=== PATIENT | female | born 1960 | race Caucasian/White ===

== ENCOUNTER → 2023-04-13 12:32 | Outpatient (BNVA) | payer OTHER, SELFPAY | PROVIDERS: PCP Family Medicine; Visit Provider Nurse Practitioner Family | DX: G62.9 Polyneuropathy, unspecified (principal); R09.89 Other specified symptoms and signs involving the circulatory and respiratory systems; R73.9 Hyperglycemia, unspecified; E03.9 Hypothyroidism, unspecified; M06.9 Rheumatoid arthritis, unspecified | CPT/HCPCS: 80053; 80061; 82306; 82607; 83036; 83735; 84439; 84443; 85025 ==

== ENCOUNTER 2023-04-28 12:36 | Outpatient (CLI) | payer OTHER, SELFPAY ==
--- NOTE | 2023-04-28 13:00 | US_ITS ---
WS: [id number] ULTRASOUND SOFT TISSUES inferior RIGHT neck. HISTORY: R22.1 - Localized swelling, mass and lump, neck COMPARISON: None available. TECHNIQUE: 2-D and color Doppler imaging is submitted. Patient directed ultrasound to the area of concern along the RIGHT supraclavicular region. There is n o underlying mass identified. No change in the echogenicity. IMPRESSION: Negative ultrasound RIGHT supraclavicular region.
--- NOTE | 2023-04-28 13:30 | USCV_ITS ---
Suzanne Ureña Age: 63 Gender: F : 1960 Exam Date: 04/28/2023 12:58 Ordering Phys: Rupa Norwood LAND RECLAMATION SPECIALIST LAND RECLAMATION SPECIALIST Technologist: KRISTIN Exam Location: [facility] – [place] Indication: Lt Bruit Risk Factors: Previous Vascular Surgery: Right Brachial BP: / Left Brachial BP: / Right Left Velocity (cm/s) Spectral Plaque Velocity (cm/s) Spectral Plaque Syst/Diast Broadening Syst/Diast Broadening 84.30/ 15.60 Prox CCA 74.30 / 20.50 87.10/ 18.70 Mid CCA 85.50 / 25.10 70.10/ 19.70 Distal CCA 80.00 / 26.70 54.10/ 17.30 Prox ICA 119.60/ 31.60 85.40/ 34.20 Mid ICA 123.60/ 44.70 81.00/ 27.00 Distal ICA 85.40 / 18.40 97.40 ECA 90.75 0.98 ICA/CCA 1.45 Antegrade Vertebral Antegrade 55.90/ 17.10 cm/s 55.50/ 17.10 cm/s Tri Subclavian Tri 191.1 156.3 0 0 FINDINGS Comparison: none available. No significant elevation of systolic or diastolic velocities. Waveforms are normal. No significant amount of calcified plaque or intimal thickening identified. CONCLUSIONS Normal carotid doppler ultrasound. Dr. Sunni Marks DO (Electronically Signed) Final Date: 28 April 2023 14:03 S
== END 2023-04-28 12:37 | disposition home or self-care (01) ==
LOC: RAD 12:36
PROVIDERS: PCP Family Medicine; Visit Provider Nurse Practitioner Family
DX: R22.1 Localized swelling, mass and lump, neck (principal); R09.89 Other specified symptoms and signs involving the circulatory and respiratory systems
CPT/HCPCS: 76536; 93880

== ENCOUNTER → 2023-09-06 11:56 | Outpatient (BNVA) | payer OTHER, SELFPAY | PROVIDERS: PCP Family Medicine; Visit Provider Internal Medicine Rheumatology | DX: Z79.899 Other long term (current) drug therapy (principal); M19.90 Unspecified osteoarthritis, unspecified site; Z11.59 Encounter for screening for other viral diseases; M45.6 Ankylosing spondylitis lumbar region; Z11.1 Encounter for screening for respiratory tuberculosis | CPT/HCPCS: 36415; 73130; 73630; 80076; 82306; 82565; 85025; 85651; 86140; 86200; 86431; 86480; 86704; 86803; 86812; 87340 ==

== ENCOUNTER 2023-10-06 16:23 | Inpatient (IN) | payer OTHER, SELFPAY ==
[2023-10-06] VITALS (9 sets, daily range): BP systolic 140–180; BP diastolic 93–127; PULSE 82–107; RESP 17–21; TEMP 36.7; O2SAT 96–98
--- NOTE | 2023-10-06 16:30 | XRR_ITS ---
PROCEDURE INFORMATION: Exam: XR Chest Exam date and time: 10/06/2023 4:42 PM Age: 63 years old Clinical indication: Pain; Angina pectoris; Additional info: Chest pain TECHNIQUE: Imaging protocol: Radiologic exam of the chest. Views: 1 view. COMPARISON: No relevant prior studies available. FINDINGS: Lungs: No focal consolidation. Pleural spaces: No evidence of pneumothorax. No evidence of pleural effusion. Heart/Mediastinum: Cardiomediastinal silhouette is within normal limits. Bones/joints: No evidence of acute osseous abnormality. XR/XR chest 1V portable [id number] IMPRESSION: 1. No acute cardiopulmonary abnormality.
--- NOTE | 2023-10-06 16:38 | ECG_ITS ---
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 Measurements Intervals [place] Rate: 85 P: 264 MO: 99 QRS: 36 QRSD: 82 T: 39 QT: 398 QTc: 475 Interpretive Statements ECTOPIC ATRIAL RHYTHM No previous ECG available for comparison Electronically Signed On 10-06-2023 22:48:25 CDT by Derik Meraz M.D. [id number]
--- NOTE | 2023-10-06 16:54 | ED_ITS ---
Documented by User: Al Price DO 10/07/23 07:46 HPI - Chest Pain 2 General: Chief Complaint: Chest Pain Stated Complaint: Chest pain, Dizziness Time Seen by Provider: 10/06/23 16:30 Source: patient Mode of arrival: ambulatory History of Present Illness: 63-year-old female presents emergency ro om with complaint of chest pain. She has a history of coronary disease she was out 2 weeks of yard work began to have chest discomfort radiated to her neck and into her back she says it similar to what she had before she did take aspirin and 2 sublingual nitro with no relief of her symptoms. Patient reports she had an IA 1 year ago with a stent placement. She states this feels similar to what she has had before. She is from [place] she has not established with a physician here. MD complaint: chest pain Pertinent past history: coronary artery disease Onset (ago): minute(s) Timing of current episode: episodic Onset: during exertion Pain location: left chest Pain radiation: back and neck Severity: moderate Quality: tightness Relieving factors: nothing Exacerbating factors: nothing Associated symptoms: Deny abdominal pain, diaphoresis, dyspnea, fever(s), leg edema, nausea, palpitations, sense of impending doom, syncope or vomiting Treatment prior to arrival: aspirin and nitroglycerin Risk Factors: Coronary artery disease risk factors: smoking history Review of Systems 2 Const: Denies: fever(s) or diaphoresis Card: Reports: chest pain; Denies: palpitations, edema, swelling of feet/ankles or syncope Resp: Denies: dyspnea GI: Denies: abdominal pain, nausea or vomiting : Denies: dysuria, urinary frequency or urinary urgency Musc: Denies: neck pain or back pain Skin/Breast: Denies: rash PFSH ED 2 PFSH: Medical History Immunization counseling High risk medication use Seronegative rheumatoid arthritis of both hands Hyperlipidemia Alcohol abuse Depression Neuropathy Facet arthritis of lumbar region Hypothyroid Rheumatoid arthritis Surgical History History of cholecystectomy H/O Spinal surgery S/P tonsillectomy H/O bladder repair surgery Family History Mother Rheumatoid arthritis Hypertension Social History Smoking and tobacco/nicotine status: current every day tobacco/nicotine user cigarettes Second hand smoke exposure: No Alcohol intake: current Alcohol intake frequency: 3 or more drinks per day Alcohol type: hard liquor Substance/Drug Use: current Substance/Drug use frequency: daily Physical Exam 2 Const: COMMON NORMALS: no acute distress GENERAL APPEARANCE: cooperative and comfortable ORIENTATION/CONSCIOUSNESS: Yes awake, Yes oriented to person, Yes oriented to place and Yes oriented to time HENMT: COMMON NORMALS: normocephalic, atraumatic and hearing grossly normal bilaterally HEAD & SCALP: normocephalic and atraumatic Resp: COMMON NORMALS: normal respiratory effort, No retractions, No use of accessory muscles and clear to auscultation bilaterally AUSCULTATION: clear to auscultation bilaterally Cardio: COMMON NORMALS: regular rate, regular rhythm and No murmurs present (Cardio) RATE: regular rate RHYTHM: regular rhythm GI: COMMON NORMALS: Soft to palpation and No hepatosplenomegaly present A USCULTATION: Yes normoactive bowel sounds PALPATION: Yes Soft to palpation, No Tenderness to palpation present (GI), No Guarding due to palpation present (GI) and Yes No hepatosplenomegaly present Extremity: COMMON NORMALS: normal to inspection, capillary refill normal, no clubbing, cyanosis or edema, no calf tenderness and no pedal edema Neuro: SENSORIUM/ORIENTATION: Yes oriented to person, Yes oriented to place and Yes oriented to time Skin: COMMON NORMALS: no rashes or lesions noted GENERAL SKIN EXAM: no rashes or lesions noted Course 2 Vital Signs: Vital signs: Vital Signs Temperature 98.1 F 10/07/23 07:28 Pulse Rate 74 10/07/23 07:28 Respiratory Rate 16 10/07/23 07:28 Blood Pressure 149/86 10/07/23 07:28 Pulse Oximetry 95 10/07/23 07:28 Oxygen Delivery Me thod Room Air 10/07/23 07:28 MDM - Chest Pain Medical Decision Making Patient with known cardiac history and history of stenting presents with complaints of onset of chest pain with exertion is completely resolved by the time she arrives here EKG did not show acute ST elevation. Initial troponin of 45. We do not have any past medical history on the patient she has an old EKG that she hand carries with her that shows Q waves anteriorly from her previous IA. Second troponin is pending care signed out to Dr. Garcia at change of shift. See final notes for diagnosis and disposition. Patient presents with chest pain has since resolved having exertional chest pain today 2-hour Trope was elevated consistent with NSTEMI EKG shows no acute changes will give her Lovenox spoke to hospitalist and administrative services assistant and will admit Lab Data 10/07/23 05:43 10/07/23 05:43 Radiology Impressions Chest X-Ray 10/06/23 16:30 IMPRESSION: 1. No acute cardiopulmonary abnormality. Laboratory Results WBC 8.99 10^3/uL (3.29-11.43) 10/06/23 17:18 RBC 4.15 10^6/uL (3.85-5.65) 10/06/23 17:18 Hgb 13.20 g/dL (11.27-16.99) 10/06/23 17:18 Hct 39.2 % (36-47) 10/06/23 17:18 MCV 94.5 fl (85-98) 10/06/23 17:18 MCH 31.8 pg (27-33) 10/06/23 17:18 MCHC 33.7 g/dL (30-55) 10/06/23 17:18 RDW 12.4 % (12.1-15.1) 10/06/23 17:18 Plt Count 231 10^3/cmm (157-399) 10/06/23 17:18 MPV 11.1 fL (7.4-10.4) H 10/06/23 17:18 Neut % (Auto) 80.8 % 10/06/23 17:18 Lymph % (Auto) 13.0 % 10/06/23 17:18 Lewis % (Auto) 5.1 % 10/06/23 17:18 Eos % (Auto) 0.1 % 10/06/23 17:18 Baso % (Auto) 0.6 % 10/06/23 17:18 Neut # (Auto) 7.26 10^3/uL (1.8-7.7) 10/06/23 17:18 Lymph # (Auto) 1.2 10^3/uL (0.8-4.8) 10/06/23 17:18 Lewis # (Auto) 0.5 10^3/uL (0.2-0.9) 10/06/23 17:18 Eos # (Auto) 0.0 10^3/uL (0.0-0.8) 10/06/23 17:18 Baso # (Auto) 0.1 10^3/uL (0.0-0.1) 10/06/23 17:18 Nucleated RBC % (auto) 0 % 10/06/23 17:18 Nucleated RBCs # 0.0 /100WBC 10/06/23 17:18 Sodium 133 mmol/L (136-145) L 10/06/23 17:18 Potassium 3.4 mmol/L (3.5-5.1) L 10/06/23 17:18 Chloride 99 mmol/L (98-107) 10/06/23 17:18 Carbon Dioxide 21 mmol/L (22-29) L 10/06/23 17:18 Anion Gap 16.4 (5-19) 10/06/23 17:18 BUN 8 mg/dL (8-23) 10/06/23 17:18 Creatinine 1.0 mg/dL (0.5-0.9) H 10/06/23 17:18 GFR Calculation 56.0 mL/min (90-130) L 10/06/23 17:18 Glucose 110 mg/dL (65-115) 10/06/23 17:18 Estimat Average Glucose 94 10/06/23 17:18 Hemoglobin A1c 4.9 % (4.0-6.0) 10/06/23 17:18 Calculated Osmolality 275 mOsm/kg (285-295) L 10/06/23 17:18 Calcium 8.6 mg/dL (8.5-10.5) 10/06/23 17:18 Total Bilirubin 0.5 mg/dL (0.15-1.2) 10/06/23 17:18 AST 15 U/L (0-32) 10/06/23 17:18 ALT 7 U/L (0-33) 10/06/23 17:18 Alkaline Phosphatase 82 U/L (35-105) 10/06/23 17:18 Troponin T Baseline 45 ng/L (0-10) H 10/06/23 17:18 Troponin T 120 Minute 106.1 ng/L (0-10) H 10/06/23 19:18 Delta Troponin T 61.1 ABS# (0-10) H* 10/06/23 19:18 NT-Pro-B Natriuret Pep 413 pg/mL (0-125) H 10/06/23 17:18 Total Protein 7.0 g/dL (6.6-8.7) 10/06/23 17:18 Albumin 3.9 g/dL (3.5-5.2) 10/06/23 17:18 Globulin 3.1 g/dL (1.3-4.6) 10/06/23 17:18 Triglycerides 226 mg/dL (0-150) H 10/06/23 17:18 Cholesterol 262 mg/dL (0-200) H 10/06/23 17:18 LDL Cholesterol, Calc 165 mg/dL (50-129) H 10/06/23 17:18 HDL Cholesterol 52 mg/dL (60-100) L 10/06/23 17:18 LDL/HDL Ratio 3.17 RATIO (0.00-3.22) 10/06/23 17:18 Cholesterol/HDL Ratio 5.04 mg/dL (0.0-4.40) H 10/06/23 17:18 TSH 1.07 uIU/mL (0.27-4.20) 10/06/23 17:18 Free T4 1.62 ng/dL (0.82-1.77) 10/06/23 17:18 Free T3 2.2 PG/ML (2.0-4.4) 10/06/23 17:18 Discharge Plan Discharge Patient Disposition: Admitted As Inpatient Admit Provider: Jef Vasques Clinical Impression: Non-ST elevation IA (NSTEMI) Condition: Stable Coding Level of Care Code ED Glue Mounter Operator for Chg Fwd Documented by User: Brandon Garcia MD 05/15/24 20:43 HPI - Chest Pain 2 General: Chief Complaint: Chest Pain Stated Complaint: Chest pain, Dizziness Time Seen by Provider: 10/06/23 16:30 PFSH ED 2 PFSH: Medical History Immunization counseling High risk medication use Seronegative rheumatoid arthritis of both hands Hyperlipidemia Alcohol abuse Depression Neuropathy Facet arthritis of lumbar region Hypothyroid Rheumatoid arthritis Surgical History History of cholecystectomy H/O Spinal surgery S/P tonsillectomy H/O bladder repair surgery Family History Mother Rheumatoid arthritis Hypertension Social History Smoking and tobacco/nicotine status: current every day tobacco/nicotine user cigarettes Second hand smoke exposure: No Alcohol intake: current Alcohol intake frequency: 3 or more drinks per day Alcohol type: hard liquor Substance/Drug Use: current Substance/Drug use frequency: daily Course 2 Vital Signs: Vital signs: Vital Signs Temperature 98.1 F 10/07/23 07:28 Pulse Rate 74 10/07/23 07:28 Respiratory Rate 16 10/07/23 07:28 Blood Pressure 149/86 10/07/23 07:28 Pulse Oximetry 95 10/07/23 07:28 Oxygen Delivery Me thod Room Air 10/07/23 07:28 MDM - Chest Pain Medical Decision Making Patient presents with chest pain has since resolved having exertional chest pain today 2-hour Trope was elevated consistent with NSTEMI EKG shows no acute changes will give her Lovenox spoke to hospitalist and administrative services assistant and will admit Medical Records I reviewed the patient's medical records. Lab Data I reviewed the patient's lab results. 10/07/23 05:43 10/07/23 05:43 Radiology Impressions Chest X-Ray 10/06/23 16:30 IMPRESSION: 1. No acute cardiopulmonary abnormality. Laboratory Results WBC 8.99 10^3/uL (3.29-11.43) 10/06/23 17:18 RBC 4.15 10^6/uL (3.85-5.65) 10/06/23 17:18 Hgb 13.20 g/dL (11.27-16.99) 10/06/23 17:18 Hct 39.2 % (36-47) 10/06/23 17:18 MCV 94.5 fl (85-98) 10/06/23 17:18 MCH 31.8 pg (27-33) 10/06/23 17:18 MCHC 33.7 g/dL (30-55) 10/06/23 17:18 RDW 12.4 % (12.1-15.1) 10/06/23 17:18 Plt Count 231 10^3/cmm (157-399) 10/06/23 17:18 MPV 11.1 fL (7.4-10.4) H 10/06/23 17:18 Neut % (Auto) 80.8 % 10/06/23 17:18 Lymph % (Auto) 13.0 % 10/06/23 17:18 Lewis % (Auto) 5.1 % 10/06/23 17:18 Eos % (Auto) 0.1 % 10/06/23 17:18 Baso % (Auto) 0.6 % 10/06/23 17:18 Neut # (Auto) 7.26 10^3/uL (1.8-7.7) 10/06/23 17:18 Lymph # (Auto) 1.2 10^3/uL (0.8-4.8) 10/06/23 17:18 Lewis # (Auto) 0.5 10^3/uL (0.2-0.9) 10/06/23 17:18 Eos # (Auto) 0.0 10^3/uL (0.0-0.8) 10/06/23 17:18 Baso # (Auto) 0.1 10^3/uL (0.0-0.1) 10/06/23 17:18 Nucleated RBC % (auto) 0 % 10/06/23 17:18 Nucleated RBCs # 0.0 /100WBC 10/06/23 17:18 Sodium 133 mmol/L (136-145) L 10/06/23 17:18 Potassium 3.4 mmol/L (3.5-5.1) L 10/06/23 17:18 Chloride 99 mmol/L (98-107) 10/06/23 17:18 Carbon Dioxide 21 mmol/L (22-29) L 10/06/23 17:18 Anion Gap 16.4 (5-19) 10/06/23 17:18 BUN 8 mg/dL (8-23) 10/06/23 17:18 Creatinine 1.0 mg/dL (0.5-0.9) H 10/06/23 17:18 GFR Calculation 56.0 mL/min (90-130) L 10/06/23 17:18 Glucose 110 mg/dL (65-115) 10/06/23 17:18 Estimat Average Glucose 94 10/06/23 17:18 Hemoglobin A1c 4.9 % (4.0-6.0) 10/06/23 17:18 Calculated Osmolality 275 mOsm/kg (285-295) L 10/06/23 17:18 Calcium 8.6 mg/dL (8.5-10.5) 10/06/23 17:18 Total Bilirubin 0.5 mg/dL (0.15-1.2) 10/06/23 17:18 AST 15 U/L (0-32) 10/06/23 17:18 ALT 7 U/L (0-33) 10/06/23 17:18 Alkaline Phosphatase 82 U/L (35-105) 10/06/23 17:18 Troponin T Baseline 45 ng/L (0-10) H 10/06/23 17:18 Troponin T 120 Minute 106.1 ng/L (0-10) H 10/06/23 19:18 Delta Troponin T 61.1 ABS# (0-10) H* 10/06/23 19:18 NT-Pro-B Natriuret Pep 413 pg/mL (0-125) H 10/06/23 17:18 Total Protein 7.0 g/dL (6.6-8.7) 10/06/23 17:18 Albumin 3.9 g/dL (3.5-5.2) 10/06/23 17:18 Globulin 3.1 g/dL (1.3-4.6) 10/06/23 17:18 Triglycerides 226 mg/dL (0-150) H 10/06/23 17:18 Cholesterol 262 mg/dL (0-200) H 10/06/23 17:18 LDL Cholesterol, Calc 165 mg/dL (50-129) H 10/06/23 17:18 HDL Cholesterol 52 mg/dL (60-100) L 10/06/23 17:18 LDL/HDL Ratio 3.17 RATIO (0.00-3.22) 10/06/23 17:18 Cholesterol/HDL Ratio 5.04 mg/dL (0.0-4.40) H 10/06/23 17:18 TSH 1.07 uIU/mL (0.27-4.20) 10/06/23 17:18 Free T4 1.62 ng/dL (0.82-1.77) 10/06/23 17:18 Free T3 2.2 PG/ML (2.0-4.4) 10/06/23 17:18 All radiology interpretation(s) finalized by discharge Discharge Plan Discharge Patient Disposition: Admitted As Inpatient Admit Provider: Jef Vasques Clinical Impression: Non-ST elevation IA (NSTEMI) Condition: Stable Coding Level of Care Code ED Glue Mounter Operator for Meera Virk
[2023-10-06 17:59] LABS: Basophils # 0.1 10^3/uL (0.0-0.1); Basophils % 0.6 %; Eosinophils % 0.1 %; Hematocrit 39.2 % (36-47); Lymphocytes # 1.2 10^3/uL (0.8-4.8); Mean Corpuscular HGB Conc 33.7 g/dL (30-55); Mean Corpuscular Hemoglobin 31.8 pg (27-33); Mean Corpuscular Volume 94.5 fl (85-98); Mean Platelet Volume 11.1 fL (7.4-10.4); Monocytes # 0.5 10^3/uL (0.2-0.9); Monocytes % 5.1 %; Neutrophils # 7.26 10^3/uL (1.8-7.7); Neutrophils % 80.8 %; Nucleated Red Blood Cells % 0 %; Platelet Count 231 10^3/cmm (157-399); Red Blood Count 4.15 10^6/uL (3.85-5.65); Red Cell Distribution Width 12.4 % (12.1-15.1); White Blood Count 8.99 10^3/uL (3.29-11.43)
[2023-10-06 18:07] LABS: Troponin(5th) Baseline 45 ng/L (0-10)
[2023-10-06 18:08] LABS: Alanine Aminotransferase 7 U/L (0-33); Albumin Level 3.9 g/dL (3.5-5.2); Alkaline Phosphatase 82 U/L (35-105); Anion Gap 16.4 (5-19); Aspartate Amino Transferase 15 U/L (0-32); Blood Urea Nitrogen 8 mg/dL (8-23); Calcium 8.6 mg/dL (8.5-10.5); Carbon Dioxide 21 mmol/L (22-29); Chloride 99 mmol/L (98-107); Creatinine Clr Calc Pharmacy 57.0829; Globulin 3.1 g/dL (1.3-4.6); Glucose 110 mg/dL (65-115); Osmolality Calculated 275 mOsm/kg (285-295); Potassium 3.4 mmol/L (3.5-5.1); Sodium 133 mmol/L (136-145); Total Bilirubin 0.5 mg/dL (0.15-1.2)
--- NOTE | 2023-10-06 19:01 | ECG_ITS ---
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 Measurements Intervals [place] Rate: 77 P: 0 MA: 0 QRS: 36 QRSD: 87 T: 31 QT: 402 QTc: 455 Interpretive Statements ATRIAL FIBRILLATION Compared to ECG 10/06/2023 16:38:11 Junctional rhythm no longer present Electronically Signed On 10-06-2023 22:49:28 CDT by Derik Meraz M.D. [id number]
[2023-10-06 19:55] LABS: Troponin 5 2HR 106.1 ng/L (0-10); Troponin 5 2HR Delta 61.1 ABS# (0-10)
[2023-10-06] MEDS: hyDRALAzine 20 mg/mL INJ 1 mL 10 MG IVP (20:00)
[2023-10-06] MEDS: enoxaparin 80 mg/0.8 mL Syringe 70 MG SUBCUT (20:18)
--- NOTE | 2023-10-06 21:13 | P.CONIM_ITS ---
Providers/Reason For Consult 2 Consulting Physician/Specialty*: NAKIA Calderon MD/cardiology Reason for Consult*: Patient is a chest pain and elevated troponin T Requesting Physician: Dr. Vasques Attending Physician: Jef Vasques MD Primary Care Provider: Naomi Strickland MD History of Present Illness History of Present Illness Suzanne Ureña is a 63 year old female with a history of hypertension, hypothyroidism, rheumatoid arthritis, and a questionable history of myocardial infarction, is present with complaints of generalized weakness and chest pain for 2 days. She was found to have an elevated troponin T with a Significant delta at 2 hours. Cardiology consult is requested for further cardiac evaluation recommendations. This patient is a very poor historian. She has a questionable history of myocardial infarction a year ago while she was still in [place]. She did not go to the doctor right away at that time. After 4 days or so, she was seen by the primary care provider. She had some blood test and EKGs. She was subsequently seen by a laboratory analyst. She was advised for a stress test/cardiac catheterization. But because of some insurance issues, she never had these tests done. Around this time, she also was making her move to [place]. So she decided not to pursue this. She has been in this area for the last more than a year. According the patient, she has been in the process of getting her medical records from [place] and to see a laboratory analyst in this area. She has been having episodes of chest pain for the last 1 year. Her pain has been exertional most of the times. It is in the lower substernal area, occasionally radiate to the left shoulder. Usually these pains last for 5 to 10 minutes and then gradually subsides. This morning she had a pain lasting for 45 minutes or so. Intensity of the pain was moderate to severe. Pain was rating to the left shoulder and also to the left side of the neck associated with shortness of breath and sweating. She had some radiation to the left arm as well. Because of the prolonged episode of pain, EMS was contacted and she was brought to the hospital emergency room. At the time of my examination, patient is mostly pain-free. She has a history of hypertension for the last many years. Cholesterol status is not known. No history for diabetes. She smokes a pack a day for 40 years or so. Also used to drink heavily up until few years ago. Since she started taking methotrexate for the rheumatoid arthritis, she almost quit drinking. Review of Systems 2 Narrative: CONSTITUTIONAL: No fever or chills. Feeling of fatigue/tiredness for the last couple of days EYES: No blurring of vision or other visual disturbances lately. ENT: No hoarseness of voice, auditory disturbances or sore throat. CARDIOVASCULAR: As mentioned above. RESPIRATORY: No significant cough. GASTROINTESTINAL: No hematemesis or melena. GENITOURINARY: No dysuria or hematuria. INTEGUMENTARY: No skin rashes or history of skin cancer. NEURO: No transient ischemic attacks or amaurosis. PSYCHIATRIC: No history of psychosis or major depression. HEMATOLOGIC: Easy bruising because the steroids ENDOCRINE: History of hypothyroidism MUSCULOSKELETAL: History of rheumatoid arthritis ALLERGY/IMMUNOLOGY: As mentioned above. Medications/Allergies Home Medications Medication Instructions Recorded Confirmed Last Taken Type aspirin 81 mg tablet,delayed 81 mg PO DAILY 04/13/23 10/06/23 10/06/23 07:00 History release duloxetine 60 mg capsule,delayed 60 mg PO DAILY 04/13/23 10/06/23 10/06/23 History release levothyroxine 112 mcg tablet 112 mcg PO DAILY 04/13/23 10/06/23 10/06/23 History liothyronine 5 mcg tablet 5 mcg PO DAILY 04/13/23 10/06/23 10/06/23 History cholecalciferol (vitamin D3) 50 50 mcg PO DAILY 09/13/23 10/06/23 10/06/23 History mcg (2,000 unit) capsule folic acid 1 mg tablet 1 mg PO DAILY #30 tabs 09/13/23 10/06/23 10/06/23 Rx methotrexate sodium 2.5 mg tablet See Rx Instructions PO .Q7days #30 09/13/23 10/06/23 10/06/23 Rx tabs prednisone 10 mg tablet 10 mg PO DAILY inflammatory 09/15/23 10/06/23 10/06/23 Rx arthritis 30 days #30 tabs buspirone 5 mg tablet 2.5 mg PO BID 10/06/23 10/06/23 10/06/23 History Allergies Allergy/AdvReac Type Severity Reaction Status Date / Time tetracycline Allergy Severe ALGY-Anaphy Verified 09/06/23 10:55 laxis PFSH Acute 2 PFSH: Medical History Immunization counseling High risk medication use Seronegative rheumatoid arthritis of both hands Hyperlipidemia Alcohol abuse Depression Neuropathy Facet arthritis of lumbar region Hypothyroid Rheumatoid arthritis Surgical History History of cholecystectomy H/O Spinal surgery S/P tonsillectomy H/O bladder repair surgery Family History Mother Rheumatoid arthritis Hypertension Social History Smoking and tobacco/nicotine status: current every day tobacco/nicotine user cigarettes Second hand smoke exposure: No Alcohol intake: current Alcohol intake frequency: 3 or more drinks per day Alcohol type: hard liquor Substance/Drug Use: current Substance/Drug use frequency: daily Vitals/I&O/Wt Last Vital Signs Pulse 84 10/06/23 21:00 Resp 18 10/06/23 21:00 BP 159/94 10/06/23 21:00 Pulse Ox 98 10/06/23 21:00 O2 Del Method Room Air 10/06/23 20:30 Weight last 48 hrs Weight 150 lb Physical Exam 2 Narrative: GENERAL: The patient is alert and oriented times three. Not in any acute distress. HEENT: No significant pallor, icterus or lymphadenopathy.Oral cavity: There are no mucous membrane lesions. NECK: Trachea appears to be central. No masses noted. No JVD or thyromegaly appreciated. RESPIRATORY: Chest is symmetrical. No intercostals muscle retraction or any accessory muscle activation. There is no chest wall tenderness. Breath sounds are heard bilaterally. No rales or rhonchi heard. No evidence of any consolidation. BREASTS: Deferred. HEART: The heart sounds are normal. No S3 or S4. No significant murmurs. No pericardial rub ABDOMEN: No vessel pulsations or distention. No tenderness. No organomegaly appreciated. Bowel sounds are normally heard. : Deferred. RECTAL: Deferred. LYMPHATIC: No lymphadenopathy noted in the neck. EXTREMITIES: No edema or cyanosis. No clubbing. MUSCULOSKELETAL: No acute joint deformities or swelling SKIN: There are no significant rashes or ecchymosis NEUROPSYCHIATRIC: The patient is alert and oriented x3. Appears to be in a good mood. No tremors or rigidity noted. Data 10/06/23 17:18 10/06/23 17:18 Other Labs: Laboratory Last Values WBC 8.99 10^3/uL (3.29-11.43) 10/06/23 17:18 RBC 4.15 10^6/uL (3.85-5.65) 10/06/23 17:18 Hgb 13.20 g/dL (11.27-16.99) 10/06/23 17:18 Hct 39.2 % (36-47) 10/06/23 17:18 MCV 94.5 fl (85-98) 10/06/23 17:18 MCH 31.8 pg (27-33) 10/06/23 17:18 MCHC 33.7 g/dL (30-55) 10/06/23 17:18 RDW 12.4 % (12.1-15.1) 10/06/23 17:18 Plt Count 231 10^3/cmm (157-399) 10/06/23 17:18 MPV 11.1 fL (7.4-10.4) H 10/06/23 17:18 Neut % (Auto) 80.8 % 10/06/23 17:18 Lymph % (Auto) 13.0 % 10/06/23 17:18 Cottle % (Auto) 5.1 % 10/06/23 17:18 Eos % (Auto) 0.1 % 10/06/23 17:18 Baso % (Auto) 0.6 % 10/06/23 17:18 Neut # (Auto) 7.26 10^3/uL (1.8-7.7) 10/06/23 17:18 Lymph # (Auto) 1.2 10^3/uL (0.8-4.8) 10/06/23 17:18 Cottle # (Auto) 0.5 10^3/uL (0.2-0.9) 10/06/23 17:18 Eos # (Auto) 0.0 10^3/uL (0.0-0.8) 10/06/23 17:18 Baso # (Auto) 0.1 10^3/uL (0.0-0.1) 10/06/23 17:18 Nucleated RBC % (auto) 0 % 10/06/23 17:18 Nucleated RBCs # 0.0 /100WBC 10/06/23 17:18 Sodium 133 mmol/L (136-145) L 10/06/23 17:18 Potassium 3.4 mmol/L (3.5-5.1) L 10/06/23 17:18 Chloride 99 mmol/L (98-107) 10/06/23 17:18 Carbon Dioxide 21 mmol/L (22-29) L 10/06/23 17:18 Anion Gap 16.4 (5-19) 10/06/23 17:18 BUN 8 mg/dL (8-23) 10/06/23 17:18 Creatinine 1.0 mg/dL (0.5-0.9) H 10/06/23 17:18 GFR Calculation 56.0 mL/min (90-130) L 10/06/23 17:18 Glucose 110 mg/dL (65-115) 10/06/23 17:18 Calculated Osmolality 275 mOsm/kg (285-295) L 10/06/23 17:18 Calcium 8.6 mg/dL (8.5-10.5) 10/06/23 17:18 Total Bilirubin 0.5 mg/dL (0.15-1.2) 10/06/23 17:18 AST 15 U/L (0-32) 10/06/23 17:18 ALT 7 U/L (0-33) 10/06/23 17:18 Alkaline Phosphatase 82 U/L (35-105) 10/06/23 17:18 Troponin T Baseline 45 ng/L (0-10) H 10/06/23 17:18 Troponin T 120 Minute 106.1 ng/L (0-10) H 10/06/23 19:18 Delta Troponin T 61.1 ABS# (0-10) H* 10/06/23 19:18 Total Protein 7.0 g/dL (6.6-8.7) 10/06/23 17:18 Albumin 3.9 g/dL (3.5-5.2) 10/06/23 17:18 Globulin 3.1 g/dL (1.3-4.6) 10/06/23 17:18 EKG 1: My Interpretation: Ectopic atrial rhythm. Normal ST Ts. EKG 2: My Interpretation: Atrial fibrillation with a controlled ventricular response rate. A&P Assessment and plan (1) Non-ST elevation AK (NSTEMI): The patient may be treated with a subcu Lovenox. Also may be started on Plavix 300 mg p.o. now and daily, Nitropaste 1 inch every 6 hours 20 chest wall and metoprolol 25 mg p.o. twice daily. May be kept on the other medications as it is. (2) Atrial fibrillation by electrocardiogram: This seems to be new onset of atrial fibrillation. Will check her thyroid profile. Continue the anticoagulation. Echocardiogram as mentioned above. The patient is stable hemodynamically. (3) Hyperlipidemia: May go out and do a lipid profile on the blood in the lab. Patient may be started on Lipitor 40 mg p.o. now and daily. Qualifiers: Hyperlipidemia type: unspecified Qualified Code(s): E78.5 - Hyperlipidemia, unspecified (4) Hypokalemia: Hypokalemia may be corrected. (5) Hypothyroidism (acquired): Clinically euthyroid. May continue on the current medication. (6) Elevated blood pressure reading: I may start the patient on metoprolol 25 mg p.o. twice daily. Her blood pressure needs to be closely monitored. (7) History of myocardial infarction: An echocardiogram would be helpful to evaluate LV function and rule out any other pathology. Plan After reviewing the above and also based on the patient's clinical progress, further recommendations will be made. Thank you for the opportunity to evaluate this patient and make these recommendations Consult Attestations 2 Medical Necessity Statement: Patient requires continued hospital stay for close monitoring and further management Coding Level of Care Code 15702 Diagnoses Non-ST elevation AK (NSTEMI) I21.4 Atrial fibrillation by electrocardiogram I48.91 Hyperlipidemia, unspecified hyperlipidemia type E78.5 Hyperlipidemia type: unspecified Hypokalemia E87.6 Hypothyroidism (acquired) E03.9 Elevated blood pressure reading R03.0 History of myocardial infarction I25.2
--- NOTE | 2023-10-06 21:45 | USCV_ITS ---
Suzanne Ureña Age: 63 Gender: F : 1960 Exam Date: 10/06/2023 23:13 Ordering Phys: Jef Vasques MD Technologist: CATHRYN [place] [facility] [place]: NSTEMI. History of OH per patient 2022, but she denies any stenting or other intervention. BP: 150 / 93 HR: 81 Rhythm: Sinus Technical Quality: Good MEASUREMENTS (Male / Female) Normal Values 2D ECHO LV Diastolic Diameter PLAX 4.7 cm 4.2 - 5.9 / 3.9 - 5.3 cm IVS Diastolic Thickness 1.0 cm 0.6 - 1.0 / 0.6 - 0.9 cm IVS Systolic Thickness 1.8 cm LVPW Diastolic Thickness 1.4 cm 0.6 - 1.0 / 0.6 - 0.9 cm LVPW Systolic Thickness 1.4 cm LVOT Diameter 1.8 cm LV Ejection Fraction 2D Teich 64.5 % LV Ejection Fraction MOD 2C 68.2 % LV Ejection Fraction 2C AL 70.7 % LA Diameter 3.3 cm Aorta at Sinotubular Diameter 3.2 cm IVC Diameter 1.7 cm M-MODE LA Ao Ratio MM 1.2 AV Cusp Separation MM 1.5 cm DOPPLER AV Peak Velocity 133.0 cm/s LVOT Peak Velocity 93.0 cm/s AV Area Cont Eq vti 2.0 cm squared AV Area Cont Eq pk 1.8 cm squared MV Peak Velocity 120.0 cm/s MV Area PHT 4.4 cm squared Mitral E to A Ratio 0.9 TV Peak Velocity 237.5 cm/s TR Peak Velocity 252.0 cm/s TR Peak Gradient 25.4 mmHg TV Peak E Velocity 39.0 cm/s Right Atrial Pressure 3.0 mmHg Pulmonary Artery Systolic Pressu 28.4 mmHg PV Peak Velocity 101.0 cm/s FINDINGS Left Ventricle Normal left ventricular size and systolic function, EF 64%.hypokinetic basal inferior wall segment normal left ventricular wall thickness. Grade I/IV diastolic dysfunction (abnormal relaxation filling pattern), normal to mildly elevated filling pressures. Right Ventricle The right ventricle is normal in size and function. Right Atrium The right atrium is normal in size. Left Atrium Mildly increased left atrial size. Mitral Valve Mildly thickened mitral valve. Mild mitral annular calcification. Mild-moderate mitral valve regurgitation. Aortic Valve Thickened aortic valve. Tricuspid Valve Mild tricuspid valve regurgitation. Estimated pulmonary artery peak systolic pressure 28 mmHg Pulmonic Valve No gross abnormalities noted Pericardium Normal pericardium without effusion. Aorta Normal ascending aorta dimension. IVC Normal inferior vena cava. CONCLUSIONS Normal left ventricular size and systolic function, EF 64%.hypokinetic basal inferior wall segment normal left ventricular wall thickness. Grade I/IV diastolic dysfunction (abnormal relaxation filling pattern), normal to mildly elevated filling pressures. Mildly increased left atrial size. Mildly thickened mitral valve. Mild mitral annular calcification. Mild-moderate mitral valve regurgitation. Thickened aortic valve. Mild tricuspid valve regurgitation. Estimated pulmonary artery peak systolic pressure 28 mmHg. There is no pericardial effusion. There are no intracardiac masses. No similar previous studies are available for comparison Dr Landen Calderon MD FAC (Electronically Signed) Final Date: 07 Oct 2023 16:30 S
[2023-10-06] MEDS: carvedilol 3.125 mg Tablet PO (21:59)
[2023-10-06] MEDS: atorvastatin 40 mg Tablet PO (21:59)
[2023-10-06] MEDS: pantoprazole 40 mg SDV IVP (22:00)
[2023-10-06] MEDS: ondansetron 2 mg/ML SDV 2 mL 4 MG IVP (22:01)
--- NOTE | 2023-10-06 22:09 | PM.HP ---
Providers/Chief Complaint Admitting Physician: Jef Vasques MD Primary Care Provider: Naomi Strickland MD Chief Complaint: Chest pain, Dizziness History of Present Illness Suzanne Ureña is a 63 year old female with a past medical history of hypothyroidism, hypertension, hyperlipidemia, current smoker, history of inflammatory arthritis, history of CAD history of heart attack. Who presents [facility] for chest pain. Currently patient tells me that her chest pain is 3 out of 10 she is resting more comfortably, alert oriented x 3, following all commands, on room air, heart rates in the 80s, blood pressure 159/94. Patient tells me that a years ago she had episodes of chest pain, did not go to the emergency room, she finally went to her primary care provider who did some blood work and EKGs and told her that she had a heart attack but she was out of the window for any type of treatment. She was supposed to follow-up with a medical grade shoemaker but she never did. 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 She does report smoking cigarettes, does report marijuana use. She tells me that she is moved to [place] to be closer to her granddaughter. She tells me that today she was working on the garden, and when she exerted herself she developed severe substernal chest pain, radiated to the neck, to the back,, associate with diaphoresis, shortness of breath, no lightheadedness, no dizziness, chest pain did not improve with rest, so she called EMS, she was given nitroglycerin which improved her chest pain, initial EKG no acute ST-T wave changes, troponin 120, delta 61, hospitalist team was called for admission Review of Systems Card: Reports: chest pain Resp: Reports: dyspnea GI: Denies: abdominal pain Medications/Allergies Home Medications Medication Instructions Recorded Confirmed Last Taken Type aspirin 81 mg tablet,delayed 81 mg PO DAILY 04/13/23 10/06/23 10/06/23 07:00 History release duloxetine 60 mg capsule,delayed 60 mg PO DAILY 04/13/23 10/06/23 10/06/23 History release levothyroxine 112 mcg tablet 112 mcg PO DAILY 04/13/23 10/06/23 10/06/23 History liothyronine 5 mcg tablet 5 mcg PO DAILY 11/10/06/23 10/06/23 History cholecalciferol (vitamin D3) 50 50 mcg PO DAILY 09/13/23 10/06/23 10/06/23 History mcg (2,000 unit) capsule folic acid 1 mg tablet 1 mg PO DAILY #30 tabs 09/13/23 10/06/23 10/06/23 Rx methotrexate sodium 2.5 mg tablet See Rx Instructions PO .Q7days #30 09/13/23 10/06/23 10/06/23 Rx tabs prednisone 10 mg tablet 10 mg PO DAILY inflammatory 09/15/23 10/06/23 10/06/23 Rx arthritis 30 days #30 tabs buspirone 5 mg tablet 2.5 mg PO BID 10/06/23 10/06/23 10/06/23 History Allergies Allergy/AdvReac Type Severity Reaction Status Date / Time tetracycline Allergy Severe ALGY-Anaphy Verified 09/06/23 10:55 laxis PFSH Acute PFSH: Medical History Immunization counseling High risk medication use Seronegative rheumatoid arthritis of both hands Hyperlipidemia Alcohol abuse Depression Neuropathy Facet arthritis of lumbar region Hypothyroid Rheumatoid arthritis Surgical History History of cholecystectomy H/O Spinal surgery S/P tonsillectomy H/O bladder repair surgery Family History Mother Rheumatoid arthritis Hypertension Social History Smoking and tobacco/nicotine status: current every day tobacco/nicotine user cigarettes Second hand smoke exposure: No Alcohol intake: current Alcohol intake frequency: 3 or more drinks per day Alcohol type: hard liquor Substance/Drug Use: current Substance/Drug use frequency: daily Vitals/I&O/Wt Last Vital Signs Pulse 84 10/06/23 21:00 Resp 18 10/06/23 21:00 BP 159/94 10/06/23 21:00 Pulse Ox 98 10/06/23 21:00 O2 Del Method Room Air 10/06/23 21:19 Weight last 48 hrs Weight 71.327 kg Weight 68.039 kg Physical Exam Const: COMMON NORMALS: no acute distress and patient oriented x3 HENMT: COMMON NORMALS: normocephalic HEAD & SCALP: normocephalic Eye: COMMON NORMALS: Equal, round and reactive pupils present Neck/C-Spine: COMMON NORMALS: no JVD Lymph: LYMPHATIC: no lymphadenopathy noted Resp: COMMON NORMALS: normal respiratory effort, No retractions, No use of accessory muscles and clear to auscultation bilaterally AUSCULTATION: clear to auscultation bilaterally Cardio: COMMON NORMALS: no JVD, regular rate, regular rhythm, S1 normal heart sound present and S2 normal heart sound present RATE: regular rate RHYTHM: regular rhythm HEART SOUNDS: S1 normal heart sound present and S2 normal heart sound present GI: COMMON NORMALS: Normal to inspection, nondistended, normoactive bowel sounds present, Soft to palpation and non-tender Extremity: COMMON NORMALS: no calf tenderness and no pedal edema Neuro: COMMON NORMALS: patient oriented x3, CN's II-XII intact bilaterally and moves all extremities Psych: COMMON NORMALS: mental status grossly normal Data 10/06/23 17:18 10/06/23 17:18 A&P Assessment and plan (1) Non-ST elevation AR (NSTEMI): (2) Chest pain: (3) Hypothyroid: (4) Encounter for smoking cessation counseling: Plan Chest pain, NSTEMI ? Plan ? Cardiology has been consulted, Dr. Calderon consulted ? N.p.o. over midnight, ? Therapeutic Lovenox ? Aspirin, statin, Coreg ? Serial EKGs consult once, telemetry monitoring ? Cardiac echo ? Will consider nitroglycerin drip based on clinical progress if chest pain persist or worsens ? Full code ? Therapeutic Lovenox for DVT prophylaxis ? Smoking cessation counseling ? Lipid panel, A1c, check TSH, drug screen Attestations Medical Necessity Statement*: Patient requires hospitalization, inpatient, greater than 2 midnights, for chest pain, NSTEMI Diagnoses Non-ST elevation AR (NSTEMI) I21.4 Chest pain R07.9 Hypothyroid E03.9 Encounter for smoking cessation counseling Z71.6
[2023-10-06 22:15] LABS: Estmated Average Glucose 94; Hemoglobin A1C 4.9 % (4.0-6.0)
[2023-10-06 22:25] LABS: Chol HDL Ratio 5.04 mg/dL (0.0-4.40); Cholesterol 262 mg/dL (0-200); Free T4 Free Thyroxine 1.62 ng/dL (0.82-1.77); HDL Cholesterol 52 mg/dL (60-100); LDL Cholesterol Calculated 165 mg/dL (50-129); LDL HDL Ratio 3.17 RATIO (0.00-3.22); NT Pro B Type Natriuretic Pept 413 pg/mL (0-125); T3 Free 2.2 PG/ML (2.0-4.4); Triglycerides 226 mg/dL (0-150)
[2023-10-06] MEDS: temazepam 15 mg Capsule PO (22:25)
--- NOTE | 2023-10-06 22:31 | ECG_ITS ---
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 Measurements Intervals Trosper Rate: 77 P: 58 RI: 121 QRS: 32 QRSD: 77 T: 7 QT: 407 QTc: 461 Interpretive Statements SINUS RHYTHM SEPTAL MYOCARDIAL INFARCTION , PROBABLY OLD [40+ ms Q WAVE IN V1/V2] Compared to ECG 10/06/2023 19:01:04 Myocardial infarct finding now present Atrial fibrillation no longer present Electronically Signed On 10-08-2023 0:16:30 CDT by Landen Calderon M.D. [email or web address]
[2023-10-06] MEDS: nitroglycerin 1 gm/inch oint Pkt 1 INCH TOPICAL (23:12)
[2023-10-06] MEDS: clopidogrel 300 mg Tablet PO (23:12)
[2023-10-06 23:47] LABS: Thyroid Stimulating Hormone 1.07 uIU/mL (0.27-4.20)
[2023-10-07] VITALS (63 sets, daily range): BP systolic 91–149; BP diastolic 49–97; PULSE 67–93; RESP 16–22; TEMP 36.6–37.2; O2SAT 93–99
[2023-10-07 00:55] LABS: Troponin 5 6HR 248.4 ng/L (0-10); Troponin 5 6HR Delta 203.4 ng/L (0-12)
[2023-10-07] MEDS: nitroglycerin 1 gm/inch oint Pkt 1 INCH TOPICAL ×3 (04:09→23:30)
[2023-10-07 04:51] LABS: Amphetamines Screen Urine Negative (Negative); Barbiturates Screen Urine Negative (Negative); Benzodiazepines Screen Urine Positive (Negative); Cocaine Screen Urine Negative (Negative); Opiate Screen Urine Negative (Negative); PCP Screen Urine Negative (Negative); THC Screen Urine Positive (Negative)
[2023-10-07 05:06] LABS: Add Urine Culture? Yes; Add Urine Microscopic? YES; Bacteria Urine 4+ /hpf; Bilirubin Urine Neg (Negative); Blood Urine Neg (Negative); Glucose Urine UA Norm (Normal); Ketones Urine Negative (Negative); Leukocyte Esterase Urine Trace (Negative); Nitrate Urine Positive (Negative); Protein Urine Neg (Negative); RBC Urine 0-4 /hpf (0-2); Urine Appearance Hazy (CLEAR); Urine Color Light yellow (Yellow); Urobilinogen Urine Neg (Negative); pH Urine 5 (5-7)
[2023-10-07 05:57] LABS: Basophils # 0.1 10^3/uL (0.0-0.1); Eosinophils # 0.2 10^3/uL (0.0-0.8); Eosinophils % 2.2 %; Hematocrit 38.4 % (36-47); Lymphocytes # 2.4 10^3/uL (0.8-4.8); Mean Corpuscular HGB Conc 33.9 g/dL (30-55); Mean Corpuscular Hemoglobin 32.7 pg (27-33); Mean Corpuscular Volume 96.7 fl (85-98); Mean Platelet Volume 10.3 fL (7.4-10.4); Monocytes # 0.7 10^3/uL (0.2-0.9); Monocytes % 8.8 %; Neutrophils # 4.74 10^3/uL (1.8-7.7); Neutrophils % 58.6 %; Nucleated Red Blood Cells % 0 %; Platelet Count 224 10^3/cmm (157-399); Red Blood Count 3.97 10^6/uL (3.85-5.65); Red Cell Distribution Width 12.5 % (12.1-15.1); White Blood Count 8.09 10^3/uL (3.29-11.43)
[2023-10-07 06:24] LABS: Alanine Aminotransferase 9 U/L (0-33); Albumin Level 3.6 g/dL (3.5-5.2); Alkaline Phosphatase 73 U/L (35-105); Anion Gap 12.6 (5-19); Aspartate Amino Transferase 28 U/L (0-32); Blood Urea Nitrogen 9 mg/dL (8-23); Calcium 8.5 mg/dL (8.5-10.5); Carbon Dioxide 24 mmol/L (22-29); Chloride 107 mmol/L (98-107); Creatinine Clr Calc Pharmacy 64.7082; Globulin 2.8 g/dL (1.3-4.6); Glomerular Filtration Rate 63.2 mL/min (90-130); Glucose 89 mg/dL (65-115); Magnesium 2.2 mg/dL (1.7-2.3); Osmolality Calculated 288 mOsm/kg (285-295); Phosphorus 3.5 mg/dL (2.5-4.5); Potassium 3.6 mmol/L (3.5-5.1); Sodium 140 mmol/L (136-145); Total Bilirubin 0.7 mg/dL (0.15-1.2); Total Protein 6.4 g/dL (6.6-8.7)
--- NOTE | 2023-10-07 08:04 | P.PN_ITS ---
Subjective 2 Subjective: Currently has no chest pain. Vital signs remained stable. Echocardiac revealed hypokinetic basal inferior wall segment. Overall LV ejection fraction was within normal limits. Medications: Medication Review Details: Current Medications Acetaminophen (Acetaminophen 325 Mg Tablet) 650 mg PO Q6H PRN PRN Reason: Mild/Mod Pain Or Temp >/= 101 Aspirin (Aspirin 81 Mg Ec Tablet) 81 mg PO DAILY [facility] Atorvastatin Calcium (Atorvastatin 40 Mg Tablet) 40 mg PO BEDTIME [facility] Last Admin: 10/06/23 21:59 Dose: 40 mg Buspirone HCl (Buspirone 10 Mg Tablet) 2.5 mg PO BID [facility] Carvedilol (Carvedilol 3.125 Mg Tablet) 3.125 mg PO Q12H [facility] Last Admin: 10/06/23 21:59 Dose: 3.125 mg Duloxetine HCl (Duloxetine 60 Mg Capsule) 60 mg PO DAILY [facility] Enoxaparin Sodium (Enoxaparin 80 Mg/0.8 Ml Syringe) 70 mg SUBCUT Q12H [facility] Folic Acid (Folic Acid 1 Mg Tablet) 1 mg PO DAILY [facility] Levothyroxine Sodium (Levothyroxine 112 Mcg Tablet) 112 mcg PO DAILY [facility] Morphine Sulfate (Morphine 4 Mg/Ml Sdv 1 Ml) 2 mg IVP Q4H PRN PRN Reason: SEVERE PAIN Naloxone HCl (Naloxone 0.4 Mg/Ml Sdv) 0.1 mg IVP Q2M PRN PRN Reason: OPIATERV Nitroglycerin (Nitroglycerin 1 Gm/Inch Oint Pkt) 1 inch TOPICAL Q6H [facility] Last Admin: 10/07/23 04:09 Dose: 1 inch Ondansetron HCl (Ondansetron 2 Mg/Ml Sdv 2 Ml) 4 mg IVP Q6H PRN PRN Reason: NAUSEA AND VOMITING Last Admin: 10/06/23 22:01 Dose: 4 mg Pantoprazole Sodium (Pantoprazole 40 Mg Sdv) 40 mg IVP Q24H [facility] Last Admin: 10/06/23 22:00 Dose: 40 mg Temazepam (Temazepam 15 Mg Capsule) 15 mg PO BEDTIME PRN PRN Reason: INSOMNIA Last Admin: 10/06/23 22:25 Dose: 15 mg Vitals/I&O/Wt Last Vital Signs Temp 98.1 F 10/07/23 07:28 Pulse 74 05/16/24 07:28 Resp 16 10/07/23 07:28 BP 149/86 10/07/23 07:28 Pulse Ox 95 10/07/23 07:28 O2 Del Method Room Air 10/07/23 07:28 10/06/23 10/07/23 10/07/23 22:59 06:59 14:59 Intake Total 480 / 480 Balance 480 / 480 Weight last 48 hrs Weight 157 lb Weight 157 lb 4 oz Weight 150 lb Physical Exam 2 Narrative: GENERAL: The patient is alert and oriented times three. Not in any acute distress. HEENT: No significant pallor, icterus or lymphadenopathy.Oral cavity: There are no mucous membrane lesions. NECK: Trachea appears to be central. No masses noted. No JVD or thyromegaly appreciated. RESPIRATORY: Chest is symmetrical. No intercostals muscle retraction or any accessory muscle activation. There is no chest wall tenderness. Breath sounds are heard bilaterally. No rales or rhonchi heard. No evidence of any consolidation. BREASTS: Deferred. HEART: The heart sounds are normal. No S3 or S4. No significant murmurs. No pericardial rub ABDOMEN: No vessel pulsations or distention. No tenderness. No organomegaly appreciated. Bowel sounds are normally heard. : Deferred. RECTAL: Deferred. LYMPHATIC: No lymphadenopathy noted in the neck. EXTREMITIES: No edema or cyanosis. No clubbing. MUSCULOSKELETAL: No acute joint deformities or swelling SKIN: There are no significant rashes or ecchymosis NEUROPSYCHIATRIC: The patient is alert and oriented x3. Appears to be in a good mood. No tremors or rigidity noted. Data 10/07/23 05:43 10/07/23 05:43 Other Labs: Laboratory Last Values WBC 8.09 10^3/uL (3.29-11.43) 10/07/23 05:43 RBC 3.97 10^6/uL (3.85-5.65) 10/07/23 05:43 Hgb 13.00 g/dL (11.27-16.99) 10/07/23 05:43 Hct 38.4 % (36-47) 10/07/23 05:43 MCV 96.7 fl (85-98) 10/07/23 05:43 MCH 32.7 pg (27-33) 10/07/23 05:43 MCHC 33.9 g/dL (30-55) 10/07/23 05:43 RDW 12.5 % (12.1-15.1) 10/07/23 05:43 Plt Count 224 10^3/cmm (157-399) 10/07/23 05:43 MPV 10.3 fL (7.4-10.4) 10/07/23 05:43 Neut % (Auto) 58.6 % 10/07/23 05:43 Lymph % (Auto) 29.0 % 10/07/23 05:43 Curry % (Auto) 8.8 % 10/07/23 05:43 Eos % (Auto) 2.2 % 10/07/23 05:43 Baso % (Auto) 1.0 % 10/07/23 05:43 Neut # (Auto) 4.74 10^3/uL (1.8-7.7) 10/07/23 05:43 Lymph # (Auto) 2.4 10^3/uL (0.8-4.8) 10/07/23 05:43 Curry # (Auto) 0.7 10^3/uL (0.2-0.9) 10/07/23 05:43 Eos # (Auto) 0.2 10^3/uL (0.0-0.8) 10/07/23 05:43 Baso # (Auto) 0.1 10^3/uL (0.0-0.1) 10/07/23 05:43 Nucleated RBC % (auto) 0 % 10/07/23 05:43 Nucleated RBCs # 0.0 /100WBC 10/07/23 05:43 Sodium 140 mmol/L (136-145) 10/07/23 05:43 Potassium 3.6 mmol/L (3.5-5.1) 10/07/23 05:43 Chloride 107 mmol/L (98-107) 10/07/23 05:43 Carbon Dioxide 24 mmol/L (22-29) 10/07/23 05:43 Anion Gap 12.6 (5-19) 10/07/23 05:43 BUN 9 mg/dL (8-23) 10/07/23 05:43 Creatinine 0.9 mg/dL (0.5-0.9) 10/07/23 05:43 GFR Calculation 63.2 mL/min (90-130) L 10/07/23 05:43 Glucose 89 mg/dL (65-115) 10/07/23 05:43 Estimat Average Glucose 94 10/06/23 17:18 Hemoglobin A1c 4.9 % (4.0-6.0) 10/06/23 17:18 Calculated Osmolality 288 mOsm/kg (285-295) 10/07/23 05:43 Calcium 8.5 mg/dL (8.5-10.5) 10/07/23 05:43 Phosphorus 3.5 mg/dL (2.5-4.5) 10/07/23 05:43 Magnesium 2.2 mg/dL (1.7-2.3) 10/07/23 05:43 Total Bilirubin 0.7 mg/dL (0.15-1.2) 10/07/23 05:43 AST 28 U/L (0-32) 10/07/23 05:43 ALT 9 U/L (0-33) 10/07/23 05:43 Alkaline Phosphatase 73 U/L (35-105) 10/07/23 05:43 Troponin T Baseline 45 ng/L (0-10) H 10/06/23 17:18 Troponin T 120 Minute 106.1 ng/L (0-10) H 10/06/23 19:18 Delta Troponin T 61.1 ABS# (0-10) H* 10/06/23 19:18 Troponin T Hi Sens 6Hr 248.4 ng/L (0-10) H 10/07/23 00:07 Troponin T Hi Sens 6Hr Delta 203.4 ng/L (0-12) H* 10/07/23 00:07 NT-Pro-B Natriuret Pep 413 pg/mL (0-125) H 10/06/23 17:18 Total Protein 6.4 g/dL (6.6-8.7) L 10/07/23 05:43 Albumin 3.6 g/dL (3.5-5.2) 10/07/23 05:43 Globulin 2.8 g/dL (1.3-4.6) 10/07/23 05:43 Triglycerides 226 mg/dL (0-150) H 10/06/23 17:18 Cholesterol 262 mg/dL (0-200) H 10/06/23 17:18 LDL Cholesterol, Calc 165 mg/dL (50-129) H 10/06/23 17:18 HDL Cholesterol 52 mg/dL (60-100) L 10/06/23 17:18 LDL/HDL Ratio 3.17 RATIO (0.00-3.22) 10/06/23 17:18 Cholesterol/HDL Ratio 5.04 mg/dL (0.0-4.40) H 10/06/23 17:18 TSH 1.07 uIU/mL (0.27-4.20) 10/06/23 17:18 Free T4 1.62 ng/dL (0.82-1.77) 10/06/23 17:18 Free T3 2.2 PG/ML (2.0-4.4) 10/06/23 17:18 Urine Color Light yellow (Yellow) 10/07/23 04:20 Urine Appearance Hazy (CLEAR) A 10/07/23 04:20 Urine pH 5 (5-7) 10/07/23 04:20 Ur Specific [place] 1.010 (1.005-1.030) 10/07/23 04:20 Urine Protein Neg (Negative) 10/07/23 04:20 Urine Glucose (UA) Norm (Normal) 10/07/23 04:20 Urine Ketones Negative (Negative) 10/07/23 04:20 Urine Blood Neg (Negative) 10/07/23 04:20 Urine Nitrate Positive (Negative) H 10/07/23 04:20 Urine Bilirubin Neg (Negative) 10/07/23 04:20 Urine Urobilinogen Neg mg/dL (Negative) 10/07/23 04:20 Ur Leukocyte Esterase Trace (Negative) H 10/07/23 04:20 Urine RBC 0-4 /hpf (0-2) H 10/07/23 04:20 Urine WBC 5-10 /hpf (0-5) H 10/07/23 04:20 Ur Squamous Epith Cells 5-10 /hpf (0-5) H 10/07/23 04:20 Amorphous Sediment Not Reportable 10/07/23 04:20 Urine Bacteria 4+ /hpf (NONE) H 10/07/23 04:20 Urine Opiates Screen Negative ng/mL (Negative) 10/07/23 04:20 Ur Barbiturates Screen Negative ng/mL (Negative) 10/07/23 04:20 Ur Phencyclidine Scrn Negative ng/mL (Negative) 10/07/23 04:20 Ur Amphetamines Screen Negative ng/mL (Negative) 10/07/23 04:20 U Benzodiazepines Scrn Positive ng/mL (Negative) H 10/07/23 04:20 Urine Cocaine Screen Negative ng/mL (Negative) 10/07/23 04:20 U Marijuana (THC) Screen Positive ng/mL (Negative) H 10/07/23 04:20 A&P Assessment and plan (1) Non-ST elevation AL (NSTEMI): Continue on the current medication. In view of the patient's clinical presentation and the echocardiogram findings, in order to further evaluate the coronary status, a cardiac catheterization would be appropriate. The risk and benefits were discussed. The risk of bleeding, hematoma, vascular injury, myocardial infarction, myocardial perforation, malignant cardiac arrhythmias ,CVA, renal failure and other concomitant complications were explained in detail. Patient understood this well and consented to proceed. Will go ahead and schedule the angiogram today. (2) Atrial fibrillation by electrocardiogram: This seems to be new onset of atrial fibrillation. Will check her thyroid profile. Continue the anticoagulation. Echocardiogram as mentioned above. The patient is stable hemodynamically. (3) Hyperlipidemia: May go out and do a lipid profile on the blood in the lab. Patient may be started on Lipitor 40 mg p.o. now and daily. Qualifiers: Hyperlipidemia type: unspecified Qualified Code(s): E78.5 - Hyperlipidemia, unspecified (4) Hypokalemia: The hypokalemia is currently corrected. (5) Hypothyroidism (acquired): Clinically euthyroid. May continue on the current medication. (6) Elevated blood pressure reading: Currently normotensive. May continue on the current medications. Plan Based on the angiogram findings, further recommendations will be made. May consider oral anticoagulation after the cardiac catheterization. Based on the clinical progress, further recommendations will be made Attestations 2 Medical Necessity Statement*: Patient requires continued hospital stay for close monitoring and further management Coding Level of Care Code 52266 Diagnoses Non-ST elevation AL (NSTEMI) I21.4 Atrial fibrillation by electrocardiogram I48.91 Hyperlipidemia, unspecified hyperlipidemia type E78.5 Hyperlipidemia type: unspecified Hypokalemia E87.6 Hypothyroidism (acquired) E03.9 Elevated blood pressure reading R03.0
[2023-10-07] MEDS: levothyroxine 112 mcg Tablet PO (08:44)
[2023-10-07] MEDS: aspirin 81 mg EC Tablet PO (08:44)
[2023-10-07] MEDS: BuSPIRONE 10 mg Tablet 2.5 MG PO ×2 (08:44→18:54)
[2023-10-07] MEDS: enoxaparin 80 mg/0.8 mL Syringe 70 MG SUBCUT ×2 (08:45→21:16)
[2023-10-07] MEDS: duloxetine 60 mg Capsule PO (08:45)
[2023-10-07] MEDS: carvedilol 3.125 mg Tablet PO ×2 (08:45→21:17)
[2023-10-07] MEDS: folic acid 1 mg Tablet PO (08:45)
[2023-10-07] MEDS: acetaminophen 325 mg Tablet 650 MG PO (09:04)
--- NOTE | 2023-10-07 10:44 | P.PN_ITS ---
Subjective 2 Subjective: Patient is not complaining active chest pain She did not answer my question when asked about smoking Plan for angiogram later in the afternoon Vitals/I&O/Wt Last Vital Signs Temp 98.1 F 10/07/23 08:00 Pulse 74 10/07/23 08:00 Resp 16 10/07/23 08:00 BP 149/86 10/07/23 08:00 Pulse Ox 95 10/07/23 07:28 O2 Del Method Room Air 10/07/23 07:28 10/06/23 10/07/23 10/07/23 22:59 06:59 14:59 Intake Total 480 / 480 Balance 480 / 480 Weight last 48 hrs Weight 71.214 kg Weight 71.327 kg Weight 68.039 kg Physical Exam 2 Narrative: Awake alert Euvolemic GCS 15 Nonfocal neuroexam S1, S2 Currently on room air Pleasant and cooperative No active chest pain Data 10/07/23 05:43 10/07/23 05:43 A&P Assessment and plan (1) High risk medication use: (2) Alcohol abuse: (3) Depression: (4) Non-ST elevation [place] (NSTEMI): (5) Atrial fibrillation by electrocardiogram: (6) Hypothyroid: (7) Seronegative rheumatoid arthritis of both hands: (8) Rheumatoid arthritis: Plan Non-STEMI No active chest pain Plan for angiogram today Pleasant cough Active smoker Continue ACS protocol She had a light breakfast in the morning Currently on room air Hemodynamic stable Plan for discharge likely tomorrow Full code A-fib without RVR Potassium replenished Attestations 2 Medical Necessity Statement*: Discharge likely tomorrow after angiogram Diagnoses High risk medication use Z79.899 Alcohol abuse F10.10 Depression F32.A Non-ST elevation UT (NSTEMI) I21.4 Atrial fibrillation by electrocardiogram I48.91 Hypothyroid E03.9 Seronegative rheumatoid arthritis of both hands M06.041; M06.042 Rheumatoid arthritis M06.9
--- NOTE | 2023-10-07 16:00 | XACV_ITS ---
Exam Room: [facility] Ht: 168 cm Wt: 71 kg BSA: 1.83 m2 Gender: Female : 1960 Any Known Allergies: Other Exam Priority: Routine Procedure(s): Procedure Description: Diagnostic procedure Procedure Description: Left ventriculography Procedure Description: Coronary Angiography Kvng CRUZ; Diagnostic Cath Status: Urgent Diagnostic Findings * The left main is a medium caliber vessel with minimal coronary calcification. * The left anterior descending artery is a medium caliber vessel which was found to have mild to moderate diffuse calcification in the proximal to mid segment of the artery. The proximal segment has a 40% tapering narrowing traversed the first septal exhibition specialist. The first septal exhibition specialist was found to have around 50% ostial narrowing. Right after the first septal exhibition specialist, the LAD proper was found to have 20% diffuse irregular narrowing. The first diagonal branch appears to have equal caliber as the LAD was found to have around 50 to 60% tubular narrowing proximally. The distal left anterior descending artery was found to be wrapping around the LV apex minimally. No significant stenotic lesions were noted in the distal segment of the artery.. * The left circumflex artery is a medium to large caliber dominant vessel which was found to have around 20% eccentric tubular narrowing proximally with a calcification. The first obtuse marginal branch was found an ostial around 40% narrowing. The mid circumflex artery was found to have another 20% eccentric tubular lesion. The distal artery before its trifurcation was found to have around 40% segmental narrowing. One of the trifurcation branches was found to have around 50% tubular narrowing near to the ostium. No other significant stenotic lesions were noted. The distal right coronary artery was found to have grade 2-3 [id number] collaterals from the LAD and from the circumflex artery. * The right coronary artery appears to be totally occluded proximally right after the sinus chaim branch. The sinus chaim branch also was found to have a high-grade ostial stenosis. PCI Status: Urgent Conclusions 1. This is a 63-year-old white female with history of hypertension, dyslipidemia, heavy smoking abuse, rheumatoid arthritis and a previous history of myocardial infarction?, Presents with complaints of a prolonged episode of chest pain and features suggesting a non-ST elevation myocardial infarction. Her echocardiogram revealed normal LV ejection fraction with hypokinetic basal inferior wall segment. For further evaluation of her coronary status, a cardiac catheterization was recommended. Patient underwent left heart catheterization with a left and right coronary angiogram today. The findings are as follows. 2. Mild to moderate calcification in the proximal segments of all the 3 coronary arteries. Left main with mild disease. Left anterior descending artery was found to have mild diffuse disease in the proximal and the mid segment. First diagonal branch has a 50 to 60% proximal tubular narrowing. Mild diffuse disease in the circumflex artery. Total occlusion of the right coronary artery proximally. Grade 2 [id number] collaterals filling up the PDA and the PLV branches of the right coronary artery through collaterals from the LAD and circumflex. LVEDP of 16 mmHg. 3. I reviewed and discussed the cardiac catheterization data with the Dr. Meraz. It was thought to be appropriate to consider IFR of the first diagonal lesion. Dr. Meraz did another injection into the left system with the guide catheter. The diagonal lesion was found to be around 50% or so. It was decided not to do any further evaluation at this point especially since the patient is remaining chest pain-free. We may consider doing a Myocardial perfusion imaging at a later time to see any evidence of ischemia. Diagnostic RX Recommendation: medical therapy and/or counseling LV EDP: 16 mmHg Left Ventriculography Findings: * The LV gram was not performed because of the concern of for dye overload. The LV ejection fraction was within normal limits by echocardiogram. The LVEDP was found to be 16 mmHg. Pressures Phase:Rest AO : 93 / 75 ( 84 ) @ 5:45:00 PM 125 / 65 ( 92 ) @ 5:57:00 PM 126 / 66 ( 92 ) @ 5:58:00 PM 121 / 66 ( 85 ) @ 6:08:00 PM LV : 131 / -1 / 16 @ 5:57:00 PM 130 / -2 / 16 @ 5:57:00 PM Valves Phase:DefaultPhase AV : 7.0 @ 5:20:49 PM AV Mean Gradient: 13.0 @ 5:20:49 PM Clinical Evaluation EBL: 5mL-10mL Procedural Details Procedure Consent Obtained. Pre-Procedure Time Out. Identified patient by full name and date of as verbalized by the patient/guarantor. Does the consent match the physician's order: Yes. Accurate & Complete Informed Consent: Yes. Inpatient/Outpatient History & Physical on Chart: Yes. If H&P is completed, is and addenduem needed: N/A. Visualize and Verify Site with Patient/Guarantor: N/A. Relevant Radiology Images available: Yes. The risks, benefits, and alternatives of sedation and/or procedure were discussed by physician. The patient agrees to continue. Procedure started. [facility] Clinical Fraility Score: 3: Managing Well. Churn Operator Margarine Indications: New Onset Angina. Chest Pain Symptom Assessment: Typical Angina Symptoms. Cardiovascular Instability: No. Correct patient, site and procedure confirmed by cath team. PERRLA. 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 Lungs clear x 5 lobes. IV Site on Arrival: 20 gauge in the left anticubital. IV Fluids: 0.9% NaCl at KVO. 0 mL infused prior to lab support technician. Pre Procedural Pulses: bilateral dorsalis pedis was 3+. Pre Procedural Pulses: bilateral posterior tibial was 3+. Pre Procedural Pulses: bilateral radial was 3+. Oxygen started at 2liters/min via nasal canula. right groin was prepped with chloroprep then draped in the usual sterile fashion. right radial was prepped with chloroprep then draped in the usual sterile fashion. Physician notified. Baseline sample Acquired. HR: 65 BPM. Patient's family unavailable. Equipment: 6F - Radial. Cardiac Cath Pack. ACIST Manifold Kit Model BT 2000. Heparinized Saline (2 units/mL), 1000 mL bag. Physician arrived. Physician scrubbed in. Immediate Pre-Procedure Time Out. Correct Patient: Yes; Correct Procedure: Yes; Correct Site: Yes; Correct Patient Position: Yes; Correct Supplies: Yes; Dried Flammable Prep: Yes; Blood Products Available: N/A;. Lidocaine 1% infiltrated to the right radial. Arterial access obtained. A 5 maldivian catheter in over the exchange J wire. Multiple views taken of left coronary artery. Catheter redirected to the RCA. Dr. Meraz called to view cineography. Catheter removed over the exchange J wire. A 5 maldivian JR4 catheter in over the exchange J wire. Cineography of the RCA performed. EDP Sample taken: LV 131/-2,16; HR: 76 BPM; SpO2: 96%. Catheter redirected to the LV. Pullback taken: LV 130/-3,16; AO 125/65(92); Mean: 13mmHg, Peak to Peak: 7mmHg, SEP: 9sec/min; HR: 75 BPM; SpO2: 96%. Catheter removed over the exchange J wire. Dr. Calderon scrubbed out. Dr Calderon and Dr. Meraz called to update the spouse, Gray. Dr. Meraz scrubbed in. 6 maldivian XB 3 guide catheter was inserted over the exchange J wire. Guide catheter out. Physician scrubbed out. A TR Band was successful obtaining hemostatsis at the Right Radial artery insertion site. Post Procedure: Pulses reassessed and unchanged. PERRLA. 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 No VTE prophylaxis required. Medication's Wasted: Lidocaine 1% = 17 mL. Medication's Wasted: Nitro = 49.6 mg. Medication's Wasted: Heparin = 1000 Units. Total IV fluids: 52 mL. Medication's Wasted: Other = Fentanyl 50 mcg. Post-op diagnosis: Non obstructive CAD/DESK [place]IE[place] of the RCA. Complications: none. Estimated blood loss: 5mL-10mL. Responsiveness - Normal response to verbal stimuli; alert and oriented, PERRLA. Airway - Unaffected, no intervention required; spontaneous ventilation. Circulation: W/N/L, pulses unchanged. Nausea/Vomiting: No. Vital chart was stopped. Procedure completed. Patient transferred by bed to 1st floor. Access Site Site: Right Radial artery Sheath Size: 6 Fr Hemostasis Method: TR Band Hemostasis Success: Successful Procedure Medications Start: 4:35 PM Stop: 4:35 PM Medication: Versed Amount: 1 mg Route: I.V. Start: 4:35 PM Stop: 4:35 PM Medication: Fentanyl Amount: 25 mcg Route: I.V. Start: 4:42 PM Stop: 4:42 PM Medication: Verapamil Amount: 5 mg Route: I.V. Start: 4:43 PM Stop: 4:43 PM Medication: Nitrogylcerin Amount: 200 mcg Route: I.A. Start: 4:43 PM Stop: 4:43 PM Medication: Fentanyl Amount: 25 mcg Route: I.V. Start: 4:51 PM Stop: 4:51 PM Medication: Versed Amount: 1 mg Route: I.V. Start: 5:07 PM Stop: 5:07 PM Medication: Nitrogylcerin Amount: 200 mcg Route: I.A. I, the attending physician, have reviewed and verified all procedure medications. Yes, all medications given per verbal order History/Risk Factors Hypertension: No Dyslipidemia: Yes Peripheral Arterial Disease (PAD): No Myocardial Infarction (IN): Yes Obesity: No Renal Disease: No Tobacco Use: Current/Recent(w/in 1 year) Prior Interventions PCI: Yes CABG: No Valve Surgery: No Report Signatures Finalized by Dr Landen Calderon MD [facility] on 10/09/2023 10:46 AM
[2023-10-07] MEDS: diphenhydrAMINE 50 mg Capsule PO (16:04)
--- NOTE | 2023-10-07 16:23 | W.PM.OPSUD ---
Surgery/Procedure H&P Update DATE OF PROCEDURE: October 07, 2023 DATE H&P PERFORMED: 10/06/23 H&P UPDATE INFORMATION: I have reviewed H&P completed within last 30 days, I have examined patient prior to procedure and No changes to prior documentation PREOP DIAGNOSIS: ASHD PRIMARY INDICATION FOR PROCEDURE: NSTEMI/ASHD PLANNED PROCEDURE: [facility] with coronary angiogram and possible PCI PATIENT REASSESSED PRIOR TO SEDATION, WITH NO CHANGE NOTED: Yes PHYSICAL EXAM: alert, oriented x 3, clear to auscultation bilaterally and regular rate & rhythm AIRWAY EVAL/ANESTHESIA PLAN: normal airway, see other exam findings, ASA III, Monitored Anesthesia, Local Anesthesia, Risks, benefits & alternatives of sedation and/or procedure discussed and Patient agrees to continue as planned
[2023-10-07] MEDS: pantoprazole 40 mg SDV IVP (21:16)
[2023-10-07] MEDS: atorvastatin 40 mg Tablet PO (21:17)
[2023-10-08] VITALS (7 sets, daily range): BP systolic 103–134; BP diastolic 62–80; PULSE 68–82; RESP 16–24; TEMP 36.7–37.2; O2SAT 93–97
[2023-10-08] MEDS: ondansetron 2 mg/ML SDV 2 mL 4 MG IVP (02:38)
[2023-10-08 05:17] LABS: Basophils # 0.1 10^3/uL (0.0-0.1); Basophils % 0.9 %; Eosinophils # 0.2 10^3/uL (0.0-0.8); Eosinophils % 2.4 %; Hematocrit 35.2 % (36-47); Lymphocytes # 1.9 10^3/uL (0.8-4.8); Lymphocytes % 27.5 %; Mean Platelet Volume 10.2 fL (7.4-10.4); Monocytes # 0.4 10^3/uL (0.2-0.9); Monocytes % 6.1 %; Neutrophils # 4.22 10^3/uL (1.8-7.7); Neutrophils % 62.8 %; Nucleated Red Blood Cells % 0 %; Platelet Count 205 10^3/cmm (157-399); Red Blood Count 3.63 10^6/uL (3.85-5.65); Red Cell Distribution Width 12.5 % (12.1-15.1); White Blood Count 6.72 10^3/uL (3.29-11.43)
[2023-10-08 05:37] LABS: Anion Gap 13.7 (5-19); Blood Urea Nitrogen 11 mg/dL (8-23); Calcium 8.5 mg/dL (8.5-10.5); Carbon Dioxide 22 mmol/L (22-29); Chloride 107 mmol/L (98-107); Creatinine Clr Calc Pharmacy 65.7276; Glomerular Filtration Rate 63.2 mL/min (90-130); Glucose 88 mg/dL (65-115); Osmolality Calculated 287 mOsm/kg (285-295); Potassium 3.7 mmol/L (3.5-5.1); Sodium 139 mmol/L (136-145)
[2023-10-08] MEDS: folic acid 1 mg Tablet PO (08:39)
[2023-10-08] MEDS: enoxaparin 80 mg/0.8 mL Syringe 70 MG SUBCUT (08:39)
[2023-10-08] MEDS: carvedilol 3.125 mg Tablet PO (08:39)
[2023-10-08] MEDS: BuSPIRONE 10 mg Tablet 2.5 MG PO (08:39)
[2023-10-08] MEDS: duloxetine 60 mg Capsule PO (08:40)
[2023-10-08] MEDS: aspirin 81 mg EC Tablet PO (08:40)
[2023-10-08] MEDS: levothyroxine 112 mcg Tablet PO (08:40)
--- NOTE | 2023-10-08 09:45 | PM.DCS ---
Discharge Providers Date of Admission: 10/06/23 20:33 Date of Discharge: October 08, 2023 Attending Provider at Admission: Jef Vasques MD Attending Provider at Discharge: Isaias Muñoz MD Primary Care Provider: Naomi Strickland MD Diagnoses at Discharge Discharge Diagnosis (1) Non-ST elevation [place] (NSTEMI): Status: Acute (2) Atrial fibrillation by electrocardiogram: Status: Acute (3) Hyperlipidemia: Status: Acute Qualifiers: Hyperlipidemia type: unspecified Qualified Code(s): E78.5 - Hyperlipidemia, unspecified (4) Hypokalemia: Status: Acute (5) Hypothyroidism (acquired): Status: Acute (6) Elevated blood pressure reading: Status: Acute Reason for Visit Reason for Visit: Chest pain, Dizziness Hospital Course Hospital Course 63-year-old female who was admitted for management evaluation of chest pain, she was diagnosed with non-STEMI, cardiology was consulted, patient went for coronary angiogram via right radial access showed chronic occluded right coronary vessel, moderate vessel disease left main and circumflex, Dr. Calderon decided to manage medically, no PCI was done, patient will resume her rheumatoid arthritis medications along steroids, she was diagnosed with A-fib without RVR, echo showed preserved ejection fraction. Patient is an active smoker. Willing to quit smoking. At the time of discharge patient will require Eliquis and Plavix along Coreg. Physical Exam Narrative: Pleasant cooperative Nonfocal GCS 15 Awake and alert A-fib without RVR Discharge Data Studies Completed and Pending Completed Studies During Hospitalization Category Date Time Status XR chest 1V portable [id number] Stat Exams 10/06/23 16:30 Completed CV. 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 No acute cardiopulmonary abnormality. Laboratory Results WBC 6.72 10^3/uL (3.29-11.43) 10/08/23 05:07 RBC 3.63 10^6/uL (3.85-5.65) L 10/08/23 05:07 Hgb 11.60 g/dL (11.27-16.99) 10/08/23 05:07 Hct 35.2 % (36-47) L 10/08/23 05:07 MCV 97.0 fl (85-98) 10/08/23 05:07 MCH 32.0 pg (27-33) 10/08/23 05:07 MCHC 33.0 g/dL (30-55) 10/08/23 05:07 RDW 12.5 % (12.1-15.1) 10/08/23 05:07 Plt Count 205 10^3/cmm (157-399) 10/08/23 05:07 MPV 10.2 fL (7.4-10.4) 10/08/23 05:07 Neut % (Auto) 62.8 % 10/08/23 05:07 Lymph % (Auto) 27.5 % 10/08/23 05:07 [place] % (Auto) 6.1 % 10/08/23 05:07 Eos % (Auto) 2.4 % 10/08/23 05:07 Baso % (Auto) 0.9 % 10/08/23 05:07 Neut # (Auto) 4.22 10^3/uL (1.8-7.7) 10/08/23 05:07 Lymph # (Auto) 1.9 10^3/uL (0.8-4.8) 10/08/23 05:07 [place] # (Auto) 0.4 10^3/uL (0.2-0.9) 10/08/23 05:07 Eos # (Auto) 0.2 10^3/uL (0.0-0.8) 10/08/23 05:07 Baso # (Auto) 0.1 10^3/uL (0.0-0.1) 10/08/23 05:07 Nucleated RBC % (auto) 0 % 10/08/23 05:07 Nucleated RBCs # 0.0 /100WBC 10/08/23 05:07 Sodium 139 mmol/L (136-145) 10/08/23 05:07 Potassium 3.7 mmol/L (3.5-5.1) 10/08/23 05:07 Chloride 107 mmol/L (98-107) 10/08/23 05:07 Carbon Dioxide 22 mmol/L (22-29) 10/08/23 05:07 Anion Gap 13.7 (5-19) 10/08/23 05:07 BUN 11 mg/dL (8-23) 10/08/23 05:07 Creatinine 0.9 mg/dL (0.5-0.9) 10/08/23 05:07 GFR Calculation 63.2 mL/min (90-130) L 10/08/23 05:07 Glucose 88 mg/dL (65-115) 10/08/23 05:07 Estimat Average Glucose 94 10/06/23 17:18 Hemoglobin A1c 4.9 % (4.0-6.0) 10/06/23 17:18 Calculated Osmolality 287 mOsm/kg (285-295) 10/08/23 05:07 Calcium 8.5 mg/dL (8.5-10.5) 10/08/23 05:07 Phosphorus 3.5 mg/dL (2.5-4.5) 10/07/23 05:43 Magnesium 2.2 mg/dL (1.7-2.3) 10/07/23 05:43 Total Bilirubin 0.7 mg/dL (0.15-1.2) 10/07/23 05:43 AST 28 U/L (0-32) 10/07/23 05:43 ALT 9 U/L (0-33) 10/07/23 05:43 Alkaline Phosphatase 73 U/L (35-105) 10/07/23 05:43 Troponin T Baseline 45 ng/L (0-10) H 10/06/23 17:18 Troponin T 120 Minute 106.1 ng/L (0-10) H 10/06/23 19:18 Delta Troponin T 61.1 ABS# (0-10) H* 10/06/23 19:18 Troponin T Hi Sens 6Hr 248.4 ng/L (0-10) H 10/07/23 00:07 Troponin T Hi Sens 6Hr Delta 203.4 ng/L (0-12) H* 10/07/23 00:07 NT-Pro-B Natriuret Pep 413 pg/mL (0-125) H 10/06/23 17:18 Total Protein 6.4 g/dL (6.6-8.7) L 10/07/23 05:43 Albumin 3.6 g/dL (3.5-5.2) 10/07/23 05:43 Globulin 2.8 g/dL (1.3-4.6) 10/07/23 05:43 Triglycerides 226 mg/dL (0-150) H 10/06/23 17:18 Cholesterol 262 mg/dL (0-200) H 10/06/23 17:18 LDL Cholesterol, Calc 165 mg/dL (50-129) H 10/06/23 17:18 HDL Cholesterol 52 mg/dL (60-100) L 10/06/23 17:18 LDL/HDL Ratio 3.17 RATIO (0.00-3.22) 10/06/23 17:18 Cholesterol/HDL Ratio 5.04 mg/dL (0.0-4.40) H 10/06/23 17:18 TSH 1.07 uIU/mL (0.27-4.20) 10/06/23 17:18 Free T4 1.62 ng/dL (0.82-1.77) 10/06/23 17:18 Free T3 2.2 PG/ML (2.0-4.4) 10/06/23 17:18 Urine Color Light yellow (Yellow) 10/07/23 04:20 Urine Appearance Hazy (CLEAR) A 10/07/23 04:20 Urine pH 5 (5-7) 10/07/23 04:20 Ur Specific [place] 1.010 (1.005-1.030) 10/07/23 04:20 Urine Protein Neg (Negative) 10/07/23 04:20 Urine Glucose (UA) Norm (Normal) 10/07/23 04:20 Urine Ketones Negative (Negative) 10/07/23 04:20 Urine Blood Neg (Negative) 10/07/23 04:20 Urine Nitrate Positive (Negative) H 10/07/23 04:20 Urine Bilirubin Neg (Negative) 10/07/23 04:20 Urine Urobilinogen Neg mg/dL (Negative) 10/07/23 04:20 Ur Leukocyte Esterase Trace (Negative) H 10/07/23 04:20 Urine RBC 0-4 /hpf (0-2) H 10/07/23 04:20 Urine WBC 5-10 /hpf (0-5) H 10/07/23 04:20 Ur Squamous Epith Cells 5-10 /hpf (0-5) H 10/07/23 04:20 Amorphous Sediment Not Reportable 10/07/23 04:20 Urine Bacteria 4+ /hpf (NONE) H 10/07/23 04:20 Urine Opiates Screen Negative ng/mL (Negative) 10/07/23 04:20 Ur Barbiturates Screen Negative ng/mL (Negative) 10/07/23 04:20 Ur Phencyclidine Scrn Negative ng/mL (Negative) 10/07/23 04:20 Ur Amphetamines Screen Negative ng/mL (Negative) 10/07/23 04:20 U Benzodiazepines Scrn Positive ng/mL (Negative) H 10/07/23 04:20 Urine Cocaine Screen Negative ng/mL (Negative) 10/07/23 04:20 U Marijuana (THC) Screen Positive ng/mL (Negative) H 10/07/23 04:20 Vitals Last Vital Signs Temp 98.0 F 10/08/23 07:42 Pulse 69 10/08/23 07:42 Resp 16 10/08/23 07:42 BP 134/70 10/08/23 07:42 Pulse Ox 93 10/08/23 07:42 O2 Del Method Room Air 10/08/23 07:42 Discharge Plan Discharge Patient Disposition: Home Condition: Stable Prescriptions: New atorvastatin 40 mg Tablet 40 mg PO BEDTIME Qty: 60 0RF clopidogrel [Plavix] 75 mg tablet 75 mg PO DAILY Qty: 90 4RF carvedilol 3.125 mg Tablet 3.125 mg PO Q12H Qty: 60 3RF Eliquis 5 mg tablet 5 mg PO BID Qty: 60 6RF pantoprazole [Protonix] [address] for susp in packet 40 mg PO DAILY Qty: 30 6RF Continued liothyronine 5 mcg tablet 5 mcg PO DAILY levothyroxine 112 mcg tablet 112 mcg PO DAILY duloxetine 60 mg capsule,delayed release(DR/EC) 60 mg PO DAILY methotrexate sodium 2.5 mg tablet See Rx Instructions PO .Q7days Qty: 30 5RF Rx Instructions: take 6 tabs on same day once a week PO .Q7days; folic acid 1 mg tablet 1 mg PO DAILY Qty: 30 5RF cholecalciferol (vitamin D3) 50 mcg (2,000 unit) capsule 50 mcg PO DAILY prednisone 10 mg tablet 10 mg PO DAILY 30 Days Qty: 30 3RF BuSpar 5 mg Tablet 2.5 mg PO BID Discontinued aspirin 81 mg tablet,delayed release (DR/EC) 81 mg PO DAILY Discharge Orders: Discharge Order (Routine); Ordered 10/08/23 Ordered By: Isaias Muñoz Referrals: Jesika Mcbride FNP [Nurse Practitioner] - 10/26/23 1:30 pm Naomi Strickland MD [Primary Care Provider] - 10/14/23 10:00 am Discharge Diet: Cardiac Patient Instructions: Coronary Angioplasty (DC), Opioid Safety, Post Angiogram Home Care Instructions, Post Heart Attack Stoplight Activity Restrictions/Additional Instructions: Please do not take aspirin I have changed her medication to Eliquis which is a blood thinner along Plavix which is antiplatelet You will be considered high risk for gastric ulcers I have added Protonix as well which you can take twice a day or once daily is okay as well Discharge Attestations Time Spent in Discharge Care*: greater than 30 min Quality Metrics Clinical Quality Measures [ No reported AMI, CVA or VTE this stay] Coding Level of Care Code Acute Code for [facility] Fwd Diagnoses Non-ST elevation [place] (NSTEMI) I21.4 Atrial fibrillation by electrocardiogram I48.91 Hyperlipidemia, unspecified hyperlipidemia type E78.5 Hyperlipidemia type: unspecified Hypokalemia E87.6 Hypothyroidism (acquired) E03.9 Elevated blood pressure reading R03.0
--- NOTE | 2023-10-08 10:49 | P.PN_ITS ---
Subjective 2 Subjective: Patient had a cardiac catheterization yesterday. She was found to have total occlusion of the right coronary artery with a fairly good tdem-uh-aelcy collaterals. She had a mild to moderate disease in the left anterior descending artery/diagonal. Based on the angiographic findings, it was opted to treat her medically. Patient is remaining pain-free. No new symptoms. Medications: Medication Review Details: Current Medications Acetaminophen (Acetaminophen 325 Mg Tablet) 650 mg PO Q6H PRN PRN Reason: Mild/Mod Pain Or Temp >/= 101 Last Admin: 10/07/23 09:04 Dose: 650 mg Al Hydrox/Mg Hydrox/Simethicone (Ukjn-Kez-Qcoeyvflx-Bonnie 30 Ml Udc) 30 ml PO Q15M PRN PRN Reason: INDIGESTION Aspirin (Aspirin 81 Mg Ec Tablet) 81 mg PO DAILY [facility] Last Admin: 10/08/23 08:40 Dose: 81 mg Atorvastatin Calcium (Atorvastatin 40 Mg Tablet) 40 mg PO BEDTIME [facility] Last Admin: 10/07/23 21:17 Dose: 40 mg Atropine Sulfate (Atropine 1 Mg/Ml Sdv 1 Ml) 0.5 mg IVP PRN PRN PRN Reason: Symptomatic bradycardia Buspirone HCl (Buspirone 10 Mg Tablet) 2.5 mg PO BID [facility] Last Admin: 10/08/23 08:39 Dose: 2.5 mg Carvedilol (Carvedilol 3.125 Mg Tablet) 3.125 mg PO Q12H [facility] Last Admin: 10/08/23 08:39 Dose: 3.125 mg Duloxetine HCl (Duloxetine 60 Mg Capsule) 60 mg PO DAILY [facility] Last Admin: 10/08/23 08:40 Dose: 60 mg Enoxaparin Sodium (Enoxaparin 80 Mg/0.8 Ml Syringe) 70 mg SUBCUT Q12H [facility] Last Admin: 10/08/23 08:39 Dose: 70 mg Folic Acid (Folic Acid 1 Mg Tablet) 1 mg PO DAILY [facility] Last Admin: 10/08/23 08:39 Dose: 1 mg Levothyroxine Sodium (Levothyroxine 112 Mcg Tablet) 112 mcg PO DAILY [facility] Last Admin: 10/08/23 08:40 Dose: 112 mcg Magnesium Hydroxide (Magnesium Hydroxide 30 Ml Udc) 30 ml PO DAILY PRN PRN Reason: CONSTIPATION Morphine Sulfate (Morphine 4 Mg/Ml Sdv 1 Ml) 2 mg IVP Q4H PRN PRN Reason: SEVERE PAIN Naloxone HCl (Naloxone 0.4 Mg/Ml Sdv) 0.1 mg IVP Q2M PRN PRN Reason: OPIATERV Nitroglycerin (Nitroglycerin 1 Gm/Inch Oint Pkt) 1 inch TOPICAL Q6H [facility] Last Admin: 10/08/23 05:11 Dose: Not Given Nitroglycerin (Nitroglycerin 0.4 Mg Sublingual Tablet) 0.4 mg SUBLINGUAL Q5M PRN PRN Reason: CHEST PAIN Ondansetron HCl (Ondansetron 2 Mg/Ml Sdv 2 Ml) 4 mg IVP Q6H PRN PRN Reason: NAUSEA AND VOMITING Last Admin: 10/08/23 02:38 Dose: 4 mg Pantoprazole Sodium (Pantoprazole 40 Mg Sdv) 40 mg IVP Q24H [facility] Last Admin: 10/07/23 21:16 Dose: 40 mg Temazepam (Temazepam 15 Mg Capsule) 15 mg PO BEDTIME PRN PRN Reason: INSOMNIA Last Admin: 10/06/23 22:25 Dose: 15 mg Vitals/I&O/Wt Last Vital Signs Temp 98.0 F 10/08/23 08:00 Pulse 69 10/08/23 08:00 Resp 16 10/08/23 08:00 BP 134/70 10/08/23 08:00 Pulse Ox 93 10/08/23 07:42 O2 Del Method Room Air 10/08/23 07:42 10/07/23 10/08/23 10/08/23 22:59 06:59 14:59 Intake Total 560 / 560 Balance 560 / 560 Weight last 48 hrs Weight 162 lb 9 oz Weight 157 lb Weight 157 lb 4 oz Weight 150 lb Physical Exam 2 Narrative: GENERAL: The patient is alert and oriented times three. Not in any acute distress. HEENT: No significant pallor, icterus or lymphadenopathy.Oral cavity: There are no mucous membrane lesions. NECK: Trachea appears to be central. No masses noted. No JVD or thyromegaly appreciated. RESPIRATORY: Chest is symmetrical. No intercostals muscle retraction or any accessory muscle activation. There is no chest wall tenderness. Breath sounds are heard bilaterally. No rales or rhonchi heard. No evidence of any consolidation. BREASTS: Deferred. HEART: The heart sounds are normal. No S3 or S4. No significant murmurs. No pericardial rub ABDOMEN: No vessel pulsations or distention. No tenderness. No organomegaly appreciated. Bowel sounds are normally heard. : Deferred. RECTAL: Deferred. LYMPHATIC: No lymphadenopathy noted in the neck. EXTREMITIES: No hematoma bleeding at the radial arterial puncture site MUSCULOSKELETAL: No acute joint deformities or swelling SKIN: There are no significant rashes or ecchymosis NEUROPSYCHIATRIC: The patient is alert and oriented x3. Appears to be in a good mood. No tremors or rigidity noted. Data 10/08/23 05:07 10/08/23 05:07 Other Labs: Laboratory Last Values WBC 6.72 10^3/uL (3.29-11.43) 10/08/23 05:07 RBC 3.63 10^6/uL (3.85-5.65) L 10/08/23 05:07 Hgb 11.60 g/dL (11.27-16.99) 10/08/23 05:07 Hct 35.2 % (36-47) L 10/08/23 05:07 MCV 97.0 fl (85-98) 10/08/23 05:07 MCH 32.0 pg (27-33) 10/08/23 05:07 MCHC 33.0 g/dL (30-55) 10/08/23 05:07 RDW 12.5 % (12.1-15.1) 10/08/23 05:07 Plt Count 205 10^3/cmm (157-399) 10/08/23 05:07 MPV 10.2 fL (7.4-10.4) 10/08/23 05:07 Neut % (Auto) 62.8 % 10/08/23 05:07 Lymph % (Auto) 27.5 % 10/08/23 05:07 [place] % (Auto) 6.1 % 10/08/23 05:07 Eos % (Auto) 2.4 % 10/08/23 05:07 Baso % (Auto) 0.9 % 10/08/23 05:07 Neut # (Auto) 4.22 10^3/uL (1.8-7.7) 10/08/23 05:07 Lymph # (Auto) 1.9 10^3/uL (0.8-4.8) 10/08/23 05:07 [place] # (Auto) 0.4 10^3/uL (0.2-0.9) 10/08/23 05:07 Eos # (Auto) 0.2 10^3/uL (0.0-0.8) 10/08/23 05:07 Baso # (Auto) 0.1 10^3/uL (0.0-0.1) 10/08/23 05:07 Nucleated RBC % (auto) 0 % 10/08/23 05:07 Nucleated RBCs # 0.0 /100WBC 10/08/23 05:07 Sodium 139 mmol/L (136-145) 10/08/23 05:07 Potassium 3.7 mmol/L (3.5-5.1) 10/08/23 05:07 Chloride 107 mmol/L (98-107) 10/08/23 05:07 Carbon Dioxide 22 mmol/L (22-29) 10/08/23 05:07 Anion Gap 13.7 (5-19) 10/08/23 05:07 BUN 11 mg/dL (8-23) 10/08/23 05:07 Creatinine 0.9 mg/dL (0.5-0.9) 10/08/23 05:07 GFR Calculation 63.2 mL/min (90-130) L 10/08/23 05:07 Glucose 88 mg/dL (65-115) 10/08/23 05:07 Estimat Average Glucose 94 10/06/23 17:18 Hemoglobin A1c 4.9 % (4.0-6.0) 10/06/23 17:18 Calculated Osmolality 287 mOsm/kg (285-295) 10/08/23 05:07 Calcium 8.5 mg/dL (8.5-10.5) 10/08/23 05:07 Phosphorus 3.5 mg/dL (2.5-4.5) 10/07/23 05:43 Magnesium 2.2 mg/dL (1.7-2.3) 10/07/23 05:43 Total Bilirubin 0.7 mg/dL (0.15-1.2) 10/07/23 05:43 AST 28 U/L (0-32) 10/07/23 05:43 ALT 9 U/L (0-33) 10/07/23 05:43 Alkaline Phosphatase 73 U/L (35-105) 10/07/23 05:43 Troponin T Baseline 45 ng/L (0-10) H 10/06/23 17:18 Troponin T 120 Minute 106.1 ng/L (0-10) H 10/06/23 19:18 Delta Troponin T 61.1 ABS# (0-10) H* 10/06/23 19:18 Troponin T Hi Sens 6Hr 248.4 ng/L (0-10) H 10/07/23 00:07 Troponin T Hi Sens 6Hr Delta 203.4 ng/L (0-12) H* 10/07/23 00:07 NT-Pro-B Natriuret Pep 413 pg/mL (0-125) H 10/06/23 17:18 Total Protein 6.4 g/dL (6.6-8.7) L 10/07/23 05:43 Albumin 3.6 g/dL (3.5-5.2) 10/07/23 05:43 Globulin 2.8 g/dL (1.3-4.6) 10/07/23 05:43 Triglycerides 226 mg/dL (0-150) H 10/06/23 17:18 Cholesterol 262 mg/dL (0-200) H 10/06/23 17:18 LDL Cholesterol, Calc 165 mg/dL (50-129) H 10/06/23 17:18 HDL Cholesterol 52 mg/dL (60-100) L 10/06/23 17:18 LDL/HDL Ratio 3.17 RATIO (0.00-3.22) 10/06/23 17:18 Cholesterol/HDL Ratio 5.04 mg/dL (0.0-4.40) H 10/06/23 17:18 TSH 1.07 uIU/mL (0.27-4.20) 10/06/23 17:18 Free T4 1.62 ng/dL (0.82-1.77) 10/06/23 17:18 Free T3 2.2 PG/ML (2.0-4.4) 10/06/23 17:18 Urine Color Light yellow (Yellow) 10/07/23 04:20 Urine Appearance Hazy (CLEAR) A 10/07/23 04:20 Urine pH 5 (5-7) 10/07/23 04:20 Ur Specific [place] 1.010 (1.005-1.030) 10/07/23 04:20 Urine Protein Neg (Negative) 10/07/23 04:20 Urine Glucose (UA) Norm (Normal) 10/07/23 04:20 Urine Ketones Negative (Negative) 10/07/23 04:20 Urine Blood Neg (Negative) 10/07/23 04:20 Urine Nitrate Positive (Negative) H 10/07/23 04:20 Urine Bilirubin Neg (Negative) 10/07/23 04:20 Urine Urobilinogen Neg mg/dL (Negative) 10/07/23 04:20 Ur Leukocyte Esterase Trace (Negative) H 10/07/23 04:20 Urine RBC 0-4 /hpf (0-2) H 10/07/23 04:20 Urine WBC 5-10 /hpf (0-5) H 10/07/23 04:20 Ur Squamous Epith Cells 5-10 /hpf (0-5) H 10/07/23 04:20 Amorphous Sediment Not Reportable 10/07/23 04:20 Urine Bacteria 4+ /hpf (NONE) H 10/07/23 04:20 Urine Opiates Screen Negative ng/mL (Negative) 10/07/23 04:20 Ur Barbiturates Screen Negative ng/mL (Negative) 10/07/23 04:20 Ur Phencyclidine Scrn Negative ng/mL (Negative) 10/07/23 04:20 Ur Amphetamines Screen Negative ng/mL (Negative) 10/07/23 04:20 U Benzodiazepines Scrn Positive ng/mL (Negative) H 10/07/23 04:20 Urine Cocaine Screen Negative ng/mL (Negative) 10/07/23 04:20 U Marijuana (THC) Screen Positive ng/mL (Negative) H 10/07/23 04:20 A&P Assessment and plan (1) Non-ST elevation [place] (NSTEMI): Patient underwent the cardiac catheterization yesterday. Findings are as mentioned above. Based on the angiogram findings, it was opted to treat him medically. Currently she is remaining pain-free. (2) Atrial fibrillation by electrocardiogram: Patient had only a brief episode of atrial fibrillation. She was staying in the sinus rhythm most of the times in the hospital. If she has no recurrence of atrial fibrillation, we may not have to keep her on long-term oral anticoagulation. We may do an outpatient event monitor to evaluate for any recurrence of atrial fibrillation. Based on the findings, further recommendations will be made. In the meanwhile, she may continue on the Plavix and aspirin (3) Hyperlipidemia: Continue on the Lipitor Qualifiers: Hyperlipidemia type: unspecified Qualified Code(s): E78.5 - Hyperlipidemia, unspecified (4) Hypokalemia: The hypokalemia is currently corrected. (5) Hypothyroidism (acquired): Clinically euthyroid. May continue on the current medication. (6) Elevated blood pressure reading: Currently normotensive. May continue on the current medications. Plan The patient may be discharged home on Plavix, aspirin, Lipitor and all current medications. She may stop the Plavix after 3 months. Outpatient event monitor for 30 days Appointment the [facility]. In 1 to 2 weeks Appointment with me in 1 month Based on the clinical progress, further recommendations will be made Discussed with the Dr. Toni Baltazarations 2 Medical Necessity Statement*: Possible discharge home today Coding Level of Care Code 97123 Diagnoses Non-ST elevation [place] (NSTEMI) I21.4 Atrial fibrillation by electrocardiogram I48.91 Hyperlipidemia, unspecified hyperlipidemia type E78.5 Hyperlipidemia type: unspecified Hypokalemia E87.6 Hypothyroidism (acquired) E03.9 Elevated blood pressure reading R03.0
--- NOTE | 2023-10-08 13:24 | PC.NURSE ---
Discharge Note Patient discharged to [home] via [w/c to POV] accompanied by [her ]. Discharge instructions reviewed with patient and/or graphic art sales representative. Mobile pharmacy medications and/or prescriptions provided. Belongings/home medications returned.
== END 2023-10-08 13:25 | disposition home or self-care (01) | DRG 282 ==
LOC: ER 18:06 → CSU 20:33
PROVIDERS: Family Medicine; Internal Medicine; Internal Medicine Cardiovascular Disease; Admitting Provider Family Medicine; Emergency Provider Emergency Medicine; PCP Family Medicine; Visit Provider Internal Medicine
PROC: B2111ZZ Fluoroscopy of Multiple Coronary Arteries using Low Osmolar Contrast (ICD-10-PCS; principal; 2023-10-07 16:30)
DX: I21.4 Non-ST elevation (NSTEMI) myocardial infarction (principal); I48.91 Unspecified atrial fibrillation; I10 Essential (primary) hypertension; E03.9 Hypothyroidism, unspecified; M06.042 Rheumatoid arthritis without rheumatoid factor, left hand; M06.041 Rheumatoid arthritis without rheumatoid factor, right hand; F17.210 Nicotine dependence, cigarettes, uncomplicated; E78.5 Hyperlipidemia, unspecified; F10.10 Alcohol abuse, uncomplicated; F32.A Depression, unspecified; G62.9 Polyneuropathy, unspecified; E87.6 Hypokalemia; I25.10 Atherosclerotic heart disease of native coronary artery without angina pectoris; I25.2 Old myocardial infarction; Z79.631 Long term (current) use of antimetabolite agent; Z79.82 Long term (current) use of aspirin; Z79.52 Long term (current) use of systemic steroids
CPT/HCPCS: 36415; 71045; 80048; 80053; 80061; 80306; 81001; 81015; 83036; 83735; 83880; 84100; 84439; 84443; 84481; 84484; 85025; 87077; 87086; 87186; 93005; 93306; 93458; 96372; 96374; 96375; 96376; 99152; 99153; 99285; C1769; C1887; C1894; C9113; J0360; J1644; J1650; J2250; J2405; J3010; J3490; Q0163; Q9967

== ENCOUNTER → 2023-11-08 09:55 | Outpatient (BNVA) | payer OTHER, SELFPAY | PROVIDERS: PCP Family Medicine; Visit Provider Internal Medicine Rheumatology | DX: M06.041 Rheumatoid arthritis without rheumatoid factor, right hand (principal); M06.042 Rheumatoid arthritis without rheumatoid factor, left hand; Z79.899 Other long term (current) drug therapy | CPT/HCPCS: 80076; 82565; 85025; 86140 ==

== ENCOUNTER → 2024-02-10 14:32 | Outpatient (BNVA) | payer OTHER, SELFPAY | PROVIDERS: PCP Family Medicine; Visit Provider Orthopaedic Surgery | DX: M47.816 Spondylosis without myelopathy or radiculopathy, lumbar region (principal) | CPT/HCPCS: 72110 ==

== ENCOUNTER → 2024-02-23 10:45 | Outpatient (BNVA) | payer OTHER, SELFPAY | PROVIDERS: PCP Hospitalist; Visit Provider Internal Medicine Cardiovascular Disease | DX: R07.9 Chest pain, unspecified (principal) | CPT/HCPCS: 93005 ==

== ENCOUNTER 2024-03-04 18:48 | Emergency (ER) | payer OTHER, SELFPAY ==
[2024-03-04 18:52] VITALS: BP 128/78; PULSE 89; RESP 16; TEMP 36.7; O2SAT 97; BMI 26.6
--- NOTE | 2024-03-04 18:56 | ECG_ITS ---
[facility] [employer] Test Date: 2024-03-04 Pat Name: Suzanne Ureña Department: Room: Gender: Female [employer]: : 1960 Requested By: Ford Pierce Order Number: [id number] Wing MD: Derik Meraz M.D. Measurements Intervals [place] Rate: 88 P: 0 MS: 0 QRS: 65 QRSD: 79 T: 32 QT: 338 QTc: 411 Interpretive Statements ATRIAL FIBRILLATION NONSPECIFIC ST & T-WAVE ABNORMALITY Compared to ECG 02/23/2024 10:49:44 Sinus rhythm no longer present Short MS interval no longer present Possible ischemia no longer present T-wave abnormality still present Electronically Signed On 03-06-2024 14:12:01 CDT by Derik Meraz M.D. [email or web address]
--- NOTE | 2024-03-04 18:56 | XRR_ITS ---
PROCEDURE INFORMATION: Exam: XR Chest Exam date and time: 03/04/2024 7:19 PM Age: 63 years old Clinical indication: Pain; Chest pressure; Additional info: Cp TECHNIQUE: Imaging protocol: Radiologic exam of the chest. Views: 1 view. COMPARISON: CR XR chest 1V portable [id number] 10/06/2023 4:42 PM FINDINGS: Lungs: Visualized portions of the lungs are clear. Pleural spaces: Unremarkable. No pleural effusion. No pneumothorax. Heart/Mediastinum: Heart is within normal limits of size Bones/joints: There are degenerative changes in thoracic spine XR/XR chest 1V portable [id number] IMPRESSION: No acute infiltrate.
[2024-03-04 19:03] LABS: Basophils # 0.1 10^3/uL (0.0-0.1); Basophils % 0.6 %; Eosinophils # 0.3 10^3/uL (0.0-0.8); Eosinophils % 3.5 %; Hematocrit 35.3 % (36-47); Lymphocytes # 2.4 10^3/uL (0.8-4.8); Mean Corpuscular HGB Conc 33.1 g/dL (30-55); Mean Corpuscular Hemoglobin 33.5 pg (27-33); Mean Corpuscular Volume 101.1 fl (85-98); Mean Platelet Volume 10.8 fL (7.4-10.4); Monocytes # 0.9 10^3/uL (0.2-0.9); Monocytes % 9.2 %; Neutrophils # 6.08 10^3/uL (1.8-7.7); Neutrophils % 62.2 %; Nucleated Red Blood Cells % 0 %; Platelet Count 236 10^3/cmm (157-399); Red Blood Count 3.49 10^6/uL (3.85-5.65); Red Cell Distribution Width 13.9 % (12.1-15.1); White Blood Count 9.78 10^3/uL (3.29-11.43)
--- NOTE | 2024-03-04 19:04 | W.ED.CHESTPA ---
HPI - Chest Pain General: Chief Complaint: Chest Pain Stated Complaint: chest pain Time Seen by Provider: 03/04/24 18:54 History of Present Illness: 63-year-old female with a history of coronary disease. She presents with left-sided somewhat pleuritic chest pain, somewhat worse with breathing. She says she has some pain last night, but has worsened across the day today and become more frequent. It comes in waves. She has been somewhat short of breath. She did get diaphoretic. No nausea or vomiting. No fever. She denies cough or sputum production. Nitroglycerin and aspirin in the ambulance did not help. Related Data Home Medications Medication Instructions Recorded Confirmed aspirin 81 mg tablet,delayed 81 mg PO DAILY 04/13/23 02/23/24 release duloxetine 60 mg capsule,delayed 60 mg PO DAILY 04/13/23 02/23/24 release levothyroxine 112 mcg tablet 112 mcg PO DAILY 04/13/23 02/23/24 liothyronine 5 mcg tablet 5 mcg PO DAILY 04/13/23 02/23/24 cholecalciferol (vitamin D3) 50 50 mcg PO DAILY 09/13/23 02/23/24 mcg (2,000 unit) capsule buspirone 5 mg tablet 7.5 mg PO BID 10/20/23 02/23/24 prednisone 10 mg tablet 5 mg PO DAILY inflammatory 02/23/24 02/23/24 arthritis Previous Rx's Medication Instructions Recorded clopidogrel 75 mg tablet (Plavix) 75 mg PO DAILY #90 tabs 12/10/23 folic acid 1 mg tablet 1 mg PO DAILY #90 tabs 01/18/24 methotrexate sodium 2.5 mg tablet See Rx Instructions PO .Q7days #30 01/18/24 tabs pantoprazole 40 mg granules 40 mg PO DAILY #90 ea 01/18/24 delayed-release for susp in packet (Protonix) atorvastatin 40 mg tablet 40 mg PO BEDTIME #90 tabs 02/07/24 carvedilol 3.125 mg tablet 3.125 mg PO Q12H #60 tabs 02/18/24 Allergies Allergy/AdvReac Type Severity Reaction Status Date / Time tetracycline Allergy Severe ALGY-Anaphy Verified 02/23/24 10:08 laxis [facility] ED PFSH: Medical History Degenerative joint disease (DJD) of lumbar spine Anxiety about health Atherosclerosis of [place] coronary artery without angina pectoris Vitamin D deficiency Former smoker, stopped smoking in distant past 1ppd for > 35 years, still occ and cannabis Personal history of primary hypertension Onset before 2008, lisinopril 20 in 2010 High risk medication use Depression Onset before 2008 Atrial fibrillation by electrocardiogram Hypothyroidism (acquired) no thyroid bx or history of radiation to head/neck Seronegative rheumatoid arthritis of both hands Hyperlipidemia DX in 2010 Elevated blood pressure reading Encounter for smoking cessation counseling Immunization counseling Alcohol abuse Episodic Neuropathy Facet arthritis of lumbar region Surgical History History of cholecystectomy H/O Spinal surgery S/P tonsillectomy at age 6 H/O bladder repair surgery Family History Mother Rheumatoid arthritis Hypertension Social History Smoking and tobacco/nicotine status: current every day tobacco/nicotine user (0.5 ppd) cigarettes Packs smoked per day: 1.5 Years cigarettes smoked: 42 [ Other cigarette details: Started at age 13] Second hand smoke exposure: No Alcohol intake: current Alcohol intake frequency: 0-2 Drinks per Day Alcohol type: beer and wine Substance/Drug Use: current Substance/Drug use frequency: daily Physical Exam Const: COMMON NORMALS: no acute distress GENERAL APPEARANCE: cooperative; not ill appearing and not frail appearing HENMT: COMMON NORMALS: normocephalic, atraumatic and Normal external nose present HEAD & SCALP: normocephalic and atraumatic FACE & SINUS: normal facial exam and face symmetric NOSE: Normal external nose present Eye: COMMON NORMALS: Equal, round and reactive pupils present and EOMs intact bilaterally PUPIL: Yes Equal, round and reactive pupils present Neck/C-Spine: GENERAL: Yes trachea midline Chest: CHEST: Yes Symmetrical chest wall rise Resp: COMMON NORMALS: normal respiratory effort, No retractions, No use of accessory muscles and clear to auscultation bilaterally AUSCULTATION: clear to auscultation bilaterally Cardio: COMMON NORMALS: regular rate and regular rhythm RATE: regular rate RHYTHM: regular rhythm GI: COMMON NORMALS: Normal to inspection, nondistended, normoactive bowel sounds present Extremity: COMMON NORMALS: no pedal edema Neuro: TOBIAS COMA SCALE: document GCS findings Tobias coma scale eye opening: Spontaneous [place] coma scale verbal response: Orientated Tobias coma scale motor response: Obey commands [place] coma scale total score: 15 SENSORY EXAM: Yes extremities (intact) Psych: COMMON NORMALS: speech normal SPEECH: Yes normal speech Skin: COMMON NORMALS: no rashes or lesions noted GENERAL SKIN EXAM: no rashes or lesions noted Course Vital Signs: Vital signs: Vital Signs Temperature 98.1 F 03/04/24 18:52 Pulse Rate 79 03/04/24 20:11 Respiratory Rate 17 03/04/24 20:11 Blood Pressure 102/74 03/04/24 20:11 Pulse Oximetry 98 03/04/24 20:11 Oxygen Delivery Me thod Room Air 03/04/24 20:11 MDM - Chest Pain Medical Decision Making Pleuritic type pain to the left chest. Not really reproducible. In a history of a patient with coronary disease. She denies a history of atrial fibrillation, but does have that documentation in the chart. She is in sinus with frequent PVCs on EKG this evening no acute ST wave changes. [place] appears normal. Rate is 90. Morphine is relieved her pain. CBC is normal. BMP is normal. Troponin did not change at 2 hours. Her delta troponin is -0.26. Chest x-ray is negative. Her D-dimer however is slightly elevated. Because of this CTA was ordered. It shows no acute process. With improvement in her pain, she wants to go home. Because of her history, she was offered observation, but wishes to go home. She will be allowed home Lab Data 03/04/24 18:57 03/04/24 18:57 Radiology Impressions Chest X-Ray 03/04/24 18:56 IMPRESSION: No acute infiltrate. Chest CTA 03/04/24 20:24 IMPRESSION: No evidence of pulmonary embolism. Laboratory Results WBC 9.78 10^3/uL (3.29-11.43) 03/04/24 18:57 RBC 3.49 10^6/uL (3.85-5.65) L 03/04/24 18:57 Hgb 11.70 g/dL (11.27-16.99) 03/04/24 18:57 Hct 35.3 % (36-47) L 03/04/24 18:57 MCV 101.1 fl (85-98) H 03/04/24 18:57 MCH 33.5 pg (27-33) H 03/04/24 18:57 MCHC 33.1 g/dL (30-55) 03/04/24 18:57 RDW 13.9 % (12.1-15.1) 03/04/24 18:57 Plt Count 236 10^3/cmm (157-399) 03/04/24 18:57 MPV 10.8 fL (7.4-10.4) H 03/04/24 18:57 Neut % (Auto) 62.2 % 03/04/24 18:57 Lymph % (Auto) 24.0 % 03/04/24 18:57 Gila % (Auto) 9.2 % 03/04/24 18:57 Eos % (Auto) 3.5 % 03/04/24 18:57 Baso % (Auto) 0.6 % 03/04/24 18:57 Neut # (Auto) 6.08 10^3/uL (1.8-7.7) 03/04/24 18:57 Lymph # (Auto) 2.4 10^3/uL (0.8-4.8) 03/04/24 18:57 [place]ila # (Auto) 0.9 10^3/uL (0.2-0.9) 03/04/24 18:57 Eos # (Auto) 0.3 10^3/uL (0.0-0.8) 03/04/24 18:57 Baso # (Auto) 0.1 10^3/uL (0.0-0.1) 03/04/24 18:57 Nucleated RBC % (auto) 0 % 03/04/24 18:57 Nucleated RBCs # 0.0 /100WBC 03/04/24 18:57 PT 13.20 SECONDS (12.1-14.9) 03/04/24 18:57 INR 0.97 (0.8-1.2) 03/04/24 18:57 APTT 28.0 SECONDS (23.9-36.7) 03/04/24 18:57 D-Dimer 0.79 ug/mLFEU (0-0.59) H 03/04/24 18:57 Sodium 134 mmol/L (136-145) L 03/04/24 18:57 Potassium 3.5 mmol/L (3.5-5.1) 03/04/24 18:57 Chloride 99 mmol/L (98-107) 03/04/24 18:57 Carbon Dioxide 22 mmol/L (22-29) 03/04/24 18:57 Anion Gap 16.5 (5-19) 03/04/24 18:57 BUN 6 mg/dL (8-23) L 03/04/24 18:57 Creatinine 0.7 mg/dL (0.5-0.9) 03/04/24 18:57 GFR Calculation 84.5 mL/min (90-130) L 03/04/24 18:57 Glucose 94 mg/dL (65-115) 03/04/24 18:57 Calculated Osmolality 275 mOsm/kg (285-295) L 03/04/24 18:57 Calcium 8.8 mg/dL (8.5-10.5) 03/04/24 18:57 Total Bilirubin 0.6 mg/dL (0.15-1.2) 03/04/24 18:57 AST 26 U/L (0-32) 03/04/24 18:57 ALT 26 U/L (0-33) 03/04/24 18:57 Alkaline Phosphatase 117 U/L (35-105) H 03/04/24 18:57 Troponin T Baseline 10 ng/L (0-10) 03/04/24 18:57 Troponin T 120 Minute 9.74 ng/L (0-10) 03/04/24 20:56 Delta Troponin T -0.26 ABS# (0-10) L 03/04/24 20:56 NT-Pro-B Natriuret Pep 177 pg/mL (0-125) H 03/04/24 18:57 Total Protein 5.9 g/dL (6.6-8.7) L 03/04/24 18:57 Albumin 3.8 g/dL (3.5-5.2) 03/04/24 18:57 Globulin 2.1 g/dL (1.3-4.6) 03/04/24 18:57 All radiology interpretation(s) finalized by discharge Clincial Decision Support The following clinical decision support tools were used to aid in care of the patient HEART Score -> History: Slightly Suspicous, EKG: Normal, Age: 45-64 yrs, Risk Factors: >/=3 Risk Factors, Troponin: Baseline Trop <16 ng/L. Resulting HEART Score: 3. Discharge Plan Discharge Patient Disposition: Home Clinical Impression: Chest pain Condition: Stable Prescriptions: No Action liothyronine 5 mcg tablet 5 mcg PO DAILY levothyroxine 112 mcg tablet 112 mcg PO DAILY aspirin 81 mg tablet,delayed release (DR/EC) 81 mg PO DAILY duloxetine 60 mg capsule,delayed release(DR/EC) 60 mg PO DAILY folic acid 1 mg tablet 1 mg PO DAILY Qty: 90 3RF methotrexate sodium 2.5 mg tablet See Rx Instructions PO .Q7days Qty: 30 5RF Rx Instructions: take 6 tabs on same day once a week PO .Q7days; Protonix [address] for susp in packet 40 mg PO DAILY Qty: 90 1RF prednisone 10 mg tablet 5 mg PO DAILY cholecalciferol (vitamin D3) 50 mcg (2,000 unit) capsule 50 mcg PO DAILY buspirone 5 mg tablet 7.5 mg PO BID Plavix 75 mg tablet 75 mg PO DAILY Qty: 90 0RF atorvastatin 40 mg tablet 40 mg PO BEDTIME Qty: 90 3RF carvedilol 3.125 mg tablet 3.125 mg PO Q12H Qty: 60 3RF Discharge Orders: Discharge ED (Routine); Ordered 03/04/24 Ordered By: Ford Friend Referrals: King Serrano MD [Primary Care Provider] - Patient Instructions: Chest Pain (ED), Opioid Safety, Pain Management Activity Restrictions/Additional Instructions: Return for worsening chest pain, shortness of breath, fever, cough, other concerning symptoms. See your doctor next week. Coding Level of Care Code ED Helmet Binder for Meera Virk
[2024-03-04 19:18] LABS: INR 0.97 (0.8-1.2)
[2024-03-04 19:24] LABS: Troponin(5th) Baseline 10 ng/L (0-10)
[2024-03-04 19:29] LABS: D Dimer 0.79 ug/mLFEU (0-0.59)
[2024-03-04] MEDS: ondansetron 2 mg/ML SDV 2 mL 4 MG IVP (19:32)
[2024-03-04] MEDS: morphine 4 mg/mL SDV 1 mL IVP ×2 (19:32→20:40)
[2024-03-04 19:33] LABS: Alanine Aminotransferase 26 U/L (0-33); Albumin Level 3.8 g/dL (3.5-5.2); Alkaline Phosphatase 117 U/L (35-105); Anion Gap 16.5 (5-19); Aspartate Amino Transferase 26 U/L (0-32); Blood Urea Nitrogen 6 mg/dL (8-23); Calcium 8.8 mg/dL (8.5-10.5); Carbon Dioxide 22 mmol/L (22-29); Chloride 99 mmol/L (98-107); Creatinine Clr Calc Pharmacy 82.1112; Globulin 2.1 g/dL (1.3-4.6); Glomerular Filtration Rate 84.5 mL/min (90-130); Glucose 94 mg/dL (65-115); NT Pro B Type Natriuretic Pept 177 pg/mL (0-125); Osmolality Calculated 275 mOsm/kg (285-295); Potassium 3.5 mmol/L (3.5-5.1); Sodium 134 mmol/L (136-145); Total Bilirubin 0.6 mg/dL (0.15-1.2); Total Protein 5.9 g/dL (6.6-8.7)
[2024-03-04 20:11] VITALS: BP 102/74; PULSE 79; RESP 17; O2SAT 98
--- NOTE | 2024-03-04 20:24 | CTR_ITS ---
PROCEDURE INFORMATION: Exam: CTA Chest With Contrast Exam date and time: 03/04/2024 9:27 PM Age: 63 years old Clinical indication: Pain and abnormal findings; Abnormal diagnostic tests; Elevated d-dimer; Chest pressure; Patient HX: C/O chest pain with dimer 0.79; Additional info: Chest pain elevated d dimer TECHNIQUE: Imaging protocol: Computed tomographic angiography of the chest with contrast. Exam focused on the arteries. 3D rendering (Not supervised by radiologist): MIP and/or 3D reconstructed images were created by the technologist. Radiation optimization: All CT scans at this facility use at least one of these dose optimization techniques: automated exposure control; mA and/or kV adjustment per patient size (includes targeted exams where dose is matched to clinical indication); or iterative reconstruction. Contrast material: OMNI 350; Contrast volume: 58 ml; Contrast route: INTRAVENOUS (IV); COMPARISON: CR (CHEST, ) 03/04/2024 7:19 PM RADIATION DOSE METRICS: Total DLP (mGy-cm): 300.54 FINDINGS: Pulmonary arteries: There is no evidence of filling defects within the pulmonary arterial circulation to suggest pulmonary embolism. Aorta: There is no thoracic aortic aneurysm or dissection. Lungs: Dependent density at the lung bases most likely represent some hypoventilation or atelectasis. Pleural spaces: Unremarkable. No pneumothorax. No pleural effusion. Heart: Unremarkable. No cardiomegaly. No pericardial effusion. Coronary arteries: There is severe atherosclerotic calcification of the coronary arteries. Lymph nodes: There is no evidence of lymphadenopathy. Bones/joints: The thoracic spine demonstrates moderate degenerative changes at multiple levels. There is no evidence of acute fracture. Soft tissues: Unremarkable. CT/CT angio chest PE protcl [id number] IMPRESSION: No evidence of pulmonary embolism.
--- NOTE | 2024-03-04 20:56 | ECG_ITS ---
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 Measurements Intervals [place] Rate: 84 P: 65 MI: 119 QRS: 30 QRSD: 88 T: 64 QT: 380 QTc: 451 Interpretive Statements SINUS RHYTHM WITH SHORT MI INTERVAL SEPTAL MYOCARDIAL INFARCTION , PROBABLY OLD [40+ ms Q WAVE IN V1/V2] Compared to ECG 03/04/2024 18:53:05 Short MI interval now present Myocardial infarct finding now present Atrial fibrillation no longer present T-wave abnormality no longer present Electronically Signed On 03-06-2024 14:16:40 CDT by Derik Meraz M.D. [email or web address]
[2024-03-04 21:25] LABS: Troponin 5 2HR 9.74 ng/L (0-10)
[2024-03-04 21:26] LABS: Troponin 5 2HR Delta -0.26 ABS# (0-10)
[2024-03-04] MEDS: iohexol 350 mg/mL 500 mL Btl (per mL) IV (21:36)
[2024-03-04] MEDS: ketorolac 30 mg/mL INJ 15 MG IVP (23:30)
[2024-03-04 23:35] VITALS: BP 136/79; PULSE 87; O2SAT 99
== END 2024-03-04 23:36 | disposition home or self-care (01) ==
PROVIDERS: Emergency Provider Emergency Medicine; PCP Hospitalist
DX: R07.9 Chest pain, unspecified (principal); Z79.82 Long term (current) use of aspirin; Z79.02 Long term (current) use of antithrombotics/antiplatelets; F17.210 Nicotine dependence, cigarettes, uncomplicated; I25.10 Atherosclerotic heart disease of native coronary artery without angina pectoris; E78.5 Hyperlipidemia, unspecified
CPT/HCPCS: 36415; 71045; 71275; 80053; 83880; 84484; 85025; 85378; 85610; 85730; 93005; 96374; 96375; 96376; 99285; J1885; J2270; J2405

== ENCOUNTER 2024-03-20 09:42 | Outpatient (CLI) | payer OTHER, SELFPAY ==
[2024-03-20 09:59] VITALS: BMI 24.2
--- NOTE | 2024-03-20 09:59 | ECG_ITS ---
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 Interpretive Statements PROCEDURE: At the baseline, the EKG revealed normal sinus rhythm with a poor R wave progression. Diffuse nonspecific ST-T changes. Features of possible old septal MD. The baseline heart was 68 bpm with a blood pressue of 141/79 mm of Hg Lexiscan was infused over a period of 20 seconds. A total of 0.4 milligrams of Lexiscan was infused. The stress phase was continued for a total of 5 minutes. Heart rate at the end of the stress phase was 93 bpm with a blood pressure 119/77 mm of Hg. The EKG at the peak infusion revealed more prominent ST-T changes. Sestamibi was injected 20 seconds after the Lexiscan infusion. Heart rate at the end of the recovery phase was 78 bpm with a blood pressure of 139/81 mm of Hg. CONCLUSION: 1. Nonspecific EKG changes with the LexiScan infusion 2. No LexiScan induced chest pain or cardiac arrhythmia 3. Normal blood pressure and heart rate response 4. Sestamibi/sestamibi perfusion scan pending; see separate report. Lung unchanged pre/post procedure; Intraprocedure shortess of breath; Symptoms resoled by discharge Electronically Signed On 03-23-2024 18:44:01 CDT by Landen Calderon M.D. [id number]
--- NOTE | 2024-03-20 10:00 | NMCV_ITS ---
NM shaquille perf SPECT r/s* [id number] Suzanne Ureña Age: 64 Gender: F : 1960 Exam Date: 03/20/2024 10:00 Ordering Phys: Landen Calderon MD ([email or web address]) Technologist: TORI Storm Exam Location: [facility] Indications: cp STRESS TEST Please see separate stress test report in [facility] for full findings IMAGE PROTOCOL Rest/Stress 1 Lexiscan Day Radiopharmaceutical Dose (mCi) Administration Site Administered by Rest: Tc-99m 8.9 IV TORI Michaels Sestamibi Stress:Tc-99m 27.8 IV TORI Michaels Sestamibi Rest: 20-Mar-2024 60 Discovery 630 Stress: 20-Mar-2024 30 Discovery 630 0.4mg Lexiscan. Supine position only as patient was unable to lay prone. SPECT RESULTS Technical Quality: Good Raw Data Analysis: Normal Image Corrections: No attenuation or motion correction applied Summed Stress Score: 0 Summed Rest Score: 4 Summed Difference Score: 0 PERFUSION FINDINGS Fairly uniform myocardial tracer uptake with no significant perfusion abnormalities FUNCTIONAL RESULTS (calculated via Gated SPECT) Stress Image LV EF (%): 68 Stress EDV (mL):73 TID: 1.27 Stress ESV (mL):23 FUNCTIONAL FINDINGS: Segmental wall motion analysis revealing no gross wall motion abnormalities IMPRESSIONS 1. Myocardial perfusion imaging revealing no significant Perfusion abnormalities 2. Normal LV ejection fraction of 68%. 3. LV wall motion analysis revealing no gross wall motion abnormalities. 4. Normal LV volume Low probability for coronary ischemia, based on the above findings Dr Landen Calderon MD FACC (Electronically Signed) Final Date: 23 March 2024 00:28 S
[2024-03-20] MEDS: ondansetron 2 mg/ML SDV 2 mL 4 MG IVP (11:23)
[2024-03-20] MEDS: regadenoson 0.4 Mg/5 ml Syringe IVP (11:26)
[2024-03-20] MEDS: aminophylline 25 mg/mL SDV 20 mL IVP (11:38)
[2024-03-20 11:41] VITALS: BP 139/81; PULSE 78
== END 2024-03-20 09:43 | disposition home or self-care (01) ==
PROVIDERS: Visit Provider Internal Medicine Cardiovascular Disease
DX: I25.10 Atherosclerotic heart disease of native coronary artery without angina pectoris (principal); R06.02 Shortness of breath
CPT/HCPCS: 36415; 78452; 93017; 96374; A9500; J0280; J2405; J2785

== ENCOUNTER 2024-04-23 06:30 | Outpatient (RCR) | payer OTHER, SELFPAY | END 2024-05-23 23:59 | disposition home or self-care (01) | LOC: TPT 06:30 | PROVIDERS: Visit Provider Orthopaedic Surgery | DX: M54.9 Dorsalgia, unspecified (principal); G89.29 Other chronic pain | CPT/HCPCS: 97110; 97162 ==

== ENCOUNTER 2024-05-25 14:08 | Outpatient (CLI) | payer OTHER, SELFPAY ==
[2024-05-25 14:45] LABS: Basophils # 0.1 10^3/uL (0.0-0.1); Basophils % 0.5 %; Eosinophils # 0.3 10^3/uL (0.0-0.8); Eosinophils % 2.6 %; Hematocrit 32.7 % (36-47); Lymphocytes # 1.8 10^3/uL (0.8-4.8); Lymphocytes % 15.6 %; Mean Corpuscular HGB Conc 34.3 g/dL (30-55); Mean Corpuscular Hemoglobin 32.3 pg (27-33); Mean Corpuscular Volume 94.2 fl (85-98); Mean Platelet Volume 12.5 fL (7.4-10.4); Monocytes # 1.2 10^3/uL (0.2-0.9); Monocytes % 10.9 %; Neutrophils # 7.92 10^3/uL (1.8-7.7); Nucleated Red Blood Cells % 0 %; Platelet Count 226 10^3/cmm (157-399); Red Blood Count 3.47 10^6/uL (3.85-5.65); Red Cell Distribution Width 13.2 % (12.1-15.1); White Blood Count 11.32 10^3/uL (3.29-11.43)
[2024-05-25 15:01] LABS: Alanine Aminotransferase 7 U/L (0-33); Albumin Level 3.5 g/dL (3.5-5.2); Alkaline Phosphatase 135 U/L (35-105); Aspartate Amino Transferase 14 U/L (0-32); C Reactive Protein 62.2 mg/L (0.0-4.9); Globulin 3.2 g/dL (1.3-4.6); Glomerular Filtration Rate 84.2 mL/min (90-130); Total Bilirubin 0.6 mg/dL (0.15-1.2); Total Protein 6.7 g/dL (6.6-8.7)
[2024-05-25 15:07] LABS: Erythrocyte Sedimentation Rate 25 mm/hr (0-15)
== END 2024-05-25 14:09 | disposition home or self-care (01) ==
LOC: LAB 14:14
PROVIDERS: Visit Provider Internal Medicine Rheumatology
DX: Z79.899 Other long term (current) drug therapy (principal); M06.041 Rheumatoid arthritis without rheumatoid factor, right hand; M06.042 Rheumatoid arthritis without rheumatoid factor, left hand
CPT/HCPCS: 36415; 80076; 82565; 85025; 85651; 86140

== ENCOUNTER 2024-07-07 10:41 | Outpatient (CLI) | payer OTHER, SELFPAY ==
--- NOTE | 2024-07-07 11:00 | MR_ITS ---
WS: [id number] MRI LUMBAR SPINE NONCONTRAST HISTORY: Back Pain COMPARISON: None available. TECHNIQUE: Sagittal and axial multisequence imaging is submitted. Mild straightening of the normal lumbar lordosis. Mild S-shaped scoliosis. Disc spaces and vertebral body heights are well-preserved. Conus terminates normally at L1-2 disc level. L1-L2: Moderate RIGHT paracentral disc protrusion mildly deforming the RIGHT lateral thecal sac. Disc protrusion extends slightly cephalad from the disc level. No nerve root contact. L2-L3: Diffuse annular disc bulging with a central disc protrusion. Mild ligamentum flavum and facet arthritis. Mild foraminal narrowing. L3-L4: Mild annular disc bulging asymmetric to the LEFT with a LEFT foraminal broad-based disc protrusion. Effacement of ventral CSF and contact on the traversing L4 nerve roots, LEFT greater than RIGHT. Marked ligamentum flavum hypertrophy. Mild central and bilateral subarticular recess and foraminal stenosis. L4-L5: Diffuse annular disc bulging with a RIGHT foraminal disc protrusion contacting the RIGHT lateral thecal sac and the traversing RIGHT L5 nerve root. Moderate central, bilateral subarticular recess and RIGHT foraminal stenosis. Mild LEFT foraminal stenosis. L5-S1: Mild annular disc bulge with a central disc protrusion contacting the S1 nerve roots, LEFT greater than RIGHT. Marked ligamentum flavum and facet arthritis. Disc osteophyte complexes extend into the foramina causing moderate stenosis. Mild ectasia abdominal aorta. MR/MR lumbar spine wo con* [id number] IMPRESSION: 1. Mild degenerative curvature lumbar spine. 2. Multilevel central, subarticular recess and foraminal stenosis due to combi nation of disc disease, osteophytes and facet arthritis. 3. L4-5: Moderate central, bilateral subarticular recess and RIGHT foraminal s tenosis. Mild LEFT foraminal stenosis. RIGHT foraminal disc protrusion contacts the RIGHT lateral thecal sac and traversing RIGHT L5 nerve root. 4. L5-S1: Central disc protrusion contacts the S1 nerve roots, LEFT greater th an RIGHT. Moderate foraminal stenosis. Mild central stenosis. 5. L3-4: LEFT foraminal broad-based disc protrusion. Mild contact on the trave rsing L4 nerve roots, LEFT greater than RIGHT. Mild central, bilateral subartic ular recess and foraminal stenosis. 6. L1-2: Moderate RIGHT paracentral disc protrusion extends cephalad from the disc level. No nerve root contact. 7. L2-3: Small central disc protrusion with minimal foraminal narrowing.
== END 2024-07-07 10:42 | disposition home or self-care (01) ==
LOC: RAD 10:43
PROVIDERS: PCP Family Medicine; Visit Provider Orthopaedic Surgery
DX: M48.061 Spinal stenosis, lumbar region without neurogenic claudication (principal); M47.896 Other spondylosis, lumbar region; M51.26 Other intervertebral disc displacement, lumbar region; M25.78 Osteophyte, vertebrae; R93.7 Abnormal findings on diagnostic imaging of other parts of musculoskeletal system; M51.27 Other intervertebral disc displacement, lumbosacral region; M48.07 Spinal stenosis, lumbosacral region; M41.86 Other forms of scoliosis, lumbar region; M51.369 Other intervertebral disc degeneration, lumbar region without mention of lumbar back pain or lower extremity pain; M51.379 Other intervertebral disc degeneration, lumbosacral region without mention of lumbar back pain or lower extremity pain; M47.897 Other spondylosis, lumbosacral region; I77.811 Abdominal aortic ectasia
CPT/HCPCS: 72148

== ENCOUNTER → 2024-09-11 08:50 | Outpatient (BNVA) | payer OTHER, SELFPAY | PROVIDERS: PCP Family Medicine; Visit Provider Family Medicine | DX: Z00.00 Encounter for general adult medical examination without abnormal findings (principal); D64.9 Anemia, unspecified; E03.9 Hypothyroidism, unspecified | CPT/HCPCS: 80053; 80061; 82306; 82607; 83540; 84439; 84443; 84481; 85025 ==

== ENCOUNTER 2024-10-03 12:21 | Outpatient (CLI) | payer OTHER, SELFPAY ==
--- NOTE | 2024-10-03 12:30 | CT_ITS ---
WS: [id number] CT ABDOMEN AND PELVIS WITH CONTRAST HISTORY: LLQ abd pain TECHNIQUE: Imaging performed of the abdomen and pelvis with IV contrast. Single phase imaging of the abdomen. Coronal and sagittal reformats are submitted. All CT scans at [facility] use at least one of these dose optimization techniques: automated exposure control; mA and/or kV adjustment per patient size (includes targeted exams where dose is matched to clinical indication); or iterative reconstruction. IV CONTRAST: Omnipaque 350; 100 mL IV. Oral contrast: No DLP: 262.91 mGy.cm COMPARISON: None available. Lower thorax: Lung bases are clear. Heart is normal size. No hiatal hernia. Liver/biliary system: Normal size with no intrahepatic dilatation. Gallbladder: Status post cholecystectomy. Pancreas: Normal size pancreas and pancreatic duct. No adjacent inflammation. Spleen: Normal size spleen. No mass or infarct. Adrenal glands: Normal. Right kidney: Normal. Left kidney: No obstruction. Exophytic cyst lower pole 1.2 cm. Aorta: Moderate atherosclerosis with no aneurysm. Heavy calcification with areas of noncalcified plaque. Mild stenosis origin of the SMA. Lymphadenopathy: None. Free fluid: None. GI tract: Well distended stomach with fluid. No small bowel obstruction. Mildly dilated appendix stent 8 mm. No adjacent inflammation. There is still some air within the appendix. Descending colon diverticulosis. No evidence for acute diverticulitis or obstruction. Abdominal wall: Unremarkable abdominal wall. No hernia. Pelvis: Negative urinary bladder. Bones: Bilateral SI joint arthritis. No destructive bone lesions. CT/CT abdomen pelvis w con* [id number] IMPRESSION: 1. The appendix is measuring just greater than normal but there is no inflamma tion. There is still a small amount of air within the appendix. This may be a n ormal size diameter for the appendix. Also note that the patient's pain is in t he LEFT lower quadrant. If patient presents with an elevated white count and RI GHT abdominal pain consider reevaluation by CT. 2. Descending colon and sigmoid diverticulosis. Narrowing of the lumen but no acute diverticulitis. No abscess. 3. Prior cholecystectomy. 4. Moderate atherosclerosis aorta.
[2024-10-03] MEDS: iohexol 350 mg/mL 500 mL Btl (per mL) IV (12:54)
== END 2024-10-03 12:22 | disposition home or self-care (01) ==
PROVIDERS: PCP Family Medicine; Visit Provider Family Medicine
DX: R10.32 Left lower quadrant pain (principal); R93.5 Abnormal findings on diagnostic imaging of other abdominal regions, including retroperitoneum; K57.30 Diverticulosis of large intestine without perforation or abscess without bleeding; Z90.49 Acquired absence of other specified parts of digestive tract; I70.0 Atherosclerosis of aorta; N28.1 Cyst of kidney, acquired; K55.1 Chronic vascular disorders of intestine; Z96.89 Presence of other specified functional implants; M46.1 Sacroiliitis, not elsewhere classified
CPT/HCPCS: 74177

== ENCOUNTER 2024-10-11 11:38 | Outpatient (CLI) | payer OTHER, SELFPAY ==
--- NOTE | 2024-10-11 11:40 | MM_ITS ---
WS: [id number] BILATERAL SCREENING DIGITAL TOMOSYNTHESIS MAMMOGRAM WITH CAD HISTORY: screening COMPARISON: None available. Bilateral CC and MLO views with tomosynthesis and synthetic mammography submitted. Computer aided detection analyzed. Breast composition: The breasts are extremely dense, which lowers the sensitivity of mammography. No suspicious masses, microcalcifications or architectural distortion. Very dense fibroglandular breast tissue anteriorly within each breast. Benign coarse calcifications in the RIGHT breast. No suspicious grouping of calcifications. MM/MM scr tomosynthesis [id number] IMPRESSION: BI-RADS: 2 - Benign FOLLOW UP: 1 Year Follow-up
== END 2024-10-11 11:39 | disposition home or self-care (01) ==
LOC: MOBLMAM 11:40
PROVIDERS: PCP Family Medicine; Visit Provider Family Medicine
DX: Z12.31 Encounter for screening mammogram for malignant neoplasm of breast (principal); R92.343 Mammographic extreme density, bilateral breasts; R92.323 Mammographic fibroglandular density, bilateral breasts; R92.1 Mammographic calcification found on diagnostic imaging of breast
CPT/HCPCS: 77063; 77067

== ENCOUNTER 2024-11-01 13:53 | Outpatient (CLI) | payer OTHER, SELFPAY ==
--- NOTE | 2024-11-01 14:00 | USCV_ITS ---
Suzanne Ureña Age: 64 Gender: F : 1960 Exam Date: 11/01/2024 14:04 Ordering Phys: Laurita Mary MD Technologist: KRISTIN Exam Location: [facility] – [place] Indication: bRUIT Risk Factors: Previous Vascular Surgery: Right Brachial BP: / Left Brachial BP: / Right Left Velocity (cm/s) Spectral Plaque Velocity (cm/s) Spectral Plaque Syst/Diast Broadening Syst/Diast Broadening 100.90/21.90 Prox CCA 66.50 / 21.70 80.20/ 24.50 Mid CCA 67.20 / 24.90 72.40/ 27.10 Distal CCA 74.60 / 25.90 76.20/ 29.60 Prox ICA 91.70 / 32.90 92.60/ 37.50 Mid ICA 108.00/ 33.60 75.70/ 26.60 Distal ICA 94.30 / 33.60 82.80 ECA 94.80 1.10 ICA/CCA 1.20 Antegrade Vertebral Antegrade 63.60/ 17.10 cm/s 29.40/ 8.60 cm/s Tri Subclavian Tri 154.4 90.70 0 FINDINGS Comparison:. 04/28/23 No significant elevation of systolic or diastolic velocities. Waveforms are normal. Mild plaque in the bifurcations. Antegrade vertebral arteries. CONCLUSIONS Bilateral ICA stenosis less than 50%. Dr. Sunni Marks DO (Electronically Signed) Final Date: 01 November 2024 14:49 S
== END 2024-11-01 13:54 | disposition home or self-care (01) ==
LOC: RAD 13:54
PROVIDERS: PCP Family Medicine; Visit Provider Family Medicine
DX: I65.23 Occlusion and stenosis of bilateral carotid arteries (principal)
CPT/HCPCS: 93880

== ENCOUNTER 2024-12-21 08:33 | Day surgery (SDC) | payer OTHER, SELFPAY ==
--- NOTE | 2024-12-21 08:59 | ANES.PREANE2 ---
Pre-Anesthetic Assessment Height/Weight: Height 5 ft 6 in Preop Diagnosis: Screening colonoscopy needed Operation Date: 12/21/24 09:55 Proposed Procedures p Colonoscopy 12308 G0121, Z12.11(Not Applicable) - Gray Tucker MD Was Beta Marsha taken within 24 hours: N/A Was Clonidine taken within 24 hours: N/A Social Tobacco and No alcohol Exam alert, oriented x 3, clear to auscultation bilaterally and regular rate & rhythm Airway Submandibular: within normal limits Cervical ROM: within normal limits Mallampati: Class III Comments: Comments: Edentulous, base implants in place Anesthetic Plan ASA status: 3 Anesthesia: MAC Other: No prior issues with anesthesia Completed bowel prep Patient takes midodrine Hypothyroidism on Synthroid Rheumatoid arthritis Patient recently saw cardiology yesterday for a follow-up for angina. Patient states that this is controlled well with medications. echo 2023 showing EF of 64% with no RWMA Prior A-fib, recent EKG showing sinus rhythm Current smoker Prior alcoholic, states that she only drinks very occasionally no Plan for MAC anesthesia Medications/Allergies Home Medications ?Medication ?Instructions ?Recorded ?Confirmed ?Last Taken ?Type aspirin 81 mg tablet,delayed 81 mg PO DAILY 04/13/23 12/20/24 12/17/24 07:30 History release cholecalciferol (vitamin D3) 50 50 mcg PO DAILY 09/13/23 12/20/24 12/17/24 07:30 History mcg (2,000 unit) capsule methotrexate sodium 2.5 mg tablet See Rx Instructions PO .Q7days #30 01/18/24 12/20/24 12/14/24 20:00 Rx Held on 05/30/24. tabs Instructions: Doctor's Order nitroglycerin 0.4 mg sublingual 0.4 mg sublingual Q5M PRN chest 03/30/24 12/20/24 Unknown Rx tablet pain #20 tabs clopidogrel 75 mg tablet See Rx Instructions .Route 04/10/24 12/20/24 12/15/24 07:30 Rx .COMPLEX #90 tabs tramadol 50 mg tablet 50 mg PO Q6H PRN pain 7 days #28 05/03/24 12/20/24 Unknown Rx tabs promethazine 25 mg tablet 25 mg PO Q4H PRN nausea and 06/01/24 12/20/24 Unknown Rx vomiting #20 tabs folic acid 1 mg tablet 1 mg PO DAILY #90 tabs 09/26/24 12/20/24 12/17/24 07:30 Rx pregabalin 75 mg capsule (Lyrica) 75 mg PO BID #60 caps 09/26/24 12/20/24 12/17/24 20:00 Rx alprazolam 0.25 mg tablet 0.25 mg PO TID PRN anxiety #90 tabs 10/02/24 12/20/24 12/17/24 Rx liothyronine 5 mcg tablet 5 mcg PO DAILY #90 tabs 10/02/24 12/20/24 12/17/24 07:30 Rx sertraline 25 mg tablet 25 mg PO DAILY #90 tabs 10/02/24 12/20/24 12/17/24 20:00 Rx midodrine 10 mg tablet 10 mg PO TID #270 tabs 11/23/24 12/20/24 12/17/24 20:00 Rx levothyroxine 100 mcg tablet 100 mcg PO DAILY #90 tabs 12/07/24 12/20/24 12/17/24 07:30 Rx (Synthroid) potassium chloride 20 mEq 20 meq PO DAILY #90 tabs 12/12/24 12/20/24 12/17/24 07:30 Rx tablet,extended release(part/cryst) (Klor-Con M) pantoprazole 40 mg tablet,delayed See Rx Instructions PO DAILY 12/18/24 12/20/24 12/17/24 07:00 History release (Protonix) atorvastatin 80 mg tablet (Lipitor) 80 mg PO DAILY #90 tabs 12/20/24 12/20/24 Unknown Rx Allergies Allergy/AdvReac Type Severity Reaction Status Date / Time tetracycline Allergy Severe ALGY-Anaphy Verified 12/20/24 09:48 laxis [facility] Anesthesia Medical History Hx of adenomatous colonic polyps Hypokalemia due to excessive gastrointestinal loss of potassium Anemia of unknown etiology may be from soft mechanical diet due to getting dentures Carotid bruit Right; [place] 2022 of carotids normal Anxiety History of myocardial infarction Benign essential HTN Nicotine dependence, cigarettes, with other nicotine-induced disorders had chest CTA 03.04.24 Degenerative joint disease (DJD) of lumbar spine Atherosclerosis of [place] coronary artery without angina pectoris Vitamin D deficiency Former smoker, stopped smoking in distant past 1ppd for > 35 years, still occ and cannabis High risk medication use Depression Onset before 2008 Atrial fibrillation by electrocardiogram Hypothyroidism (acquired) no thyroid bx or history of radiation to head/neck Seronegative rheumatoid arthritis of both hands Hyperlipidemia DX in 2009 Alcohol abuse Episodic Neuropathy Facet arthritis of lumbar region Surgical History Hx of cardiac cath 5..24 no intervention but has CAD and collaterals; had [place] Hx of colonoscopy with polypectomy 02.18.17 Imogene endoscopy in [place]: 3 tubular adenomas--recommended repeat 3 yrs Hx of section X 2 History of cholecystectomy H/O Spinal surgery L2,3 and L3,4 spacers S/P tonsillectomy at age 6 H/O bladder repair surgery Family History Mother Rheumatoid arthritis Hypertension Grandmother Cancer parathyroid cancer Hypertension Social History Smoking and tobacco/nicotine status: current every day tobacco/nicotine user cigarettes Packs smoked per day: 1.5 Years cigarettes smoked: 42 [ Other cigarette details: Started at age 13; as of 2.25 cut down to 3cig per day] Second hand smoke exposure: No Alcohol intake: current Alcohol intake frequency: holidays/special occasions only Substance/Drug Use: current Substance/Drug use frequency: daily Household members: spouse Marital status: Number of children: 2 Highest education level completed: Bachelor's Degree 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
--- NOTE | 2024-12-21 09:00 | P.HPUD_ITS ---
Surgery/Procedure H&P Update DATE OF PROCEDURE: December 21, 2024 DATE H&P PERFORMED: 12/05/24 H&P UPDATE INFORMATION: I have reviewed H&P completed within last 30 days, I have examined patient prior to procedure, No changes to prior documentation, H&P is in [facility] EMR on date indicated and Risks and benefits of the procedure reviewed PLANNED PROCEDURE: Operation Date: 12/21/24 09:55 Proposed Procedures p Colonoscopy 28309 G0121, Z12.11(Not Applicable) - Gray Tucker MD
[2024-12-21 09:08] VITALS: BP 139/89; PULSE 94; RESP 20; TEMP 36.4; O2SAT 99; BMI 20.9
[2024-12-21 10:41] VITALS: BP 121/86; PULSE 79; RESP 10; TEMP 36.2; O2SAT 94
[2024-12-21 11:09] VITALS: BP 102/87; PULSE 77; RESP 16; O2SAT 99
== END 2024-12-21 11:13 | disposition home or self-care (01) ==
PROVIDERS: PCP Family Medicine; Visit Provider Surgery
PROC: 0DJD8ZZ Inspection of Lower Intestinal Tract, Via Natural or Artificial Opening Endoscopic (ICD-10-PCS; CPT 45378; principal; 2024-12-21 09:55)
DX: Z12.11 Encounter for screening for malignant neoplasm of colon (principal); D12.0 Benign neoplasm of cecum; D12.2 Benign neoplasm of ascending colon; D12.4 Benign neoplasm of descending colon; K62.1 Rectal polyp; Z86.0100 Personal history of colon polyps, unspecified; E03.9 Hypothyroidism, unspecified; M06.9 Rheumatoid arthritis, unspecified; Z79.82 Long term (current) use of aspirin; K21.9 Gastro-esophageal reflux disease without esophagitis; F17.210 Nicotine dependence, cigarettes, uncomplicated; F41.8 Other specified anxiety disorders; I25.2 Old myocardial infarction; I25.10 Atherosclerotic heart disease of native coronary artery without angina pectoris; I48.91 Unspecified atrial fibrillation; I10 Essential (primary) hypertension; G62.9 Polyneuropathy, unspecified
CPT/HCPCS: 45380; 45381; 45385; 88305; J2250; J2704; J7030

== ENCOUNTER 2025-01-16 11:21 | Outpatient (CLI) | payer OTHER, SELFPAY ==
[2025-01-16 11:49] LABS: Hematocrit 29.4 % (36-47); Hemoglobin 9.70 g/dL (11.27-16.99); Mean Corpuscular HGB Conc 33.0 g/dL (30-55); Mean Corpuscular Hemoglobin 31.4 pg (27-33); Mean Corpuscular Volume 95.1 fl (85-98); Nucleated Red Blood Cells % 0 %; Platelet Count 166 10^3/cmm (157-399); Red Blood Count 3.09 10^6/uL (3.85-5.65); White Blood Count 8.99 10^3/uL (3.29-11.43)
[2025-01-16 12:14] LABS: Alanine Aminotransferase 12 U/L (0-33); Albumin Level 4.1 g/dL (3.5-5.2); Alkaline Phosphatase 129 U/L (35-105); Aspartate Amino Transferase 20 U/L (0-32); Globulin 2.8 g/dL (1.3-4.6); Total Protein 6.9 g/dL (6.6-8.7)
== END 2025-01-16 11:22 | disposition home or self-care (01) ==
PROVIDERS: PCP Family Medicine; Visit Provider Internal Medicine Rheumatology
DX: Z79.899 Other long term (current) drug therapy (principal)
CPT/HCPCS: 36415; 80076; 82306; 82565; 85025; 85651; 86140; 86480

== ENCOUNTER → 2025-03-02 13:34 | Outpatient (BNVA) | payer OTHER, MEDICARE, SELFPAY | PROVIDERS: PCP Family Medicine; Visit Provider Family Medicine | DX: I10 Essential (primary) hypertension (principal); E03.9 Hypothyroidism, unspecified; D64.9 Anemia, unspecified; M06.041 Rheumatoid arthritis without rheumatoid factor, right hand; M06.042 Rheumatoid arthritis without rheumatoid factor, left hand | CPT/HCPCS: 80053; 82607; 83540; 84439; 84443; 84481; 85025 ==

== ENCOUNTER 2025-03-19 17:58 | Inpatient (IN) | payer OTHER, MEDICARE, SELFPAY ==
[2025-03-19] VITALS (15 sets, daily range): BP systolic 77–173; BP diastolic 46–115; PULSE 66–124; RESP 16–18; TEMP 35.3–36.8; O2SAT 84–100; BMI 20.5
--- NOTE | 2025-03-19 18:01 | XRR_ITS ---
PROCEDURE INFORMATION: Exam: XR Chest Exam date and time: 03/19/2025 6:19 PM Age: 65 years old Clinical indication: Device placement; Other: Post resuscitation, et tube and og tube placements; Prior surgery; Surgery date: 6+ months; Surgery type: Cardiac cath, gallbladder; Additional info: Chest pain TECHNIQUE: Imaging protocol: Radiologic exam of the chest. Views: 1 view. COMPARISON: CT angio chest PE protcl [id number] 03/04/2024 9:27 PM FINDINGS: Tubes, catheters and devices: NG tube side-hole in the expected region of the gastric body. ETT approximately 5 cm above [place]. Lungs: Diffuse infiltrate in the bilateral mid to upper lungs, nonspecific although concerning for infection or edema with other etiologies not excluded. Pleural spaces: Unremarkable. No pleural effusion. No pneumothorax. Heart/Mediastinum: Unremarkable. No cardiomegaly. Bones/joints: Unremarkable. XR/XR chest 1V portable [id number] IMPRESSION: 1. Diffuse infiltrate in the bilateral mid to upper lungs, nonspecific although concerning for infection or edema with other etiologies not excluded. 2. NG tube side-hole in the expected region of the gastric body. 3. ETT approximately 5 cm above [place].
--- NOTE | 2025-03-19 18:02 | ECG_ITS ---
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[id number] Requested By: Linda Sheridan Order Number: [id number] Reading MD: BLAKE HARPER Measurements Intervals [place]son Rate: 123 P: 62 AL: 131 QRS: 228 QRSD: 116 T: 0 QT: 346 QTc: 497 Interpretive Statements SINUS TACHYCARDIA WITH OCCASIONAL ECTOPIC PREMATURE COMPLEXES INDETERMINATE AXIS LOW QRS VOLTAGE IN PRECORDIAL LEADS [QRS DEFLECTION < 1.0 mV IN CHEST LEADS] PATTERN CONSISTENT WITH PULMONARY DISEASE RIGHT BUNDLE BRANCH BLOCK [120+ ms QRS DURATION, UPRIGHT V1, 40+ ms S IN I/aVL/V4/V5/V6] Compared to ECG 03/04/2024 20:56:37 Indeterminate axis now present Low QRS voltage now present Right bundle-branch block now present Electronically Signed On 03-24-2025 21:12:40 CDT by BLAKE HARPER [email or web address]
[2025-03-19] MEDS: amiodarone 150 MG/100 ML PREMIX 400 MG IV (18:08)
[2025-03-19] MEDS: etomidate 2 mg/mL INJ SDV 10 mL 20 MG IVP (18:10)
[2025-03-19] MEDS: succinylcholine 20 mg/mL SDV 10mL 100 MG IVP (18:10)
--- NOTE | 2025-03-19 18:10 | PC.NURSE ---
PATIENT GIVEN SUCC AND ETOMIDATE AT 1810 TO SEDATE FOR PROPER INTUBATION.
--- NOTE | 2025-03-19 18:11 | PC.NURSE ---
PATIENT GIVEN 4.4 KETAMINE, 2.2 MAGALIE, 2 EPI IN ROUTE FOR CPR AND INTUBATION. PATIENT GIVEN 2 SHOCKS AT 200 JOULES PRIOR TO GETTING ROSC.
--- OUTSIDE RECORDS SUMMARY | 2025-03-19 18:12 | XMS_ITS | Patient Health Record ---
Author Organization [facility] [place] Address [address] [place] [address] Care Team Providers Care Account Support Specialist Name Role Phone MAHESH MULLINS Primary Care Provider [phone] ALLERGIES Allergen (clinical drug ingredient) Drug/Non Drug Allergy documented on EMR Reaction Allergy Type Onset Date Status tetracycline Tetracycline HCl Unknown Drug Allergy Active REASON FOR REFERRAL No Information MEDICATIONS Medication SIG (Take, Route, Frequency, Duration) Notes Start Date End Date Status Cytomel 5 MCG 1 tablet on an empty stomach Orally Once a day for 90 days 06/02/2019 Active Xanax 0.25 MG 1 tablet as needed Orally once a day for 30 days 07/27/2018 Active Acyclovir 5 % 1 application every 3 hours Externally Five times a day for 7 days 11/23/2019 Active Levothyroxine Sodium 112 MCG 1 tablet in the morning on an empty stomach Orally Once a day for 90 days Active Celecoxib 200 MG 1 capsule as needed with food Orally Twice a day for 30 days Active predniSONE 10 MG 4 for 3 days , 3 for 3, 2 for 3, 1 for 3 Orally Once a day for 30 day(s) 11/22/2020 Active Baclofen 10 MG 1 tablet as needed Orally Twice a day for 30 days 11/22/2020 Active DULoxetine HCl 60 MG 1 capsule Orally On ce a day for 90 days 05/25/2019 Active Dicyclomine HCl 20 MG 1 tablet Orally Th ree times a day for 30 day(s) 09/30/2020 Active Cyclobenzaprine HCl 10 MG 1/2 to 1 table t at bedtime as needed Orally Once a day for 30 day(s) 07/16/2020 Active IMMUNIZATIONS Vaccine Route Administration Date Status Comme nts Tdap (office supply) IM Intramuscular 11/05/2016 Administe red Pneumococcal polysaccharide PPV23 IM Intramuscular 03/20/2017 Administered Influenza (split), 3 yrs and above IM Intramuscular 03/23/2017 Administered SOCIAL HISTORY Tobacco Use: Social History Observation Description Date Details (start date - stop date) Current Smoker NA - NA Sex Assigned At : Social History Observation Description Sex Assigned At Unknown Smoking/Tobacco Questionairre Question Answer Notes Are you a current smoker How often do you smoke cigarettes? every day How many cigarettes a day do you smoke? 5 or les s PROBLEMS Problem Type ICD Code Onset Dates Problem Status W/U Status Risk SNOMED Code Notes Problem Zoster without complications (B02.9) Active confirmed Herpes zoster without complication (751644326) Problem Nicotine dependence unspecified, with withdrawal (F17.203) Active confirmed Problem Adjustment disorder with depressed mood (F43.21) Active confirmed Adjustment disorder with depressed mood (24122384) Problem Chronic tension-type headache, not intractable (G44.229) Active confirmed 953764511 Problem Other chronic pain (G89.29) Active confirmed 19187645 Problem Chronic frontal sinusitis (J32.1) Active confirmed 25901661 Problem Lumbago with sciatica, left side (M54.42) Active confirmed 760205841 Problem Pain in thoracic spine (M54.6) Active confirmed 679753398176127 Problem Aphasia (R47.01) Active confirmed 46833 003 Problem Essential hypertension (I10) Active confirmed 81817451 Problem Anxiety (F41.9) Active confirmed 677107 02 Problem Acquired hypothyroidism (E03.9) Active confirmed 656044348 Problem Hypothyroidism, unspecified type (E03.9) Active confirmed 80114794 Problem Neuropathy (G62.9) Active confirmed 530216628 Problem Environmental allergies (Z91.09) Active confirmed 007390606 Problem Seasonal allergic rhinitis due to pollen (J30.1) Active confirmed 79409618 Problem Chronic obstructive pulmonary disease with acute exacerbation (J44.1) Active confirmed 517465350 Problem Cigarette nicotine dependence without complication (F17.210) Active confirmed 44713792 Problem Tension-type headache, not intractable, unspecified chronicity pattern (G44.209) Active confirmed 988385283 Problem New daily persistent headache (G44.52) Active confirmed 144596034494708 Problem Paresthesia of left arm (R20.2) Active confirmed 02698645 Problem Bulging lumbar disc (M51.26) Active confirmed 144429347 Problem Acute right-sided low back pain with left-sided sciatica (M54.42) Active confirmed 972971763 Problem Constipation by delayed colonic transit (K59.01) Active confirmed 17519060 Problem Diverticulitis (K57.92) Active confirmed 215369986 Problem Chronic congestion of paranasal sinus (J32.9) Active confirmed Chronic sinusit is (40375827) Problem Basal cell carcinoma (BCC) of skin of other part of torso (C44.519) Active confirmed PLAN OF TREATMENT Pending Test Test Name Order Date CT Sinuses 01/26/2017 Xray Hip, left 11/04/2016 Xray Elbow, left 11/04/2016 Urine Culture, Routine 03/29/2018 Rheumatoid Arthritis Factor 11/20/2019 C-Reactive Protein, Quant 11/20/2019 JOHANA Comprehensive Panel 11/20/2019 Biopsy & Pathology Report 03/18/2020 Biopsy & Pathology Report 04/08/2020 COVID Antigen 06/26/2020 Insurance Providers Payer Name Payer Address Payer Phone Subscriber Number Group Number Insured Name Patient Relationship to Insured Coverage Start Date Coverage End Date [facility] [address] [address] [place] [address] [id number] Suzanne Ureña Self - patient is the insured 7 MEDICATIONS ADMINISTERED Medication Instructions Date of Administration Dosage Notes KENALOG 09/27/2018 1 mL Promethazine 03/31/2018 25 mg Promethazine 11/21/2018 25 mg Rocephin 1 gm 11/15/2018 1 g Rocephin 1 gm 12/12/2018 1 g Toradol 11/15/2018 60 mg Ceftriaxone 1 gram 03/29/2018 1 g Ceftriaxone 1 gram 03/31/2018 1 g Ceftriaxone 1 gram 04/01/2018 1 g Kenalog 40mg/ml 1.5 ml given via joint injection w/ 3 cc Bupivacaine 12/28/2016 40 mg MEDICAL (GENERAL) HISTORY Medical History History ICD Code hyperthyroidism hypertension Surgical History Surgery Date(Month/Year) Tonsillectomy 6 y/o Right Breast Lumpectomy [facility] 0 08/21/2015 Hospitalization History Reason Date(Month/Year)
--- NOTE | 2025-03-19 18:14 | ED_ITS ---
HPI - CPR 2 General: Chief Complaint: Cardiac Arrest/CPR Stated Complaint: post code Time Seen by Provider: 03/19/25 18:00 History of Present Illness: 65-year-old female with a history of cor onary artery disease, myocardial infarction, hypertension, tobacco dependence, depression, atrial fibrillation, chronic anticoagulation on Plavix, hypothyroidism and hyperlipidemia who presents to the emergency room after calling EMS for chest pain, having ventricular tachycardia and being intubated. She received ketamine. On presentation she is unresponsive and has an LMA. EMS reports she was complaining of severe chest pain and when they got her to the truck she suddenly went unresponsive. She was in V. tach. She received 2 rounds of epinephrine and was electrocardioverted. She is hypertensive on presentation. Pupils are equal but unresponsive. She has no spontaneous breathing. Related Data Home Medications ?Medication ?Instructions ?Recorded ?Confirmed aspirin 81 mg tablet,delayed 81 mg PO DAILY 04/13/23 1 release cholecalciferol (vitamin D3) 50 50 mcg PO DAILY 03/12/25 mcg (2,000 unit) capsule Previous Rx's ?Medication ?Instructions ?Recorded nitroglycerin 0.4 mg sublingual 0.4 mg sublingual Q5M PRN chest 03/30/24 tablet pain #20 tabs clopidogrel 75 mg tablet See Rx Instructions .Route 1 06/10/23 Held on 12/21/24. .COMPLEX #90 tabs Instructions: Resume on 12/24/24. tramadol 50 mg tablet 50 mg PO Q6H PRN pain 7 days #28 05/03/24 tabs promethazine 25 mg tablet 25 mg PO Q4H PRN nausea and 06/01/24 vomiting #20 tabs folic acid 1 mg tablet 1 mg PO DAILY #90 tabs 09/26 midodrine 10 mg tablet 10 mg PO TID #270 tabs 11/23 potassium chloride 20 mEq 20 meq PO DAILY #90 tabs tablet,extended release(part/cryst) (Klor-Con M) sertraline 25 mg tablet 25 mg PO DAILY #90 tabs 12/22 06/17 atorvastatin 80 mg tablet (Lipitor) 80 mg PO DAILY #90 tabs 01/03/25 leflunomide 20 mg tablet 20 mg PO DAILY #30 tabs 01/22 02/15 prednisone 20 mg tablet See Rx Instructions PO .COMP [place] 02/09/25 PRN joint pain flare #30 tabs prednisone 10 mg tablet See Rx Instructions .Route 1 .COMPLEX joint pain #60 tabs pregabalin 75 mg capsule (Lyrica) 75 mg PO BID #60 cap s 02/21/25 liothyronine 5 mcg tablet 10 mcg (2 x 5 mcg) PO DAILY #180 03/04/25 tabs alprazolam 0.25 mg tablet 0.25 mg PO TID PRN anxiety # 90 tabs 03/08/25 pantoprazole 40 mg tablet,delayed See Rx Instructions .Route 03/08/25 release .COMPLEX #30 tabs levothyroxine 100 mcg tablet 100 mcg PO DAILY #90 tabs 03/12/25 (Synthroid) valacyclovir 1 gram tablet 1,000 mg PO TID #21 tabs Allergies Allergy/AdvReac Type Severity Reaction Status Date / Time tetracycline Allergy Severe ALGY-Anaphy Verified 03/12/25 15:45 laxis Review of Systems 2 General: Reports: ROS unobtainable due to endotracheal tube PFSH ED 2 PFSH: Medical History (Updated 03/19/25 @ 19:59 by Fouzia Pearce MD) 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 Degenerative joint disease (DJD) of lumbar spine Atherosclerosis of [place]ot coronary artery without angina pectoris Vitamin D deficiency Former smoker, stopped smoking in distant past 1ppd for > 35 years, still occ and cannabis High risk medication use Depression Onset before 2008 Atrial fibrillation by electrocardiogram Hypothyroidism (acquired) no thyroid bx or history of radiation to head/neck Seronegative rheumatoid arthritis of both hands Hyperlipidemia DX in 2009 Alcohol abuse Episodic Neuropathy Facet arthritis of lumbar region Surgical History Hx of cardiac cath 10.07.23 no intervention but has CAD and collaterals; had [place] Hx of colonoscopy with polypectomy 02.18.17 [facility] in [place]: 3 tubular adenomas--7.31.25 at [facility]--adenomas, repeat in 5yrs Hx of section X 2 History of cholecystectomy H/O Spinal surgery L2,3 and L3,4 spacers S/P tonsillectomy at age 6 H/O bladder repair surgery Family History Mother Rheumatoid arthritis Hypertension Grandmother Cancer parathyroid cancer Hypertension Social History Smoking and tobacco/nicotine status: former use of tobacco/nicotine Quit status (tobacco/nicotine): quit date established Planned quit date: 03/05/25 Second hand smoke exposure: No Alcohol intake: current Alcohol intake frequency: holidays/special occasions only Substance/Drug Use: current Substance/Drug use frequency: daily Household members: spouse Marital status: Number of children: 2 Highest education level completed: Bachelor's Degree 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 Skin: Warm, dry Head: Normocephalic, atraumatic. Neck: Supple, trachea midline. Eye: pupils pinpoint, sluggish, equal Ears, nose, mouth and throat: ETT in place. Cardiovascular: Regular rate and rhythm, Normal peripheral perfusion. Respiratory: coarse, mechanically ventilated, breath sounds are equal, Symmetrical chest wall expansion. Gastrointestinal: Soft, Non distended Musculoskeletal: no deformity. Neurological: unable to assess. Psychiatric: unable to assess Course 2 Vital Signs: Vital signs: Vital Signs Temperature 98.3 F 03/19/25 17:58 Pulse Rate 98 03/19/25 18:53 Respiratory Rate 16 03/19/25 18:16 Blood Pressure 134/97 03/19/25 18:53 Pulse Oximetry 100 03/19/25 18:53 Oxygen Delivery Me thod Room Air 03/19/25 17:58 Fraction of Inspir ed Oxygen 100 03/19/25 18:16 MDM - Cardiac Arrest/CPR Medical Decision Making Medical decision making: Patient's reason for coming to the emergency room: Chest pain, cardiac arrest, ventricular tachycardia, respiratory failure Social determinants: Patient's is here. I reviewed the patient's medical record. 65-year-old female with a history of coronary artery disease, myocardial infarction, hypertension, tobacco dependence, depression, atrial fibrillation, chronic anticoagulation on Plavix, hypothyroidism and hyperlipidemia I reviewed the patient's current home meds: Patient has Plavix listed. No Eliquis or Xarelto. Alternate historians: Patient is intubated. History from EMS and from her . Differential diagnosis for patient with chest pain and cardiovascular arrest includes but is not limited to and based on the above HPI, review of systems and physical exam: Pneumonia. unstable angina. angina. Acute coronary syndrome / [place]. Pulmonary embolism. Costochondritis / musculoskeletal. Pleurisy. Pericarditis. Esophageal spasm. Pancreatis. Cholecystitis. Orders placed to evaluate differential diagnosis based on the above differential, HPI and physical exam Interpreted rhythm strip from the field. She did appear to have some ventricular tachycardia. When she was converted it was just a single lead but did appear to have ST elevation at that time. These were reviewed and interpreted by myself the emergency room physician. Consultation: I spoke with Dr. Diaz and given the patient having chest pain, ventricular tachycardia he is taking her straight to the [facility]. I am going to have her go to CT scan prior to the [facility] to make sure she has not had an intracranial hemorrhage. He request admission to the hospitalist service after [facility]. EKG: Time 1802. Rate 123. Sinus tachycardia, nonspecific ST changes, no ectopy, right bundle branch block , This was reviewed and interpreted by myself the ER physician at 1806 Endotracheal intubation Time: At 1820 Confirmed: Patient, procedure, and site correct. Consent: , Emergent. Indication: Respiratory failure. Procedural sedation: Succinylcholine and etomidate . Monitoring: Cardiac, blood pressure, continuous pulse oximetry. Preparation: Pre oxygenated, Inline stabilization of cervical spine maintained, Ensured proper cuff inflation. Technique: Oral intubation: A 8 ET tube was inserted, glydescope, visualized cords and ett passing through cords. . Confirmation of tube placement: Bilateral chest rise, Positive color change indicated on end title CO2. Post procedure exam: Equal breath sounds. Complications: None. Performed by: Self. Total time: 10 minutes. Chest x-ray: Pulmonary edema. NG tube in place. ET tube about 5 cm above [place]. This can be advanced. This was reviewed and interpreted by myself the emergency room physician. I also reviewed the radiology report. CT head: Given patient's neurologic response which may be secondary to ketamine a CT of the head was done prior to receiving any more anticoagulation to make sure she did not have any kind of intracranial hemorrhage. No acute intracranial process. No intracranial hemorrhage, no evidence of infarct. No evidence of acute fracture. This was reviewed and interpreted by myself the emergency room physician. I also reviewed the radiology report. Lab Review: Laboratory results were reviewed and interpreted by myself the emergency room physician. No leukocytosis. Stable anemia with a hemoglobin of 9.7. This is at the bottom of her baseline BUN and creatinine are 14 and 1.4. Some acute on chronic renal insufficiency. Initial troponin is not reported at this time Assessment of risk: - Level of risk extremely high. - Was hospitalization considered? Patient is being admitted to the ICU to the hospitalist after going to the [facility]. Reexamination: Patient is maintaining on the vent. Lung beauchamp are clear at this point. She is oxygenating well. She has had no neurologic response. She did receive medications. Consultation: I spoke with Dr. Pearce who is on-call for the hospitalist service who agrees to admission. Assessment and plan: Chest pain Coronary artery disease Cardiovascular arrest Ventricular tachycardia Treating empirically for sepsis Respiratory failure ?STEMI protocol was followed. Patient received Plavix and heparin drip. We had ordered a nitro drip initially but she became hypotensive so that has been held. ?Patient intubated. She had an LMA in on arrival. ?Patient was initially hypertensive but after intubation became hypotensive. Hospitalist requested and agreed to give some limited fluids although she does appear to be a little bit fluid overloaded and broad-spectrum antibiotics -2.5 L normal saline bolus. Fluid volumes based on ideal body weight. -Broad-spectrum antibiotics were administered. -Sepsis quality measures. -Lactic acid with a reflex was ordered. -Blood cultures were ordered. ?I reevaluated the patient's volume status after sepsis fluids were given. -I discussed the patient with the hospitalist on-call who is admitting the patient. - Discussed findings and plan with patient. Answered any questions. - All laboratory values were reviewed and interpreted personally by myself, the ER physician - All imaging was reviewed and interpreted personally by myself, the ER physician. - Evaluation and treatment of this problem were appropriate in the emergency setting Critical Care: -I spent a total of 45 minutes of critical care time managing the patient, independent of any other practitioner. -The time involved in the performance of separately reportable procedures was not counted towards critical care time. Lab Data 03/19/25 18:09 03/19/25 18:09 Radiology Impressions Chest X-Ray 03/19/25 18:01 IMPRESSION: 1. Diffuse infiltrate in the bilateral mid to upper lungs, nonspecific although concerning for infection or edema with other etiologies not excluded. 2. NG tube side-hole in the expected region of the gastric body. 3. ETT approximately 5 cm above [place]. Head CT 03/19/25 18: IMPRESSION: No acute intracranial abnormality. Laboratory Results WBC 10.44 10^3/uL (3.29-11.43) 03/19/25 18:09 RBC 3.27 10^6/uL (3.85-5.65) L 03/19/25 18:09 Hgb 9.70 g/dL (11.27-16.99) L 03/19/25 18:09 Hct 31.7 % (36-47) L 03/19/25 18:09 MCV 96.9 fl (85-98) 03/19/25 18:09 MCH 29.7 pg (27-33) 03/19/25 18:09 MCHC 30.6 g/dL (30-55) 03/19/25 18:09 RDW 15.6 % (12.1-15.1) H 03/19/25 18:09 Plt Count 132 10^3/cmm (157-399) L 03/19/25 18:09 MPV 12.7 fL (7.4-10.4) H 03/19/25 18:09 Neut % (Auto) 55.1 % 03/19/25 18:09 Lymph % (Auto) 38.0 % 03/19/25 18:09 [place] % (Auto) 2.8 % 03/19/25 18:09 Eos % (Auto) 1.5 % 03/19/25 18:09 Baso % (Auto) 0.8 % 03/19/25 18:09 Neut # (Auto) 5.75 10^3/uL (1.8-7.7) 03/19/25 18:09 Lymph # (Auto) 4.0 10^3/uL (0.8-4.8) 03/19/25 18:09 [place]y # (Auto) 0.3 10^3/uL (0.2-0.9) 03/19/25 18:09 Eos # (Auto) 0.2 10^3/uL (0.0-0.8) 03/19/25 18:09 Baso # (Auto) 0.1 10^3/uL (0.0-0.1) 03/19/25 18:09 Nucleated RBC % (auto) 0 % 03/19/25 18:09 Nucleated RBCs # 0.0 /100WBC 03/19/25 18:09 Sodium 135 mmol/L (136-145) L 03/19/25 18:09 Potassium 3.4 mmol/L (3.5-5.1) L 03/19/25 18:09 Chloride 106 mmol/L (98-107) 03/19/25 18:09 Carbon Dioxide 13 mmol/L (22-29) L 03/19/25 18:09 Anion Gap 19.4 (5-19) H 03/19/25 18:09 BUN 14 mg/dL (8-23) 03/19/25 18:09 Creatinine 1.4 mg/dL (0.5-0.9) H 03/19/25 18:09 GFR Calculation 37.7 mL/min (90-130) L 03/19/25 18:09 Glucose 256 mg/dL (65-115) H 03/19/25 18:09 Calculated Osmolality 289 mOsm/kg (285-295) 03/19/25 18:09 Lactic Acid 3.8 mmol/L (0.5-2.2) H 03/19/25 18:09 Calcium 8.1 mg/dL (8.5-10.5) L 03/19/25 18:09 Magnesium 2.0 mg/dL (1.7-2.3) 03/19/25 18:09 Total Bilirubin 0.4 mg/dL (0.15-1.2) 03/19/25 18:09 AST 179 U/L (0-32) H 03/19/25 18:09 ALT 96 U/L (0-33) H 03/19/25 18:09 Alkaline Phosphatase 160 U/L (35-105) H 03/19/25 18:09 NT-Pro-B Natriuret Pep 2045 pg/mL (0-125) H 03/19/25 18:09 Total Protein 6.2 g/dL (6.6-8.7) L 03/19/25 18:09 Albumin 3.4 g/dL (3.5-5.2) L 03/19/25 18:09 Globulin 2.8 g/dL (1.3-4.6) 03/19/25 18:09 All radiology interpretation(s) finalized by discharge Discharge Plan Discharge Patient Disposition: Admitted As Inpatient Admit Provider: Fouzia Pearce Clinical Impression: Cardiac arrest, Ventricular tachycardia, Cardiopulmonary arrest with successful resuscitation, Accelerated hypertension, Coronary artery disease Condition: Stable Coding Level of Care Code ED [employer] for Meera Virk
[2025-03-19] MEDS: heparin 5,000 unit/mL INJ 1 mL 4000 UNIT IVP (18:23)
--- NOTE | 2025-03-19 18:25 | CTR_ITS ---
PROCEDURE INFORMATION: Exam: CT Head Without Contrast Exam date and time: 03/19/2025 7:00 PM Age: 65 years old Clinical indication: Other: Post cpr TECHNIQUE: Imaging protocol: Computed tomography of the head without contrast. Radiation optimization: All CT scans at this facility use at least one of these dose optimization techniques: automated exposure control; mA and/or kV adjustment per patient size (includes targeted exams where dose is matched to clinical indication); or iterative reconstruction. COMPARISON: US soft tissue head neck [id number] 04/28/2023 12:53 PM RADIATION DOSE METRICS: Total DLP (mGy-cm): 1083.1 FINDINGS: Brain: Mild chronic small-vessel ischemic change. Cerebral ventricles: Mild involutional changes of the ventricles and sulci. Paranasal sinuses: Visualized sinuses are unremarkable. No fluid levels. Mastoid air cells: Visualized mastoid air cells are well aerated. Bones: Unremarkable. No acute fracture. Soft tissues: Unremarkable. CT/CT head wo con* [id number] IMPRESSION: No acute intracranial abnormality.
[2025-03-19 18:26] LABS: Hematocrit 31.7 % (36-47); Hemoglobin 9.70 g/dL (11.27-16.99); Mean Corpuscular HGB Conc 30.6 g/dL (30-55); Mean Corpuscular Hemoglobin 29.7 pg (27-33); Mean Corpuscular Volume 96.9 fl (85-98); Nucleated Red Blood Cells % 0 %; Platelet Count 132 10^3/cmm (157-399); Red Blood Count 3.27 10^6/uL (3.85-5.65); White Blood Count 10.44 10^3/uL (3.29-11.43)
[2025-03-19] MEDS: AMIODARONE HCL/D5W 900 MG/500 ML BAG 33.33 MG IV (18:28)
--- NOTE | 2025-03-19 18:31 | XACV_ITS ---
Exam Room: [facility] Ht: 163 cm Wt: 54 kg BSA: 1.57 m2 Gender: Female : 1960 Any Known Allergies: Other Exam Priority: Routine Procedure(s): Procedure Description: Diagnostic procedure Procedure Description: PCI procedure Procedure Description: Left Heart Catheterization Procedure Description: Left ventriculography Procedure Description: Drug Eluting Coronary Stent Procedure Description: PTCA Procedure Description: Miscellaneous Procedure Description: ACT Procedure Description: Coronary Angiography Joe TOLEDO; Diagnostic Cath Status: Emergency Diagnostic Findings * Left Main has no disease. * Proximal Left Anterior Descending: obstructive 70% stenosis, ЮЛИЯ: 3 flow. * Proximal Right Coronary Artery to Distal Right Coronary Artery: total occlusion, ЮЛИЯ: 3 flow. * Mid Circumflex: significant 75% stenosis, ЮЛИЯ: 3 flow. * Distal Circumflex: obstructive 70% stenosis, ЮЛИЯ: 3 flow. * 1st Diagonal: obstructive 70% stenosis, ЮЛИЯ: 3 flow. * Third Obtuse Marginal Branch Segment to AV groove continuation of Circumflex Artery collaterallization. * Coronary angiography shows right dominance. PCI Indication: STEMI - Immediate PCI for STEMI Interventional Findings * Proximal Left Anterior Descendin% stenosis treated with a AB TREK 2.50X12 RX BALLOON, MDT R VLADIMIR 3.0X15 NISH, and MDT NC EUPHORA RX 3.28I30TK BALLOON. 0% residual stenosis, ЮЛИЯ: 3 flow. * Mid Circumflex: 75% stenosis treated with a AB MINI TREK 2.00X15 RX BALLOON, MDT R VLADIMIR 3.0X22 NISH, and MDT NC EUPHORA RX 3.38H88OW BALLOON. 0% residual stenosis, ЮЛИЯ: 3 flow. * Distal Circumflex: 70% stenosis treated with a AB MINI TREK 2.00X15 RX BALLOON, MDT R VLADIMIR 2.5X15 NISH, and MDT NC EUPHORA RX 3.00A48VS BALLOON. 0% residual stenosis, ЮЛИЯ: 3 flow. * 1st Diagonal: 70% stenosis treated with a AB MINI TREK 2.00X12 RX BALLOON. 20% residual stenosis, ЮЛИЯ: 3 flow. Conclusions 1. 67-year-old female past medical history significant for continuous tobacco abuse hypertension hyperlipidemia coronary artery disease with known chronically occluded RCA presented with chest pain going on for the last 2 days, she called 911 since chest pain became unbearable, upon arrival while transferring into the EMS, the patient had VT V-fib arrest treated with 2 rounds of CPR and defibrillator delivering shock. Immediately achieved ROSC, she was intubated and brought to the ER. She was noted to be hypotensive started on Levophed and taken to the [facility]. Patient had prior history of moderate disease in the circumflex LAD and diagonal branch since it is a shock with hypotension IFR may not be accurate given with high possibility of ischemic component in this emergent situation we proceeded with intervention in the form of drug-eluting stents in the circumflex LAD and balloon angioplasty of the diagonal branch. 2. Indication: Shock, cardiac arrest status post CPR and defibrillation. 3. There is total occlusion coronary artery disease with three vessel disease. 4. The basal posterior, basal septum, anterobasal, inferobasal ansari are hypokinetic. 5. The apex, mid posterior, mid septum, anterolateral, mid inferior ansari are akinetic. 6. Severe left ventricular systolic dysfunction. Ejection fraction of 20%. 7. Proximal Left Anterior Descending was treated with a Balloon, Drug Eluting Stent, and Balloon. 8. Mid Circumflex was treated with a Balloon, Drug Eluting Stent, and Balloon. 9. Distal Circumflex was treated with a Balloon, Drug Eluting Stent, and Balloon. 10. 1st Diagonal was treated with a Balloon. Recommendations * 1-Return to inpatient for close monitoring and routine cath care 2-Risk factor modification for secondary prevention 3-Statin and aspirin 81 mg life-long, if tolerated 4-Patient was pre-loaded with 600 mg of Plavix, continue Plavix 75mg p.o. daily for at least one year. We will assess at the end of one year again to continue if further or not 5-Continue optimal medical management 6-Follow up with Dr. Diaz in four weeks and your primary care in 10 days. Diagnostic RX Recommendation: PCI w/o planned CABG Ventriculography Ejection Fraction: 20.0 % Pressures Phase:Rest AO : 83 / 54 ( 66 ) @ 3:47:01 PM 167 / 113 ( 132 ) @ 3:47:01 PM 126 / 96 ( 99 ) @ 3:47:01 PM 105 / 73 ( 85 ) @ 3:47:01 PM 98 / 62 ( 77 ) @ 3:47:01 PM 115 / 70 ( 89 ) @ 3:47:01 PM 123 / 72 ( 94 ) @ 3:47:01 PM LV : 111 / 8 / 13 @ 3:47:01 PM 133 / 7 / 16 @ 3:47:02 PM 129 / 8 / 16 @ 3:47:02 PM Valves Phase:DefaultPhase AV : 15.0 @ 8:47:02 PM AV Mean Gradient: 14.0 @ 8:47:02 PM Clinical Evaluation EBL: 5mL-10mL Procedural Details Pre-Procedure Time Out. Identified patient by full name and date of as verbalized by the patient/guarantor. Does the consent match the physician's order: N/A Emergent; Informed Consent not obtained due to time critical life threat. Accurate & Complete Informed Consent: N/A Emergent; Informed Consent not obtained due to time critical life threat. Inpatient/Outpatient History & Physical on Chart: N/A Emergent; Informed Consent not obtained due to time critical life threat. If H&P is completed, is and addenduem needed: N/A Emergent; If yes, is the addendum complete: N/A Emergent. Visualize and Verify Site with Patient/Guarantor: N/A. Relevant Radiology Images available: N/A Emergent. Pre-op teaching completed and patient verbalized understanding. The risks, benefits, and alternatives of sedation and/or procedure were discussed by physician. The patient agrees to continue. Admit Source: Emergency department. Procedure started. [facility] Clinical Fraility Score: 4: Vulnerable. [employer] [facility] Indications: Cardiac Arrhythmia, Cardiac arrest. Chest Pain Symptom Assessment: Atypical Angina. Correct patient, site and procedure confirmed by cath team. Current diagnosis: Vfib, cardiac arrest. IV Site on Arrival: 20 gauge in the right anticubital. IV Site on Arrival: 20 gauge in the right wrist. IV Site on Arrival: 22 gauge in the left anticubital. IV Fluids: 0.9% NaCl at KVO. 500 mL infused prior to cathode builder. Pre Procedural Pulses: bilateral dorsalis pedis was Doppled. Pre Procedural Pulses: bilateral posterior tibial was Doppled. Patient arrived to cathode builder on a ventilator and will be managed by respiratiory. bilateral groins was prepped with chloroprep then draped in the usual sterile fashion. Physician notified. Baseline sample Acquired. HR: 88 BPM. PERRL. Pt arrived intubated and unresponsive to all stimuli. Physician arrived. Physician scrubbed in. Immediate Pre-Procedure Time Out. Correct Patient: Yes; Correct Procedure: Yes; Correct Site: Yes; Correct Patient Position: Yes; Correct Supplies: Yes; Dried Flammable Prep: Yes; Blood Products Available: No;. Lidocaine 1% infiltrated to the right groin. Arterial access obtained with micropuncture set. A Right femoral angiogram was performed to determine safe placement of closure device. A 5 bermudian JR4 catheter in over wire. Pt arrived to cathode builder with amiodarone gtt running at 1mcg/min. ACT drawn. Results 213 seconds. Therapeutic limits - pre-heparin administration 90-150 seconds and monitoring heparin during a vascular procedure >250 seconds. View taken of RCA. Catheter removed over the standard wire. 6 bermudian XB 3 guide catheter was inserted over the wire. Add inventory: Co-towing pilot, Endoflator. Levophed titrated to 4mcg/min by Carloz Tobin RN. Levophed gtt stopped. Runthrough guidewire was advanced through the guide catheter to lesion in the distal Circ. Guidewire advanced across lesion. Balloon inserted to lesion in the distal Circ. Inflation number : 1 A AB MINI TREK 2.00X15 RX BALLOON was prepped and advanced across the Dist CX , then inflated to 12 BOYD for 0:09 seconds. Inflation number: 1 The AB MINI TREK 2.00X15 RX BALLOON was reinflated across the Mid CX, to 14 BOYD for 0:12 seconds. Balloon out. Results checked. Stent inserted to lesion in the distal Circ. Inflation Number : 2 A MDT R VLADIMIR 2.5X15 NISH -Lot Number# [id number] EXP 10-09-2026 was prepped and advanced across the Dist CX. The stent was deployed at 12 BOYD for 0:09 seconds. Stent balloon out over wire. Balloon inserted to lesion in the distal Circ. Inflation number : 3 A MDT NC EUPHORA RX 3.99U12QY BALLOON was prepped and advanced across the Dist CX , then inflated to 10 BOYD for 0:13 seconds. Inflation number: 4 The MDT NC EUPHORA RX 3.39B85FO BALLOON was reinflated across the Dist CX, to 12 BOYD for 0:10 seconds. Balloon out. Results checked. Stent inserted to lesion in the mid Circ. Inflation Number : 2 A MDT R VLADIMIR 3.0X22 NISH -Lot Number# [id number] EXP 07-27-2027 was prepped and advanced across the Mid CX. The stent was deployed at 12 BOYD for 0:15 seconds. Stent balloon out over wire. Balloon inserted to lesion in the mid Circ. Inflation number : 3 A MDT NC EUPHORA RX 3.47U42SO BALLOON was prepped and advanced across the Mid CX , then inflated to 12 BOYD for 0:15 seconds. Inflation number: 4 The MDT NC EUPHORA RX 3.15A36AJ BALLOON was reinflated across the Mid CX, to 12 BOYD for 0:10 seconds. Inflation number: 5 The MDT NC EUPHORA RX 3.07O74AE BALLOON was reinflated across the Mid CX, to 12 BOYD for 0:07 seconds. Inflation number: 6 The MDT NC EUPHORA RX 3.79P29NQ BALLOON was reinflated across the Mid CX, to 12 BOYD for 0:09 seconds. Balloon out. Results checked. Runthrough wire redirected to diagonal artery. Second Runthrough guidewire was advanced through the guide catheter to lesion in the prox LAD. Guidewire advanced across lesion. Balloon inserted to lesion in the diagonal. Inflation number : 1 A AB MINI TREK 2.00X12 RX BALLOON was prepped and advanced across the 1st Diag , then inflated to 8 BOYD for 0:12 seconds. Inflation number: 2 The AB MINI TREK 2.00X12 RX BALLOON was reinflated across the 1st Diag, to 8 BOYD for 0:07 seconds. Balloon out. Balloon inserted to lesion in the prox LAD. Inflation number : 1 A AB TREK 2.50X12 RX BALLOON was prepped and advanced across the Prox LAD , then inflated to 12 BOYD for 0:15 seconds. Balloon out. Stent inserted to lesion in the prox LAD. Inflation Number : 2 A MDT R VLADIMIR 3.0X15 NISH -Lot Number# [id number] EXP 09-02-2027 was prepped and advanced across the Prox LAD. The stent was deployed at 12 BOYD for 0:11 seconds. Stent balloon out over wire. NC 3.5 X 8mm Balloon inserted to lesion in the prox LAD. Unable to cross, balloon out. Balloon inserted to lesion in the prox LAD. Levophed gtt resumed at 2mcg/min by Carloz Tobin RN. Inflation number : 3 A MDT NC EUPHORA RX 3.08T48UM BALLOON was prepped and advanced across the Prox LAD , then inflated to 10 BOYD for 0:09 seconds. Inflation number: 4 The MDT NC EUPHORA RX 3.26L14RU BALLOON was reinflated across the Prox LAD, to 10 BOYD for 0:11 seconds. Inflation number: 5 The MDT NC EUPHORA RX 3.03Y83ST BALLOON was reinflated across the Prox LAD, to 10 BOYD for 0:11 seconds. Balloon out. Results checked. Both runthrough wires out. Results checked. ACT drawn. Results out of range high results. Therapeutic limits - pre-heparin administration 90-150 seconds and monitoring heparin during a vascular procedure >250 seconds. Guide catheter out. A 5 bermudian Angled Pig catheter in over wire. EDP Sample taken: LV 111/8,13; HR: 74 BPM; SpO2: 100%. LV gram performed in MATHIS @ 10 mL/second for a total of 30 mL. EDP Sample taken: LV 133/7,16; HR: 76 BPM; SpO2: 100%. Pullback taken: LV 129/8,16; AO 115/70(89); Mean: 14mmHg, Peak to Peak: 15mmHg, SEP: 20sec/min; HR: 75 BPM; SpO2: 100%. Catheter removed over the standard wire. ACT drawn. Results 371 seconds. Therapeutic limits - pre-heparin administration 90-150 seconds and monitoring heparin during a vascular procedure >250 seconds. A Suture was successful obtaining hemostatsis at the Right Femoral artery insertion site. Sheath(s) sutured into position with 2-0 silk and sterile 4x4's and Op-site applied over the site. No oozing or signs and symptoms of hematoma noted. Arterial sheath flushed and connected to tranducer and pressure bag with heparinized saline. Post Procedure: Pulses reassessed and unchanged. No VTE prophylaxis required. Medication's Wasted: Lidocaine 1% = 10 mL. Total IV fluids: 135 mL. Post-op diagnosis: Multi-Vessel CAD status post PCI, placement of 2 NISH to circumflex, 1 NISH prox LAD, Balloon Angioplasty to Diagonal. Severely Depressed EF. Pt family updated. Complications: None. Estimated blood loss: 5mL-10mL. Responsiveness -Unresponsive to stimuli. PERRL. Airway - remains intubated with mechanical ventilation. Circulation: W/N/L, pulses unchanged. Nausea/Vomiting: No. Procedure completed. Patient transferred by bed to ICU. Vital chart was stopped. Access Site Site: Right Femoral artery Sheath Size: 6 Fr Hemostasis Method: Suture Hemostasis Success: Successful Procedure Medications Start: 7:31 PM Stop: 7:31 PM Medication: Levophed (norepinephrine) Amount: 8 mcg/min Route: I.V. drip Start: 7:43 PM Stop: 7:43 PM Medication: Heparin Amount: 4000 units Route: I.V. Start: 7:51 PM Stop: 7:51 PM Medication: Aggrastat 12.5 mg/250 mL Amount: 28 ml Route: I.V. bolus I, the attending physician, have reviewed and verified all procedure medications. Yes, all medications given per verbal order History/Risk Factors Hypertension: Yes Dyslipidemia: Yes Peripheral Arterial Disease (PAD): No Myocardial Infarction (PA): Yes Obesity: No Renal Disease: No Tobacco Use: Current/Recent(w/in 1 year) Prior Interventions PCI: Yes CABG: No Valve Surgery: No Date of PCI: 03/19/2025 Report Signatures Finalized by Isaias Diaz MD on 03/25/2025 11:07 PM
--- NOTE | 2025-03-19 18:49 | PM.HP ---
Providers/Chief Complaint Admitting Physician: Fouzia Pearce MD Primary Care Provider: Laurita Mary MD Chief Complaint: post code History of Present Illness As per the previous notes and the however the was not in the EMS van/truck and patient got intubated while resuscitation by the EMS on her way. 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 Her chest pain was becoming intense and her later on called EMS. On her way to EMS the patient had V-fibCardiac arrest with further resuscitation as per ACLS protocol and achieved ROSC, airway was placed after induction of intubation. Upon arrival the patient EKG was suggestive of sinus tachycardia with right bundle branch block. Given her history of severe coronary artery disease and V-fib arrest, it is highly likely to be an ischemic event which later on activated STEMI alert requiring urgent cath PCI with involving cardiology on board. Review of Systems General: Reports: ROS unobtainable due to endotracheal tube Medications/Allergies Home Medications ?Medication ?Instructions ?Recorded ?Confirmed ?Last Taken ?Type aspirin 81 mg tablet,delayed 81 mg PO DAILY 04/13/23 03/12/25 12/19/24 History release cholecalciferol (vitamin D3) 50 50 mcg PO DAILY 09/13/23 03/12/25 12/20/24 History mcg (2,000 unit) capsule nitroglycerin 0.4 mg sublingual 0.4 mg sublingual Q5M PRN chest 03/30/24 03/12/25 12/17/24 Rx tablet pain #20 tabs clopidogrel 75 mg tablet See Rx Instructions .Route 04/10/24 03/12/25 12/15/24 07:30 Rx Held on 12/21/24. .COMPLEX #90 tabs Instructions: Resume on 12/24/24. tramadol 50 mg tablet 50 mg PO Q6H PRN pain 7 days #28 05/03/24 03/12/25 1 Week Ago Rx tabs ~12/14/24 promethazine 25 mg tablet 25 mg PO Q4H PRN nausea and 06/01/24 03/12/25 6 Months Ago Rx vomiting #20 tabs ~06/23/24 folic acid 1 mg tablet 1 mg PO DAILY #90 tabs 09/26/24 03/12/25 12/20/24 Rx midodrine 10 mg tablet 10 mg PO TID #270 tabs 11/23/24 03/12/25 12/20/24 Rx potassium chloride 20 mEq 20 meq PO DAILY #90 tabs 12/12/24 03/12/25 12/20/24 Rx tablet,extended release(part/cryst) (Klor-Con M) sertraline 25 mg tablet 25 mg PO DAILY #90 tabs 01/01/25 03/12/25 Unknown Rx atorvastatin 80 mg tablet (Lipitor) 80 mg PO DAILY #90 tabs 01/03/25 03/12/25 Unknown Rx leflunomide 20 mg tablet 20 mg PO DAILY #30 tabs 02/09/25 03/12/25 Unknown Rx prednisone 20 mg tablet See Rx Instructions PO .COMPLEX 02/09/25 03/12/25 Unknown Rx PRN joint pain flare #30 tabs prednisone 10 mg tablet See Rx Instructions .Route 02/21/25 03/12/25 Unknown Rx .COMPLEX joint pain #60 tabs pregabalin 75 mg capsule (Lyrica) 75 mg PO BID #60 caps 02/21/25 03/12/25 Unknown Rx liothyronine 5 mcg tablet 10 mcg (2 x 5 mcg) PO DAILY #180 03/04/25 03/12/25 Unknown Rx tabs alprazolam 0.25 mg tablet 0.25 mg PO TID PRN anxiety #90 tabs 03/08/25 03/12/25 Unknown Rx pantoprazole 40 mg tablet,delayed See Rx Instructions .Route 03/08/25 03/12/25 Unknown Rx release .COMPLEX #30 tabs levothyroxine 100 mcg tablet 100 mcg PO DAILY #90 tabs 03/12/25 03/12/25 Unknown Rx (Synthroid) valacyclovir 1 gram tablet 1,000 mg PO TID #21 tabs 03/12/25 03/12/25 Unknown Rx Allergies Allergy/AdvReac Type Severity Reaction Status Date / Time tetracycline Allergy Severe ALGY-Anaphy Verified 03/12/25 15:45 laxis PFSH Acute PFSH: Medical History (Updated 03/19/25 @ 19:59 by Fouzia Pearce MD) 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 Degenerative joint disease (DJD) of lumbar spine Atherosclerosis of [place] coronary artery without angina pectoris Vitamin D deficiency Former smoker, stopped smoking in distant past 1ppd for > 35 years, still occ and cannabis High risk medication use Depression Onset before 2008 Atrial fibrillation by electrocardiogram Hypothyroidism (acquired) no thyroid bx or history of radiation to head/neck Seronegative rheumatoid arthritis of both hands Hyperlipidemia DX in 2009 Alcohol abuse Episodic Neuropathy Facet arthritis of lumbar region Surgical History Hx of cardiac cath 10.07.23 no intervention but has CAD and collaterals; had ME Hx of colonoscopy with polypectomy 02.18.17 [facility] in [place]: 3 tubular adenomas--7.25 at [facility]--adenomas, repeat in 5yrs Hx of section X 2 History of cholecystectomy H/O Spinal surgery L2,3 and L3,4 spacers S/P tonsillectomy at age 6 H/O bladder repair surgery Family History Mother Rheumatoid arthritis Hypertension Grandmother Cancer parathyroid cancer Hypertension Social History Smoking and tobacco/nicotine status: former use of tobacco/nicotine Quit status (tobacco/nicotine): quit date established Planned quit date: 03/05/25 Second hand smoke exposure: No Alcohol intake: current Alcohol intake frequency: holidays/special occasions only Substance/Drug Use: current Substance/Drug use frequency: daily Household members: spouse Marital status: Number of children: 2 Highest education level completed: Bachelor's Degree 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 Vitals/I&O/Wt Last Vital Signs Temp 98.3 F 03/19/25 17:58 Pulse 124 H 03/19/25 17:58 Resp 16 03/19/25 18:16 BP 173/115 03/19/25 17:58 Pulse Ox 94 03/19/25 17:58 O2 Del Method Room Air 03/19/25 17:58 FiO2 100 03/19/25 18:16 03/19/25 03/19/25 03/19/25 06:59 14:59 22:59 Intake Total 100 / 100 Balance 100 / 100 Weight last 48 hrs Weight 54.431 kg Physical Exam Narrative: Patient was not clinically examined or seen since the patient from ER went to Chief Counsel Urinary Catheter Management: Archer: Cath Placed During This Visit: yes Urinary Catheter Date of Insertion: 03/19/25 Urinary Catheter Time of Insertion: 18:47 Data 03/19/25 18:09 03/19/25 18:09 A&P Assessment and plan 1. Cardiac arrest due to underlying cardiac condition: Patient s/p V-fib cardiac arrest Urgent PCI and cath to proceed since the patient is intubated and after discussion with the to proceed and later to keep her DNR Cardiology on board To follow-up the cardiology recommendation post PCI 2. Sepsis: Patient s/p cardiac arrest likely underlying cardiogenic in nature However considering patient arrest, to cover any infectious pathology Blood cultures Fluid bolus Lactate series Maintain MAP above 65 Broad-spectrum antibiotics Monitor intake and output Monitor renal parameters, electrolytes and correction accordingly Maintain normoglycemia 3. Coronary artery disease: Patient on aspirin statins and Plavix, home medication reviewed however need reconciliation before resuming 4. Accelerated hypertension: Patient intubated, therefore to monitor blood pressure if required then to restart her hypertensives with precaution after reconciliation. Since there is risk of hypotension as well 5. Lumbar stenosis with neurogenic claudication: Adequate analgesia to be provided as needed Patient on pregabalin 75 mg twice daily, tramadol at home, to reconcile before resuming 6. Nicotine dependence, cigarettes, with other nicotine-induced disorders: Patient recently quit on 06 March 2025, however still there is a risk of possible withdrawal effects Nicotine patch to be provided: 7. Depression: Patient on alprazolam 0.25 mg 3 times daily as needed for anxiety, sertraline 25 mg daily as per review of home medication Need reconciliation to resume 8. Hypothyroidism (acquired): Patient on levothyroxine 100 mcg and liothyronine on review of her medication Resume after reconciliation 9. Hyperlipidemia: Continue statins after reconciliation 10. Degenerative joint disease (DJD) of lumbar spine: Patient on leflunomide 20 mg, tramadol as needed for pain and prednisone To hold this medication at the moment considering cardiac arrest PDMP PDMP Reviewed: Not Reviewed Attestations Medical Necessity Statement*: Patient will stay more than 2 midnights requiring care postcardiac arrest underlying cardiogenic arrest and other investigations to optimize her medical Time Spent in Patient Care: Greater than 35 minutes (>than 50% of time spent in counselling and/or direct pt care on unit). Critical Care Time: The high probability of a clinically significant, sudden or life threatening deterioration, as referenced in this documentation, required my full and direct attention, intervention and personal management. The critical care time shown is in addition to time spent performing any reported separately billable procedures and includes the following: [x] Data and vital sign review and interpretation [x] Patient assessment, examination and intervention [x] Medication orders and management [x] Patient/Family updates as able [x] Care Coordination and Documentation. Critical Care Time (min): 45 Other Attestations: Patient condition has been discussed at length with the patient/family, I have independently reviewed the chart labs imaging/diagnostics/EKG. the goals of care and code status with the patient/family/NOK/legal medical collections representative, and documented accordingly. The patient/family has been informed about the current condition and further plan of care. Agreed with the plan of care and understood without any language barrier. Every effort was made to ensure accuracy of project development coordinator. Any obvious errors or omissions should be clarified with the author of the document. Coding Level of Care Code Critical Care >/= 30 minutes Diagnoses Cardiac arrest due to underlying cardiac condition I46.2 Sepsis A41.9 Coronary artery disease I25.10 Accelerated hypertension I10 Lumbar stenosis with neurogenic claudication M48.062 Nicotine dependence, cigarettes, with other nicotine-induced disorders F17.218 Depression F32.A Hypothyroidism (acquired) E03.9 Hyperlipidemia E78.5 Degenerative joint disease (DJD) of lumbar spine M47.816
[2025-03-19 18:51] LABS: Lactic Sepsis W/Reflex 3.8 mmol/L (0.5-2.2)
--- NOTE | 2025-03-19 18:53 | PC.NURSE ---
VERBAL ORDERS FROM DR. HARPER AND DR. BILLY TO HOLD HEPARIN DRIP UNTIL HEAD CT HAS RESULTED.
[2025-03-19 19:00] LABS: Alanine Aminotransferase 96 U/L (0-33); Albumin Level 3.4 g/dL (3.5-5.2); Alkaline Phosphatase 160 U/L (35-105); Anion Gap 19.4 (5-19); Aspartate Amino Transferase 179 U/L (0-32); Blood Urea Nitrogen 14 mg/dL (8-23); Calcium 8.1 mg/dL (8.5-10.5); Carbon Dioxide 13 mmol/L (22-29); Chloride 106 mmol/L (98-107); Globulin 2.8 g/dL (1.3-4.6); Glucose 256 mg/dL (65-115); NT Pro B Type Natriuretic Pept 2045 pg/mL (0-125); Osmolality Calculated 289 mOsm/kg (285-295); Potassium 3.4 mmol/L (3.5-5.1); Sodium 135 mmol/L (136-145); Total Protein 6.2 g/dL (6.6-8.7)
[2025-03-19 19:01] LABS: Creatinine Clr Calc Pharmacy 34.5264
--- NOTE | 2025-03-19 19:03 | PM.CONSULT ---
Providers/Reason For Consult Consulting Physician/Specialty*: Isaias Diaz MD Reason for Consult*: Cardiac arrest Attending Physician: Fouzia Pearce MD Primary Care Provider: Laurita Mary MD History of Present Illness History of Present Illness Suzanne Ureña is a 65 year old female past medical history significant for hypertension hyperlipidemia arthritis hypothyroidism coronary artery disease with known to be occluded RCA with [id number] collaterals and moderate disease of mid and distal circumflex and diagonal branch was experiencing chest pain at home since this morning for which she was taking nitroglycerin when chest pain become more consistent and intense she called 911 upon arrival EMS found her to be nauseated cold clammy while transporting her to the ambulance patient had V-fib arrest treated with defibrillation x 2 and brief 2 rounds of CPR, patient achieved ROSC, airway were placed she was given ketamine and vecuronium, please note that this is as per ER physician. Upon arrival patient was intubated. Twelve-lead EKG was suggestive of sinus tachycardia right bundle branch block otherwise no significant ST changes. Given history of chest pain V-fib arrest and intubation it appeared to me that it is an ischemic event we will therefore proceed with urgent left heart cath/PCI if indicated. Medications/Allergies Home Medications ?Medication ?Instructions ?Recorded ?Confirmed ?Last Taken ?Type aspirin 81 mg tablet,delayed 81 mg PO DAILY 04/13/23 03/12/25 12/19/24 History release cholecalciferol (vitamin D3) 50 50 mcg PO DAILY 09/13/23 03/12/25 12/20/24 History mcg (2,000 unit) capsule nitroglycerin 0.4 mg sublingual 0.4 mg sublingual Q5M PRN chest 03/30/24 03/12/25 12/17/24 Rx tablet pain #20 tabs clopidogrel 75 mg tablet See Rx Instructions .Route 04/10/24 03/12/25 12/15/24 07:30 Rx Held on 12/21/24. .COMPLEX #90 tabs Instructions: Resume on 12/24/24. tramadol 50 mg tablet 50 mg PO Q6H PRN pain 7 days #28 05/03/24 03/12/25 1 Week Ago Rx tabs ~12/14/24 promethazine 25 mg tablet 25 mg PO Q4H PRN nausea and 06/01/24 03/12/25 6 Months Ago Rx vomiting #20 tabs ~06/23/24 folic acid 1 mg tablet 1 mg PO DAILY #90 tabs 09/26/24 03/12/25 12/20/24 Rx midodrine 10 mg tablet 10 mg PO TID #270 tabs 11/23/24 03/12/25 12/20/24 Rx potassium chloride 20 mEq 20 meq PO DAILY #90 tabs 12/12/24 03/12/25 12/20/24 Rx tablet,extended release(part/cryst) (Klor-Con M) sertraline 25 mg tablet 25 mg PO DAILY #90 tabs 01/01/25 03/12/25 Unknown Rx atorvastatin 80 mg tablet (Lipitor) 80 mg PO DAILY #90 tabs 01/03/25 03/12/25 Unknown Rx leflunomide 20 mg tablet 20 mg PO DAILY #30 tabs 02/09/25 03/12/25 Unknown Rx prednisone 20 mg tablet See Rx Instructions PO .COMPLEX 02/09/25 03/12/25 Unknown Rx PRN joint pain flare #30 tabs prednisone 10 mg tablet See Rx Instructions .Route 02/21/25 03/12/25 Unknown Rx .COMPLEX joint pain #60 tabs pregabalin 75 mg capsule (Lyrica) 75 mg PO BID #60 caps 02/21/25 03/12/25 Unknown Rx liothyronine 5 mcg tablet 10 mcg (2 x 5 mcg) PO DAILY #180 03/04/25 03/12/25 Unknown Rx tabs alprazolam 0.25 mg tablet 0.25 mg PO TID PRN anxiety #90 tabs 03/08/25 03/12/25 Unknown Rx pantoprazole 40 mg tablet,delayed See Rx Instructions .Route 03/08/25 03/12/25 Unknown Rx release .COMPLEX #30 tabs levothyroxine 100 mcg tablet 100 mcg PO DAILY #90 tabs 03/12/25 03/12/25 Unknown Rx (Synthroid) valacyclovir 1 gram tablet 1,000 mg PO TID #21 tabs 03/12/25 03/12/25 Unknown Rx Allergies Allergy/AdvReac Type Severity Reaction Status Date / Time tetracycline Allergy Severe ALGY-Anaphy Verified 03/12/25 15:45 laxis Current Medications Generic Name Dose Route Start Last Admin Trade Name Freq PRN Reason Stop Dose Admin AMIODARONE HCL/D5W 900 mg in 500 mls @ 0 mls/hr 03/19/25 18:00 03/19/25 18:28 Amiodarone 900 Mg/500 Ml-D5w IV 1 mg/min .Q0M TESSA 33.33 mls/hr Protocol Administration Per Protocol Lactated Ringer's 1,000 mls @ 999 mls/hr 03/19/25 18:18 03/19/25 18:36 Lactated Ringers IV 03/19/25 19:18 999 mls/hr .Q1H1M ONE Administration PFSH Acute PFSH: Medical History (Updated 03/19/25 @ 19:10 by Isaias Diaz MD) 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 Degenerative joint disease (DJD) of lumbar spine Atherosclerosis of [place] coronary artery without angina pectoris Vitamin D deficiency Former smoker, stopped smoking in distant past 1ppd for > 35 years, still occ and cannabis High risk medication use Depression Onset before 2008 Atrial fibrillation by electrocardiogram Hypothyroidism (acquired) no thyroid bx or history of radiation to head/neck Seronegative rheumatoid arthritis of both hands Hyperlipidemia DX in 2009 Alcohol abuse Episodic Neuropathy Facet arthritis of lumbar region Surgical History Hx of cardiac cath 5..24 no intervention but has CAD and collaterals; had [place] Hx of colonoscopy with polypectomy 02.18.17 [place] in [place]: 3 tubular adenomas--7.[address] [facility]--adenomas, repeat in 5yrs Hx of section X 2 History of cholecystectomy H/O Spinal surgery L2,3 and L3,4 spacers S/P tonsillectomy at age 6 H/O bladder repair surgery Family History Mother Rheumatoid arthritis Hypertension Grandmother Cancer parathyroid cancer Hypertension Social History Smoking and tobacco/nicotine status: former use of tobacco/nicotine Quit status (tobacco/nicotine): quit date established Planned quit date: 03/05/25 Second hand smoke exposure: No Alcohol intake: current Alcohol intake frequency: holidays/special occasions only Substance/Drug Use: current Substance/Drug use frequency: daily Household members: spouse Marital status: Number of children: 2 Highest education level completed: Bachelor's Degree 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 No murmur, rub or gallop. LUNGS: Decreased breath sounds bilaterally. CENTRAL NERVOUS SYSTEM: Grossly nonfocal. EXTREMITIES: Lower extremities with out edema bilaterally. Urinary Catheter Management: Archer: Cath Placed During This Visit: yes Urinary Catheter Date of Insertion: 03/19/25 Urinary Catheter Time of Insertion: 18:47 Data 03/19/25 18:09 03/19/25 18:09 A&P Assessment and plan 1. Cardiac arrest due to underlying cardiac condition: 2. Acute coronary syndrome: 3. Ventricular tachycardia: Plan: Will proceed with urgent left heart cath/PCI if indicated Check electrolytes Continue IV amiodarone Echocardiogram will be obtained Further plan will be advised as per progress of the patient PDMP PDMP Reviewed: Not Reviewed Consult Attestations Medical Necessity Statement: I am expecting her stay to cross more than 2 midnight Coding Level of Care Code Acute Code for [facility] Fwd Diagnoses Cardiac arrest due to underlying cardiac condition I46.2 Acute coronary syndrome I24.9 Ventricular tachycardia I47.20
[2025-03-19 19:14] LABS: Magnesium 2.0 mg/dL (1.7-2.3)
--- NOTE | 2025-03-19 19:14 | W.PM.OPSUD ---
Surgery/Procedure H&P Update DATE OF PROCEDURE: March 19, 2025 DATE H&P PERFORMED: 03/19/25 H&P UPDATE INFORMATION: I have reviewed H&P completed within last 30 days, I have examined patient prior to procedure and No changes to prior documentation PREOP DIAGNOSIS: Cardiac arrest/V-fib/coronary artery disease/ACS PLANNED PROCEDURE: Left heart cath/PCI vindicated Patient is intubated she is sedated given ketamine and pio PATIENT REASSESSED PRIOR TO SEDATION, WITH NO CHANGE NOTED: Yes PHYSICAL EXAM: clear to auscultation bilaterally, regular rate & rhythm and operative site marked ADDITIONAL INFORMATION: All risk-benefit and alternative for the procedure has been explained to her at bedside patients understand 5% risk of stroke major bleed he understand 10% risk of minor bleeding oozing infection hematoma contrast-induced nephropathy leading to temporary permanent dialysis urgent or emergent vascular or bypass surgery. He agrees to it and would like to proceed with it
--- NOTE | 2025-03-19 20:01 | PHA.VACGOAL ---
Vancomycin Goal - Therapy Current therapy:: Pip/Tazo Day of therpy:: Day []of [] . Actual body weight (kg): 120 lb - Data Labs: WBC 10.44 10^3/uL (3.29-11.43) 03/19/25 18:09 RBC 3.27 10^6/uL (3.85-5.65) L 03/19/25 18:09 Hgb 9.70 g/dL (11.27-16.99) L 03/19/25 18:09 Hct 31.7 % (36-47) L 03/19/25 18:09 MCV 96.9 fl (85-98) 03/19/25 18: MCH 29.7 pg (27-33) 03/19/25 18: MCHC 30.6 g/dL (30-55) 03/19/25 18:09 RDW 15.6 % (12.1-15.1) H 03/19/25 18:09 Sodium 135 mmol/L (136-145) L 03/19/25 18:09 Potassium 3.4 mmol/L (3.5-5.1) L 03/19/25 18:09 Chloride 106 mmol/L (98-107) 03/19/25 18:09 Carbon Dioxide 13 mmol/L (22-29) L 03/19/25 18:09 Anion Gap 19.4 (5-19) H 03/19/25 18:09 BUN 14 mg/dL (8-23) 03/19/25 18:09 Creatinine 1.4 mg/dL (0.5-0.9) H 03/19/25 18:09 GFR Calculation 37.7 mL/min (90-130) L 03/19/25 18:09 Treatment plan:: new consult Regimen:: NO DX ENTERED OF YET. PATIENT IS IN ICU SO GAVE HIGHER LOADING DOSE PER PROTOCOL AT 1500 MG. ORDERED MAINTENANCE DOSE OF 750 MG Q24H TO START AT 2000 ON 03/20 PER PROTOCOL. WILL CONTINUE TO MONITOR DAILY AND OBTAIN TROUGH PRIOR TO 4TH DOSE.
[2025-03-19 20:08] LABS: Reflex Lactate Order REFLEX LACTIC ORDERD
--- NOTE | 2025-03-19 20:54 | PM.PROC ---
Procedure Note: Date of procedure: 03/19/25 Pre-procedure diagnosis: Cardiac arrest Post-procedure diagnosis: same Procedure: Urgent left heart cath was performed Left main has distal calcified eccentric 20% stenosis not significant LAD has mid 70% eccentric stenosis appeared to be significant, diagonal branch has proximal 80% eccentric stenosis is a long caliber vessel Mid circumflex has 70 to 80% stenosis, distal circumflex has 70 to 80% stenosis RCA is known to be occluded with [id number] collaterals LV gram left ventricular diastolic pressure 13 mmHg Left ventricular ejection fraction 20% with anterior apical and inferoapical severe hypokinesis mixed picture of Takotsubo and ischemic cardiomyopathy PCI to mid and distal circumflex with drug-eluting stent pre and postdilated with compliant and noncompliant balloon PCI to mid LAD with drug-eluting stent pre and postdilated with compliant and noncompliant balloon Balloon angioplasty of the proximal and ostial diagonal branch with good angiographic result Excellent angiographic result with [id number] flow was confirmed at the end of the case Plan: Will retain the sheath and once PTT below 45 discontinue the sheath with manual hold pressure and 5-hour of bedrest 600 mg of Plavix now through NG tube 325 mg of aspirin now through NG tube IV fluid KVO Continue intubation, if require continue sedation Patient is on 2 flynn of Levophed will titrated off Echocardiogram in the morning Once off the Levophed for next 24 hours will add low-dose beta-jerman in the form of metoprolol or carvedilol depending upon her blood pressure Once blood pressure improved and is in good range we will add guideline medical therapy for heart failure such as SGLT2 and Entresto Patient prognosis guarded, according to she does not want prolonged life support, we will reassess her neurologically in 24 hours May will [address] CT scan if she does not respond in 24 hours for neurological assessment. Add IV Protonix to regimen. Continue to monitor electrolytes and replenish as needed full note to be dictated Coding Level of Care Code Acute Code for [facility]
[2025-03-19] MEDS: fentaNYL 1,000 MCG/100 ML BAG 2.5 MCG IV (21:05)
[2025-03-19] MEDS: norepinephrine 4 MG/250 ML BAG 7.5 MG IV (21:05)
[2025-03-19 22:07] LABS: Lactic Acid level (Lactate) 2.0 mmol/L (0.5-2.2)
[2025-03-19] MEDS: piperacillin-tazobactam 3.375 GM in sodium chloride 0.9% (plus) 50 ML IV (22:15)
[2025-03-19] MEDS: midazolam hcl 100 MG/100 ML BAG IV (23:17)
[2025-03-20] VITALS (79 sets, daily range): BP systolic 62–137; BP diastolic 38–100; PULSE 68–110; RESP 14–19; TEMP 35.4–36.7; O2SAT 83–100
--- NOTE | 2025-03-20 02:05 | PC.NURSE ---
Patient maxed on levophed. Provider at bedside and gave verbal orders to add titrable vasopressin. Order placed. See MAR
[2025-03-20] MEDS: norepinephrine 4 MG/250 ML BAG 75 MG IV ×5 (02:09→20:45)
[2025-03-20] MEDS: vasopressin 40 UNIT/100 ML PREMIX IV (02:11)
[2025-03-20 02:32] LABS: ABG PCO2 39.4 mmHg (35-45); Arterial Blood Gas Hematocrit 23.1 % (37-47); Blood Gas Operator Identificat SAM; Blood Gas Sample Site Femoral, right; Blood Gas Sample Type Arterial; HCO3 ABG 13.6 mmol/L (22-26); PO2 ABG 109.0 mmHg (80.0-100.0); PO2 FiO2 Ratio Arterial Blood 181
[2025-03-20 02:33] LABS: Blood Gas Tidal Volume 0.40; PEEP 8.0 cmH20
[2025-03-20 02:36] LABS: ABG PH Result 7.15 (7.35-7.45)
--- NOTE | 2025-03-20 02:44 | PC.NURSE ---
Addendum entered by STEPHANY Valerio 03/20/25 03:07: Provider at bedside changed order to 150mEq bicarb in 1000ml D5 @75ml/hr. Order changed and placed Original Note: Verbal order at bedside for 150 bicarb in D[address] Hartman.
[2025-03-20] MEDS: fentaNYL 1,000 MCG/100 ML BAG 15 MCG IV ×2 (03:10→10:00)
[2025-03-20 03:39] LABS: Hematocrit 22.7 % (36-47); Hemoglobin 6.90 g/dL (11.27-16.99); Mean Corpuscular HGB Conc 30.4 g/dL (30-55); Mean Corpuscular Hemoglobin 29.0 pg (27-33); Mean Corpuscular Volume 95.4 fl (85-98); Nucleated Red Blood Cells % 0 %; Platelet Count 161 10^3/cmm (157-399); Red Blood Count 2.38 10^6/uL (3.85-5.65); White Blood Count 9.86 10^3/uL (3.29-11.43)
[2025-03-20 03:57] LABS: Lactate (Lactic Acid level) 3.6 mmol/L (0.5-2.2)
[2025-03-20 04:00] LABS: Alanine Aminotransferase 68 U/L (0-33); Albumin Level 2.9 g/dL (3.5-5.2); Alkaline Phosphatase 136 U/L (35-105); Anion Gap 19.1 (5-19); Aspartate Amino Transferase 152 U/L (0-32); Blood Urea Nitrogen 15 mg/dL (8-23); Calcium 7.6 mg/dL (8.5-10.5); Carbon Dioxide 14 mmol/L (22-29); Chloride 105 mmol/L (98-107); Creatinine Clr Calc Pharmacy 37.1823; Globulin 2.0 g/dL (1.3-4.6); Glucose 181 mg/dL (65-115); Osmolality Calculated 283 mOsm/kg (285-295); Potassium 4.1 mmol/L (3.5-5.1); Sodium 134 mmol/L (136-145); Total Protein 4.9 g/dL (6.6-8.7)
[2025-03-20] MEDS: piperacillin-tazobactam 3.375 GM in sodium chloride 0.9% (plus) 50 ML IV ×3 (04:27→20:51)
[2025-03-20] MEDS: pantoprazole 40 mg SDV IVP (04:27)
[2025-03-20] MEDS: norepinephrine 4 MG/250 ML BAG 52.5 MG IV (08:14)
--- NOTE | 2025-03-20 08:16 | PC.PHAR ---
Pt uses [facility]-opens at 8:30am-will call for med list this morning 03/20/25 8:15am
[2025-03-20] MEDS: dexmedeTOMIDine 0.9 % NaCL 400 MCG/100 ML PREMIX IV (08:35)
--- NOTE | 2025-03-20 09:05 | XR_ITS ---
WS: [id number] Exam: XR chest 1V portable [id number] Date/Time of Exam: 03/20/2025 9:22 AM Reason For Exam: central line Comparison 03/19/2025. A right-sided IJ catheter ends in the lower one third of the SVC in good position. ET tube ends at about the level of the T4 in satisfactory position. An enteric tube ends in the body of the stomach. There is consolidating infiltrate and atelectasis in the RIGHT lower lobe with infiltrate throughout the remaining RIGHT lung. There is also infiltrate in the LEFT upper lobe. Infiltrates show little change. Heart size is top limits normal. No pneumothorax. RIGHT basal pleural effusion. Bony structures are intact. XR/XR chest 1V portable [id number] IMPRESSION: 1. RIGHT IJ catheter, ET tube and enteric tube all in satisfactory location. 2. Bilateral pulmonary infiltrates, RIGHT lower lobe atelectasis and RIGHT basa l pleural effusion demonstrate very little change since the last exam.
--- NOTE | 2025-03-20 10:10 | ANES.PROC ---
Anesthesia Procedures Procedure/Date: 03/20/25 Central Venous Insert: Central Venous Line: R IJ Time Out Performed: Yes Consent: requested by attending/covering physician, from other and risks and benefits reviewed Central Line: New Anesthesia monitors: pulse oximetry, EKG, BP cuff and oxygen Vein cannulated: right internal jugular Ultrasound used: to identify patency to vessel and to visualize needle entry to vein Post procedure: Obtain Chest X-Ray Additional Comments: Chloraprep of area, sterile gown and gloves and full body drape applied. Lidocaine 1% skin wheel. US used to visualize vessel and accessed wtih seldinger technique. Guidewire visualized in vessel on US both in and out of plane. Dilated vessel and triple lumen insterted, guidewire removed. Sutured in place and dressing applied. Other Information: diagnosis: Sepsis
--- NOTE | 2025-03-20 10:30 | P.PN_ITS ---
Subjective 2 Subjective: Overnight patient had episodes of hypotension she was maxed out on Levophed vasopressor was added. Bedside echocardiogram was performed which showed ejection fraction around 40% which has improved. She is status post stent to mid LAD mid and distal circumflex and balloon angioplasty of the diagonal branch. She had mixed picture of ischemic and nonischemic cardiomyopathy such as stress-induced. X- ray chest is also consistent with possible respiratory pneumonia with infiltrates on the right side. She was overbreathing on vent was sedated. Hemoglobin came back around 6.9. Currently she is on maxed out on both pressors Levophed and vasopressin. Family told us that they would not like to prolong her life at some point she was DNR but she had been resuscitated at home intubated and when I took her to the [facility] DNR DNI was canceled. From here other option is escalating to Impella however I would like to have a meeting with patient's family first regarding her CODE STATUS depending upon that further plan will be advised. Vitals/I&O/Wt Last Vital Signs Temp 95.8 F L 03/20/25 05:30 Pulse 74 03/20/25 07:00 Resp 19 H 03/20/25 08:03 BP 125/70 03/20/25 07:00 Pulse Ox 90 03/20/25 08:03 O2 Del Method Mechanical Ventilation 03/19/25 21:52 FiO2 60 03/20/25 08:03 03/19/25 03/20/25 03/20/25 22:59 06:59 14:59 Intake Total 139.000 / 567.893 0255.579 / 1433.579 98.467 / 98.467 Output Total 500 / 500 Balance 139.000 / 139.000 794.579 / 933.579 98.467 / 98.467 Weight last 48 hrs Weight 130 lb Weight 130 lb Weight 130 lb 1.164 oz Weight 120 lb Physical Exam 2 Const: OTHER: GENERAL: Patient is intubated on the vent HEART: Regular S1 and S2. No murmur, rub or gallop. LUNGS: Decreased breath sounds bilaterally. CENTRAL NERVOUS SYSTEM: Grossly nonfocal. EXTREMITIES: Lower extremities with out edema bilaterally. Resp: COMMON NORMALS: clear to auscultation bilaterally AUSCULTATION: clear to auscultation bilaterally Urinary Catheter Management: Archer: Cath Placed During This Visit: yes Reason for Continuing Indwelling Catheter: Accurate Measurement of Urinary Output in Critically Ill Patients Urinary Catheter Date of Insertion: 03/19/25 Urinary Catheter Time of Insertion: 18:47 Data 03/20/25 03:32 03/20/25 03:32 Micro: Microbiology 03/19/25 18:18 Gram Stain - Final Sputum - Endotracheal Tube Aspirate 03/19/25 21:37 Blood Culture - Preliminary Blood SPECIMEN COLLECTED 03/19/25 21:32 Blood Culture - Preliminary Blood SPECIMEN COLLECTED A&P Assessment and plan 1. Cardiac arrest due to underlying cardiac condition: 2. Acute coronary syndrome: 3. Ventricular tachycardia: 4. Shock: 5. Pneumonia: Plan: Patient has mixed picture of cardiogenic and possible septic shock as ejection fraction on echocardiogram has improved from 20 to 40%. Patient has been revascularized with stents in LAD circumflex as above. Hemoglobin has dropped therefore I will transfuse her. Plan as above Will discuss with the family regarding her status if she is DNR/DNI then Impella escalation may not be appropriate at this point, otherwise we will consider Stat CBC, lactic acid Type crossmatch and transfuse 2 units Will consult and involve pulmonary critical care Continue aspirin and clopidogrel 75 mg daily Continue IV antibiotics as per medicine colleagues she is on Vanco and Zosyn Patient is in critical condition with guarded prognosis. Further plan will be devised as per progress of the patient. PDMP PDMP Reviewed: Not Reviewed Attestations 2 Medical Necessity Statement*: Patient requires continuation of hospitalization in the ICU for above defined care. Coding Level of Care Code Acute Code for [facility] Fwd Diagnoses Cardiac arrest due to underlying cardiac condition I46.2 Acute coronary syndrome I24.9 Ventricular tachycardia I47.20 Shock R57.9 Pneumonia J18.9
[2025-03-20 10:59] LABS: Hematocrit 22.5 % (36-47); Hemoglobin 7.10 g/dL (11.27-16.99); Mean Corpuscular HGB Conc 31.6 g/dL (30-55); Mean Corpuscular Hemoglobin 30.6 pg (27-33); Mean Corpuscular Volume 97.0 fl (85-98); Nucleated Red Blood Cells % 0.4 %; Platelet Count 145 10^3/cmm (157-399); Red Blood Count 2.32 10^6/uL (3.85-5.65); White Blood Count 8.47 10^3/uL (3.29-11.43)
[2025-03-20] MEDS: DOBUTamine drip 500 MG/250 ML PREMIX 8.85 MG IV (11:14)
--- NOTE | 2025-03-20 11:22 | USR_ITS ---
PROCEDURE INFORMATION: Exam: US Duplex Scan of Aorta, Inferior Vena Cava, Iliac Vasculature, or Bypass Grafts, Limited Exam date and time: 03/20/2025 12:20 PM Age: 65 years old Clinical indication: Screening exam; Eval of iliac/fem arteries for impella placement; Additional info: Possible impella insertion, US bilateral femoral/ililacs with measurements to evaluate TECHNIQUE: Imaging protocol: Real-time duplex ultrasound scan of the Aorta, IVC, iliac vasculature, or bypass grafts in the abdomen with color Doppler flow and spectral waveform analysis with image documentation. Limited or unilateral exam. COMPARISON: CT abdomen pelvis w con* [id number] 10/03/2024 12:46 PM FINDINGS: Right proximal iliac artery 8 x 8 mm Right mid iliac artery: 9 x 9 mm Right distal iliac artery: 9 x 8 mm Right COMMUNICATION MANAGER: 7 x 6 mm Left proximal iliac artery: 8 x 10 mm Left mid iliac artery: 9 x 8 mm Left distal iliac artery: 7 x 6 mm Left COMMUNICATION MANAGER: 9 x 9 mm US/CV unlisted vascular [id number] IMPRESSION: 1. Iliac measurements given above.
[2025-03-20 11:26] LABS: Slide Review Slide Review Perform
[2025-03-20 11:32] LABS: Lactate (Lactic Acid level) 4.4 mmol/L (0.5-2.2)
[2025-03-20 12:08] LABS: ABG PCO2 47.2 mmHg (35-45); Arterial Blood Gas Hematocrit 15.9 % (37-47); Blood Gas Operator Identificat GD; Blood Gas Sample Site Not specified; Blood Gas Sample Type Arterial; Carboxyhemoglobin 0.6 %THgb (0.4-20.1); Glucose Level-ABG 83.0 mg/dL (70-115); HCO3 ABG 17.5 mmol/L (22-26); Ionized Calcium Level - ABG 1.1 mmol/L (1.1-1.4); Methemoglobin 2.1 % (0.4-1.5); Oxygen Saturation ABG 89.9; PO2 ABG 68.8 mmHg (80.0-100.0); Potassium Level - ABG 3.3 mmol/L (3.5-5.0); Sodium Level - ABG 137.0 mmol/L (131-143)
[2025-03-20 12:09] LABS: Blood Gas Tidal Volume 0.40; PEEP 5.0 cmH20
[2025-03-20 12:12] LABS: Alveolar-Arterial Oxygen Gradi 57.5 mmHg (5-10); PO2 FiO2 Ratio Arterial Blood 86
--- NOTE | 2025-03-20 12:34 | PM.CONSULT ---
Providers/Reason For Consult Consulting Physician/Specialty*: Dr Oneil Bailey Reason for Consult*: Shock, vent management Attending Physician: Fouzia Pearce MD Primary Care Provider: Laurita Mary MD History of Present Illness History of Present Illness Suzanne Ureña is a 65 year old female with past medical history of Hypertension, hyperlipidemia, severe CAD, hypothyroidism was experiencing chest pain at home developed V-fib cardiac arrest, resuscitated after chest compressions and brought to ER where she was intubated, placed on pressors, due to being very acidotic bicarb drip started.. Dr. Diaz to the patient for PCI, stents were placed in LAD, circumflex x 2, balloon dilatation of the diagonal branch. EF was found to be 20%. Overnight hemoglobin fell from 9-6.9. Initially blood thinners were given post PCI but on hold currently. Currently tolerating the ventilator settings well but on 100% FiO2.. Chest x-ray showed some right lower lobe infiltrate suggestive of aspiration. Also on levo at 20 and vaso at 0.05. On bicarb drip running at 75 mL, on Amio 0.5, Precedex 0.3, fentanyl 100 mcg. at bedside Review of systems unobtainable patient is on the vent Medications/Allergies Home Medications ?Medication ?Instructions ?Recorded ?Confirmed ?Last Taken ?Type aspirin 81 mg tablet,delayed 81 mg PO DAILY 04/13/23 03/20/25 12/19/24 History release cholecalciferol (vitamin D3) 50 50 mcg PO DAILY 09/13/23 03/20/25 12/20/24 History mcg (2,000 unit) capsule nitroglycerin 0.4 mg sublingual 0.4 mg sublingual Q5M PRN chest 03/30/24 03/20/25 12/17/24 Rx tablet pain #20 tabs clopidogrel 75 mg tablet See Rx Instructions .Route 04/10/24 03/20/25 12/15/24 07:30 Rx Held on 12/21/24. .COMPLEX #90 tabs Instructions: Resume on 12/24/24. folic acid 1 mg tablet 1 mg PO DAILY #90 tabs 09/26/24 03/20/25 12/20/24 Rx midodrine 10 mg tablet 10 mg PO TID #270 tabs 11/23/24 03/20/25 12/20/24 Rx potassium chloride 20 mEq 20 meq PO DAILY #90 tabs 12/12/24 03/20/25 12/20/24 Rx tablet,extended release(part/cryst) (Klor-Con M) sertraline 25 mg tablet 25 mg PO DAILY #90 tabs 01/01/25 03/20/25 Unknown Rx atorvastatin 80 mg tablet (Lipitor) 80 mg PO DAILY #90 tabs 01/03/25 03/20/25 Unknown Rx leflunomide 20 mg tablet 20 mg PO DAILY #30 tabs 02/09/25 03/20/25 Unknown Rx prednisone 20 mg tablet See Rx Instructions PO .COMPLEX 02/09/25 03/20/25 Unknown Rx PRN joint pain flare #30 tabs prednisone 10 mg tablet See Rx Instructions .Route 02/21/25 03/20/25 Unknown Rx .COMPLEX joint pain #60 tabs pregabalin 75 mg capsule (Lyrica) 75 mg PO BID #60 caps 02/21/25 03/20/25 Unknown Rx liothyronine 5 mcg tablet 10 mcg (2 x 5 mcg) PO DAILY #180 03/04/25 03/20/25 Unknown Rx tabs alprazolam 0.25 mg tablet 0.25 mg PO TID PRN anxiety #90 tabs 03/08/25 03/20/25 Unknown Rx levothyroxine 100 mcg tablet 100 mcg PO DAILY #90 tabs 03/12/25 03/20/25 Unknown Rx (Synthroid) valacyclovir 1 gram tablet 1,000 mg PO TID #21 tabs 03/12/25 03/20/25 Unknown Rx methotrexate sodium 2.5 mg tablet See Rx Instructions .Route .COMPLEX 03/20/25 03/20/25 Unknown History pantoprazole 40 mg tablet,delayed 40 mg PO QAM 03/20/25 03/20/25 Unknown History release Allergies Allergy/AdvReac Type Severity Reaction Status Date / Time tetracycline Allergy Severe ALGY-Anaphy Verified 03/12/25 15:45 laxis Current Medications Generic Name Dose Route Start Last Admin Trade Name Freq PRN Reason Stop Dose Admin Atorvastatin Calcium 80 mg 03/20/25 05:00 03/20/25 04:27 Atorvastatin 40 Mg Tablet PO 80 mg DAILY TESSA Administration AMIODARONE HCL/D5W 900 mg in 500 mls @ 0 mls/hr 03/19/25 18:00 03/20/25 00:55 Amiodarone 900 Mg/500 Ml-D5w IV 0.5 mg/min .Q0M TESSA 16.67 mls/hr Protocol Titration Per Protocol Lactated Ringer's 1,000 mls @ 75 mls/hr 03/19/25 18:45 03/20/25 11:03 Lactated Ringers IV Not Given .[id number] TESSA Piperacillin Sod/Tazobactam 50 mls @ 12.5 mls/hr 03/19/25 20:00 03/20/25 04:27 Sod 3.375 gm/ Sodium Chloride IV 12.5 mls/hr Q8H TESSA Administration Fentanyl 1,000 mcg in 100 mls @ 0 mls/hr 03/19/25 20:15 03/20/25 10:32 Sublimaze IV 100 mcg/hr .Q0M TESSA 10 mls/hr Protocol Titration Per Protocol Norepinephrine Bitartrate 4 mg in 250 mls @ 0 mls/hr 03/19/25 22:15 03/20/25 11:09 Levophed IV 20 mcg/min .Q0M TESSA 75 mls/hr Protocol Administration Per Protocol Midazolam HCl 100 mg in 100 mls @ 0 mls/hr 03/19/25 23:15 03/20/25 10:00 Versed IV 0 mg/hr .Q0M TESSA 0 mls/hr Protocol Titration Per Protocol Vasopressin 40 unit in 100 mls @ 0 mls/hr 03/20/25 02:15 03/20/25 10:31 Vasostrict IV 0.05 unit/min .Q0M TESSA 7.5 mls/hr Protocol Titration Per Protocol Sodium Bicarbonate 150 meq/ 1,150 mls @ 75 mls/hr 03/20/25 03:03 03/20/25 03:10 Dextrose IV 03/20/25 18:22 75 mls/hr .[id number] ONE Administration Dexmedetomidine/Sodium Chloride 400 mcg in 100 mls @ 0 mls/hr 03/20/25 08:15 03/20/25 09:40 Precedex IV 0.2 mcg/kg/hr .Q0M TESSA 2.95 mls/hr Protocol Titration Per Protocol Dobutamine HCl/Dextrose 500 mg in 250 mls @ 0 mls/hr 03/20/25 11:15 03/20/25 11:34 Dobutamine Drip IV 10 mcg/kg/min .Q0M TESSA 17.69 mls/hr Protocol Titration Per Protocol Nicotine 1 patch 03/20/25 05:00 03/20/25 04:38 Nicotine 21 Mg Patch TRANSDERMA Not Given DAILY TESSA Pantoprazole Sodium 40 mg 03/20/25 05:00 03/20/25 04:27 Pantoprazole 40 Mg Sdv IVP 40 mg DAILY TESSA Administration PFSH Acute PFSH: Medical History (Updated 03/20/25 @ 12:40 by Oneil Bailey MD) Acute hypoxemic respiratory failure Cardiogenic shock 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 Degenerative joint disease (DJD) of lumbar spine Atherosclerosis of [place] coronary artery without angina pectoris Vitamin D deficiency Former smoker, stopped smoking in distant past 1ppd for > 35 years, still occ and cannabis High risk medication use Depression Onset before 2008 Atrial fibrillation by electrocardiogram Hypothyroidism (acquired) no thyroid bx or history of radiation to head/neck Seronegative rheumatoid arthritis of both hands Hyperlipidemia DX in 2009 Alcohol abuse Episodic Neuropathy Facet arthritis of lumbar region Surgical History Hx of cardiac cath 10.07.23 no intervention but has CAD and collaterals; had [place] Hx of colonoscopy with polypectomy 02.18.17 [place] in [place]: 3 tubular adenomas--12.21.24 at [facility]--adenomas, repeat in 5yrs Hx of section X 2 History of cholecystectomy H/O Spinal surgery L2,3 and L3,4 spacers S/P tonsillectomy at age 6 H/O bladder repair surgery Family History Mother Rheumatoid arthritis Hypertension Grandmother Cancer parathyroid cancer Hypertension Social History Smoking and tobacco/nicotine status: former use of tobacco/nicotine Quit status (tobacco/nicotine): quit date established Planned quit date: 03/05/25 Second hand smoke exposure: No Alcohol intake: current Alcohol intake frequency: holidays/special occasions only Substance/Drug Use: current Substance/Drug use frequency: daily Household members: spouse Marital status: Number of children: 2 Highest education level completed: Bachelor's Degree 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 Vitals/I&O/Wt Last Vital Signs Temp 98.1 F 03/20/25 12:00 Pulse 110 H 03/20/25 12:00 Resp 16 03/20/25 11:56 BP 93/38 03/20/25 12:00 Pulse Ox 96 03/20/25 11:56 O2 Del Method Mechanical Ventilation 03/19/25 21:52 FiO2 80 03/20/25 11:56 03/19/25 03/20/25 03/20/25 22:59 06:59 14:59 Intake Total 139.000 / 231.984 2066.579 / 1433.579 402.076 / 402.076 Output Total 500 / 500 Balance 139.000 / 139.000 794.579 / 933.579 402.076 / 402.076 Weight last 48 hrs Weight 130 lb Weight 130 lb Weight 130 lb 1.164 oz Weight 120 lb Physical Exam Narrative: per RN General: Intubated sedated HEENT: conj clear, Pulmonary: CTAB. Cardiovascular: Tachycardic, S1-S2 heard Abdomen: soft, nt, nd, no r/g, no flank bruising noted Extremities: pulses +, no edema. PCI site looks like A small hematoma in the right groin. Skin: no rash Neurologic: Cannot fully assess patient is intubated Agree with above exam Urinary Catheter Management: Archer: Cath Placed During This Visit: yes Reason for Continuing Indwelling Catheter: Accurate Measurement of Urinary Output in Critically Ill Patients Urinary Catheter Date of Insertion: 03/19/25 Urinary Catheter Time of Insertion: 18:47 Data 03/20/25 10:46 03/20/25 03:32 Micro: Microbiology 03/19/25 18:18 Gram Stain - Final Sputum - Endotracheal Tube Aspirate 03/19/25 21:37 Blood Culture - Preliminary Blood SPECIMEN COLLECTED 03/19/25 21:32 Blood Culture - Preliminary Blood SPECIMEN COLLECTED A&P Assessment and plan 1. Cardiogenic shock: 2. Acute hypoxemic respiratory failure: Plan: # Acute hypoxemic respiratory failure - Reviewed chest x-ray 03/19/2025 showing infiltrates in the right base suggestive of aspiration pneumonitis. Small basal right pleural effusion noted as well.I reviewed the Cxr myself, interpretted findings independently - On ventilator support currently tidal volumes of 450, VC-AC, heart rate 14, PEEP of 8, FiO2 80% currently-satting 91%. Reviewed ABG pH of 7.18, pCO2 47.2, PaO2 of 68.8, PF 86. - Wean off ventilator first FiO2 to keep O2 sat above 92% # Cardiogenic shock - Keep Levophed and vasopressin drip-keep MAP above 65. Currently is being taken to Surgical Garment Inspector to have Impella placed. - Discussed case with Dr. Diaz. Currently very high risk for another cardiac arrest family is aware. She was initially DNR/DNI prior to hospitalization but family has reports that. # Acute renal failure most likely ATN or shock induced although contrast nephropathy cannot be ruled out since she just had PCI yesterday -Monitor urine output keep above 25 mL/h. May be in shock/ATN. No NSAIDs/ARB's or ROSSY inhibitors to be given. # Acute lactic acidosis - Severely acidotic although some mixed hypercapnia contributing to acidosis noted on ABGs as well. Agree with bicarb drip at 75 mL/h for now. # Severe CAD status post PCI # Anemia -Differential includes retroperitoneal bleed versus acute blood loss anemia. Unclear etiology so far. - Current hemoglobin is only 5.5. She is too unstable to send for CT abdomen pelvis currently. Will give you 2 units of packed red blood cells and monitor clinically. Once more stable will rule out retroperitoneal bleed clinically on exam she does not have any flank bruising noted and her groin site looks like there was only a small hematoma. Repeat H&H again today in 4 to 5 hours. # Probable aspiration pneumonitis/sepsis - Reviewed chest x-ray personally shows some aspiration pneumonitis like changes. She has been started on empiric patient is on meropenem and vancomycin. Cultures blood and sputum pending. # Acute cardiomyopathy EF of 30% # Acute lactic acidosis Continue bicarb drip at 75 mL/h. Most likely secondary to dysoxia related to shock. # Hyperlipidemia # Hypothyroidism # Smoker # Transaminitis-most likely due to shock liver # Hypoalbuminemia # Hyponatremia # Hyperglycemia-insulin sliding scale medium. Avoid hypoglycemia. Maintain blood sugars between 140-180. # Sedation-continue Precedex and fentanyl drip for now. # DVT GI prophylaxis-SCDs and famotidine. Hold off on anticoagulation secondary to anemia which could be acute blood loss. # Goals of care-discussed with at bedside who wants to keep patient full code for now. 03/12/2025 # CODE STATUS- FULL # Disposition-Will need full ICU support follow-up The high probability of a clinically significant, sudden or life threatening deterioration of the patient's [Respiratory, cardiac and renal] system(s) required my full and direct attention, intervention and personal management. The critical care time is as shown. This time is in addition to time spent performing any reported procedures but includes the following: [x] Data and vital sign review and interpretation [x] Patient assessment, examination and intervention [x] Documentation [x] Medication orders and management Critical Care Time (min): 45 Telemedicine Consent Patient seen today via Telemedicine by agreement and consent of patient.? Telemedicine technology used during the visit includes audio and, as available, review of images.? The patient encounter is appropriate and reasonable under the circumstances given the patient?s particular presentation at this time.? The patient has been advised of the potential risks and limitations of this mode of treatment (including but not limited to the absence of in-person examination) and has agreed to be treated in a remote fashion in spite of them.? Any, and all, of the patient?s/patient?s family?s questions on this issue have been answered and I have made no promises or guarantees to the patient. The patient has also been advised to contact this office for worsening conditions or problems, and seek emergency medical treatment and/or call 911 if the patient deems either necessary PDMP PDMP Reviewed: Not Reviewed Coding Level of Care Code Acute Code for Chg Fwd Diagnoses Cardiogenic shock R57.0 Acute hypoxemic respiratory failure J96.01
--- NOTE | 2025-03-20 13:13 | XACV_ITS ---
Ht: 163 cm Wt: 59 kg BSA: 1.64 m2 Any Known Allergies: Other Gender: Female : 1960 Exam Type: Invasive Peripheral Vascular Procedure(s): Procedure Description: Peripheral Cath Diagnostic Procedure Procedure Description: Abdominal aortic angiography Procedure Description: Perclose Exam Priority: Routine [id number], Diaz; Conclusions Indication for Impella: Persistent cardiogenic shock despite of 3 pressors,Patient was brought in from the ICU to the Fence Installer for Impella CP placementImpella placement through right common femoral approachRight common femoral approach was adopted. after placement of 14 German Impella sheath. Pigtail catheter was crossed, left LV gram was obtained which confirmed 20% ejection fraction with apical anterior inferoapical akinesis to dyskinesis. Impella wire was exchanged using pigtail catheter. However Impella wire Impella catheter was placed. Good cardiac output was obtained. Impella was sutured into the right groin.There was no complication, patient was transferred back to the ICU for post Impella care. Recommendations Usual post cath and Impella care. Access Site Site: Right Femoral artery Sheath Size: 6 Fr Hemost... Method: Suture Hemost... Success: Successful Procedure Details Findings Procedure Consent Obtained. Pre-Procedure Time Out. Identified patient by full name and date of as verbalized by the patient/guarantor. Does the consent match the physician's order: Yes. Accurate & Complete Informed Consent: Yes. Inpatient/Outpatient History & Physical on Chart: Yes. If H&P is completed, is and addenduem needed: No; If yes, is the addendum complete: N/A. Visualize and Verify Site with Patient/Guarantor: N/A. Relevant Radiology Images available: Yes. The risks, benefits, and alternatives of sedation and/or procedure were discussed by physician. The patient agrees to continue. Procedure started. [facility] Clinical Fraility Score: 7: Severely Frail. Fence Installer Indications: Other/Cardiogenic shock. Cardiovascular Instability: Yes, if yes, Cardiogenic Shock. Correct patient, site and procedure confirmed by cath team. Patient intubated and sedated on arrival to the mine laborer. RT at bedside. Patient on multiple drips. See ICU flowsheet for details. IV Site on Arrival: 20 gauge in the right hand. IV Site on Arrival: 20 gauge in the right anticubital. IV Site on Arrival: 20 gauge in the left wrist. Pre Procedural Pulses: bilateral dorsalis pedis was Doppled. Pre Procedural Pulses: bilateral posterior tibial was Doppled. Pre Procedural Pulses: bilateral femoral was 2+. bilateral groins was prepped with chloroprep then draped in the usual sterile fashion. Physician notified. Baseline sample Acquired. HR: 90 BPM. Patient with ann cath in place on arrival to the mine laborer draining clear, yellow UOP. Patient's son, Roby, is in the mine laborer waiting room. Dr. Diaz will update at the completion of the procedure. Equipment: 6F - Femoral. Cardiac Cath Pack. ACIST Manifold Kit Model BT 2000. Heparinized Saline (2 units/mL), 1000 mL bag. Kit, Micropuncture. Physician arrived. Physician scrubbed in. Immediate Pre-Procedure Time Out. Correct Patient: Yes; Correct Procedure: Yes; Correct Site: Yes; Correct Patient Position: Yes; Correct Supplies: Yes; Dried Flammable Prep: Yes; Blood Products Available: Yes;. A 5 maldivian JR4 catheter in through the existing 6 fr sheath in the right groin over the standard J wire. Standard J wire out, 0.035 x 260cm stiff angled glidewire in. Catheter removed over the glide wire. A 5Fr RIM catheter in over the glidewire. Aortic arch arteriogram performed in MATHIS @ 10 ml/sec for a total of 20 mL. RIM catheter removed over the standard J wire. Sheath injected in Right common femoral artery and runoff performed. 6fr sheath intact to the right femoral artery intact on arrival to the mine laborer. Perclose ProGlide x2 inserted to the right groin at 10 and 2 positions. Lot # [id number]. Exp. . Existing 6fr sheath out. A 5 maldivian JR4 catheter in over the glidewire to use as support catheter for wire exchange. Glidewire out. Stiff Impella wire in. Sheath upsized to a 8 Fr. Sheath upsized to a 12 Fr. 12 maldivian dilator exchanged for a 14fr short Impella sheath. Stiff Impella wire out. A 5 maldivian Angled Pig catheter in over the standard J wire. ACT drawn. Results 147 seconds. Therapeutic limits - pre-heparin administration 90-150 seconds and monitoring heparin during a vascular procedure >250 seconds. Standard wire out, impella wire in. Catheter removed over the impella wire. Impella catheter in over the impella wire. Impella wire out, support on. 14fr impella sheath peeled away. A Suture was successful obtaining hemostatsis at the Right Femoral artery insertion site. Physician scrubbed out. Sheath(s) sutured into position with 2-0 silk and sterile 4x4's and Op-site applied over the site. No oozing or signs and symptoms of hematoma noted. Post Procedure: Pulses reassessed and unchanged. No VTE prophylaxis required. Medication's Wasted: Lidocaine 1% = 20 mL. Medication's Wasted: Heparin = 1000 units. Post-op diagnosis: S/P impella insertion. Complications: none. Estimated blood loss: 5mL-10mL. Airway - Remains intubated, no intervention required. Circulation: W/N/L, pulses unchanged. Nausea/Vomiting: No. Vital chart was stopped. Procedure completed. Patient transferred by bed to ICU. Procedure Medications Start: 2:47 PM Stop: 2:47 PM Medication: Heparin Amount: 5000 units Route: I.V. I, the attending physician, have reviewed and verified all procedure medications. Yes, all medications given per verbal order History/Risk Factors Hypertension: Yes Dyslipidemia: Yes Peripheral Arterial Disease (PAD): No Myocardial Infarction (ME): Yes Obesity: No Renal Disease: No Tobacco Use: Current/Recent(w/in 1 year) Prior Interventions PCI: Yes CABG: No Valve Surgery: No Date of PCI: 03/19/2025 Report Signatures Finalized by Isaias Diaz MD on 03/25/2025 11:11 PM
[2025-03-20 13:26] LABS: Anion Gap 16.4 (5-19); Blood Urea Nitrogen 15 mg/dL (8-23); Calcium 6.6 mg/dL (8.5-10.5); Carbon Dioxide 17 mmol/L (22-29); Chloride 106 mmol/L (98-107); Creatinine Clr Calc Pharmacy 35.6739; Glucose 89 mg/dL (65-115); Osmolality Calculated 282 mOsm/kg (285-295); Potassium 3.4 mmol/L (3.5-5.1); Sodium 136 mmol/L (136-145)
[2025-03-20 13:57] LABS: ABG PH Result 7.18 (7.35-7.45)
--- NOTE | 2025-03-20 14:01 | W.PM.OPSUD ---
Surgery/Procedure H&P Update DATE OF PROCEDURE: March 20, 2025 DATE H&P PERFORMED: 03/19/25 H&P UPDATE INFORMATION: I have reviewed H&P completed within last 30 days and Changes to prior documentation as noted here CHANGES TO PREVIOUS DOCUMENTATION: Patient appeared to be in mixed rate of cardiogenic and possible septic shock she is on more than 2 pressors PREOP DIAGNOSIS: Cardiac arrest/V-fib/coronary artery disease/ACS PRIMARY INDICATION FOR PROCEDURE: Cardiogenic shock On multiple pressors and inotrope Status post PCI Impella CP insertion PLANNED PROCEDURE: Operation Date: 03/19/25 19:00 Proposed Procedures p Cardiac Catheterization(Not Applicable) - Isaias Diaz MD GENERAL: Patient is intubated and sedated HEART: Regular S1 and S2. No murmur, rub or gallop. LUNGS: Decreased breath sound bilaterally. CENTRAL NERVOUS SYSTEM: Grossly nonfocal. EXTREMITIES: Lower extremities with out edema bilaterally. PATIENT REASSESSED PRIOR TO SEDATION, WITH NO CHANGE NOTED: Yes AIRWAY EVAL/ANESTHESIA PLAN: ASA II and Risks, benefits & alternatives of sedation and/or procedure discussed ADDITIONAL INFORMATION: I have detailed discussion with patient's family her and her son explained them all risk-benefit and alternative for the procedure including losing limb ischemic legs leading to amputation hemolysis bleeding stroke major bleed urgent emergent vascular surgery. Patient and son both are in agreement and would like to proceed with Impella insertion.
--- NOTE | 2025-03-20 14:38 | PM.PN ---
Subjective Subjective: The patient was seen in the morning, intubated and on sedation On high-dose vasopressors still having MAP around 60s Cardiology on board and inserted Impella for further support of heart failure with reduced ejection fraction Patient prognosis is guarded and further explanation has been provided to the family. Vitals/I&O/Wt Last Vital Signs Temp 98.1 F 03/20/25 12:00 Pulse 101 H 03/20/25 13:30 Resp 19 H 03/20/25 13:30 BP 83/57 03/20/25 13:30 Pulse Ox 100 03/20/25 13:30 O2 Del Method Mechanical Ventilation 03/19/25 21:52 FiO2 100 03/20/25 13:30 03/19/25 03/20/25 03/20/25 22:59 06:59 14:59 Intake Total 139.000 / 680.015 6197.579 / 1433.579 402.076 / 402.076 Output Total 500 / 500 Balance 139.000 / 139.000 794.579 / 933.579 402.076 / 402.076 Weight last 48 hrs Weight 58.967 kg Weight 58.967 kg Weight 59 kg Weight 54.431 kg Physical Exam Narrative: General: Patient on mechanical ventilation and sedation HEENT: Grossly unremarkable exam Resp system: Bilateral equal air entry through mechanical ventilation however there are conducting sounds and mild crackles but no wheezing and no stridor Limited examination secondary to conductive send from the ventilator CVS: Patient on high-dose vasopressors, amiodarone, and on Impella following with the MAP and further titration of pressors Neuro: Patient on sedation therefore unable to assess properly neurological status Extremities: Mild cold extremities with feeble peripheral pulses and decreased capillary refill, mild trace pedal edema. Urinary Catheter Management: Archer: Cath Placed During This Visit: yes Reason for Continuing Indwelling Catheter: Accurate Measurement of Urinary Output in Critically Ill Patients Urinary Catheter Date of Insertion: 03/19/25 Urinary Catheter Time of Insertion: 18:47 Data 03/20/25 10:46 03/20/25 12:46 Micro: Microbiology 03/19/25 18:18 Gram Stain - Final Sputum - Endotracheal Tube Aspirate 03/19/25 21:37 Blood Culture - Preliminary Blood SPECIMEN COLLECTED 03/19/25 21:32 Blood Culture - Preliminary Blood SPECIMEN COLLECTED A&P Assessment and plan 1. Cardiac arrest due to underlying cardiac condition: Patient s/p V-fib cardiac arrest Urgent PCI and cath to proceed since the patient is intubated and after discussion with the to proceed and later to keep her DNR however there is a discrepancy among the other family members/son and therefore to proceed according to patient critical situation and intervention as required Cardiology on board inserted Impella since the patient was not improving s/p PCI. continue on amiodarone as per cardio plan Patient prognosis is guarded Continue with postcardiac arrest care 2. Sepsis: Patient s/p cardiac arrest likely underlying cardiogenic in nature However considering patient arrest, to cover any infectious pathology Blood cultures Fluid bolus Lactate series Maintain MAP above 65 Broad-spectrum antibiotics with vancomycin and Zosyn to continue Monitor intake and output Monitor renal parameters, electrolytes and correction accordingly Maintain normoglycemia 3. Coronary artery disease: Patient was loaded with aspirin and clopidogrel during STEMI alert with 600 mg of clopidogrel once and 325 of aspirin once Continue high-dose statins Status post loading had anemia with drop in hemoglobin Got blood transfusion Continue to monitor Cardiology on board to follow-up 4. Anemia: Patient s/p PCI found to have anemia in the morning Repeat lab was also showing decrease hemoglobin around 7.10 1 unit of PRBC started and to follow-up CBC 5. Accelerated hypertension: Currently patient having heart failure with reduced ejection fraction requiring Impella support Continue with adequate resuscitation to maintain MAP above 65 6. Lumbar stenosis with neurogenic claudication: Currently on sedation and to continue fentanyl 7. Nicotine dependence, cigarettes, with other nicotine-induced disorders: Patient recently quit on 06 March 2025, however still there is a risk of possible withdrawal effects Nicotine patch 8. Episode of recurrent major depressive disorder, unspecified depression episode severity: Continue to avoid any oral home medications if the patient is having low MAP and will further affect the absorption of the oral medication. Continue management on the basis of V-fib cardiac arrest and cardiogenic shock/septic shock and other shocks 9. Hypothyroidism (acquired): Patient on levothyroxine 100 mcg and liothyronine and to continue through NGT Repeat thyroid function with T3 and T4 10. Hyperlipidemia, unspecified hyperlipidemia type: Continue statins after reconciliation 11. Degenerative joint disease (DJD) of lumbar spine: Patient on leflunomide 20 mg, tramadol as needed for pain and prednisone To hold this medication at the moment considering cardiac arrest PDMP PDMP Reviewed: Not Reviewed Attestations Medical Necessity Statement*: Will stay over 2 midnights for the management of severe shock likely cardiogenic in nature versus sepsis less likely considering the patient had STEMI alert and found to have low EF as well Time Spent in Patient Care: Greater than 35 minutes (>than 50% of time spent in counselling and/or direct pt care on unit). Critical Care Time: The high probability of a clinically significant, sudden or life threatening deterioration, as referenced in this documentation, required my full and direct attention, intervention and personal management. The critical care time shown is in addition to time spent performing any reported separately billable procedures and includes the following: [x] Data and vital sign review and interpretation [x] Patient assessment, examination and intervention [x] Medication orders and management [x] Patient/Family updates as able [x] Care Coordination and Documentation. Critical Care Time (min): 40 Other Attestations: Patient critical condition and guarded prognosis has been discussed at length with the patient/family, I have independently reviewed the chart labs imaging/diagnostics/EKG. the goals of care and code status with the patient/family/NOK/legal software support representative, and documented accordingly. The management has been done according to the current clinical condition with respect to patient goals of care and based on recommendations/guidelines. The patient/family has been informed about the current condition and further plan of care. Agreed with the plan of care and understood without any language barrier. Every effort was made to ensure accuracy of prevocational/rehabilitation counselor. Any obvious errors or omissions should be clarified with the author of the document. Coding Level of Care Code Critical Care >/= 30 minutes Diagnoses Cardiac arrest due to underlying cardiac condition I46.2 Sepsis A41.9 Coronary artery disease I25.10 Anemia D64.9 Accelerated hypertension I10 Lumbar stenosis with neurogenic claudication M48.062 Nicotine dependence, cigarettes, with other nicotine-induced disorders F17.218 Episode of recurrent major depressive disorder, unspecified depression episode severity F33.9 Active/Remission status: currently active Depression Type: major depressive disorder Major depression episode severity: unspecified Major depression recurrence: recurrent Hypothyroidism (acquired) E03.9 Hyperlipidemia, unspecified hyperlipidemia type E78.5 Hyperlipidemia type: unspecified Degenerative joint disease (DJD) of lumbar spine M47.816
--- NOTE | 2025-03-20 15:12 | PM.PROC ---
Procedure Note: Date of procedure: 03/20/25 Pre-procedure diagnosis: Cardiogenic shock Procedure: Insertion of Impella CP through right common femoral groin Plan: Will retain Impella for next 48 hours further plan will advise as per progress of the patient Check CBC BMP in the morning Continue IV fluid 100 mL/h normal saline. Full note to be dictated Coding Level of Care Code Acute Code for Meera Virk
[2025-03-20] MEDS: DEXTROSE 5% XX (16:19)
[2025-03-20] MEDS: SODIUM BICARBONATE XX (16:19)
[2025-03-20 17:34] LABS: Hematocrit 24.4 % (36-47); Hemoglobin 7.80 g/dL (11.27-16.99); Mean Corpuscular HGB Conc 32.0 g/dL (30-55); Mean Corpuscular Hemoglobin 30.5 pg (27-33); Mean Corpuscular Volume 95.3 fl (85-98); Nucleated Red Blood Cells % 0 %; Platelet Count 86 10^3/cmm (157-399); Red Blood Count 2.56 10^6/uL (3.85-5.65); White Blood Count 5.50 10^3/uL (3.29-11.43)
[2025-03-20 17:37] LABS: Slide Review Slide Review Perform
[2025-03-20] MEDS: fentaNYL 1,000 MCG/100 ML BAG 10 MCG IV (17:43)
[2025-03-20] MEDS: AMIODARONE HCL/D5W 900 MG/500 ML BAG 16.67 MG IV (17:46)
[2025-03-20 18:03] LABS: Blood Urea Nitrogen 16 mg/dL (8-23); Calcium 6.7 mg/dL (8.5-10.5); Carbon Dioxide 16 mmol/L (22-29); Chloride 105 mmol/L (98-107); Creatinine Clr Calc Pharmacy 33.2957; Glucose 130 mg/dL (65-115); Osmolality Calculated 283 mOsm/kg (285-295); Sodium 135 mmol/L (136-145)
[2025-03-20 18:04] LABS: Anion Gap 17.4 (5-19); Potassium 3.4 mmol/L (3.5-5.1)
[2025-03-20] MEDS: potassium phosphate (mEq K) 40 MEQ in sodium chloride 0.9% (100 ml) 100 ML 27.25 MEQ IV (18:39)
--- NOTE | 2025-03-20 18:43 | USCV_ITS ---
Suzanne Ureña Age: 65 Gender: F : 1960 Exam Date: 03/20/2025 00:55 Ordering Phys: Fouzia Pearce MD Technologist: CATHRYN Exam Location: [facility] [place] Indication: stemi alert, history of cardiac arrest, history of Atrial fibrillation, history of CAD BP: 134 / 77 HR: 84 Rhythm: Sinus Technical Quality: Adequate MEASUREMENTS (Male / Female) Normal Values 2D ECHO LV Diastolic Diameter PLAX 3.6 cm 4.2 - 5.9 / 3.9 - 5.3 cm IVS Diastolic Thickness 1.3 cm 0.6 - 1.0 / 0.6 - 0.9 cm IVS Systolic Thickness 1.4 cm LVPW Diastolic Thickness 1.2 cm 0.6 - 1.0 / 0.6 - 0.9 cm LVPW Systolic Thickness 1.9 cm LVOT Diameter 1.6 cm LV Ejection Fraction 2D Teich 60.7 % LV Ejection Fraction MOD 4C 51.6 % LV Ejection Fraction MOD 2C 66.1 % LV Ejection Fraction 2C AL 67.2 % LA Diameter 2.8 cm Aorta at Sinotubular Diameter 2.7 cm IVC Diameter 1.6 cm M-MODE LA Ao Ratio MM 1.0 AV Cusp Separation MM 1.5 cm DOPPLER AV Peak Velocity 125.0 cm/s LVOT Peak Velocity 98.0 cm/s AV Area Cont Eq vti 1.4 cm squared AV Area Cont Eq pk 1.5 cm squared MV Peak Velocity 66.0 cm/s MV Area PHT 6.4 cm squared Mitral E to A Ratio 0.8 TV Peak Velocity 261.5 cm/s TR Peak Velocity 268.0 cm/s TR Peak Gradient 28.7 mmHg TV Peak E Velocity 27.0 cm/s PV Peak Velocity 85.0 cm/s FINDINGS Left Ventricle Normal left ventricular cavity size. Moderately decreased left ventricular systolic function. Estimated ejection fraction around 40%, there appeared to be septal bounce with mild to moderate anterior wall hypokinesis.Grade I/IV diastolic dysfunction (abnormal relaxation filling pattern), normal to mildly elevated filling pressures. Right Ventricle Normal right ventricular size and systolic function. Normal right ventricular systolic function. Mild pulmonary hypertension, RVSP 32 mmHg. Right Atrium Normal right atrial size. Left Atrium Normal left atrial size. IA Septum Normal appearance of the interatrial septum. Mitral Valve Moderately thickened mitral valve. Moderate mitral annular calcification. No mitral valve stenosis. Trace mitral valve regurgitation. Aortic Valve Normal aortic valve structure. No aortic valve stenosis or regurgitation. Tricuspid Valve Moderate tricuspid valve regurgitation. Pulmonic Valve Normal pulmonic valve structure. No pulmonic valve stenosis or regurgitation. Pericardium No pericardial effusion. Aorta Normal diameter of the aortic root and ascending thoracic aorta. IVC Moderately dilated IVC. CONCLUSIONS Normal left ventricular cavity size. Moderately decreased left ventricular systolic function. Estimated ejection fraction around 40%, there appeared to be septal bounce with mild to moderate anterior wall hypokinesis.Grade I/IV diastolic dysfunction (abnormal relaxation filling pattern), normal to mildly Moderate tricuspid valve regurgitation. Right atrial pressure is around 20 mm of mercury., Patient is on vent There is no pericardial effusion. When compared to the prior echocardiogram left ventricular ejection fraction is reduced from normal 60% to 40% Isaias Diaz MD (Electronically Signed) Final Date: 20 March 2025 11:43 S
[2025-03-20 19:35] LABS: Lactate (Lactic Acid level) 2.2 mmol/L (0.5-2.2)
[2025-03-20 21:14] LABS: Hematocrit 28.4 % (36-47); Hemoglobin 9.50 g/dL (11.27-16.99)
[2025-03-20 21:25] LABS: Free T4 Free Thyroxine 1.24 ng/dL (0.82-1.77); Thyroid Stimulating Hormone 0.15 uIU/mL (0.27-4.20)
--- NOTE | 2025-03-20 22:04 | PC.NURSE ---
Urine output decreased to 25 ml/hr. Contacted Dr. Diaz, updated on urine output, pressor support, fluids, and pt status. Ordered to give 500 ml NS bolus then decrease back to 100 ml/hr.
[2025-03-20] MEDS: potassium chloride premix 100 ML 50 MEQ IV (23:23)
[2025-03-20] MEDS: heparin 5,000 unit/mL INJ 1 mL IVP (23:39)
[2025-03-20] MEDS: heparin drip 25,000 UNIT/500 ML PREMIX 17 UNIT IV (23:40)
[2025-03-20] MEDS: norepinephrine 4 MG/250 ML BAG 67.5 MG IV (23:53)
[2025-03-21] VITALS (67 sets, daily range): BP systolic 80–118; BP diastolic 58–89; PULSE 90–103; RESP 14–19; TEMP 36.4–37; O2SAT 92–100
--- NOTE | 2025-03-21 00:41 | PC.NURSE ---
Wasted Versed 75 ml, witnessed by Marc Turcios RN
[2025-03-21] MEDS: fentaNYL 1,000 MCG/100 ML BAG 12.5 MCG IV ×3 (02:37→17:35)
[2025-03-21] MEDS: dexmedeTOMIDine 0.9 % NaCL 400 MCG/100 ML PREMIX 7.37 MCG IV (02:37)
[2025-03-21] MEDS: piperacillin-tazobactam 3.375 GM in sodium chloride 0.9% (plus) 50 ML IV ×3 (03:38→20:16)
[2025-03-21] MEDS: norepinephrine 4 MG/250 ML BAG 48.75 MG IV (03:44)
[2025-03-21 04:09] LABS: Hematocrit 26.7 % (36-47); Hemoglobin 8.90 g/dL (11.27-16.99); Mean Corpuscular HGB Conc 33.3 g/dL (30-55); Mean Corpuscular Hemoglobin 30.4 pg (27-33); Mean Corpuscular Volume 91.1 fl (85-98); Nucleated Red Blood Cells % 0.3 %; Platelet Count 73 10^3/cmm (157-399); Red Blood Count 2.93 10^6/uL (3.85-5.65); White Blood Count 6.28 10^3/uL (3.29-11.43)
[2025-03-21 04:33] LABS: Alanine Aminotransferase 619 U/L (0-33); Albumin Level 2.3 g/dL (3.5-5.2); Alkaline Phosphatase 82 U/L (35-105); Anion Gap 17.0 (5-19); Blood Urea Nitrogen 17 mg/dL (8-23); Calcium 6.4 mg/dL (8.5-10.5); Carbon Dioxide 15 mmol/L (22-29); Chloride 109 mmol/L (98-107); Creatinine Clr Calc Pharmacy 35.6739; Globulin 1.8 g/dL (1.3-4.6); Glucose 76 mg/dL (65-115); Osmolality Calculated 284 mOsm/kg (285-295); Potassium 4.0 mmol/L (3.5-5.1); Sodium 137 mmol/L (136-145); Total Protein 4.1 g/dL (6.6-8.7)
--- NOTE | 2025-03-21 04:40 | PC.NURSE ---
Dr. Diaz at bedside, updated on urine output and current status. New order to give 500 ml bolus received.
[2025-03-21 04:45] LABS: Aspartate Amino Transferase 2048 U/L (0-32)
[2025-03-21] MEDS: midazolam hcl 100 MG/100 ML BAG IV (05:50)
[2025-03-21] MEDS: calcium gluconate 0.9% NaCL 1 GM/50 ML PREMIX IV ×4 (05:53→19:48)
[2025-03-21] MEDS: pantoprazole 40 mg SDV IVP (05:53)
[2025-03-21 05:56] LABS: INR 1.53 (0.8-1.2); Prothrombin Time 19.40 SECONDS (12.1-14.9)
[2025-03-21 06:06] LABS: Partial Thromboplastin Time 102.0 SECONDS (23.9-36.7)
--- NOTE | 2025-03-21 06:22 | PC.NURSE ---
During suctioning pt awakened, began hitting side rails attempting to get out of restraints, made eye contact with this nurse, kicked left leg in all directions, attempted to kick right leg (with immobilizer) off of side of bed but was intercepted by this nurse with minimal movement of RLE. Attempted titrations on precedex to help decrease agitiation, but after approx 1 hour with no relief and escalating ventilator noncompliance, precedex stopped and versed resumed. Pt calmed and is resting at this time. No additional bleeding from impella insertion site, pulses remain palpable in right foot.
[2025-03-21 07:47] LABS: Magnesium 1.1 mg/dL (1.7-2.3)
[2025-03-21] MEDS: magnesium sulfate premix 4 GM/100 ML PREMIX IV (08:15)
[2025-03-21] MEDS: norepinephrine 4 MG/250 ML BAG 45 MG IV ×2 (09:33→22:35)
[2025-03-21] MEDS: albumin 25 G/100 ML BAG 60 G IV ×2 (09:33→16:57)
--- NOTE | 2025-03-21 09:47 | USCV_ITS ---
Suzanne Ureña Age: 65 Gender: F : 1960 Exam Date: 03/21/2025 10:06 Ordering Phys: Isaias Diaz MD ([email or web address]) Technologist: KRISTIN [place] [facility] [place]: Impella Placement BP: / HR: Rhythm: Sinus Technical Quality: Adequate MEASUREMENTS (Male / Female) Normal Values 2D ECHO LV Diastolic Diameter PLAX 4.3 cm 4.2 - 5.9 / 3.9 - 5.3 cm IVS Diastolic Thickness 0.7 cm 0.6 - 1.0 / 0.6 - 0.9 cm IVS Systolic Thickness 1.0 cm LVPW Diastolic Thickness 0.9 cm 0.6 - 1.0 / 0.6 - 0.9 cm LVPW Systolic Thickness 1.2 cm LVOT Diameter 2.5 cm LV Ejection Fraction 2D Teich 38.1 % LV Ejection Fraction MOD 4C 46.2 % LV Ejection Fraction MOD 2C 52.1 % LV Ejection Fraction 2C AL 52.0 % LA Diameter 2.5 cm RA Systolic Volume 4C AL 28.0 ml RA Systolic Volume 4C MOD 25.3 ml FINDINGS Left Ventricle Normal left ventricular size, systolic function and wall thickness, with no regional wall motion abnormalities. Left ventricular ejection fraction is estimated at 55 %. Right Ventricle Right Atrium Left Atrium IA Septum Mitral Valve Aortic Valve Tricuspid Valve Pulmonic Valve Pericardium Aorta IVC CONCLUSIONS Limited echo Normal left ventricular size, systolic function and wall thickness, with no regional wall motion abnormalities. Left ventricular ejection fraction is estimated at 55 %. Impella device is sitting in normal position across the aortic valve in the left ventricle Inlet to aortic valve length is 3.5 cm There is no pericardial effusion. Isaias Diaz MD (Electronically Signed) Final Date: 22 March 2025 22:41 S
--- NOTE | 2025-03-21 10:40 | P.PN_ITS ---
<Statement entered by Isaias Diaz MD - 03/21/25 20:40> Patient was evaluated and cared for in conjunction with an advanced practice practitioner. I personally examined the patient and reviewed the chart and all pertinent data including imaging, telemetry, and laboratory results. I discussed the patient in detail with the advanced practice practitioner. Please see their note for complete H&P testing result and agreed upon plan of care for the patient. Patient is status post Impella, improved in general making urine platelets however reduced, AST ALT high possible due to shock liver overall MAP appeared to be above 65 GENERAL: Patient is intubated and sedated HEART: Regular Impella continuous sound LUNGS: Decreased breath sounds with crackles bilaterally. CENTRAL NERVOUS SYSTEM: Grossly nonfocal. EXTREMITIES: Lower extremities with out edema bilaterally. Assessment and plan Shock Acute coronary syndrome/ST elevation AK Cardiomyopathy mixed picture of ischemic and stress-induced cardiomyopathy Possible respiratory pneumonia Will continue Impella support IV fluid was given in the form of boluses x 2, albumin was given due to suction alarm suggesting dry status Continue antibiotics Continue aspirin and clopidogrel Hold heparin for low platelets Continue to monitor hemoglobin Prognosis remain guarded Had detailed discussion with patient by bedside who is in agreement with the treatment Subjective 2 Subjective: She has improved overnight after Impella insertion yesterday, requiring less vasopressors and FiO2 decreased to 50%. Systolic blood pressures maintaining in the 110's. Creatinine maintaining at 1.4. Still receiving IV fluid at 100 mL/h. Urine output has improved, making about 100 mL/h. Hemoglobin 8.9 after blood transfusion 2 units yesterday. Magnesium currently being replaced. Vitals/I&O/Wt Last Vital Signs Temp 98.0 F 03/21/25 08:00 Pulse 98 03/21/25 10:00 Resp 14 03/21/25 08:47 BP 80/63 03/21/25 10:00 Pulse Ox 94 03/21/25 10:00 O2 Del Method Mechanical Ventilation 03/21/25 08:45 FiO2 50 03/21/25 08:47 03/20/25 03/21/25 03/21/25 22:59 06:59 14:59 Intake Total 6241.628 / 9371.2559 2419.8859 / 9371.2559 429.333 / 429.333 Output Total 475 / 950 475 / 950 100 / 100 Balance 5766.628 / 8421.2559 1944.8859 / 8421.2559 329.333 / 329.333 Weight last 48 hrs Weight 143 lb 4.807 oz Weight 143 lb 4.807 oz Weight 130 lb Weight 130 lb Weight 130 lb 1.164 oz Weight 120 lb Physical Exam 2 Chest: COMMONS NORMALS: normal inspection of the chest Resp: COMMON NORMALS: clear to auscultation bilaterally AUSCULTATION: clear to auscultation bilaterally OTHER: Intubated Cardio: COMMON NORMALS: regular rate, regular rhythm, S1 normal heart sound present and S2 normal heart sound present RATE: regular rate RHYTHM: r egular rhythm HEART SOUNDS: S1 normal heart sound present, S2 normal heart sound present and no murmurs PERIPHERAL PULSES: posterior tibial pulses present positive bilateral dopplerable and dorsalis pedis present positive bilateral dopplerable Extremity: GENERAL: No edema Urinary Catheter Management: Archer: Cath Placed During This Visit: yes Reason for Continuing Indwelling Catheter: Accurate Measurement of Urinary Output in Critically Ill Patients Urinary Catheter Date of Insertion: 03/19/25 Urinary Catheter Time of Insertion: 18:47 Data 03/21/25 03:55 03/21/25 03:55 Micro: Microbiology 03/19/25 21:37 Blood Culture - Preliminary Blood NEGATIVE TO DATE 03/19/25 21:32 Blood Culture - Preliminary Blood NEGATIVE TO DATE 03/19/25 18:18 Gram Stain - Final Sputum - Endotracheal Tube Aspirate A&P Assessment and plan 1. Cardiac arrest: 2. Coronary artery disease: 3. Shock: 4. Acute coronary syndrome: 5. Ventricular tachycardia: 6. Pneumonia: Plan: Overall status is improving, she has been moving a bit when sedation is decreased, pupils reactive. No fevers. Continuing to wean vasopressors and ventilator as able. No signs of bleeding at this time. Monitor hemoglobin. Appreciate consultation of pulmonology, Dr Bailey. Continue aspirin, Plavix, statin. PDMP PDMP Reviewed: Not Reviewed Attestations 2 Medical Necessity Statement*: s/p cardiac arrest, shock requiring Impella support Coding Level of Care Code Acute Code for [facility] Diagnoses Cardiac arrest I46.9 Coronary artery disease I25.10 Shock R57.9 Acute coronary syndrome I24.9 Ventricular tachycardia I47.20 Pneumonia J18.9
[2025-03-21 11:03] LABS: INR 1.56 (0.8-1.2); Prothrombin Time 19.70 SECONDS (12.1-14.9)
[2025-03-21 13:33] LABS: Magnesium 2.2 mg/dL (1.7-2.3)
--- NOTE | 2025-03-21 13:45 | XR_ITS ---
WS: [id number] Exam: XR chest 1V portable [id number] Date/Time of Exam: 03/21/2025 2:05 PM Reason For Exam: blood in ET tube Comparison 03/20/2025. Bilateral pulmonary infiltrates unchanged. RIGHT lower lobe atelectasis and RIGHT basal pleural effusion also unchanged. No pneumothorax. Heart size is unchanged. ET tube ends about 5 cm above the carrington in good position. RIGHT IJ catheter ends in the lower one third of the SVC. An enteric tube extends into the stomach but the tip is not visible. Bony structures are intact. The mediastinum is normal in contour. XR/XR chest 1V portable [id number] IMPRESSION: 1. Bilateral pulmonary infiltrates, RIGHT basal pleural effusion and RIGHT lowe r lobe atelectasis unchanged. 2. ET tube, RIGHT IJ catheter and enteric tube all remain in satisfactory posit ion.
--- NOTE | 2025-03-21 13:50 | PC.NURSE ---
Lung sounds notable more course, patient also having rhythm changes. Dr. Diaz notified. orders for stat chest x-ray given
[2025-03-21 13:58] LABS: Lactate (Lactic Acid level) 1.8 mmol/L (0.5-2.2)
[2025-03-21] MEDS: FUROsemide 10 mg/mL SDV 2mL 20 MG IVP (14:53)
--- NOTE | 2025-03-21 14:58 | P.PN_ITS ---
Subjective 2 Subjective: patient is overall improving s/p impella in terms of her FIO2 requirements, vasopressors and is trying to make some movt as well however adequate sedation is on going. her hb dropped and required 2 units and currently stable electrolytes monitored and corrected accordingly. having urine output Vitals/I&O/Wt Last Vital Signs Temp 98.6 F 03/21/25 12:00 Pulse 98 03/21/25 14:00 Resp 14 03/21/25 14:01 BP 87/63 03/21/25 14:00 Pulse Ox 96 03/21/25 14:01 O2 Del Method Mechanical Ventilation 03/21/25 11:27 FiO2 50 03/21/25 14:01 03/20/25 03/21/25 03/21/25 22:59 06:59 14:59 Intake Total 6241.628 / 6951.370 2419.8859 / 9371.2559 2016.417 / 2016.417 Output Total 475 / 475 475 / 950 600 / 600 Balance 5766.628 / 6476.370 1944.8859 / 8421.2559 1416.417 / 1416.417 Weight last 48 hrs Weight 65 kg Weight 65 kg Weight 58.967 kg Weight 58.967 kg Weight 59 kg Weight 54.431 kg Physical Exam 2 Narrative: General: Patient on mechanical ventilation and sedation HEENT: Grossly unremarkable exam Resp system: Bilateral equal air entry through mechanical ventilation however there are conducting sounds and mild crackles but no wheezing and no stridor Limited examination secondary to conductive send from the ventilator CVS: Patient on high-dose vasopressors, and amio, and on Impella following with the MAP and further titration of pressors Neuro: Patient on sedation therefore unable to assess properly neurological status Extremities: improved skin perfusion and still having feeble pulses, mild trace pedal edema, producing urine output Urinary Catheter Management: Archer: Cath Placed During This Visit: yes Reason for Continuing Indwelling Catheter: Accurate Measurement of Urinary Output in Critically Ill Patients Urinary Catheter Date of Insertion: 03/19/25 Urinary Catheter Time of Insertion: 18:47 Data 03/21/25 17:25 03/21/25 17:25 Micro: Microbiology 03/19/25 18:18 Gram Stain - Final Sputum - Endotracheal Tube Aspirate Sputum Culture - Preliminary 03/19/25 21:37 Blood Culture - Preliminary Blood NEGATIVE TO DATE 03/19/25 21:32 Blood Culture - Preliminary Blood NEGATIVE TO DATE A&P Assessment and plan 1. Cardiac arrest due to underlying cardiac condition: Patient s/p V-fib cardiac arrest Urgent PCI and cath proceeded by the replenishment analyst after discussion with the . he further informed that the patient wanted to keep her DNR however there is a discrepancy among the other family members/son and therefore to proceed according to patient critical situation and intervention as required s/p Impella and PCI, currently improving. cont with amiodarone, statins and plavix, and heparin on hold due to drop in hb requiring PRBC Patient prognosis is guarded Continue with postcardiac arrest care 2. Sepsis: Patient s/p cardiac arrest likely underlying cardiogenic in nature However considering patient arrest, to cover any infectious pathology cultures till date negative Maintain MAP above 65 Broad-spectrum antibiotics with vancomycin and Zosyn to continue Monitor intake and output Monitor renal parameters, electrolytes and correction accordingly Maintain normoglycemia FU with the pulm recommendation for further vent management and plan of care 3. Coronary artery disease: Patient was loaded with aspirin and clopidogrel during STEMI alert with 600 mg of clopidogrel once and 325 of aspirin once Continue high-dose statins Status post loading had anemia with drop in hemoglobin Got blood transfusion Continue to monitor Cardiology on board to follow-up 4. Anemia: Patient s/p PCI found to have anemia and s/p PRBC, currently no active source of bleeding continue to monitor CBC and hb with PRBC as needed 5. Accelerated hypertension: Currently patient having heart failure with reduced ejection fraction requiring Impella support Continue with adequate resuscitation to maintain MAP above 65 6. Lumbar stenosis with neurogenic claudication: Currently on sedation and to continue fentanyl 7. Nicotine dependence, cigarettes, with other nicotine-induced disorders: Patient recently quit on 06 March 2025, however still there is a risk of possible withdrawal effects Nicotine patch 8. Episode of recurrent major depressive disorder, unspecified depression episode severity: Continue to avoid any oral home medications if the patient is having low MAP and will further affect the absorption of the oral medication. Continue management on the basis of V-fib cardiac arrest and cardiogenic shock/septic shock and other shocks 9. Hypothyroidism (acquired): Patient on levothyroxine 100 mcg and liothyronine and to continue through NGT Repeat thyroid function with T3 and T4 10. Hyperlipidemia, unspecified hyperlipidemia type: Continue statins 11. Degenerative joint disease (DJD) of lumbar spine: Patient on leflunomide 20 mg, tramadol as needed for pain and prednisone To hold this medication at the moment considering cardiac arrest PDMP PDMP Reviewed: Not Reviewed Attestations 2 Medical Necessity Statement*: Will stay over 2 midnights for the management of severe shock likely cardiogenic in nature versus sepsis less likely considering the patient had STEMI alert and found to have low EF as well, s/p impella and intubated with guarded prognosis Time Spent in Patient Care: Greater than 35 minutes (>than 50% of time spent in counselling and/or direct pt care on unit) . Critical Care Time: Critical Care Time (min): 40 Other Attestations: Patient critical condition and guarded prognosis has been discussed at length with the patient/family, I have independently reviewed the chart labs imaging/diagnostics/EKG. the goals of care and code status with the patient/family/NOK/legal electroplating sales representative, and documented accordingly. The management has been done according to the current clinical condition with respect to patient goals of care and based on recommendations/guidelines. The patient/family has been informed about the current condition and further plan of care. Agreed with the plan of care and understood without any language barrier. Every effort was made to ensure accuracy of fruit farmer. Any obvious errors or omissions should be clarified with the author of the document. Coding Level of Care Code Critical Care >/= 30 minutes Diagnoses Cardiac arrest due to underlying cardiac condition I46.2 Sepsis A41.9 Coronary artery disease I25.10 Anemia D64.9 Accelerated hypertension I10 Lumbar stenosis with neurogenic claudication M48.062 Nicotine dependence, cigarettes, with other nicotine-induced disorders F17.218 Episode of recurrent major depressive disorder, unspecified depression episode severity F33.9 Active/Remission status: currently active Depression Type: major depressive disorder Major depression episode severity: unspecified Major depression recurrence: recurrent Hypothyroidism (acquired) E03.9 Hyperlipidemia, unspecified hyperlipidemia type E78.5 Hyperlipidemia type: unspecified Degenerative joint disease (DJD) of lumbar spine M47.816
[2025-03-21] MEDS: norepinephrine 4 MG/250 ML BAG 30 MG IV (16:08)
--- NOTE | 2025-03-21 16:41 | PC.SOCIAL ---
*Patient not DC in the next day or two. No IMM Gave.
[2025-03-21 17:49] LABS: Hematocrit 22.5 % (36-47); Hemoglobin 7.50 g/dL (11.27-16.99); Mean Corpuscular HGB Conc 33.3 g/dL (30-55); Mean Corpuscular Hemoglobin 30.5 pg (27-33); Mean Corpuscular Volume 91.5 fl (85-98); Platelet Count 53 10^3/cmm (157-399); Red Blood Count 2.46 10^6/uL (3.85-5.65); White Blood Count 6.59 10^3/uL (3.29-11.43)
[2025-03-21 17:58] LABS: Alanine Aminotransferase 454 U/L (0-33); Albumin Level 2.8 g/dL (3.5-5.2); Alkaline Phosphatase 73 U/L (35-105); Anion Gap 16.0 (5-19); Blood Urea Nitrogen 17 mg/dL (8-23); Calcium 6.9 mg/dL (8.5-10.5); Carbon Dioxide 15 mmol/L (22-29); Chloride 112 mmol/L (98-107); Creatinine Clr Calc Pharmacy 37.2001; Globulin 1.6 g/dL (1.3-4.6); Glucose 81 mg/dL (65-115); Osmolality Calculated 291 mOsm/kg (285-295); Potassium 3.0 mmol/L (3.5-5.1); Sodium 140 mmol/L (136-145); Total Protein 4.4 g/dL (6.6-8.7)
[2025-03-21 18:20] LABS: Aspartate Amino Transferase 825 U/L (0-32)
[2025-03-21 18:39] LABS: Slide Review Slide Review Perform
[2025-03-21 18:41] LABS: Absolute Segmented Neutrophil 4.3 10/cmm (1.6-7.1); Total Cells Counted 100 (0-100)
[2025-03-21 18:42] LABS: Anisocytosis Trace; Atypical Lymphs 4.0 % (0-5); Band Neutrophils Absolute 0.6 10^3/cmm (0.0-1.2); Giant Platelets Trace
[2025-03-21] MEDS: potassium phosphate (mEq K) 40 MEQ in sodium chloride 0.9% (100 ml) 100 ML 27.25 MEQ IV (19:04)
--- NOTE | 2025-03-21 19:13 | P.PN_ITS ---
Subjective 2 Subjective: kym Ureña is a 65 year old female with past medical history of Hypertension, hyperlipidemia, severe CAD, hypothyroidism was experiencing chest pain at home developed V-fib cardiac arrest, resuscitated after chest compressions and brought to ER where she was intubated, placed on pressors, due to being very acidotic bicarb drip started.. Dr. Diaz to the patient for PCI, stents were placed in LAD, circumflex x 2, balloon dilatation of the diagonal branch. EF was found to be 20%. Overnight hemoglobin fell from 9-6.9. Initially blood thinners were given post PCI but on hold currently. Currently tolerating the ventilator settings well but on 100% FiO2.. Chest x- ray showed some right lower lobe infiltrate suggestive of aspiration. Also on levo at 20 and vaso at 0.05. On bicarb drip running at 75 mL, on Amio 0.5, Precedex 0.3, fentanyl 100 mcg. at bedside 03/21/2025 Patient is on 8 of levo drip and off of vasopressin. Off of bicarb drip. Bloody thick secretions noted out of the ET tube. Family at bedside. Review of systems unobtainable patient is on the vent Vitals/I&O/Wt Last Vital Signs Temp 98.3 F 03/21/25 16:00 Pulse 100 03/21/25 18:00 Resp 14 03/21/25 17:55 BP 83/60 03/21/25 18:00 Pulse Ox 97 03/21/25 18:00 O2 Del Method Mechanical Ventilation 03/21/25 15:35 FiO2 50 03/21/25 17:55 03/21/25 03/21/25 03/21/25 06:59 14:59 22:59 Intake Total 2419.8859 / 9371.2559 2016.417 / 2016.417 236.275 / 2252.692 Output Total 475 / 950 600 / 600 1110 / 1710 Balance 1944.8859 / 8421.2559 1416.417 / 1416.417 -873.725 / 542.692 Weight last 48 hrs Weight 143 lb 4.807 oz Weight 143 lb 4.807 oz Weight 130 lb Weight 130 lb Weight 130 lb 1.164 oz Physical Exam 2 Narrative: General: Intubated sedated HEENT: conj clear, Pulmonary: CTAB. Cardiovascular: S1-S2 heard Abdomen: soft, nt, nd, no r/g, no flank bruising noted Extremities: pulses +, no edema. PCI site looks like A small hematoma in the right groin. Skin: no rash Neurologic: Cannot fully assess patient is intubated Urinary Catheter Management: Archer: Cath Placed During This Visit: yes Reason for Continuing Indwelling Catheter: Accurate Measurement of Urinary Output in Critically Ill Patients Urinary Catheter Date of Insertion: 03/19/25 Urinary Catheter Time of Insertion: 18:47 Data 03/21/25 17:25 03/21/25 17:25 Micro: Microbiology 03/19/25 18:18 Gram Stain - Final Sputum - Endotracheal Tube Aspirate Sputum Culture - Preliminary 03/19/25 21:37 Blood Culture - Preliminary Blood NEGATIVE TO DATE 03/19/25 21:32 Blood Culture - Preliminary Blood NEGATIVE TO DATE A&P Assessment and plan 1. Acute hypoxemic respiratory failure: 2. Cardiopulmonary arrest with successful resuscitation: 3. Cardiogenic shock: Plan: # Acute hypoxemic respiratory failure - Reviewed chest x-ray 03/19/2025 showing infiltrates in the right base suggestive of aspiration pneumonitis. Small basal right pleural effusion noted as well.I reviewed the Cxr myself, interpretted findings independently - On ventilator support currently tidal volumes of 450, VC-AC, heart rate 14, PEEP of 8, FiO2 50 % currently-satting 96%. - Wean off ventilator first FiO2 to keep O2 sat above 92% # Acute pulmonary edema Bloody ET tube secretions noted. Will get chest x-ray and reevaluate. She is not ready for extubation yet. Lasix trialed today onwards. # Cardiogenic shock - Keep Levophed -keep MAP above 65. Status post Impella 03/21/2025-P6 mode - Discussed case with Dr. Diaz. Currently very high risk for another cardiac arrest family is aware. She was initially DNR/DNI prior to hospitalization but family has reports that. # Acute renal failure most likely ATN or shock induced although contrast nephropathy cannot be ruled out since she just had PCI 03/19/2025 -Monitor urine output keep above 25 mL/h. May be in shock/ATN. No NSAIDs/ARB's or ROSSY inhibitors to be given. Creatinine decreased at 1.4. To give 2 doses of 20 mg of Lasix. Discussed case with nurse at bedside. # Acute lactic acidosis Bicarb of # Severe CAD status post PCI Cardiology following appreciate help # Anemia -No obvious sign of bleeding. Hemoglobin holding after 2 units of blood at 7.5 reviewed labs today 03/21/2025 # Probable aspiration pneumonitis/sepsis - Reviewed chest x-ray personally shows some aspiration pneumonitis like changes. She has been started on empiric patient is on meropenem and vancomycin. Cultures blood and sputum pending. Urine growing Klebsiella pneumonia. May stop vancomycin tomorrow. # Acute cardiomyopathy-repeat echocardiogram showed EF today at 40% # Acute lactic acidosis Continue bicarb drip at 75 mL/h. Most likely secondary to dysoxia related to shock. # Hyperlipidemia # Hypothyroidism # Smoker # Transaminitis -most likely due to shock liver # Hypoalbuminemia # Hyponatremia # Hyperglycemia-insulin sliding scale medium. Avoid hypoglycemia. Maintain blood sugars between 140-180. Dextrose drip to be started today. Plan to remove Impella tomorrow hopefully extubation soon. # Sedation-continue Versed and fentanyl drip for now. # DVT GI prophylaxis-SCDs and famotidine. Hold off on anticoagulation secondary to anemia which could be acute blood loss. # Goals of care-discussed with at bedside who wants to keep patient full code for now. 03/12/2025 # CODE STATUS- FULL # Disposition-Will need full ICU support follow-up The high probability of a clinically significant, sudden or life threatening deterioration of the patient's [Respiratory, cardiac and renal] system(s) required my full and direct attention, intervention and personal management. The critical care time is as shown. This time is in addition to time spent performing any reported procedures but includes the following: [x] Data and vital sign review and interpretation [x] Patient assessment, examination and intervention [x] Documentation [x] Medication orders and management Critical Care Time (min): 45 PDMP PDMP Reviewed: Not Reviewed Attestations 2 Medical Necessity Statement*: Intubated on the vent Coding Level of Care Code Critical Care >/= 30 minutes Diagnoses Acute hypoxemic respiratory failure J96.01 Cardiopulmonary arrest with successful resuscitation I46.9 Cardiogenic shock R57.0
--- NOTE | 2025-03-21 20:59 | PC.NURSE ---
Reported CBC results to Dr. Diaz. Instructed to transfuse 1 unit PRBC if hgb drops below 7, hold all heparin products and aspirin, but continue plavix. CBC ordered for AM labs.
[2025-03-21 21:25] LABS: ABG PCO2 37.7 mmHg (35-45); ABG PH Result 7.25 (7.35-7.45); Alveolar-Arterial Oxygen Gradi 29.8 mmHg (5-10); Arterial Blood Gas Hematocrit 23.3 % (37-47); Blood Gas Sample Site Brachial, left; Blood Gas Sample Type Arterial; Blood Gas Tidal Volume 0.45; Carboxyhemoglobin 1.0 %THgb (0.4-20.1); Glucose Level-ABG 76.0 mg/dL (70-115); HCO3 ABG 16.5 mmol/L (22-26); Ionized Calcium Level - ABG 1.2 mmol/L (1.1-1.4); Methemoglobin 1.1 % (0.4-1.5); Oxygen Saturation ABG 95.2; PEEP 8.0 cmH20; PO2 ABG 78.8 mmHg (80.0-100.0); PO2 FiO2 Ratio Arterial Blood 157; Potassium Level - ABG 3.2 mmol/L (3.5-5.0); Sodium Level - ABG 142.0 mmol/L (131-143)
[2025-03-22] VITALS (96 sets, daily range): BP systolic 85–130; BP diastolic 56–78; PULSE 85–105; RESP 14–15; TEMP 36.4–36.9; O2SAT 95–100
[2025-03-22] MEDS: fentaNYL 1,000 MCG/100 ML BAG 12.5 MCG IV ×4 (02:06→22:44)
[2025-03-22] MEDS: norepinephrine 4 MG/250 ML BAG 33.75 MG IV (03:45)
[2025-03-22] MEDS: piperacillin-tazobactam 3.375 GM in sodium chloride 0.9% (plus) 50 ML IV ×3 (03:46→19:35)
[2025-03-22 04:13] LABS: Hematocrit 25.9 % (36-47); Hemoglobin 8.60 g/dL (11.27-16.99); Mean Corpuscular HGB Conc 33.2 g/dL (30-55); Mean Corpuscular Hemoglobin 30.4 pg (27-33); Mean Corpuscular Volume 91.5 fl (85-98); Nucleated Red Blood Cells % 0.3 %; Platelet Count 56 10^3/cmm (157-399); Red Blood Count 2.83 10^6/uL (3.85-5.65); White Blood Count 7.66 10^3/uL (3.29-11.43)
[2025-03-22 04:35] LABS: Alanine Aminotransferase 387 U/L (0-33); Albumin Level 2.7 g/dL (3.5-5.2); Alkaline Phosphatase 84 U/L (35-105); Anion Gap 17.0 (5-19); Aspartate Amino Transferase 469 U/L (0-32); Blood Urea Nitrogen 16 mg/dL (8-23); Calcium 7.3 mg/dL (8.5-10.5); Carbon Dioxide 16 mmol/L (22-29); Chloride 112 mmol/L (98-107); Creatinine Clr Calc Pharmacy 40.0617; Globulin 1.6 g/dL (1.3-4.6); Glucose 72 mg/dL (65-115); Magnesium 1.9 mg/dL (1.7-2.3); Osmolality Calculated 294 mOsm/kg (285-295); Potassium 3.0 mmol/L (3.5-5.1); Sodium 142 mmol/L (136-145); Total Protein 4.3 g/dL (6.6-8.7)
[2025-03-22] MEDS: pantoprazole 40 mg SDV IVP (05:27)
[2025-03-22] MEDS: potassium chloride premix 100 ML 25 MEQ IV (07:25)
[2025-03-22] MEDS: potassium chloride oral liq 20 mEq/15 mL UDC 40 MEQ OG-TUBE (07:25)
[2025-03-22] MEDS: calcium gluconate 0.9% NaCL 1 GM/50 ML PREMIX IV (07:25)
--- NOTE | 2025-03-22 08:36 | PC.NURSE ---
Blood glucose noted to be 76 when doing finger stick and 72 on morning labs. D5W started at 30mL per hour as ordered to keep blood glucose greater than 90. at bedside, updated on patients current status.
--- NOTE | 2025-03-22 09:28 | P.PN_ITS ---
<Statement entered by Isaias Diaz MD - 03/26/25 19:40> Patient was evaluated and cared for in conjunction with an advanced practice practitioner. I personally examined the patient and reviewed the chart and all pertinent data including imaging, telemetry, and laboratory results. I discussed the patient in detail with the advanced practice practitioner. Please see their note for complete H&P testing result and agreed upon plan of care for the patient. Subjective 2 Subjective: No events overnight. Continuing to wean vasopressors. Potassium being replaced, was 3.0. Diuresed well with dose of Lasix yesterday, urine output 3700mL. Received 1 unit PRBC last night, hemoglobin 8.6 this morning. Platelet count 56, was 73 yesterday, monitoring closely. Blood pressure 90-100 consistently. Renal function stable, creatinine 1.3, improved from 1.4 yesterday. Impella still in place, being gradually weaned. Vitals/I&O/Wt Last Vital Signs Temp 98.4 F 03/22/25 08:00 Pulse 92 03/22/25 08:00 Resp 14 03/22/25 08:00 BP 98/66 03/22/25 08:00 Pulse Ox 98 03/22/25 08:00 O2 Del Method Mechanical Ventilation 03/22/25 08:00 FiO2 45 03/22/25 08:00 03/21/25 03/22/25 03/22/25 22:59 06:59 14:59 Intake Total 767.650 / 3565.610 781.543 / 3565.610 317.896 / 317.896 Output Total 1710 / 3610 1300 / 3610 400 / 400 Balance -942.350 / -44.390 -518.457 / -44.390 -82.104 / -82.104 Weight last 48 hrs Weight 153 lb 3.54 oz Weight 143 lb 4.807 oz Weight 143 lb 4.807 oz Physical Exam 2 Const: COMMON NORMALS: no acute distress GENERAL APPEARANCE: cooperative and comfortable ORIENTATION/CONSCIOUSNESS: Yes Other orientation findings (moves hands and feet when touched) Chest: COMMONS NORMALS: normal inspection of the chest and normal palpation of entire chest wall CHEST: Yes Symmetrical chest wall rise Resp: COMMON NORMALS: normal respiratory effort, No retractions and No use of accessory muscles EFFORT & INSPECTION: Yes symmetric chest movement A USCULTATION: rales (coarse) Cardio: COMMON NORMALS: regular rate, regular rhythm, S1 normal heart sound present, S2 normal heart sound present, No gallops present (Cardio), No clicks present (Cardio), No murmurs present (Cardio) and No rub (Cardio) RATE: r egular rate RHYTHM: regular rhythm HEART SOUNDS: S1 normal heart sound present and S2 normal heart sound present PERIPHERAL PULSES: radial pulses present, posterior tibial pulses present and dorsalis pedis present OTHER: feet pink and warm Extremity: COMMON NORMALS: no pedal edema Neuro: COMMON NORMALS: moves all extremities Urinary Catheter Management: Archer: Cath Placed During This Visit: yes Reason for Continuing Indwelling Catheter: Accurate Measurement of Urinary Output in Critically Ill Patients Urinary Catheter Date of Insertion: 03/19/25 Urinary Catheter Time of Insertion: 18:47 Data 03/22/25 04:05 03/22/25 04:05 Micro: Microbiology 03/19/25 18:18 Gram Stain - Final Sputum - Endotracheal Tube Aspirate Sputum Culture - Preliminary A&P Assessment and plan 1. Cardiopulmonary arrest with successful resuscitation: 2. Coronary artery disease: 3. Acute coronary syndrome: 4. Shock: 5. Benign essential HTN: 6. Pneumonia: 7. Acute hypoxemic respiratory failure: Plan: Wean Impella, discussing removal today. Weaning vasopressors as able. Recheck coags prior to removal of Impella, plan to have 2u PRBC on hold in case of bleeding, given platelet count is low. Creatinine improved, liver enzymes improved. Continuing antibiotics. PDMP PDMP Reviewed: Not Reviewed Attestations 2 Medical Necessity Statement*: shock, CAD s/p PCI, systolic CHF Coding Level of Care Code Acute Code for [facility] Diagnoses Cardiopulmonary arrest with successful resuscitation I46.9 Coronary artery disease I25.10 Acute coronary syndrome I24.9 Shock R57.9 Benign essential HTN I10 Pneumonia J18.9 Acute hypoxemic respiratory failure J96.01
--- NOTE | 2025-03-22 11:03 | PC.NURSE ---
Dr. Diaz to bedside, Flow decreased to P-5 as ordered. Will wean every 15 minutes to P-2 as tolerated. Orders for PT/PTT/INR and type and cross for [address] Diaz spoke with James Trejo, Impella rep and plans for discontinuation of Impella at
--- NOTE | 2025-03-22 11:19 | XACV_ITS ---
Exam Room: [facility] Ht: 163 cm Wt: 69 kg BSA: 1.79 m2 Gender: Female : 1960 Any Known Allergies: Other Exam Priority: Routine Procedure(s): Procedure Description: Diagnostic procedure Procedure Description: Miscellaneous Procedure Description: Perclose Procedure Description: Other procedure (in conj w/Dx Cath or PCI) Joe TOLEDO; Diagnostic Cath Status: Elective Conclusions 1. Removal of Impella in the Cath LabAfter confirming ACT less than 180, patient was brought in to the Train [facility]. In stable hemodynamic condition and confirming good cardiac output at PO, Impella catheter was extracted out along with the Impella sheath by using preclose suture in the right common femoral artery to achieve good hemostasis.No complication was noted and patient was transferred to ICU in stable hemodynamic condition. Recommendations * Usual post-cath care. Pressures Phase:Rest AO : 156 / 58 ( 87 ) @ 2:04:00 PM 132 / 50 ( 74 ) @ 2:11:00 PM Clinical Evaluation EBL: 5mL-10mL Procedural Details Procedure Consent Obtained. Pre-Procedure Time Out. Identified patient by full name and date of as verbalized by the patient/guarantor. Does the consent match the physician's order: Yes. Accurate & Complete Informed Consent: Yes. Inpatient/Outpatient History & Physical on Chart: Yes. If H&P is completed, is and addenduem needed: No. Visualize and Verify Site with Patient/Guarantor: N/A. Relevant Radiology Images available: Yes. The risks, benefits, and alternatives of sedation and/or procedure were discussed by physician. The patient agrees to continue. Procedure started. Current diagnosis: Impella removal. Patient arrives to the clinical lab assistant intubated and sedated. See ICU flowsheet for details on sedation and hemodynamic drips. See RT flowheet for airway management. Archer cath in place on arrival to the clinical lab assistant. Draining clear, yellow UOP. bilateral groins was prepped with chloroprep then draped in the usual sterile fashion. Physician notified. Baseline sample Acquired. HR: 95 BPM. Patient's family unavailable. Dr. Diaz spoke to the son, Roby, via telephone prior to clinical lab assistant arrival. Equipment: 6F - Femoral. Cardiac Cath Pack. ACIST Manifold Kit Model BT 2000. Heparinized Saline (2 units/mL), 1000 mL bag. Kit, Micropuncture. IV Site on Arrival: 20 gauge in the left wrist. IV Site on Arrival: 18 gauge in the right bicep. IV Site on Arrival: 20 gauge in the right forearm. IV Site on Arrival: TLC in the right IJ. Physician arrived. Physician scrubbed in. Immediate Pre-Procedure Time Out. Correct Patient: Yes; Correct Procedure: Yes; Correct Site: Yes; Correct Patient Position: Yes; Correct Supplies: Yes; Dried Flammable Prep: Yes; Blood Products Available: N/A;. Lidocaine 1% infiltrated to the left groin. Arterial access obtained with micropuncture set. A 5Fr RIM catheter in over the standard wire. Standard J wire out, 0.035 x 260cm stiff angled glidewire in. Glidewire out. Hand injection performed through the RIM catheter of the right common iliac. RIM catheter out over the glidewire. 0.035 x 260cm exchange J wire in through the sheath on the right. Weaning off Impella support. Impella out. Perclose x 2 deployed in the right femoral artery at 10 and 2 positions. See the chart from the initial insertion on 03.20.2025 for lot numbers and expiration dates. Exchange J wire out. Dr. Diaz holding manual pressure. Perclose placed without complications. After 10 minutes of manual pressure by Dr. Diaz, the site has no signs or symptoms of hematoma noted. Sterile dressing applied per usual sterile fashion. A Suture was successful obtaining hemostatsis at the Left Femoral artery insertion site. Sheath(s) sutured into position with 2-0 silk and sterile 4x4's and Op-site applied over the site. No oozing or signs and symptoms of hematoma noted. Arterial sheath flushed and connected to tranducer and pressure bag with heparinized saline. PERRLA. Strong, equal hand tin roofer bilaterally. No VTE prophylaxis required. Medication's Wasted: Lidocaine 1% = 10 mL. Medication's Wasted: Heparin = 4000 untis. Post-op diagnosis: S/P impella removal. Complications: none. Estimated blood loss: 5mL-10mL. Responsiveness - Normal response to verbal stimuli; alert and oriented, PERRLA. Airway - Unaffected, no intervention required; spontaneous ventilation. Circulation: W/N/L, pulses unchanged. Nausea/Vomiting: No. Procedure completed. Patient transferred by bed to ICU. Vital chart was stopped. Access Site Site: Left Femoral artery Sheath Size: 6 Fr Hemostasis Method: Suture Hemostasis Success: Successful Procedure Medications Start: 12:51 PM Stop: 12:51 PM Medication: Levophed (norepinephrine) Amount: 20 mcg/min Route: I.V. drip Start: 12:56 PM Stop: 12:56 PM Medication: Levophed (norepinephrine) Amount: 15 mcg/min Route: I.V. drip Start: 1:04 PM Stop: 1:04 PM Medication: Levophed (norepinephrine) Amount: 10 mcg/min Route: I.V. drfritz Dozier, the attending physician, have reviewed and verified all procedure medications. Yes, all medications given per verbal order History/Risk Factors Hypertension: Yes Dyslipidemia: Yes Peripheral Arterial Disease (PAD): No Myocardial Infarction (MT): Yes Obesity: No Renal Disease: No Tobacco Use: Current/Recent(w/in 1 year) Prior Interventions PCI: Yes CABG: No Valve Surgery: No Date of PCI: 03/19/2025 Report Signatures Finalized by Isaias Diaz MD on 03/31/2025 02:41 PM
--- NOTE | 2025-03-22 11:20 | PC.NURSE ---
Weaned Impella to P4.
--- NOTE | 2025-03-22 11:25 | PC.NURSE ---
Notified Roby, patients son of plan to take to animal laboratory helper around 1200 to remove Impella.
--- NOTE | 2025-03-22 11:32 | PC.NURSE ---
Decreased impella flow to P3.
[2025-03-22] MEDS: norepinephrine 4 MG/250 ML BAG 31.88 MG IV (11:33)
[2025-03-22 11:35] LABS: INR 1.39 (0.8-1.2); Prothrombin Time 18.00 SECONDS (12.1-14.9)
[2025-03-22 11:36] LABS: Partial Thromboplastin Time 42.2 SECONDS (23.9-36.7)
[2025-03-22] MEDS: midazolam hcl 100 MG/100 ML BAG IV (11:52)
--- NOTE | 2025-03-22 11:53 | PC.NURSE ---
decreased impella flow to P2. Notified Dr. Diaz of current PT/PTT/INR.
--- NOTE | 2025-03-22 12:20 | PC.NURSE ---
To pathology laboratory technologist via bed with pathology laboratory technologist team at bedside.
--- NOTE | 2025-03-22 13:20 | PM.PN ---
Subjective Subjective: Patient was seen in the morning, plan for Impella removal today and started on NGT feeding. No events overnight. Continuing to wean vasopressors. Electrolytes being monitored and replaced. Diuresed well with dose of Lasix yesterday, urine output 3700mL. Received 1 unit PRBC last night, hemoglobin 8.6 this morning. Platelet count 56, was 73 yesterday, monitoring closely. Blood pressure 90-100 consistently. Renal function stable, creatinine 1.3, improved from 1.4 yesterday. S/p Impella removal today Vitals/I&O/Wt Last Vital Signs Temp 98.5 F 03/22/25 12:00 Pulse 95 03/22/25 12:00 Resp 14 03/22/25 12:00 BP 95/64 03/22/25 12:00 Pulse Ox 95 03/22/25 12:00 O2 Del Method Mechanical Ventilation 03/22/25 12:00 FiO2 40 03/22/25 12:00 03/21/25 03/22/25 03/22/25 22:59 06:59 14:59 Intake Total 767.650 / 2784.067 781.543 / 3565.610 431.510 / 431.510 Output Total 1710 / 2310 1300 / 3610 695 / 695 Balance -942.350 / 474.067 -518.457 / -44.390 -263.490 / -263.490 Weight last 48 hrs Weight 69.5 kg Weight 65 kg Weight 65 kg Physical Exam Narrative: General: Patient on mechanical ventilation and sedation, however make some gross nonpurposeful movements on and off however is under the effect of sedation HEENT: Grossly unremarkable exam Resp system: Bilateral equal air entry through mechanical ventilation however there are conducting sounds and no wheezing or crackles and no stridor Limited examination secondary to conductive sounds from ventilator. CVS: Patient on vasopressors being titrated,Along with fluids maintaining MAP above 65 and getting well-perfused. Normal heart sound S1 and S2, murmurs cannot be appreciated due to conductive sounds from the ventilator however gross auscultation of heart sounds is unremarkable Neuro: Patient on sedation therefore unable to assess properly neurological status, however patient is making some motor movements. Extremities: improved skin perfusion and still having feeble pulses, mild trace pedal edema, producing good amount of urine output Urinary Catheter Management: Archer: Cath Placed During This Visit: yes Reason for Continuing Indwelling Catheter: Accurate Measurement of Urinary Output in Critically Ill Patients Urinary Catheter Date of Insertion: 03/19/25 Urinary Catheter Time of Insertion: 18:47 Data 03/22/25 04:05 03/22/25 04:05 Micro: Microbiology 03/19/25 18:18 Gram Stain - Final Sputum - Endotracheal Tube Aspirate Sputum Culture - Preliminary Coag positive Staphylococcus Gram Negative Rods A&P Assessment and plan 1. Cardiac arrest due to underlying cardiac condition: Patient s/p V-fib cardiac arrest S/p urgent PCI after STEMI alert, s/p Impella insertion and removal Currently being weaned off from the vasopressors and getting better Cardiology on board and to follow the plan of care Continue Plavix and statins Patient was on heparin however due to drop in hemoglobin and low platelets the infusion was held Of note: Patient was initially DNR as per the however since she was intubated on her way by the EMS patient was taken to the cath for PCI and later underwent Impella. Family appreciated the care and to continue further management. 2. Sepsis: Patient s/p cardiac arrest likely underlying cardiogenic in nature However considering patient arrest, to cover any infectious pathology cultures till date negative Maintain MAP above 65 Broad-spectrum antibiotics with vancomycin and Zosyn to continue Monitor intake and output Monitor renal parameters, electrolytes and correction accordingly Maintain normoglycemia NGT feed at 20 mL/h to start with Jevity formula and to proceed accordingly [employer] Exchange Administrator on board and to follow the recommendation 3. Coronary artery disease: Patient was loaded with aspirin and clopidogrel during STEMI alert with 600 mg of clopidogrel once and 325 of aspirin once Continue high-dose statins and Plavix Status post blood transfusion and drop in platelets, held heparin infusion and aspirin at the moment. Continue to monitor Cardiology on board to follow-up 4. Anemia: Patient s/p PCI found to have anemia and s/p PRBC, currently no active source of bleeding continue to monitor CBC and hb with PRBC as needed 5. Accelerated hypertension: Currently patient having heart failure with reduced ejection fraction that required Impella and further removal of Impella was uneventful Continue with adequate resuscitation to maintain MAP above 65 6. Lumbar stenosis with neurogenic claudication: Currently on sedation and to continue fentanyl 7. Nicotine dependence, cigarettes, with other nicotine-induced disorders: Patient recently quit on 06 March 2025, however still there is a risk of possible withdrawal effects Nicotine patch 8. Episode of recurrent major depressive disorder, unspecified depression episode severity: Continue to avoid any oral home medications if the patient is having low MAP and will further affect the absorption of the oral medication. Continue management on the basis of V-fib cardiac arrest and cardiogenic shock/septic shock and other shocks 9. Hypothyroidism (acquired): Patient on levothyroxine 100 mcg and liothyronine and to continue through NGT Repeat thyroid function with T3 and T4 10. Hyperlipidemia, unspecified hyperlipidemia type: Continue statins 11. Degenerative joint disease (DJD) of lumbar spine: Patient on leflunomide 20 mg, tramadol as needed for pain and prednisone To hold this medication at the moment considering cardiac arrest PDMP PDMP Reviewed: Not Reviewed Attestations Medical Necessity Statement*: Patient will stay more than 2 midnights for the further management of cardiogenic shock requiring vasopressors at the moment and to continue the antibiotics for further address any underlying infectious pathology leading to septic shock which is less likely The patient is still critical however slowly improving, prognosis is also guarded at the moment Time Spent in Patient Care: Greater than 35 minutes (>than 50% of time spent in counselling and/or direct pt care on unit). Critical Care Time: The high probability of a clinically significant, sudden or life threatening deterioration, as referenced in this documentation, required my full and direct attention, intervention and personal management. The critical care time shown is in addition to time spent performing any reported separately billable procedures and includes the following: [x] Data and vital sign review and interpretation [x] Patient assessment, examination and intervention [x] Medication orders and management [x] Patient/Family updates as able [x] Care Coordination and Documentation. Critical Care Time (min): 40 Other Attestations: Patient condition has been discussed at length with the patient/family, I have independently reviewed the chart labs imaging/diagnostics/EKG. the goals of care and code status with the patient/family/NOK/legal food service representative, and documented accordingly. The management has been done according to the current clinical condition with respect to patient goals of care and based on recommendations/guidelines. The patient/family has been informed about the current condition and further plan of care. Agreed with the plan of care and understood without any language barrier. Every effort was made to ensure accuracy of chief lending officer. Any obvious errors or omissions should be clarified with the author of the document. Coding Level of Care Code Acute Code for Chg Fwd Diagnoses Cardiac arrest due to underlying cardiac condition I46.2 Sepsis A41.9 Coronary artery disease I25.10 Anemia D64.9 Accelerated hypertension I10 Lumbar stenosis with neurogenic claudication M48.062 Nicotine dependence, cigarettes, with other nicotine-induced disorders F17.218 Episode of recurrent major depressive disorder, unspecified depression episode severity F33.9 Active/Remission status: currently active Depression Type: major depressive disorder Major depression episode severity: unspecified Major depression recurrence: recurrent Hypothyroidism (acquired) E03.9 Hyperlipidemia, unspecified hyperlipidemia type E78.5 Hyperlipidemia type: unspecified Degenerative joint disease (DJD) of lumbar spine M47.816
--- NOTE | 2025-03-22 13:24 | PM.PROC ---
Procedure Note: Date of procedure: 03/22/25 Pre-procedure diagnosis: Cardiogenic shock/Impella extraction Post-procedure diagnosis: same Procedure: Using preclose method Impella catheter from the right common femoral artery was extracted. Good hemostasis was achieved. Left common femoral sheath was sutured in, once PTT below 45 will discontinue the sheath. Bedrest 5 hours Plan: Continue 100 mL of normal saline per hour Continue antibiotics Patient is on Levophed will titrate off Full note to be dictated Coding Level of Care Code Acute Code for [facility]
--- NOTE | 2025-03-22 13:35 | PC.NURSE ---
Returned from [facility]orer [facility] via bed. Levophed infusing at 9 mcg/min, placed back on library monitor in ICU. Clear occlusive dressing in place to right groin with bruising noted, no hematoma noted. Left leg cool with diminished pulses palpated. Left arterial sheath in place, with pressure bag in place.
--- NOTE | 2025-03-22 14:56 | XR_ITS ---
WS: [id number] Exam: XR chest 1V portable [id number] Date/Time of Exam: 03/22/2025 2:56 PM Reason For Exam: pulmonary infiltrates Comparison 03/21/2025. Bilateral infiltrates are unchanged. Continued atelectasis of the RIGHT lower lobe and RIGHT basal pleural effusion stable in appearance. RIGHT IJ catheter and ET tube both remain in satisfactory position unchanged. Enteric tube extends into the stomach with the tip is not visible. Mild cardiac enlargement unchanged. XR/XR chest 1V portable [id number] IMPRESSION: 1. Chest radiograph unchanged since the last exam.
[2025-03-22 15:44] LABS: Partial Thromboplastin Time 46.7 SECONDS (23.9-36.7)
--- NOTE | 2025-03-22 18:30 | PC.NURSE ---
Left femoral sheath removed per Dr. Diaz, Angioseal deployed. No bleeding noted. Manual pressure applied x 5 minutes, no bleeding or hematoma noted. clear occlusive dressing applied.
[2025-03-22] MEDS: norepinephrine 4 MG/250 ML BAG 22.5 MG IV (19:38)
--- NOTE | 2025-03-22 20:25 | P.PN_ITS ---
Subjective 2 Subjective: kym Ureña is a 65 year old female with past medical history of Hypertension, hyperlipidemia, severe CAD, hypothyroidism was experiencing chest pain at home developed V-fib cardiac arrest, resuscitated after chest compressions and brought to ER where she was intubated, placed on pressors, due to being very acidotic bicarb drip started.. Dr. Diaz to the patient for PCI, stents were placed in LAD, circumflex x 2, balloon dilatation of the diagonal branch. EF was found to be 20%. Overnight hemoglobin fell from 9-6.9. Initially blood thinners were given post PCI but on hold currently. Currently tolerating the ventilator settings well but on 100% FiO2.. Chest x- ray showed some right lower lobe infiltrate suggestive of aspiration. Also on levo at 20 and vaso at 0.05. On bicarb drip running at 75 mL, on Amio 0.5, Precedex 0.3, fentanyl 100 mcg. at bedside 03/21/2025 Patient is on 8 of levo drip and off of vasopressin. Off of bicarb drip. Bloody thick secretions noted out of the ET tube. Family at bedside. 03/22/25 Patient is on 2 of levo. Wakes up and follows commands. ETT bloody secretions. Review of systems unobtainable patient is on the vent Vitals/I&O/Wt Last Vital Signs Temp 98.2 F 03/22/25 16:00 Pulse 88 03/22/25 19:56 Resp 14 03/22/25 19:56 BP 93/58 03/22/25 18:30 Pulse Ox 98 03/22/25 19:56 O2 Del Method Mechanical Ventilation 03/22/25 19:56 FiO2 30 03/22/25 19:56 03/22/25 03/22/25 03/22/25 06:59 14:59 22:59 Intake Total 781.543 / 3565.610 688.396 / 688.396 246.417 / 934.813 Output Total 1300 / 3610 855 / 855 285 / 1140 Balance -518.457 / -44.390 -166.604 / -166.604 -38.583 / -205.187 Weight last 48 hrs Weight 153 lb 3.54 oz Weight 143 lb 4.807 oz Weight 143 lb 4.807 oz Physical Exam 2 Narrative: Per RN General: Intubated, sedated ETT bloody secretions HEENT: EOMI Pulmonary: Crackles bilaterally Cardiovascular: rrr, nl s1s2, Abdomen: soft, nt, nd, no r/g, Extremities: no edema Neurologic: grossly intact Agree with above exam Urinary Catheter Management: Archer: Cath Placed During This Visit: yes Reason for Continuing Indwelling Catheter: Accurate Measurement of Urinary Output in Critically Ill Patients Urinary Catheter Date of Insertion: 03/19/25 Urinary Catheter Time of Insertion: 18:47 Data 03/22/25 04:05 03/22/25 04:05 Micro: Microbiology 03/19/25 18:18 Gram Stain - Final Sputum - Endotracheal Tube Aspirate Sputum Culture - Preliminary Coag positive Staphylococcus Gram Negative Rods A&P Assessment and plan 1. Acute hypoxemic respiratory failure: 2. Cardiopulmonary arrest with successful resuscitation: 3. Cardiogenic shock: Plan: # Acute hypoxemic respiratory failure - Reviewed chest x-ray 03/19/2025 showing infiltrates in the right base suggestive of aspiration pneumonitis. Small basal right pleural effusion noted as well.I reviewed the Cxr myself, interpretted findings independently - On ventilator support currently tidal volumes of 450, VC-AC, heart rate 14, PEEP of 8, FiO2 50 % currently-satting 96%. - Wean off ventilator first FiO2 to keep O2 sat above 92% # Acute pulmonary edema Bloody ET tube secretions noted. Will get chest x-ray and reevaluate. She is not ready for extubation yet. Lasix prn # Cardiogenic shock - Keep Levophed -keep MAP above 65. Status post Impella 03/21/2025-P6 mode - Discussed case with Dr. Diaz. Currently very high risk for another cardiac arrest family is aware. She was initially DNR/DNI prior to hospitalization but family has reports that. # Acute renal failure most likely ATN or shock induced although contrast nephropathy cannot be ruled out since she just had PCI 03/19/2025 -Monitor urine output keep above 25 mL/h. May be in shock/ATN. No NSAIDs/ARB's or ROSSY inhibitors to be given. Tolerating diuressis well # Acute lactic acidosis Bicarb of # Severe CAD status post PCI Cardiology following appreciate help. Impella out today # Anemia -No obvious sign of bleeding. Hemoglobin holding after 2 units of blood at 7.5 reviewed labs today 03/21/2025 # Probable aspiration pneumonitis/sepsis - Reviewed chest x-ray personally shows some aspiration pneumonitis like changes. She has been started on empiric patient is on meropenem and vancomycin. Cultures blood and sputum pending. Urine growing Klebsiella pneumonia. May stop vancomycin tomorrow. # Acute cardiomyopathy-repeat echocardiogram showed EF today at 40% # Acute lactic acidosis Most likely secondary to dysoxia related to shock. # Hyperlipidemia # Hypothyroidism # Smoker # Transaminitis -most likely due to shock liver # Hypoalbuminemia # Hyponatremia # Hyperglycemia-insulin sliding scale medium. Avoid hypoglycemia. Maintain blood sugars between 140-180. Dextrose drip to be started today. Plan to remove Impella tomorrow hopefully extubation soon. # Sedation-continue Versed and fentanyl drip for now. # Nutrition- Start tube feeds # DVT GI prophylaxis-SCDs and famotidine. Hold off on anticoagulation secondary to anemia which could be acute blood loss. # Goals of care-discussed with at bedside who wants to keep patient full code for now. 03/12/2025 # CODE STATUS- FULL # Disposition-Will need full ICU support follow-up The high probability of a clinically significant, sudden or life threatening deterioration of the patient's [Respiratory, cardiac and renal] system(s) required my full and direct attention, intervention and personal management. The critical care time is as shown. This time is in addition to time spent performing any reported procedures but includes the following: [x] Data and vital sign review and interpretation [x] Patient assessment, examination and intervention [x] Documentation [x] Medication orders and management Critical Care Time (min): 45 Telemedicine Consent Patient seen today via Telemedicine by agreement and consent of patient.? Telemedicine technology used during the visit includes audio and, as available, review of images.? The patient encounter is appropriate and reasonable under the circumstances given the patient?s particular presentation at this time.? The patient has been advised of the potential risks and limitations of this mode of treatment (including but not limited to the absence of in-person examination) and has agreed to be treated in a remote fashion in spite of them.? Any, and all, of the patient?s/patient?s family?s questions on this issue have been answered and I have made no promises or guarantees to the patient. The patient has also been advised to contact this office for worsening conditions or problems, and seek emergency medical treatment and/or call 911 if the patient deems either necessary PDMP PDMP Reviewed: Not Reviewed Attestations 2 Medical Necessity Statement*: intubated sedated Coding Level of Care Code Critical Care >/= 30 minutes Diagnoses Acute hypoxemic respiratory failure J96.01 Cardiopulmonary arrest with successful resuscitation I46.9 Cardiogenic shock R57.0
--- NOTE | 2025-03-22 23:40 | PC.NURSE ---
Dr daniels at bedside rounding.Patient on levophed, fent, versed and D5. Sugars in 70s. Per MD give 200 cc D10 bolus and started D10 drip at 100ml/hr
[2025-03-23] VITALS (110 sets, daily range): BP systolic 82–152; BP diastolic 51–79; PULSE 86–116; RESP 14–16; TEMP 36.7–37.2; O2SAT 88–96
[2025-03-23] MEDS: piperacillin-tazobactam 3.375 GM in sodium chloride 0.9% (plus) 50 ML IV ×3 (03:09→20:55)
[2025-03-23] MEDS: pantoprazole 40 mg SDV IVP (04:39)
[2025-03-23 05:17] LABS: Hematocrit 26.2 % (36-47); Hemoglobin 8.60 g/dL (11.27-16.99); Mean Corpuscular HGB Conc 32.8 g/dL (30-55); Mean Corpuscular Hemoglobin 29.8 pg (27-33); Mean Corpuscular Volume 90.7 fl (85-98); Nucleated Red Blood Cells % 0.2 %; Platelet Count 47 10^3/cmm (157-399); Red Blood Count 2.89 10^6/uL (3.85-5.65); White Blood Count 10.70 10^3/uL (3.29-11.43)
[2025-03-23 05:43] LABS: Anion Gap 15.8 (5-19); Blood Urea Nitrogen 14 mg/dL (8-23); Calcium 7.3 mg/dL (8.5-10.5); Carbon Dioxide 17 mmol/L (22-29); Chloride 113 mmol/L (98-107); Creatinine Clr Calc Pharmacy 41.2877; Glucose 112 mg/dL (65-115); Osmolality Calculated 297 mOsm/kg (285-295); Sodium 143 mmol/L (136-145)
[2025-03-23 05:46] LABS: Magnesium 1.6 mg/dL (1.7-2.3)
[2025-03-23 05:50] LABS: Potassium 2.8 mmol/L (3.5-5.1)
--- NOTE | 2025-03-23 06:05 | PC.NURSE ---
received critical potassium relayed to Dr. Berry who gave verbal order for potassium see mar
[2025-03-23] MEDS: lidocaine 1% 5 ML in potassium chloride premix 100 ML 26.25 ML IV (06:19)
[2025-03-23] MEDS: fentaNYL 1,000 MCG/100 ML BAG 12.5 MCG IV (07:13)
[2025-03-23] MEDS: potassium chloride oral liq 20 mEq/15 mL UDC 40 MEQ PO (07:22)
[2025-03-23] MEDS: calcium gluconate 0.9% NaCL 1 GM/50 ML PREMIX IV ×2 (07:23→07:45)
[2025-03-23] MEDS: magnesium sulfate premix 4 GM/100 ML PREMIX IV (07:28)
--- NOTE | 2025-03-23 09:01 | P.PN_ITS ---
<Statement entered by Isaias Diaz MD - 03/23/25 21:00> Patient was evaluated and cared for in conjunction with an advanced practice practitioner. I personally examined the patient and reviewed the chart and all pertinent data including imaging, telemetry, and laboratory results. I discussed the patient in detail with the advanced practice practitioner. Please see their note for complete H&P testing result and agreed upon plan of care for the patient. Impella was extracted last night Left common femoral artery was Angio-Seal as well with good hemostasis GENERAL: Patient is sedated on the vent. HEART: Regular S1 and S2. No murmur, rub or gallop. LUNGS: Decreased breath sounds bilaterally. CENTRAL NERVOUS SYSTEM: Grossly nonfocal. EXTREMITIES: Lower extremities with out edema bilaterally. Assessment and plan Cardiogenic shock with mixed picture of ischemic/stress-induced cardiomyopathy Coronary artery disease status post drug-eluting stent to circumflex and LAD Thrombocytopenia Pneumonia with sepsis Patient pressor requirement has improved and she is down to 1 drip of Levophed at 6 mics, will taper off overnight Electrolyte balance Tube feeding has been started Urine output is adequate Anemia status post transfusion Continue to monitor platelet possible due to sepsis does not appear to be HIT Continue Plavix Continue holding heparin Pulmonary treatment as per legal office administrator colleagues Hopefully in a day or 2 we will try to extubate as per pulmonary critical care plan Subjective 2 Subjective: Improving. No complications with right femoral Impella site, removed yesterday. Weaning Levophed, currently at 6mcg. Systolic blood pressures ranging 92-103. Urine output is good. Remains intubated, FiO2 now 30%. Vitals/I&O/Wt Last Vital Signs Temp 98.9 F 03/23/25 08:00 Pulse 104 H 03/23/25 08:02 Resp 14 03/23/25 08:59 BP 83/55 03/23/25 08:00 Pulse Ox 93 03/23/25 08:59 O2 Del Method Mechanical Ventilation 03/23/25 08:00 FiO2 30 03/23/25 08:59 03/22/25 03/23/25 03/23/25 22:59 06:59 14:59 Intake Total 693.084 / 2693.980 1312.500 / 2693.980 1177.300 / 1177.300 Output Total 590 / 2040 595 / 2040 110 / 110 Balance 103.084 / 653.980 717.500 / 295.302 2072.300 / 1067.300 Weight last 48 hrs Weight 76 lb 8 oz Weight 153 lb 3.54 oz Physical Exam 2 Narrative: Remains intubated Const: COMMON NORMALS: no acute distress GENERAL APPEARANCE: comfortable Chest: COMMONS NORMALS: normal inspection of the chest and normal palpation of entire chest wall CHEST: Yes Symmetrical chest wall rise Resp: COMMON NORMALS: normal respiratory effort, No retractions and No use of accessory muscles AUSCULTATION: rales (coarse throughout) Cardio: COMMON NORMALS: regular rate, regular rhythm, S1 normal heart sound present, S2 normal heart sound present, No gallops present (Cardio), No clicks present (Cardio), No murmurs present (Cardio) and No rub (Cardio) RATE: r egular rate RHYTHM: regular rhythm HEART SOUNDS: S1 normal heart sound present and S2 normal heart sound present PERIPHERAL PULSES: radial pulses present positive right 2+ and femoral pulses present positive right 2+ Extremity: NARRATIVE EXTREMITY EXAM: pink and warm Skin: WOUNDS: Yes surgical site (no hematoma palpable) Details: no odor Urinary Catheter Management: Archer: Cath Placed During This Visit: yes Reason for Continuing Indwelling Catheter: Accurate Measurement of Urinary Output in Critically Ill Patients Urinary Catheter Date of Insertion: 03/19/25 Urinary Catheter Time of Insertion: 18:47 Data 03/23/25 04:11 03/23/25 04:11 Micro: Microbiology 03/19/25 18:18 Gram Stain - Final Sputum - Endotracheal Tube Aspirate Sputum Culture - Preliminary Coag positive Staphylococcus Gram Negative Rods A&P Assessment and plan 1. Shock: 2. Acute coronary syndrome: 3. Cardiac arrest due to underlying cardiac condition: 4. Coronary artery disease: 5. Atrial fibrillation by electrocardiogram: 6. Hypothyroidism (acquired): 7. Acute hypoxemic respiratory failure: 8. Pneumonia: Plan: Continuing to improve from a cardiovascular perspective. Will continue weaning Levophed, when sedation is reduced blood pressure will also improve. Monitoring CBC, BMP. Hypokalemic again today, has been replaced. Creatinine improved to 1.3. PDMP PDMP Reviewed: Not Reviewed Attestations 2 Medical Necessity Statement*: S/p cardiac arrest, shock, possible aspiration Coding Level of Care Code Acute Code for [facility] Fwd Diagnoses Shock R57.9 Acute coronary syndrome I24.9 Cardiac arrest due to underlying cardiac condition I46.2 Coronary artery disease I25.10 Atrial fibrillation by electrocardiogram I48.91 Hypothyroidism (acquired) E03.9 Acute hypoxemic respiratory failure J96.01 Pneumonia J18.9
--- NOTE | 2025-03-23 09:07 | P.PN_ITS ---
Subjective 2 Subjective: kym Ureña is a 65 year old female with past medical history of Hypertension, hyperlipidemia, severe CAD, hypothyroidism was experiencing chest pain at home developed V-fib cardiac arrest, resuscitated after chest compressions and brought to ER where she was intubated, placed on pressors, due to being very acidotic bicarb drip started.. Dr. Diaz to the patient for PCI, stents were placed in LAD, circumflex x 2, balloon dilatation of the diagonal branch. EF was found to be 20%. Overnight hemoglobin fell from 9-6.9. Initially blood thinners were given post PCI but on hold currently. Currently tolerating the ventilator settings well but on 100% FiO2.. Chest x- ray showed some right lower lobe infiltrate suggestive of aspiration. Also on levo at 20 and vaso at 0.05. On bicarb drip running at 75 mL, on Amio 0.5, Precedex 0.3, fentanyl 100 mcg. at bedside 03/21/2025 Patient is on 8 of levo drip and off of vasopressin. Off of bicarb drip. Bloody thick secretions noted out of the ET tube. Family at bedside. 03/22/25 Patient is on 2 of levo. Wakes up and follows commands. ETT bloody secretions. 03/23/2025 Patient has minimal ET tube secretions although chest x-ray does show right lower lobe infiltrate. On levo at 6. Low potassium. Frequently having hypoglycemic episodes is on D10 drip currently blood sugars running 100 100s. Tube feeds on as well. Versed and fentanyl running Review of systems unobtainable patient is on the vent Vitals/I&O/Wt Last Vital Signs Temp 98.9 F 03/23/25 08:00 Pulse 104 H 03/23/25 08:02 Resp 14 03/23/25 08:59 BP 83/55 03/23/25 08:00 Pulse Ox 93 03/23/25 08:59 O2 Del Method Mechanical Ventilation 03/23/25 08:00 FiO2 30 03/23/25 08:59 03/22/25 03/23/25 03/23/25 22:59 06:59 14:59 Intake Total 693.084 / 1932.605 3215.500 / 2693.980 1177.300 / 1177.300 Output Total 590 / 1445 595 / 2040 110 / 110 Balance 103.084 / -63.520 717.500 / 445.145 0558.300 / 1067.300 Weight last 48 hrs Weight 76 lb 8 oz Weight 153 lb 3.54 oz Physical Exam 2 Narrative: Per RN General: Intubated, sedated ETT less bloody secretions HEENT: EOMI Pulmonary: Crackles bilaterally Cardiovascular: rrr, nl s1s2, Abdomen: soft, nt, nd, no r/g, Extremities: no edema Neurologic: grossly intact Agree with above exam Urinary Catheter Management: Archer: Cath Placed During This Visit: yes Reason for Continuing Indwelling Catheter: Accurate Measurement of Urinary Output in Critically Ill Patients Urinary Catheter Date of Insertion: 03/19/25 Urinary Catheter Time of Insertion: 18:47 Data 03/23/25 04:11 03/23/25 04:11 Micro: Microbiology 03/19/25 18:18 Gram Stain - Final Sputum - Endotracheal Tube Aspirate Sputum Culture - Preliminary Coag positive Staphylococcus Gram Negative Rods A&P Assessment and plan 1. Acute hypoxemic respiratory failure: 2. Cardiopulmonary arrest with successful resuscitation: 3. Cardiogenic shock: Plan: # Acute hypoxemic respiratory failure - Reviewed chest x-ray 03/22/2025 showing infiltrates in the right base suggestive of aspiration pneumonitis. Small basal right pleural effusion noted as well.could be infiltrate due to either aspiration pneumonitis versus bloody secretions plugging. I reviewed the Cxr myself, interpretted findings independently - On ventilator support currently tidal volumes of 450, VC-AC, heart rate 14, PEEP of 8, FiO2 50 % currently-satting 96%. - Wean off ventilator first FiO2 to keep O2 sat above 92% -Will start Mucinex. As well as DuoNebs # Acute pulmonary edema Bloody ET tube secretions noted. She is not ready for extubation yet. Lasix 40 mg IV given today 1600 mL out # Cardiogenic shock - Keep Levophed wean as tolerated-keep MAP above 65. Impella removed 03/22/2025 - Discussed case with Dr. Diaz. Currently very high risk for another cardiac arrest family is aware. She was initially DNR/DNI prior to hospitalization but family has reports that. # Acute renal failure most likely ATN or shock induced although contrast nephropathy cannot be ruled out since she just had PCI 03/19/2025 -Monitor urine output keep above 25 mL/h. May be in shock/ATN. No NSAIDs/ARB's or ROSSY inhibitors to be given. Tolerating diuressis well # Acute lactic acidosis Bicarb off # Severe CAD status post PCI Cardiology following appreciate help. # Anemia -No obvious sign of bleeding. Hemoglobin holding after 2 units of blood at 7.5 reviewed labs today 03/21/2025 # Probable aspiration pneumonitis/sepsis - She has been started on empiric patient is on meropenem and vancomycin. Cultures blood and sputum pending. Urine growing Klebsiella pneumonia. stop vancomycin today. # Acute cardiomyopathy-repeat echocardiogram showed EF today at 40% # Acute lactic acidosis Most likely secondary to dysoxia related to shock. # Hypoglycemia - Agree with D10 to keep blood sugars above 100. Also give 1 dose of glucagon today 1 mg IM # Hyperlipidemia # Hypothyroidism # Smoker # Transaminitis -most likely due to shock liver # Hypoalbuminemia # Hyponatremia # Hyperglycemia-insulin sliding scale medium. Avoid hypoglycemia. Maintain blood sugars between 140-180. Dextrose drip to be started today. Plan to remove Impella tomorrow hopefully extubation soon. # Sedation-continue Versed and fentanyl drip for now. # Nutrition- Start tube feeds # DVT GI prophylaxis-SCDs and famotidine. Hold off on anticoagulation secondary to anemia which could be acute blood loss. # Goals of care-discussed with at bedside who wants to keep patient full code for now. 03/12/2025 # CODE STATUS- FULL # Disposition-Will need full ICU support follow-up The high probability of a clinically significant, sudden or life threatening deterioration of the patient's [Respiratory, cardiac and renal] system(s) required my full and direct attention, intervention and personal management. The critical care time is as shown. This time is in addition to time spent performing any reported procedures but includes the following: [x] Data and vital sign review and interpretation [x] Patient assessment, examination and intervention [x] Documentation [x] Medication orders and management Critical Care Time (min): 45 Telemedicine Consent Patient seen today via Telemedicine by agreement and consent of patient.? Telemedicine technology used during the visit includes audio and, as available, review of images.? The patient encounter is appropriate and reasonable under the circumstances given the patient?s particular presentation at this time.? The patient has been advised of the potential risks and limitations of this mode of treatment (including but not limited to the absence of in-person examination) and has agreed to be treated in a remote fashion in spite of them.? Any, and all, of the patient?s/patient?s family?s questions on this issue have been answered and I have made no promises or guarantees to the patient. The patient has also been advised to contact this office for worsening conditions or problems, and seek emergency medical treatment and/or call 911 if the patient deems either necessary PDMP PDMP Reviewed: Not Reviewed Attestations 2 Medical Necessity Statement*: Intubated sedated Coding Level of Care Code Critical Care >/= 30 minutes Diagnoses Acute hypoxemic respiratory failure J96.01 Cardiopulmonary arrest with successful resuscitation I46.9 Cardiogenic shock R57.0
[2025-03-23] MEDS: potassium phosphate (mMol PO4) 15 MMOL in sodium chloride 0.9% (100 ml) 100 ML 25 MMOL IV (09:37)
[2025-03-23] MEDS: norepinephrine 4 MG/250 ML BAG 22.5 MG IV (10:22)
--- NOTE | 2025-03-23 11:09 | P.PN_ITS ---
Subjective 2 Subjective: patient seen in the morning and doing well pressors being titrated off, s/p impella insertion and removal. overall improving and started on NGT feeding tolerating well electrolytes correction provided I met with the son and informed about overall status and all concerns and queries addressed. The family appreciate the management of the whole teams involved in the care. Vitals/I&O/Wt Last Vital Signs Temp 98.9 F 03/23/25 08:00 Pulse 99 03/23/25 10:00 Resp 14 03/23/25 10:00 BP 96/62 03/23/25 10:00 Pulse Ox 94 03/23/25 10:00 O2 Del Method Mechanical Ventilation 03/23/25 10:00 FiO2 30 03/23/25 10:00 03/22/25 03/23/25 03/23/25 22:59 06:59 14:59 Intake Total 693.084 / 1686.163 2148.500 / 2693.980 1539.925 / 1539.925 Output Total 590 / 1445 595 / 2040 320 / 320 Balance 103.084 / -63.520 717.500 / 758.450 9464.925 / 1219.925 Weight last 48 hrs Weight 76.5 kg Weight 34.7 kg Weight 69.5 kg Physical Exam 2 Narrative: General: Patient on mechanical ventilation and sedation, however make some gross nonpurposeful movements and sedation being titrated off HEENT: Grossly unremarkable exam Resp system: Bilateral equal air entry no wheezes or any stridor. mild coarse crackles alongside the lateral chest wall ascultation which could be conducting sounds from the mech vent CVS: Map >65mmhg on NE being titrated off. Normal heart sound S1 and S2, murmurs cannot be appreciated due to conductive sounds from the ventilator however gross auscultation of heart sounds is unremarkable, s/p impella on the right groin no hematoma or bleeding observed Neuro: Patient on sedation therefore unable to assess properly neurological status, however patient is making some motor movements. Extremities: improved skin perfusion, peripheral pulses adequate, making good amount of urine, bilateral pedal edema Urinary Catheter Management: Archer: Cath Placed During This Visit: yes Reason for Continuing Indwelling Catheter: Accurate Measurement of Urinary Output in Critically Ill Patients Urinary Catheter Date of Insertion: 03/19/25 Urinary Catheter Time of Insertion: 18:47 Data 03/23/25 04:11 03/23/25 15:52 Micro: Microbiology 03/19/25 18:18 Gram Stain - Final Sputum - Endotracheal Tube Aspirate Sputum Culture - Preliminary Coag positive Staphylococcus Gram Negative Rods A&P Assessment and plan 1. Cardiac arrest due to underlying cardiac condition: Patient s/p V-fib cardiac arrest, with severe acidemia requiring bicarb infusion and later held, improved S/p urgent PCI after STEMI alert, s/p Impella insertion and removal Currently being weaned off from the vasopressors and getting better Cardiology on board and to follow the plan of care Continue Plavix and statins as per cardio plan Patient was on heparin however due to drop in hemoglobin and low platelets which are still low, the infusion was held, meanwhile continue to hold as per cardio plan Of note: Patient was initially DNR as per the however since she was intubated on her way by the EMS patient was taken to the cath for PCI and later underwent Impella. Family appreciated the care and to continue further management as full code after further discussion with the family. 2. Sepsis: Patient s/p cardiac arrest likely underlying cardiogenic in nature severe acidosis s/p bicarb drip, currently off and corrected. However considering patient arrest, to cover any infectious pathology cultures grew staphy aureus and pseud aerug sensitive to zosyn, therefore to continue with it for total 14 days minimum with further guidance based on the clinical status of the patient. hold vancomycin Monitor intake and output Monitor renal parameters, electrolytes and correction accordingly Maintain normoglycemia NGT feed to continue with increments as tolerated until goal rate ( dietitian consulted ) Internal Affairs Investigator on board and to follow the recommendation 3. Coronary artery disease: Patient was loaded with aspirin and clopidogrel during STEMI alert with 600 mg of clopidogrel once and 325 of aspirin once Continue high-dose statins and Plavix Status post blood transfusion and drop in platelets, held heparin infusion and aspirin at the moment. Continue to monitor Cardiology on board to follow-up 4. Aspiration pneumonia: patient required initially high FIO2 100% and currently on 30-40% improving recieved lasix as well to improve since CXR showed some infiltrates cont vent management fu with pulmonolgist 5. Hypoglycemia: multifactorial since earlier patient had cardiogenic shock and possible sepsis, underwent stress, cont NGT feeding and DW as needed to support the blood glucose levels 6. Transaminitis: possible induced secondary to hypotension and further low cardiac output currently improving and cont to monitor 7. SYBIL (acute kidney injury): likely pre renal vs intra renal ATN? hypotension vs later contrast induced, seems multifactorial producing good amount of urine monitor renal parameters and electrolytes with correction 8. Anemia: Patient s/p PCI found to have anemia and s/p PRBC, currently no active source of bleeding continue to monitor CBC and hb with PRBC as needed 9. Accelerated hypertension: Currently patient having heart failure with reduced ejection fraction that required Impella and further removal of Impella was uneventful Continue with adequate resuscitation to maintain MAP above 65 10. Lumbar stenosis with neurogenic claudication: Currently on sedation meanwhile 11. Nicotine dependence, cigarettes, with other nicotine-induced disorders: Patient recently quit on 06 March 2025, however still there is a risk of possible withdrawal effects Nicotine patch 12. Episode of recurrent major depressive disorder, unspecified depression episode severity: Continue to avoid any oral home medications if the patient is having low MAP and will further affect the absorption of the oral medication. Continue management on the basis of V-fib cardiac arrest and cardiogenic shock/septic shock and other shocks 13. Hypothyroidism (acquired): Patient on levothyroxine 100 mcg and liothyronine and to continue through NGT 14. Hyperlipidemia, unspecified hyperlipidemia type: Continue statins 15. Degenerative joint disease (DJD) of lumbar spine: Patient on leflunomide 20 mg, tramadol as needed for pain and prednisone To hold this medication at the moment considering cardiac arrest PDMP PDMP Reviewed: Not Reviewed Attestations 2 Medical Necessity Statement*: Patient will stay more than 2 midnights for the further management of cardiogenic shock requiring vasopressors at the moment and to continue the antibiotics for further address any underlying infectious pathology leading to septic shock which is less likely The patient is still critical however slowly improving, prognosis is also guarded at the moment Time Spent in Patient Care: Greater than 35 minutes (>than 50% of time spent in counselling and/or direct pt care on unit) . Critical Care Time: The high probability of a clinically significant, sudden or life threatening deterioration, as referenced in this documentation, required my full and direct attention, intervention and personal management. The critical care time shown is in addition to time spent performing any reported separately billable procedures and includes the following: [x] Data and vital sign review and interpretation [x ] Patient assessment, examination and intervention [x] Medication orders and management [x] Patient/Family updates as able [x] Care Coordination and Documentation. Critical Care Time (min): 45 Other Attestations: The high probability of a clinically significant, sudden or life threatening deterioration, as referenced in this documentation, required my full and direct attention, intervention and personal management. The critical care time shown is in addition to time spent performing any reported separately billable procedures and includes the following: [x] Data and vital sign review and interpretation [x ] Patient assessment, examination and intervention [x] Medication orders and management [x] Patient/Family updates as able [x] Care Coordination and Documentation. Coding Level of Care Code Critical Care >/= 30 minutes Diagnoses Cardiac arrest due to underlying cardiac condition I46.2 Sepsis A41.9 Coronary artery disease I25.10 Aspiration pneumonia J69.0 Hypoglycemia E16.2 Transaminitis R74.01 SYBIL (acute kidney injury) N17.9 Anemia D64.9 Accelerated hypertension I10 Lumbar stenosis with neurogenic claudication M48.062 Nicotine dependence, cigarettes, with other nicotine-induced disorders F17.218 Episode of recurrent major depressive disorder, unspecified depression episode severity F33.9 Active/Remission status: currently active Depression Type: major depressive disorder Major depression episode severity: unspecified Major depression recurrence: recurrent Hypothyroidism (acquired) E03.9 Hyperlipidemia, unspecified hyperlipidemia type E78.5 Hyperlipidemia type: unspecified Degenerative joint disease (DJD) of lumbar spine M47.816
--- NOTE | 2025-03-23 11:12 | PC.NUTR ---
Received consult for Tube feeding recommendations. Pt currently on Jevity 1.5 20mls/hr. If current feed tolerated, recommend advancing to 30mls/hr to be running continuously with FWF 100mls Q4H or per MD discretion. Jevity 1.5 @ 30mls/hr will provide 1080kcals or 80% Pt's estimated kcal needs, 46 grams protein or 88% Pt's estimated protein needs and 547mls+600mlsFWF or 85% Pt's estimated fluid needs.
[2025-03-23] MEDS: FUROsemide 10 mg/mL SDV 4mL 40 MG IVP (11:52)
[2025-03-23] MEDS: glucagon 1 mg/mL KIT 1 mL IM (11:53)
[2025-03-23] MEDS: lidocaine 1% 5 ML in potassium chloride premix 100 ML 52.5 ML IV (12:46)
[2025-03-23] MEDS: fentaNYL 1,000 MCG/100 ML BAG 7.5 MCG IV (16:17)
[2025-03-23 16:26] LABS: Anion Gap 17.2 (5-19); Blood Urea Nitrogen 13 mg/dL (8-23); Calcium 7.9 mg/dL (8.5-10.5); Carbon Dioxide 17 mmol/L (22-29); Chloride 112 mmol/L (98-107); Creatinine Clr Calc Pharmacy 40.1094; Glucose 127 mg/dL (65-115); Osmolality Calculated 296 mOsm/kg (285-295); Potassium 4.2 mmol/L (3.5-5.1); Sodium 142 mmol/L (136-145)
[2025-03-23] MEDS: norepinephrine 4 MG/250 ML BAG 18.75 MG IV (20:56)
[2025-03-24] VITALS (83 sets, daily range): BP systolic 81–133; BP diastolic 55–85; PULSE 102–124; RESP 14–16; TEMP 36.1–36.8; O2SAT 91–96
[2025-03-24] MEDS: piperacillin-tazobactam 3.375 GM in sodium chloride 0.9% (plus) 50 ML IV ×3 (04:31→21:42)
[2025-03-24] MEDS: pantoprazole 40 mg SDV IVP (04:31)
[2025-03-24 04:59] LABS: Hematocrit 25.5 % (36-47); Hemoglobin 8.50 g/dL (11.27-16.99); Mean Corpuscular HGB Conc 33.3 g/dL (30-55); Mean Corpuscular Hemoglobin 30.2 pg (27-33); Mean Corpuscular Volume 90.7 fl (85-98); Nucleated Red Blood Cells % 0.1 %; Platelet Count 46 10^3/cmm (157-399); Red Blood Count 2.81 10^6/uL (3.85-5.65); White Blood Count 15.24 10^3/uL (3.29-11.43)
[2025-03-24 05:00] LABS: ABG PCO2 38.0 mmHg (35-45); ABG PH Result 7.28 (7.35-7.45); Alveolar-Arterial Oxygen Gradi 13.1 mmHg (5-10); Arterial Blood Gas Hematocrit 31.1 % (37-47); Blood Gas Allen Test Pos; Blood Gas Operator Identificat JDB; Blood Gas Sample Site Radial, right; Blood Gas Sample Type Arterial; Blood Gas Tidal Volume 0.45; Carboxyhemoglobin 2.7 %THgb (0.4-20.1); Glucose Level-ABG 145.0 mg/dL (70-115); HCO3 ABG 17.8 mmol/L (22-26); Ionized Calcium Level - ABG 1.1 mmol/L (1.1-1.4); Methemoglobin 1.1 % (0.4-1.5); Oxygen Saturation ABG 91.6; PEEP 6.0 cmH20; PO2 ABG 66.2 mmHg (80.0-100.0); PO2 FiO2 Ratio Arterial Blood 220; Potassium Level - ABG 3.8 mmol/L (3.5-5.0); Sodium Level - ABG 138.0 mmol/L (131-143)
[2025-03-24 05:10] LABS: Alanine Aminotransferase 257 U/L (0-33); Albumin Level 2.6 g/dL (3.5-5.2); Alkaline Phosphatase 127 U/L (35-105); Anion Gap 9.9 (5-19); Aspartate Amino Transferase 195 U/L (0-32); Blood Urea Nitrogen 13 mg/dL (8-23); Calcium 7.5 mg/dL (8.5-10.5); Carbon Dioxide 18 mmol/L (22-29); Chloride 113 mmol/L (98-107); Creatinine Clr Calc Pharmacy 37.4354; Globulin 2.0 g/dL (1.3-4.6); Glucose 160 mg/dL (65-115); Magnesium 2.0 mg/dL (1.7-2.3); Osmolality Calculated 288 mOsm/kg (285-295); Potassium 3.9 mmol/L (3.5-5.1); Sodium 137 mmol/L (136-145); Total Protein 4.6 g/dL (6.6-8.7)
[2025-03-24] MEDS: fentaNYL 1,000 MCG/100 ML BAG 7.5 MCG IV ×2 (05:57→19:17)
--- NOTE | 2025-03-24 06:21 | PC.NURSE ---
532 Dr villarreal called. Patients toes purple and pedal pulse absent. per MD order ultrasound for the morning 620 Dr. hanson called regarding patients ABG. No new orders received. Per MD have respiratory call her
--- NOTE | 2025-03-24 09:46 | USR_ITS ---
PROCEDURE INFORMATION: Exam: US Duplex Bilateral Lower Extremity Arteries Exam date and time: 03/24/2025 10:27 AM Age: 65 years old Clinical indication: Other: Dusky discoloration of the lower extremity on right; Additional info: Dusky discoloration of the lower extremity on right, patient had intervention been done on the both sides TECHNIQUE: Imaging protocol: Real-time ultrasound scan of the arteries of the bilateral lower extremities with 2-D mao scale, color Doppler flow and spectral waveform analysis. Images documented and saved. COMPARISON: US CV venous duplex [facility] [id number] 03/24/2025 10:02 AM FINDINGS: Right common femoral artery: PSV 126 cm/sec. Multiphasic waveforms. Right superficial femoral artery: PSV 73-86 cm/sec. Monophasic waveforms. Right popliteal artery: PSV 52 cm/sec. Monophasic waveforms. Right calf/foot arteries: TITLE ATTORNEY: PSV 57 cm/sec. DPA: PSV 51 cm/sec. Monophasic waveforms. Right DEYA: 0.7 . Left common femoral artery: PSV 112 cm/sec. Multiphasic waveforms. Left superficial femoral artery: PSV 129-143 cm/sec. Multiphasic waveforms. Left popliteal artery: PSV 114 cm/sec. Multiphasic waveforms. Left calf/foot arteries: TITLE ATTORNEY: PSV 90 cm/sec. DPA: PSV 105 cm/sec. Multiphasic waveforms. Left DEYA: 1.12 . US/CV arterial duplex [facility] [id number] IMPRESSION: 1. Right lower extremity: Monophasic waveforms in the SFA and distally with DEYA 0.70, consistent with hemodynamically significant arterial insufficiency, likely reflecting inflow or post intervention re-stenosis. Recommend vascular surgery consultation if not already obtained. CTA or repeat conventional angiography may be helpful to assess for treatable disease. 2. Left lower extremity: Multiphasic waveforms throughout with DEYA 1.12, consistent with normal perfusion.
--- NOTE | 2025-03-24 09:46 | USR_ITS ---
PROCEDURE INFORMATION: Exam: US Duplex Lower Extremity Veins, Bilateral Exam date and time: 03/24/2025 10:02 AM Age: 65 years old Clinical indication: Other: Dusky discoloration of the right lower ext; Additional info: Dusky discoloration of the right lower ext, patient had intervention been done on the both sides TECHNIQUE: Imaging protocol: Real-time duplex ultrasound of the bilateral extremities with 2-D mao scale, color Doppler flow and spectral waveform analysis including responses to compression and other maneuvers (when performed) with image documentation. Complete exam focused on the lower extremity veins. COMPARISON: US CV unlisted vascular [id number] 03/20/2025 12:20 PM FINDINGS: Right deep veins: The common femoral, femoral, proximal profunda femoral, popliteal, and calf veins appear patent without thrombus. Normal Doppler waveforms. Normal compressibility and/or augmentation response. Left deep veins: The common femoral, femoral, proximal profunda femoral, popliteal, and calf veins appear patent without thrombus. Normal Doppler waveforms. Normal compressibility and/or augmentation response. Superficial veins: Greater saphenous veins at the saphenofemoral junctions are patent bilaterally without thrombus. Soft tissues: Unremarkable. US/[place] [id number] IMPRESSION: No evidence of deep vein thrombosis.
--- NOTE | 2025-03-24 11:42 | PC.NURSE ---
am check done not able to dopple pulse right foot , toes bluish hue , left foot with decreased circulation ultrasound order , also noted foot drop on right foot, pupils small , noted weakness on right hand and arm
--- NOTE | 2025-03-24 12:34 | CTR_ITS ---
PROCEDURE INFORMATION: Exam: CT Head Without Contrast Exam date and time: 03/24/2025 2:12 PM Age: 65 years old Clinical indication: Weakness, extremity; Right; Additional info: Right weaknss TECHNIQUE: Imaging protocol: Computed tomography of the head without contrast. Radiation optimization: All CT scans at this facility use at least one of these dose optimization techniques: automated exposure control; mA and/or kV adjustment per patient size (includes targeted exams where dose is matched to clinical indication); or iterative reconstruction. COMPARISON: CT head wo con* [id number] 03/19/2025 7:00 PM RADIATION DOSE METRICS: Total DLP (mGy-cm): 1107.58 FINDINGS: Brain: No acute intra-axial hemorrhage. No masses. Normal mao-white matter differentiation. No midline shift or mass effect. Mild patchy hypodensity in hemispheric white matter bilaterally most likely due to chronic microangiopathy. There is mild diffuse cerebral atrophy present, consistent with this patient's age. Cerebral ventricles: No ventriculomegaly. Paranasal sinuses: Visualized sinuses are unremarkable. No fluid levels. Mastoid air cells: Visualized mastoid air cells are well aerated. Bones: Unremarkable. No acute fracture. Soft tissues: Unremarkable. Other findings: No change from prior comparison. CT/CT head wo con* [id number] IMPRESSION: No acute intracranial abnormality.
[2025-03-24 15:14] LABS: Partial Thromboplastin Time 44.4 SECONDS (23.9-36.7)
--- NOTE | 2025-03-24 15:41 | P.PN_ITS ---
Subjective 2 Subjective: kym Ureña is a 65 year old female with past medical history of Hypertension, hyperlipidemia, severe CAD, hypothyroidism was experiencing chest pain at home developed V-fib cardiac arrest, resuscitated after chest compressions and brought to ER where she was intubated, placed on pressors, due to being very acidotic bicarb drip started.. Dr. Diaz to the patient for PCI, stents were placed in LAD, circumflex x 2, balloon dilatation of the diagonal branch. EF was found to be 20%. Overnight hemoglobin fell from 9-6.9. Initially blood thinners were given post PCI but on hold currently. Currently tolerating the ventilator settings well but on 100% FiO2.. Chest x- ray showed some right lower lobe infiltrate suggestive of aspiration. Also on levo at 20 and vaso at 0.05. On bicarb drip running at 75 mL, on Amio 0.5, Precedex 0.3, fentanyl 100 mcg. at bedside 03/21/2025 Patient is on 8 of levo drip and off of vasopressin. Off of bicarb drip. Bloody thick secretions noted out of the ET tube. Family at bedside. 03/22/25 Patient is on 2 of levo. Wakes up and follows commands. ETT bloody secretions. 03/23/2025 Patient has minimal ET tube secretions although chest x-ray does show right lower lobe infiltrate. On levo at 6. Low potassium. Frequently having hypoglycemic episodes is on D10 drip currently blood sugars running 100 100s. Tube feeds on as well. Versed and fentanyl running 03/24/2025 Tolerating ventilator well. Last ET tube bloody secretions noted. Due to right and left leg being cold and high potential for thrombotic events arterial ultrasound Dopplers being performed. Only fentanyl 75, tube feeds at 50. D50 running currently blood sugars holding above 100. Levo at 2. Review of systems unobtainable patient is on the vent Vitals/I&O/Wt Last Vital Signs Temp 96.9 F L 03/24/25 07:15 Pulse 110 H 03/24/25 14:00 Resp 14 03/24/25 13:00 BP 127/79 03/24/25 14:00 Pulse Ox 93 03/24/25 14:00 O2 Del Method Mechanical Ventilation 03/24/25 11:47 FiO2 35 03/24/25 11:47 03/24/25 03/24/25 03/24/25 06:59 14:59 22:59 Intake Total 1114.187 / 3853.566 50 / 50 4.294 / 54.294 Output Total 785 / 3710 Balance 329.187 / 143.566 50 / 50 4.294 / 54.294 Weight last 48 hrs Weight 164 lb 3.91 oz Weight 168 lb 10.458 oz Weight 76 lb 8 oz Physical Exam 2 Narrative: Per RN General: Intubated, sedated ETT less bloody secretions HEENT: EOMI Pulmonary: Crackles bilaterally Cardiovascular: rrr, nl s1s2, Abdomen: soft, nt, nd, no r/g, Extremities: no edema Neurologic: grossly intact Agree with above exam Urinary Catheter Management: Archer: Cath Placed During This Visit: yes Reason for Continuing Indwelling Catheter: Accurate Measurement of Urinary Output in Critically Ill Patients Urinary Catheter Date of Insertion: 03/19/25 Urinary Catheter Time of Insertion: 18:47 Data 03/24/25 04:40 03/24/25 04:40 Micro: Microbiology 03/19/25 18:18 Gram Stain - Final Sputum - Endotracheal Tube Aspirate Sputum Culture - Final Staphylococcus aureus Pseudomonas aeruginosa A&P Assessment and plan 1. Acute hypoxemic respiratory failure: 2. Cardiopulmonary arrest with successful resuscitation: 3. Cardiogenic shock: Plan: # Acute hypoxemic respiratory failure - Reviewed chest x-ray 03/22/2025 showing infiltrates in the right base suggestive of aspiration pneumonitis. Small basal right pleural effusion noted as well.could be infiltrate due to either aspiration pneumonitis versus bloody secretions plugging. Will order another chest x-ray tomorrow morning. - On ventilator support currently tidal volumes of 450, VC-AC, heart rate 14, PEEP of 8, FiO2 45 % currently-satting 96%. - Wean off ventilator first FiO2 to keep O2 sat above 92% -Continue Mucinex. As well as DuoNebs # Acute pulmonary edema Bloody ET tube secretions noted. She is not ready for extubation yet. Lasix as needed. Good urine output at 2700. # Cardiogenic shock - Keep Levophed wean as tolerated-keep MAP above 65. Currently at 2. Impella removed 03/22/2025 - Discussed case with Dr. Diaz. Currently very high risk for another cardiac arrest family is aware. She was initially DNR/DNI prior to hospitalization but family has reports that. # Acute renal failure most likely ATN or shock induced although contrast nephropathy cannot be ruled out since she just had PCI 03/19/2025 -Monitor urine output keep above 25 mL/h. May be in shock/ATN. No NSAIDs/ARB's or ROSSY inhibitors to be given. Tolerating diuresis well # Acute lactic acidosis Bicarb off # Severe CAD status post PCI Cardiology following appreciate help. # Right pedal pulses feeble - Arterial and venous ultrasound pending bilateral legs. Results from 03/24/2025 showing significant arterial insufficiency likely reflecting inflow or postintervention restenosis. May need vascular surgery consult or CTA repeat. Will discuss with on the case. Left close normal. CT head reviewed 03/24/2025 unremarkable # Anemia -No obvious sign of bleeding. Hemoglobin holding after 2 units of blood at 7.5 reviewed labs today 03/21/2025 # Transaminitis - Improving most likely was related to shock # Probable aspiration pneumonitis/sepsis - She has been started on empiric patient is on meropenem and vancomycin. Cultures blood and sputum pending. Urine growing Klebsiella pneumonia. stop vancomycin 03/23/2025 # Acute cardiomyopathy-repeat echocardiogram showed EF at 40% recent echo # Acute lactic acidosis Most likely secondary to dysoxia related to shock. # Hypoglycemia - Agree with D10 to keep blood sugars above 100. Slowly wean off D10 drip. Keep blood sugars above 100 # Thrombocytopenia - Most likely HIT. HIT panel # Hyperlipidemia # Anemia stable- hemoglobin 8.5 03/24/2025 # Hypothyroidism # Smoker # Transaminitis -most likely due to shock liver # Hypoalbuminemia # Hyponatremia # Hyperglycemia-insulin sliding scale medium. Avoid hypoglycemia. Maintain blood sugars between 140-180. Dextrose drip continue # Sedation-continue Versed as needed and fentanyl drip for now. # Nutrition-continue tube feeds, monitor BMs # DVT GI prophylaxis-SCDs and famotidine. Hold off on anticoagulation secondary to anemia which could be acute blood loss. # Goals of care-discussed with at bedside who wants to keep patient full code for now. 03/12/2025 # CODE STATUS- FULL # Disposition-Will need full ICU support follow-up The high probability of a clinically significant, sudden or life threatening deterioration of the patient's [Respiratory, cardiac and renal] system(s) required my full and direct attention, intervention and personal management. The critical care time is as shown. This time is in addition to time spent performing any reported procedures but includes the following: [x] Data and vital sign review and interpretation [x] Patient assessment, examination and intervention [x] Documentation [x] Medication orders and management Critical Care Time (min): 45 Telemedicine Consent Patient seen today via Telemedicine by agreement and consent of patient.? Telemedicine technology used during the visit includes audio and, as available, review of images.? The patient encounter is appropriate and reasonable under the circumstances given the patient?s particular presentation at this time.? The patient has been advised of the potential risks and limitations of this mode of treatment (including but not limited to the absence of in-person examination) and has agreed to be treated in a remote fashion in spite of them.? Any, and all, of the patient?s/patient?s family?s questions on this issue have been answered and I have made no promises or guarantees to the patient. The patient has also been advised to contact this office for worsening conditions or problems, and seek emergency medical treatment and/or call 911 if the patient deems either necessary PDMP PDMP Reviewed: Not Reviewed Attestations 2 Medical Necessity Statement*: Intubated sedated Coding Level of Care Code Critical Care >/= 30 minutes Diagnoses Acute hypoxemic respiratory failure J96.01 Cardiopulmonary arrest with successful resuscitation I46.9 Cardiogenic shock R57.0
--- NOTE | 2025-03-24 17:37 | P.PN_ITS ---
Subjective 2 Subjective: the patient was seen in the morning, alongwith the family and discussed her condition having bilateral feet dusky appearance high likely secondary to high doses of NE started on the initial days and currently still on it. Venous and arterial duplex of B/L LLE done and showed post intervention stenosis at the SFA of right side, although there is adequate blood flow and distal pulses and cardio is aware and will follow low platelets, HIT studies sent and for argotraban infusion CT head negative since there was right foot drop, could be part of critical care myopathy? Vitals/I&O/Wt Last Vital Signs Temp 96.9 F L 03/24/25 07:15 Pulse 118 H 03/24/25 16:00 Resp 15 03/24/25 15:46 BP 117/76 03/24/25 16:00 Pulse Ox 93 03/24/25 16:00 O2 Del Method Mechanical Ventilation 03/24/25 15:44 FiO2 35 03/24/25 15:46 03/24/25 03/24/25 03/24/25 06:59 14:59 22:59 Intake Total 1114.187 / 3853.566 50 / 50 4.294 / 54.294 Output Total 785 / 3710 1000 / 1000 Balance 329.187 / 143.566 50 / 50 -995.706 / -945.706 Weight last 48 hrs Weight 74.5 kg Weight 76.5 kg Weight 34.7 kg Physical Exam 2 Narrative: General: Patient on mechanical ventilation and sedation, however make some gross nonpurposeful movements and sedation being titrated off HEENT: Grossly unremarkable exam Resp system: Bilateral equal air entry no wheezes or any stridor. mild coarse crackles alongside the lateral chest wall ascultation which could be conducting sounds from the mech vent CVS: Map >65mmhg on NE being titrated off. Normal heart sound S1 and S2, murmurs cannot be appreciated due to conductive sounds from the ventilator however gross auscultation of heart sounds is unremarkable, s/p impella on the right groin no hematoma or bleeding observed Neuro: Patient on sedation therefore unable to assess properly neurological status, however patient is making some motor movements with foot drop appreciated on the right limb Extremities: having bilateral dusky feet likely secondary to high dose NE, and adequate pulses appreciated on both limbs, having foot drop on the right limb? Urinary Catheter Management: Archer: Cath Placed During This Visit: yes Reason for Continuing Indwelling Catheter: Accurate Measurement of Urinary Output in Critically Ill Patients Urinary Catheter Date of Insertion: 03/19/25 Urinary Catheter Time of Insertion: 18:47 Data 03/24/25 04:40 03/24/25 04:40 Micro: Microbiology 03/19/25 18:18 Gram Stain - Final Sputum - Endotracheal Tube Aspirate Sputum Culture - Final Staphylococcus aureus Pseudomonas aeruginosa A&P Assessment and plan 1. Cardiac arrest due to underlying cardiac condition: Patient s/p V-fib cardiac arrest, with severe acidemia requiring bicarb infusion and later held, improved S/p urgent PCI after STEMI alert, s/p Impella insertion and removal Currently being weaned off from the vasopressors and getting better Cardiology on board and to follow the plan of care Continue Plavix and statins as per cardio plan Patient was on heparin however due to drop in hemoglobin and low platelets which are still low, the infusion was held, HIT studies sent, argatroban infusion started Of note: Patient was initially DNR as per the however since she was intubated on her way by the EMS patient was taken to the cath for PCI and later underwent Impella. Family appreciated the care and to continue further management as full code after further discussion with the family. 2. Sepsis: Patient s/p cardiac arrest likely underlying cardiogenic in nature severe acidosis s/p bicarb drip, currently off and corrected. ETT cultures grew staphy aureus and pseud aerug sensitive to zosyn, therefore to continue with it for total 14 days minimum with further guidance based on the clinical status of the patient. D/c vancoymcin Monitor intake and output Monitor renal parameters, electrolytes and correction accordingly Maintain normoglycemia NGT feed to continue with increments as tolerated until goal rate ( dietitian consulted ) [employer] Card Collection Clerk on board and to follow the recommendation 3. Stenosis of superficial femoral artery: patient having bilateral dusky feet and more on the right foot, with foot drop high likely due to high dose of NE, since there are adequate pulses on clinical exam US venous/arterial done, showed superficial femoral artery stenosis post intervention, cards informed and to start the patient on argatroban HIT studies since platelets are low and to follow 4. Peripheral arterial occlusive disease: as mentioned above 5. Thrombocytopenia: HiT studies hold heparin and related productes started on argatroban infusion and to follow 6. Foot drop: likely critical care myopathy CT head negative follow OT/PT 7. Coronary artery disease: Patient was loaded with aspirin and clopidogrel during STEMI alert with 600 mg of clopidogrel once and 325 of aspirin once Continue high-dose statins and Plavix Status post blood transfusion and drop in platelets, held heparin infusion and aspirin at the moment. Continue to monitor Cardiology on board to follow-up 8. Aspiration pneumonia: patient required initially high FIO2 100% and currently on 30-40% improving recieved lasix as well to improve since CXR showed some infiltrates cont vent management fu with pulmonolgist 9. Hypoglycemia: multifactorial since earlier patient had cardiogenic shock and possible sepsis, underwent stress, cont NGT feeding and DW as needed to support the blood glucose levels 10. Transaminitis: possible induced secondary to hypotension and further low cardiac output currently improving and cont to monitor 11. SYBIL (acute kidney injury): likely pre renal vs intra renal ATN? hypotension vs later contrast induced, seems multifactorial producing good amount of urine monitor renal parameters and electrolytes with correction 12. Anemia: Patient s/p PCI found to have anemia and s/p PRBC, currently no active source of bleeding continue to monitor CBC and hb with PRBC as needed 13. Lumbar stenosis with neurogenic claudication: Currently on sedation meanwhile 14. Nicotine dependence, cigarettes, with other nicotine-induced disorders: Patient recently quit on 06 March 2025, however still there is a risk of possible withdrawal effects Nicotine patch 15. Episode of recurrent major depressive disorder, unspecified depression episode severity: currently sedated and on mechanical vent hold home anti dep medications 16. Hypothyroidism (acquired): Patient on levothyroxine 100 mcg and liothyronine and to continue through NGT 17. Hyperlipidemia, unspecified hyperlipidemia type: Continue statins 18. Degenerative joint disease (DJD) of lumbar spine: Patient on leflunomide 20 mg, tramadol as needed for pain and prednisone To hold this medication at the moment considering cardiac arrest PDMP PDMP Reviewed: Not Reviewed Attestations 2 Medical Necessity Statement*: Patient will stay more than 2 midnights for the further management of cardiogenic shock requiring vasopressors at the moment and to continue the antibiotics for further address any underlying infectious pathology leading to septic shock which is less likely The patient is still critical however slowly improving, prognosis is also guarded at the moment Time Spent in Patient Care: 16 - 35 minutes (>than 50% of time sp ent in counselling and/or direct pt care on unit) . Critical Care Time: The high probability of a clinically significant, sudden or life threatening deterioration, as referenced in this documentation, required my full and direct attention, intervention and personal management. The critical care time shown is in addition to time spent performing any reported separately billable procedures and includes the following: [x] Data and vital sign review and interpretation [x ] Patient assessment, examination and intervention [x] Medication orders and management [x] Patient/Family updates as able [x] Care Coordination and Documentation. Critical Care Time (min): 35 Other Attestations: Patient condition has been discussed at length with the patient/family, I have independently reviewed the chart labs imaging/diagnostics/EKG. the goals of care and code status with the patient/family/NOK/legal marketing development representative, and documented accordingly. The management has been done according to the current clinical condition with respect to patient goals of care and based on recommendations/guidelines. The patient/family has been informed about the current condition and further plan of care. Agreed with the plan of care and understood without any language barrier. Every effort was made to ensure accuracy of paper roller. Any obvious errors or omissions should be clarified with the author of the document. the family appreciated and agree with the plan of the medical teams Coding Level of Care Code Critical Care >/= 30 minutes Diagnoses Cardiac arrest due to underlying cardiac condition I46.2 Sepsis A41.9 Stenosis of superficial femoral artery I70.209 Peripheral arterial occlusive disease I77.9 Thrombocytopenia D69.6 Foot drop M21.379 Coronary artery disease I25.10 Aspiration pneumonia J69.0 Hypoglycemia E16.2 Transaminitis R74.01 SYBIL (acute kidney injury) N17.9 Anemia D64.9 Lumbar stenosis with neurogenic claudication M48.062 Nicotine dependence, cigarettes, with other nicotine-induced disorders F17.218 Episode of recurrent major depressive disorder, unspecified depression episode severity F33.9 Depression Type: major depressive disorder Major depression recurrence: recurrent Active/Remission status: currently active Major depression episode severity: unspecified Hypothyroidism (acquired) E03.9 Hyperlipidemia, unspecified hyperlipidemia type E78.5 Hyperlipidemia type: unspecified Degenerative joint disease (DJD) of lumbar spine M47.816
--- NOTE | 2025-03-24 17:42 | PC.NURSE ---
to ct scan when back noted increase stomach contents after laying flat feeding stopped and to suction total of 500 cc out this shift remain on d10 weaning off levophed no purposeful response to verbal, foot drop remain right , propped with pillow no movement of right arm og tube clamped .
--- NOTE | 2025-03-24 17:50 | P.PN_ITS ---
Subjective 2 Subjective: Overnight there was some concern regarding dusky foot, posterior tibial is dopplerable, both legs are warm and moist Patient has underlying peripheral arterial disease given her being in shock and on pressor with underlying peripheral arterial disease can lead to dusky foot does not appear to me it is acute limb threatening ischemia, vascular Doppler was suggestive post intervention stenosis ? Patient foot is not icy cold has good posterior tibial pulse Vent requirement has been improving FiO2 is 30% while PEEP has been reduced to 6 Patient is on Levophed which is being titrated Vitals/I&O/Wt Last Vital Signs Temp 96.9 F L 03/24/25 07:15 Pulse 118 H 03/24/25 16:00 Resp 15 03/24/25 15:46 BP 117/76 03/24/25 16:00 Pulse Ox 93 03/24/25 16:00 O2 Del Method Mechanical Ventilation 03/24/25 15:44 FiO2 35 03/24/25 15:46 03/24/25 03/24/25 03/24/25 06:59 14:59 22:59 Intake Total 1114.187 / 3853.566 50 / 50 54.294 / 104.294 Output Total 785 / 3710 1000 / 1000 Balance 329.187 / 143.566 50 / 50 -945.706 / -895.706 Weight last 48 hrs Weight 164 lb 3.91 oz Weight 168 lb 10.458 oz Weight 76 lb 8 oz Physical Exam 2 Const: OTHER: GENERAL: Patient is intubated on the vent HEART: Regular S1 and S2. No murmur, rub or gallop. LUNGS: Decreased breath sounds bilaterally. CENTRAL NERVOUS SYSTEM: Grossly nonfocal. EXTREMITIES: Lower extremities with out edema bilaterally. Dusky appearance of the distal edges of the foot bilaterally, both legs are warm moist both feet are mildly cold but not icy cold good palpable posterior tibial pulse on the right side Resp: COMMON NORMALS: clear to auscultation bilaterally AUSCULTATION: clear to auscultation bilaterally Urinary Catheter Management: Archer: Cath Placed During This Visit: yes Reason for Continuing Indwelling Catheter: Accurate Measurement of Urinary Output in Critically Ill Patients Urinary Catheter Date of Insertion: 03/19/25 Urinary Catheter Time of Insertion: 18:47 Data 03/24/25 04:40 03/24/25 04:40 Micro: Microbiology 10/27/25 18:18 Gram Stain - Final Sputum - Endotracheal Tube Aspirate Sputum Culture - Final Staphylococcus aureus Pseudomonas aeruginosa A&P Assessment and plan 1. Shock: 2. Acute coronary syndrome: 3. Cardiac arrest due to underlying cardiac condition: 4. Coronary artery disease: 5. Atrial fibrillation by electrocardiogram: 6. Hypothyroidism (acquired): 7. Acute hypoxemic respiratory failure: 8. Pneumonia: 9. Thrombocytopenia: 10. SYBIL (acute kidney injury): 11. Peripheral arterial occlusive disease: Plan: Patient is on 1 pressor with tapering off dosages maintaining mean arterial pressure Left ventricular ejection fraction has improved to almost normal IV antibiotics for pneumonia sepsis as per pulmonary and hospitalist colleagues Doppler is suggestive of possible femoral disease however good palpable posterior tibial pulse present both legs are warm both feet are not icy cold, I agree with s opinion as I do not think that patient has acute limb threatening ischemia patient has underlying peripheral arterial disease which post shock and with the use of pressor has causes distal limb vasoconstriction, advise warming the foot and continue monitoring. Right foot drop is more of neuropathy, in the face of possible HIT suspicious through thrombocytopenia no immediate intervention is necessary, once fully recovered may will perform peripheral angiogram for peripheral arterial disease if indicated. Thrombocytopenia possible HIT HIT panel has been sent patient will be started on argatroban. Questionable stroke, CT scan unremarkable patient on argatroban once she will wake up fully will further assess Appreciate medicine and pulmonary colleague input and treatment PDMP PDMP Reviewed: Not Reviewed Attestations 2 Medical Necessity Statement*: Patient require continuation hospitalization for above defined care Coding Level of Care Code Acute Code for [facility] Fwd Diagnoses Shock R57.9 Acute coronary syndrome I24.9 Cardiac arrest due to underlying cardiac condition I46.2 Coronary artery disease I25.10 Atrial fibrillation by electrocardiogram I48.91 Hypothyroidism (acquired) E03.9 Acute hypoxemic respiratory failure J96.01 Pneumonia J18.9 Thrombocytopenia D69.6 SYBIL (acute kidney injury) N17.9 Peripheral arterial occlusive disease I77.9
[2025-03-24 18:32] LABS: Partial Thromboplastin Time 100.2 SECONDS (23.9-36.7)
--- NOTE | 2025-03-24 20:00 | PC.NURSE ---
OG tube OG tube still to low intermittent suction with copious kuhn output. Dr. Berry notified; order received to keep OG to suction.
--- NOTE | 2025-03-24 20:00 | PC.NURSE ---
Pupils Patient's left pupil noted to be a 3 mm while her right eye is noted to be a 2 mm, both reactive. Dr. Berry notified; order received for a head CT without contrast.
--- NOTE | 2025-03-24 20:15 | CTR_ITS ---
PROCEDURE INFORMATION: Exam: CT Head Without Contrast Exam date and time: 03/24/2025 9:11 PM Age: 65 years old Clinical indication: New onset of anisicoria. Intubated. ; Additional info: Uneven pupils TECHNIQUE: Imaging protocol: Computed tomography of the head without contrast. Radiation optimization: All CT scans at this facility use at least one of these dose optimization techniques: automated exposure control; mA and/or kV adjustment per patient size (includes targeted exams where dose is matched to clinical indication); or iterative reconstruction. COMPARISON: CT head wo con* [id number] 03/24/2025 2:12 PM RADIATION DOSE METRICS: Total DLP (mGy-cm): 1089.98 FINDINGS: Brain: No acute intra-axial hemorrhage. No masses. Normal mao-white matter differentiation. No midline shift or mass effect. Mild patchy hypodensity in hemispheric white matter bilaterally most likely due to chronic microangiopathy. There is mild diffuse cerebral atrophy present, consistent with this patient's age. Cerebral ventricles: No ventriculomegaly. Paranasal sinuses: Visualized sinuses are unremarkable. No fluid levels. Mastoid air cells: Visualized mastoid air cells are well aerated. Bones: Unremarkable. No acute fracture. Soft tissues: Unremarkable. Other findings: No change from prior comparison. CT/CT head wo con* [id number] IMPRESSION: 1. No acute intracranial abnormality. 2. Consider MRI for further evaluation.
[2025-03-24 21:28] LABS: Partial Thromboplastin Time 108.9 SECONDS (23.9-36.7)
[2025-03-25] VITALS (81 sets, daily range): BP systolic 85–134; BP diastolic 54–80; PULSE 93–123; RESP 14–30; TEMP 36.6–37.7; O2SAT 91–100
[2025-03-25 00:23] LABS: Partial Thromboplastin Time 105.7 SECONDS (23.9-36.7)
--- NOTE | 2025-03-25 00:25 | PC.NURSE ---
Argatroban Patient's ptt 105.7 at 2353 with argatroban administering at 0.2 mcg/kg/min. Per protocol dosage to be decreased by 0.2 mcg/kg/min. Dr. Berry contacted and orders received to pause medication for 2 hours until next ptt check.
[2025-03-25] MEDS: chlorhexidine gluconate 4% Btl 118 mL 1 APPLIC TOPICAL (01:36)
[2025-03-25 01:47] LABS: Partial Thromboplastin Time 99.7 SECONDS (23.9-36.7)
--- NOTE | 2025-03-25 02:30 | PC.NURSE ---
PTT Dr. Berry notified of patient's ptt of 99.7. Order received to hold argatroban for another 2 hours.
[2025-03-25] MEDS: pantoprazole 40 mg SDV IVP (04:18)
[2025-03-25 04:21] LABS: Hematocrit 24.3 % (36-47); Hemoglobin 8.10 g/dL (11.27-16.99); Mean Corpuscular HGB Conc 33.3 g/dL (30-55); Mean Corpuscular Hemoglobin 30.0 pg (27-33); Mean Corpuscular Volume 90.0 fl (85-98); Nucleated Red Blood Cells % 0 %; Platelet Count 31 10^3/cmm (157-399); Red Blood Count 2.70 10^6/uL (3.85-5.65); White Blood Count 12.03 10^3/uL (3.29-11.43)
[2025-03-25 04:54] LABS: Alanine Aminotransferase 197 U/L (0-33); Albumin Level 2.3 g/dL (3.5-5.2); Alkaline Phosphatase 130 U/L (35-105); Anion Gap 13.0 (5-19); Aspartate Amino Transferase 154 U/L (0-32); Blood Urea Nitrogen 16 mg/dL (8-23); Calcium 7.4 mg/dL (8.5-10.5); Carbon Dioxide 19 mmol/L (22-29); Chloride 111 mmol/L (98-107); Creatinine Clr Calc Pharmacy 32.6146; Globulin 2.2 g/dL (1.3-4.6); Glucose 125 mg/dL (65-115); Magnesium 1.8 mg/dL (1.7-2.3); Osmolality Calculated 293 mOsm/kg (285-295); Potassium 3.0 mmol/L (3.5-5.1); Sodium 140 mmol/L (136-145); Total Protein 4.5 g/dL (6.6-8.7)
[2025-03-25 04:55] LABS: Partial Thromboplastin Time 92.7 SECONDS (23.9-36.7)
[2025-03-25] MEDS: piperacillin-tazobactam 3.375 GM in sodium chloride 0.9% (plus) 50 ML IV ×3 (05:08→19:31)
[2025-03-25] MEDS: fentaNYL 1,000 MCG/100 ML BAG 7.5 MCG IV (05:21)
--- NOTE | 2025-03-25 06:00 | PC.NURSE ---
Physician Communication Dr. Berry contacted regarding the following issues: PO medications due this AM, OG tube still to suction with past tube feed still being removed. Patient's platelet count 31, albumin 2.3, K 3.0, ptt 92.7. Orders received to administer PO medications and start reglan 10mg IVP Q8H for 14 days; administer 1 unit of platelets; administer 40 meq kcl IV once; and hold argatroban another 2 hours for a ptt recheck.
[2025-03-25] MEDS: lidocaine 1% 5 ML in potassium chloride premix 100 ML 26.25 ML IV ×2 (06:13→17:39)
[2025-03-25] MEDS: metoclopramide 5 mg/mL SDV 2 mL 10 MG IVP ×3 (06:17→20:55)
[2025-03-25 08:31] LABS: Partial Thromboplastin Time 96.6 SECONDS (23.9-36.7)
[2025-03-25 12:17] LABS: Partial Thromboplastin Time 77.6 SECONDS (23.9-36.7)
--- NOTE | 2025-03-25 12:47 | P.PN_ITS ---
Subjective 2 Subjective: No overnight event Platelets though dropped down to 35,000 She is off the pressor both feet warm, distal nailbed dusky but has good dopplerable pulses Vitals/I&O/Wt Last Vital Signs Temp 98.6 F 03/25/25 09:30 Pulse 96 03/25/25 11:14 Resp 14 03/25/25 11:14 BP 97/61 03/25/25 10:00 Pulse Ox 96 03/25/25 11:14 O2 Del Method Mechanical Ventilation 03/25/25 11:14 FiO2 30 03/25/25 11:14 03/24/25 03/25/25 03/25/25 22:59 05:59 14:59 Intake Total 1272.261 / 1322.611 152.64 / 1475.251 311.75 / 311.75 Output Total 1000 / 1000 2000 / 3000 Balance 272.261 / 322.611 -1847.36 / -1524.749 311.75 / 311.75 Weight last 48 hrs Weight 169 lb 12.095 oz Weight 164 lb 3.91 oz Physical Exam 2 Const: OTHER: GENERAL: Patient is intubated on the vent HEART: Regular S1 and S2. No murmur, rub or gallop. LUNGS: Decreased breath sounds bilaterally. CENTRAL NERVOUS SYSTEM: Grossly nonfocal. EXTREMITIES: Lower extremities with out edema bilaterally. Dusky appearance of the distal edges of the foot bilaterally, both legs and feet are warm Resp: COMMON NORMALS: clear to auscultation bilaterally AUSCULTATION: clear to auscultation bilaterally Urinary Catheter Management: Archer: Cath Placed During This Visit: yes Reason for Continuing Indwelling Catheter: Accurate Measurement of Urinary Output in Critically Ill Patients Urinary Catheter Date of Insertion: 03/19/25 Urinary Catheter Time of Insertion: 18:47 Data 03/25/25 04:10 03/25/25 04:10 Micro: Microbiology 03/19/25 21:37 Blood Culture - Final Blood NO GROWTH AFTER 5 DAYS 03/19/25 21:32 Blood Culture - Final Blood NO GROWTH AFTER 5 DAYS A&P Assessment and plan 1. Shock: 2. Acute coronary syndrome: 3. Cardiac arrest due to underlying cardiac condition: 4. Coronary artery disease: 5. Atrial fibrillation by electrocardiogram: 6. Hypothyroidism (acquired): 7. Acute hypoxemic respiratory failure: 8. Pneumonia: 9. Thrombocytopenia: 10. SYBIL (acute kidney injury): 11. Peripheral arterial occlusive disease: Plan: Patient is on 1 pressor with tapering off dosages maintaining mean arterial pressure Left ventricular ejection fraction has improved to almost normal IV antibiotics for pneumonia sepsis as per pulmonary and hospitalist colleagues Doppler is suggestive of possible femoral disease however good palpable posterior tibial pulse present both legs are warm both feet are not icy cold, I agree with s opinion as I do not think that patient has acute limb threatening ischemia patient has underlying peripheral arterial disease which post shock and with the use of pressor has causes distal limb vasoconstriction, advise warming the foot and continue monitoring. Right foot drop is more of neuropathy, in the face of possible HIT suspicious through thrombocytopenia no immediate intervention is necessary, once fully recovered may will perform peripheral angiogram for peripheral arterial disease if indicated. Thrombocytopenia possible HIT HIT panel has been sent patient will be started on argatroban. Questionable stroke, CT scan unremarkable patient on argatroban once she will wake up fully will further assess Appreciate medicine and pulmonary colleague input and treatment On today's visit dated 03/25/2025, platelets has reduced, argatroban has been started, most likely patient has HIT, he is off all heparin and Lovenox products for the last few days. Will continue to closely monitor platelets. She is off pressor, she will be assessed by pulmonary and medicine for extubation if tolerated. Cannot assess neurologically for now however once she will awake more we will assess. PDMP PDMP Reviewed: Not Reviewed Attestations 2 Medical Necessity Statement*: Require continuation hospitalization for evaluation for above defined care Coding Level of Care Code Acute Code for [facility] Fwd Diagnoses Shock R57.9 Acute coronary syndrome I24.9 Cardiac arrest due to underlying cardiac condition I46.2 Coronary artery disease I25.10 Atrial fibrillation by electrocardiogram I48.91 Hypothyroidism (acquired) E03.9 Acute hypoxemic respiratory failure J96.01 Pneumonia J18.9 Thrombocytopenia D69.6 SYBIL (acute kidney injury) N17.9 Peripheral arterial occlusive disease I77.9
--- NOTE | 2025-03-25 14:16 | XRR_ITS ---
PROCEDURE INFORMATION: Exam: XR Chest Exam date and time: 03/25/2025 6:14 PM Age: 65 years old Clinical indication: Other: Pulmonary infiltrates TECHNIQUE: Imaging protocol: Radiologic exam of the chest. Views: 1 view. COMPARISON: CR XR chest 1V portable [id number] 03/22/2025 2:58 PM FINDINGS: Tubes, catheters and devices: Unchanged right internal jugular central venous catheter. The NG tube extends into the stomach. The endotracheal tube tip remains 5.6 cm above the carrington. Lungs: Moderate ill-defined decreased density is noted at the right lung base, improved since the prior exam. Persistent retrocardiac opacity at both lung bases. Mild ill-defined increased density noted in the left lower lung zone. Pleural spaces: Ill-defined increased density projects over both lower lung zones, which could represent layering effusions. Heart/Mediastinum: Unremarkable. No cardiomegaly. Bones/joints: Unremarkable. XR/XR chest 1V portable [id number] IMPRESSION: 1. Persistent retrocardiac consolidation bilaterally compatible with pneumonia. 2. Decreasing opacity in the lateral right lower lung zone, representing improving consolidation or decreasing right pleural effusion. 3. Ill-defined increased density projecting over the left lung base likely reflects layering mild pleural effusion. 4. The endotracheal tube tip remains 5.6 cm above the carrington. Advancement by 2-3 cm should be considered.
--- NOTE | 2025-03-25 14:22 | P.PN_ITS ---
Subjective 2 Subjective: kym Ureña is a 65 year old female with past medical history of Hypertension, hyperlipidemia, severe CAD, hypothyroidism was experiencing chest pain at home developed V-fib cardiac arrest, resuscitated after chest compressions and brought to ER where she was intubated, placed on pressors, due to being very acidotic bicarb drip started.. Dr. Diaz to the patient for PCI, stents were placed in LAD, circumflex x 2, balloon dilatation of the diagonal branch. EF was found to be 20%. Overnight hemoglobin fell from 9-6.9. Initially blood thinners were given post PCI but on hold currently. Currently tolerating the ventilator settings well but on 100% FiO2.. Chest x- ray showed some right lower lobe infiltrate suggestive of aspiration. Also on levo at 20 and vaso at 0.05. On bicarb drip running at 75 mL, on Amio 0.5, Precedex 0.3, fentanyl 100 mcg. at bedside 03/21/2025 Patient is on 8 of levo drip and off of vasopressin. Off of bicarb drip. Bloody thick secretions noted out of the ET tube. Family at bedside. 03/22/25 Patient is on 2 of levo. Wakes up and follows commands. ETT bloody secretions. 03/23/2025 Patient has minimal ET tube secretions although chest x-ray does show right lower lobe infiltrate. On levo at 6. Low potassium. Frequently having hypoglycemic episodes is on D10 drip currently blood sugars running 100 100s. Tube feeds on as well. Versed and fentanyl running 03/24/2025 Tolerating ventilator well. Last ET tube bloody secretions noted. Due to right and left leg being cold and high potential for thrombotic events arterial ultrasound Dopplers being performed. Only fentanyl 75, tube feeds at 50. D50 running currently blood sugars holding above 100. Levo at 2. 03/25/2025 Last ET tube secretions. No bloody secretions either. Has a right foot drop. No clinically significant stenosis noted on ultrasound cardiology following. Increased NG tube output. 1000 mL suctioned on low intermittent suction. Review of systems unobtainable patient is on the vent Vitals/I&O/Wt Last Vital Signs Temp 98.6 F 03/25/25 09:30 Pulse 106 H 03/25/25 14:00 Resp 15 03/25/25 13:18 BP 117/68 03/25/25 14:00 Pulse Ox 95 03/25/25 14:00 O2 Del Method Mechanical Ventilation 03/25/25 11:14 FiO2 30 03/25/25 13:18 03/24/25 03/25/25 03/25/25 22:59 05:59 14:59 Intake Total 1272.261 / 1322.611 152.64 / 1475.251 333.00 / 333.00 Output Total 1000 / 1000 2000 / 3000 Balance 272.261 / 322.611 -1847.36 / -1524.749 333.00 / 333.00 Weight last 48 hrs Weight 169 lb 12.095 oz Weight 164 lb 3.91 oz Physical Exam 2 Narrative: Per RN General: Intubated, sedated ETT less secretions HEENT: EOMI Pulmonary: Diminished breath sounds bilaterally Cardiovascular: rrr, nl s1s2, Abdomen: soft, nt, nd, no r/g, Extremities: no edema Neurologic: Right foot drop noted Agree with above exam Urinary Catheter Management: Archer: Cath Placed During This Visit: yes Reason for Continuing Indwelling Catheter: Accurate Measurement of Urinary Output in Critically Ill Patients Urinary Catheter Date of Insertion: 03/19/25 Urinary Catheter Time of Insertion: 18:47 Data 03/25/25 04:10 03/25/25 04:10 Micro: Microbiology 03/19/25 21:37 Blood Culture - Final Blood NO GROWTH AFTER 5 DAYS 03/19/25 21:32 Blood Culture - Final Blood NO GROWTH AFTER 5 DAYS A&P Assessment and plan 1. Acute hypoxemic respiratory failure: 2. Cardiopulmonary arrest with successful resuscitation: 3. Cardiogenic shock: Plan: # Acute hypoxemic respiratory failure - Reviewed chest x-ray 03/22/2025 showing infiltrates in the right base suggestive of aspiration pneumonitis. Small basal right pleural effusion noted as well.could be infiltrate due to either aspiration pneumonitis versus bloody secretions plugging. Will order another chest x-ray today - Vent is #7, weaning trials and SBT tomorrow. - On ventilator support currently tidal volumes of 450, VC-AC, heart rate 14, PEEP of 8, FiO2 30 % currently-satting 96%. - Wean off ventilator first FiO2 to keep O2 sat above 92% -Continue Mucinex. As well as DuoNebs # Acute pulmonary edema Bloody ET tube secretions noted. She is not ready for extubation yet. Will trial SBT tomorrow has a good cough chest x-ray pending today Lasix as needed. Good urine output at 3000. # Cardiogenic shock - Keep Levophed wean as tolerated-keep MAP above 65. Currently at 2. Impella removed 03/22/2025 - Discussed case with Dr. Diaz. Currently very high risk for another cardiac arrest family is aware. She was initially DNR/DNI prior to hospitalization but family has reports that. # Acute renal failure most likely ATN or shock induced although contrast nephropathy cannot be ruled out since she just had PCI 03/19/2025 -Monitor urine output keep above 25 mL/h. May be in shock/ATN. No NSAIDs/ARB's or ROSSY inhibitors to be given. Tolerating diuresis well. Creatinine 1.7 # Acute lactic acidosis Bicarb off # Severe CAD status post PCI Cardiology following appreciate help. # Right pedal pulses feeble - Arterial and venous ultrasound reviewed. Most likely due to being on pressors, dusky appearing feet. Results from 03/24/2025 showing significant arterial insufficiency likely reflecting inflow or postintervention restenosis. Dr. Diaz following, appreciate help. May need angiogram postextubation to evaluate further.. CT head reviewed 03/24/2025 unremarkable # Probable HIT - Argatroban ongoing. HIT panel pending # Anemia -No obvious sign of bleeding. Hemoglobin holding after 2 units of blood at 7.5 reviewed labs today 03/21/2025 # Transaminitis - Improving most likely was related to shock # Probable aspiration pneumonitis/sepsis - Cultures blood and sputum pending. Urine growing Klebsiella pneumonia. stop vancomycin 03/23/2025 labs checked 03/25/2025-growing staph and Pseudomonas. Agree with switching to Zosyn-total of 10 days # Acute cardiomyopathy-repeat echocardiogram showed EF at 40% recent echo # Acute lactic acidosis Most likely secondary to dysoxia related to shock. # Hypoglycemia - Agree with D10 to keep blood sugars above 100. Slowly wean off D10 drip. Keep blood sugars above 100 # Thrombocytopenia - Most likely HIT. HIT panel # Ileus -Monitor BMs. OG to low intermittent wall suction. KUB ordered today # Hyperlipidemia # Anemia stable- hemoglobin 8.5 03/24/2025 # Hypothyroidism # Smoker # Transaminitis -most likely due to shock liver # Hypoalbuminemia # Hyponatremia # Hyperglycemia-insulin sliding scale medium. Avoid hypoglycemia. Maintain blood sugars between 140-180. Dextrose drip continue # Sedation-continue Versed as needed and fentanyl drip for now. # Nutrition-continue tube feeds, monitor BMs # DVT GI prophylaxis-SCDs and famotidine. Ongoing argatroban drip # Goals of care-discussed with at bedside who wants to keep patient full code for now. 03/12/2025 # CODE STATUS- FULL # Disposition-Will need full ICU support follow-up The high probability of a clinically significant, sudden or life threatening deterioration of the patient's [Respiratory, cardiac and renal] system(s) required my full and direct attention, intervention and personal management. The critical care time is as shown. This time is in addition to time spent performing any reported procedures but includes the following: [x] Data and vital sign review and interpretation [x] Patient assessment, examination and intervention [x] Documentation [x] Medication orders and management Critical Care Time (min): 45 Telemedicine Consent Patient seen today via Telemedicine by agreement and consent of patient.? Telemedicine technology used during the visit includes audio and, as available, review of images.? The patient encounter is appropriate and reasonable under the circumstances given the patient?s particular presentation at this time.? The patient has been advised of the potential risks and limitations of this mode of treatment (including but not limited to the absence of in-person examination) and has agreed to be treated in a remote fashion in spite of them.? Any, and all, of the patient?s/patient?s family?s questions on this issue have been answered and I have made no promises or guarantees to the patient. The patient has also been advised to contact this office for worsening conditions or problems, and seek emergency medical treatment and/or call 911 if the patient deems either necessary PDMP PDMP Reviewed: Not Reviewed Attestations 2 Medical Necessity Statement*: Intubated sedated Coding Level of Care Code Critical Care >/= 30 minutes Diagnoses Acute hypoxemic respiratory failure J96.01 Cardiopulmonary arrest with successful resuscitation I46.9 Cardiogenic shock R57.0
--- NOTE | 2025-03-25 14:23 | PC.NURSE ---
this am weaned fent down to 25 mcg. family at bedside talked with doctors, pt remains with minimal response to stimuli will withdraw to pain open eyes at time , reposition oral care warming blanket on feet toes remain bluish hue , sedation all turned off after pulmonary saw pt ng remains to sx and clamped after meds
--- NOTE | 2025-03-25 14:46 | XRR_ITS ---
PROCEDURE INFORMATION: Exam: XR Abdomen Exam date and time: 03/25/2025 6:14 PM Age: 65 years old Clinical indication: Bloating; Additional info: Ileus TECHNIQUE: Imaging protocol: Radiologic exam of the abdomen. Views: Frontal supine view of the abdomen. 1 View. COMPARISON: CT abdomen pelvis w con* [id number] 10/03/2024 12:46 PM FINDINGS: Tubes, catheters and devices: Distal end of the NG tube projects in the body of the stomach. Gastrointestinal tract: The stomach remains mildly distended with gas. No bowel dilatation. Gas is present throughout the colon. Intraperitoneal space: Abdominal mass is not identified. Surgical clips are present in the right upper quadrant. Bones/joints: Metallic spinal fixation devices are noted in the lumbar region. XR/XR KUB portable [id number] IMPRESSION: 1. No evidence for bowel obstruction. 2. Gas fills the colon, which could reflect ileus.
--- NOTE | 2025-03-25 15:39 | P.PN_ITS ---
Subjective 2 Subjective: Patient was seen in the morning, currently on sedation with fentanyl 25 mics and was titrated. Making some small gestures by moving her feet and hands but no coherent response. Vasopressors weaned off and having adequate MAP above 65 Vitals/I&O/Wt Last Vital Signs Temp 98.6 F 03/25/25 09:30 Pulse 95 03/25/25 15:18 Resp 14 03/25/25 15:20 BP 117/68 03/25/25 14:00 Pulse Ox 96 03/25/25 15:20 O2 Del Method Mechanical Ventilation 03/25/25 15:18 FiO2 30 03/25/25 15:20 03/25/25 03/25/25 03/25/25 05:59 14:59 22:59 Intake Total 152.64 / 1475.251 333.00 / 333.00 Output Total 1999 / 3000 Balance -1847.36 / -1524.749 333.00 / 333.00 Weight last 48 hrs Weight 77 kg Weight 74.5 kg Physical Exam 2 Narrative: General: Patient on mechanical ventilation and sedation, however make some gross nonpurposeful movements of the left foot and some hand movements, and sedation being titrated off, currently only on fentanyl 25 mics at the moment HEENT: Grossly unremarkable exam Resp system: Bilateral equal air entry no wheezes, crackles or any stridor. CVS: Map >65mmhg, normal heart sound S1 and S2, murmurs cannot be appreciated due to conductive sounds from the ventilator however gross auscultation of heart sounds is unremarkable, s/p impella on the right groin no hematoma or bleeding observed, good adequate femoral pulse Neuro: Patient on sedation therefore unable to assess properly neurological status, however patient is making some motor movements with foot drop appreciated on the right limb Extremities: having bilateral dusky feet likely secondary to high dose NE and improved with rewarming, and adequate pulses appreciated on both limbs, having foot drop on the right limb which is not moving in comparison to the left. On support and repositioning. Urinary Catheter Management: Archer: Cath Placed During This Visit: yes Reason for Continuing Indwelling Catheter: Accurate Measurement of Urinary Output in Critically Ill Patients Urinary Catheter Date of Insertion: 03/19/25 Urinary Catheter Time of Insertion: 18:47 Data 03/25/25 04:10 03/25/25 04:10 Micro: Microbiology 03/19/25 21:37 Blood Culture - Final Blood NO GROWTH AFTER 5 DAYS 03/19/25 21:32 Blood Culture - Final Blood NO GROWTH AFTER 5 DAYS A&P Assessment and plan 1. Cardiac arrest due to underlying cardiac condition: Patient s/p V-fib cardiac arrest, with severe acidemia requiring bicarb infusion and later held, improved S/p urgent PCI after STEMI alert, s/p Impella insertion and removal Holding MAP above 65.With low-dose of nor epi and being titrated off Cardiology on board and to follow the plan of care Continue Plavix and statins as per cardio plan Patient was on heparin however due to drop in hemoglobin and low platelets which are still low, the infusion was held, HIT studies sent, argatroban infusion started Of note: Patient was initially DNR as per the however since she was intubated on her way by the EMS patient was taken to the cath for PCI and later underwent Impella. Family appreciated the care and to continue further management as full code after further discussion with the family. 2. Sepsis: Patient s/p cardiac arrest likely underlying cardiogenic in nature severe acidosis s/p bicarb drip, currently off and corrected. ETT cultures grew staphy aureus and pseud aerug sensitive to zosyn, therefore to continue with it for total 14 days minimum with further guidance based on the clinical status of the patient. Initially was on vancomycin which was later on discontinued Monitor intake and output Monitor renal parameters, electrolytes and correction accordingly Maintain normoglycemia NGT feed to continue with increments as tolerated until goal rate ( dietitian consulted ) Client Service And Consulting Manager on board and to follow the recommendation 3. Stenosis of superficial femoral artery: patient having bilateral dusky feet and more on the right foot and improving with rewarming, with foot drop, high likely due to high dose of NE, since there are adequate pulses on clinical exam US venous/arterial done, showed superficial femoral artery stenosis post intervention, having good adequate femoral pulse on examination and adequate perfusion as well with palpable distal tibial artery. cards informed and to start the patient on argatroban HIT studies since platelets are low and to follow 4. Peripheral arterial occlusive disease: as mentioned above 5. Thrombocytopenia: HiT studies to follow hold heparin and related productes started on argatroban infusion and to follow Platelet infusion to keep the platelets above 50,000 or in case of any bleeding 6. Foot drop: likely critical care myopathy CT head negative follow OT/PT 7. Coronary artery disease: Patient was loaded with aspirin and clopidogrel during STEMI alert with 600 mg of clopidogrel once and 325 of aspirin once Continue high-dose statins and Plavix Status post blood transfusion and drop in platelets, held heparin infusion and aspirin at the moment. Continue to monitor Cardiology on board to follow-up 8. Aspiration pneumonia: patient required initially high FIO2 100% and currently on 30-40% improving recieved lasix as well to improve since CXR showed some infiltrates cont vent management fu with pulmonolgist 9. Hypoglycemia: multifactorial since earlier patient had cardiogenic shock and possible sepsis, underwent stress, cont NGT feeding and DW as needed to support the blood glucose levels Maintain normoglycemia 10. Transaminitis: possible induced secondary to hypotension and further low cardiac output currently improving and cont to monitor 11. SYBIL (acute kidney injury): likely pre renal vs intra renal ATN? hypotension vs later contrast induced, seems multifactorial producing good amount of urine monitor renal parameters and electrolytes with correction 12. Anemia: Patient s/p PCI found to have anemia and s/p PRBC, currently no active source of bleeding continue to monitor CBC and hb with PRBC as needed 13. Lumbar stenosis with neurogenic claudication: Currently on sedation meanwhile 14. Nicotine dependence, cigarettes, with other nicotine-induced disorders: Patient recently quit on 06 March 2025, however still there is a risk of possible withdrawal effects Nicotine patch 15. Episode of recurrent major depressive disorder, unspecified depression episode severity: currently sedated and on mechanical vent hold home anti dep medications 16. Hypothyroidism (acquired): Patient on levothyroxine 100 mcg and liothyronine and to continue through NGT 17. Hyperlipidemia, unspecified hyperlipidemia type: Continue statins 18. Degenerative joint disease (DJD) of lumbar spine: Patient on leflunomide 20 mg, tramadol as needed for pain and prednisone To hold this medication at the moment considering cardiac arrest PDMP PDMP Reviewed: Not Reviewed Attestations 2 Medical Necessity Statement*: Patient will stay more than 2 midnights for the further management of cardiogenic shock requiring vasopressors at the moment and to continue the antibiotics for further address any underlying infectious pathology leading to septic shock which is less likely The patient is still critical however slowly improving, prognosis is also guarded at the moment Time Spent in Patient Care: Greater than 35 minutes (>than 50% of time spent in counselling and/or direct pt care on unit) . Other Attestations: Patient condition has been discussed at length with the patient/family, I have independently reviewed the chart labs imaging/diagnostics/EKG. the goals of care and code status with the patient/family/NOK/legal patient care representative, and documented accordingly. The management has been done according to the current clinical condition with respect to patient goals of care and based on recommendations/guidelines. The patient/family has been informed about the current condition and further plan of care. Agreed with the plan of care and understood without any language barrier. Every effort was made to ensure accuracy of insulation cupola charger. Any obvious errors or omissions should be clarified with the author of the document. Coding Level of Care Code 97122 Diagnoses Cardiac arrest due to underlying cardiac condition I46.2 Sepsis A41.9 Stenosis of superficial femoral artery I70.209 Peripheral arterial occlusive disease I77.9 Thrombocytopenia D69.6 Foot drop M21.379 Coronary artery disease I25.10 Aspiration pneumonia J69.0 Hypoglycemia E16.2 Transaminitis R74.01 SYBIL (acute kidney injury) N17.9 Anemia D64.9 Lumbar stenosis with neurogenic claudication M48.062 Nicotine dependence, cigarettes, with other nicotine-induced disorders F17.218 Episode of recurrent major depressive disorder, unspecified depression episode severity F33.9 Depression Type: major depressive disorder Major depression recurrence: recurrent Active/Remission status: currently active Major depression episode severity: unspecified Hypothyroidism (acquired) E03.9 Hyperlipidemia, unspecified hyperlipidemia type E78.5 Hyperlipidemia type: unspecified Degenerative joint disease (DJD) of lumbar spine M47.816
[2025-03-25 16:08] LABS: Partial Thromboplastin Time 76.3 SECONDS (23.9-36.7)
[2025-03-25 16:44] LABS: Anion Gap 11.8 (5-19); Blood Urea Nitrogen 16 mg/dL (8-23); Calcium 6.8 mg/dL (8.5-10.5); Carbon Dioxide 17 mmol/L (22-29); Chloride 108 mmol/L (98-107); Creatinine Clr Calc Pharmacy 33.1354; Glucose 206 mg/dL (65-115); Osmolality Calculated 285 mOsm/kg (285-295); Sodium 134 mmol/L (136-145)
[2025-03-25 16:46] LABS: Potassium 2.8 mmol/L (3.5-5.1)
[2025-03-25 18:16] LABS: Magnesium 1.7 mg/dL (1.7-2.3)
[2025-03-25 20:04] LABS: Partial Thromboplastin Time 63.5 SECONDS (23.9-36.7)
--- NOTE | 2025-03-25 21:00 | PC.NURSE ---
Argatroban/PTT At 1935, ptt 63.5. Argatroban still paused. Dr. Berry notified; order received to contact cardiology regarding further argatroban orders. Dr. Rodriguez contacted and orders received to check ptt Q4H, restart argatroban drip at initial rate if ptt less than 55 then follow protocol.
[2025-03-26] VITALS (83 sets, daily range): BP systolic 69–154; BP diastolic 46–90; PULSE 94–125; RESP 14–20; TEMP 36.4–37.7; O2SAT 95–100
--- NOTE | 2025-03-26 | PC.NURSE ---
HR Dr. Diaz at bedside; patient update discussed including platelet count, platelet administration, medications administering, and vital signs, particularly HR remaining 110-120. Order received to start amiodarone drip per protocol if heart rate continuously in the 130-140s.
[2025-03-26 00:52] LABS: Partial Thromboplastin Time 57.9 SECONDS (23.9-36.7)
[2025-03-26] MEDS: chlorhexidine gluconate 4% Btl 118 mL 1 APPLIC TOPICAL (03:20)
[2025-03-26 03:59] LABS: Hematocrit 24.1 % (36-47); Hemoglobin 8.00 g/dL (11.27-16.99); Mean Corpuscular HGB Conc 33.2 g/dL (30-55); Mean Corpuscular Hemoglobin 30.0 pg (27-33); Mean Corpuscular Volume 90.3 fl (85-98); Nucleated Red Blood Cells % 0 %; Platelet Count 77 10^3/cmm (157-399); Red Blood Count 2.67 10^6/uL (3.85-5.65); White Blood Count 10.35 10^3/uL (3.29-11.43)
[2025-03-26 04:22] LABS: Alanine Aminotransferase 133 U/L (0-33); Albumin Level 2.4 g/dL (3.5-5.2); Alkaline Phosphatase 138 U/L (35-105); Anion Gap 12.2 (5-19); Aspartate Amino Transferase 102 U/L (0-32); Blood Urea Nitrogen 14 mg/dL (8-23); Calcium 7.6 mg/dL (8.5-10.5); Carbon Dioxide 21 mmol/L (22-29); Chloride 110 mmol/L (98-107); Creatinine Clr Calc Pharmacy 35.2064; Globulin 2.3 g/dL (1.3-4.6); Glucose 83 mg/dL (65-115); Magnesium 1.6 mg/dL (1.7-2.3); Osmolality Calculated 290 mOsm/kg (285-295); Potassium 3.2 mmol/L (3.5-5.1); Sodium 140 mmol/L (136-145); Total Protein 4.7 g/dL (6.6-8.7)
[2025-03-26 04:53] LABS: Partial Thromboplastin Time 57.5 SECONDS (23.9-36.7)
[2025-03-26] MEDS: piperacillin-tazobactam 3.375 GM in sodium chloride 0.9% (plus) 50 ML IV ×3 (05:03→19:32)
--- NOTE | 2025-03-26 05:04 | PC.NURSE ---
KCL Patient's potassium 3.2. Dr. Berry notified; order received for 40 meq KCL IV once.
[2025-03-26] MEDS: lidocaine 1% 5 ML in potassium chloride premix 100 ML 26.25 ML IV ×2 (05:53→20:54)
[2025-03-26] MEDS: metoclopramide 5 mg/mL SDV 2 mL 10 MG IVP ×3 (05:54→21:01)
[2025-03-26] MEDS: pantoprazole 40 mg SDV IVP (05:54)
[2025-03-26] MEDS: guaiFENesin 100 mg/5 mL UDC 10 mL 200 MG PO ×2 (05:54→16:25)
[2025-03-26 08:16] LABS: Partial Thromboplastin Time 55.5 SECONDS (23.9-36.7)
--- NOTE | 2025-03-26 09:37 | P.PN_ITS ---
<Statement entered by Isaias Diaz MD - 03/26/25 19:41> Patient was evaluated and cared for in conjunction with an advanced practice practitioner. I personally examined the patient and reviewed the chart and all pertinent data including imaging, telemetry, and laboratory results. I discussed the patient in detail with the advanced practice practitioner. Please see their note for complete H&P testing result and agreed upon plan of care for the patient Subjective 2 Subjective: Platelets 77 this morning. Argatroban continued. No sedation on currently, she is moving head to voice stimuli. Discussion with family regarding plan of care if she is not able to be extubated. Vitals/I&O/Wt Last Vital Signs Temp 99.6 F 03/26/25 07:23 Pulse 107 H 03/26/25 08:09 Resp 14 03/26/25 08:00 BP 73/46 03/26/25 08:00 Pulse Ox 98 03/26/25 08:00 O2 Del Method Mechanical Ventilation 03/26/25 08:00 FiO2 30 03/26/25 08:00 03/25/25 03/26/25 03/26/25 22:59 06:59 14:59 Intake Total 1050 / 1538.00 155 / 1538.00 Output Total 1050 / 2175 1125 / 2175 250 / 250 Balance 0 / -637.00 -970 / -637.00 -250 / -250 Weight last 48 hrs Weight 143 lb 4.807 oz Weight 169 lb 12.095 oz Physical Exam 2 Chest: COMMONS NORMALS: normal inspection of the chest Resp: COMMON NORMALS: clear to auscultation bilaterally AUSCULTATION: clear to auscultation bilaterally OTHER: intubated Cardio: COMMON NORMALS: S1 normal heart sound present, S2 normal heart sound present and No murmurs present (Cardio) HEART SOUNDS: S1 normal heart sound present and S2 normal heart sound present PERIPHERAL PULSES: radial pulses present, posterior tibial pulses present and dorsalis pedis present Extremity: COMMON NORMALS: no pedal edema Urinary Catheter Management: Archer: Cath Placed During This Visit: yes Reason for Continuing Indwelling Catheter: Accurate Measurement of Urinary Output in Critically Ill Patients Urinary Catheter Date of Insertion: 03/19/25 Urinary Catheter Time of Insertion: 18:47 Data 03/26/25 03:22 11/03/25 03:22 A&P Assessment and plan 1. Shock: 2. Acute coronary syndrome: 3. Cardiac arrest due to underlying cardiac condition: 4. CAD (coronary artery disease): 5. Atrial fibrillation by electrocardiogram: 6. Hypothyroidism (acquired): 7. Acute hypoxemic respiratory failure: 8. Pneumonia: 9. Thrombocytopenia: 10. SYBIL (acute kidney injury): 11. Peripheral arterial occlusive disease: Plan: Platelet count improved, continue argatroban started by hospitalist service. Continue Plavix and statin, recent stents to circumflex and LAD. Hold aspirin given HIT. She appears well compensated, off all pressors. Sinus tachycardia today, rate 107-113 so far this morning. Starting metoprolol succinate 12.5mg daily. Unable to wean from ventilator so far. PDMP PDMP Reviewed: Not Reviewed Attestations 2 Medical Necessity Statement*: ventilator, shock, HIT Coding Level of Care Code Acute Code for Chg Fwd Diagnoses Shock R57.9 Acute coronary syndrome I24.9 Cardiac arrest due to underlying cardiac condition I46.2 CAD (coronary artery disease) I25.10 Atrial fibrillation by electrocardiogram I48.91 Hypothyroidism (acquired) E03.9 Acute hypoxemic respiratory failure J96.01 Pneumonia J18.9 Thrombocytopenia D69.6 SYBIL (acute kidney injury) N17.9 Peripheral arterial occlusive disease I77.9
[2025-03-26] MEDS: metoprolol succinate ER (24 HR) 25 mg Tablet 12.5 MG PO (10:08)
--- NOTE | 2025-03-26 11:53 | PC.NUTR ---
Currently Pt receiving Jevity 1.5 @ 20mls/hr. Recommend increasing to goal rate of 35mls/hr as tolerated with FWF 100mls Q4H or Per MD discretion.
[2025-03-26 12:17] LABS: Partial Thromboplastin Time 53.1 SECONDS (23.9-36.7)
--- NOTE | 2025-03-26 12:18 | P.PN_ITS ---
Subjective 2 Subjective: kym Ureña is a 65 year old female with past medical history of Hypertension, hyperlipidemia, severe CAD, hypothyroidism was experiencing chest pain at home developed V-fib cardiac arrest, resuscitated after chest compressions and brought to ER where she was intubated, placed on pressors, due to being very acidotic bicarb drip started.. Dr. Diaz to the patient for PCI, stents were placed in LAD, circumflex x 2, balloon dilatation of the diagonal branch. EF was found to be 20%. Overnight hemoglobin fell from 9-6.9. Initially blood thinners were given post PCI but on hold currently. Currently tolerating the ventilator settings well but on 100% FiO2.. Chest x- ray showed some right lower lobe infiltrate suggestive of aspiration. Also on levo at 20 and vaso at 0.05. On bicarb drip running at 75 mL, on Amio 0.5, Precedex 0.3, fentanyl 100 mcg. at bedside 03/21/2025 Patient is on 8 of levo drip and off of vasopressin. Off of bicarb drip. Bloody thick secretions noted out of the ET tube. Family at bedside. 03/22/25 Patient is on 2 of levo. Wakes up and follows commands. ETT bloody secretions. 03/23/2025 Patient has minimal ET tube secretions although chest x-ray does show right lower lobe infiltrate. On levo at 6. Low potassium. Frequently having hypoglycemic episodes is on D10 drip currently blood sugars running 100 100s. Tube feeds on as well. Versed and fentanyl running 03/24/2025 Tolerating ventilator well. Last ET tube bloody secretions noted. Due to right and left leg being cold and high potential for thrombotic events arterial ultrasound Dopplers being performed. Only fentanyl 75, tube feeds at 50. D50 running currently blood sugars holding above 100. Levo at 2. 03/25/2025 Last ET tube secretions. No bloody secretions either. Has a right foot drop. No clinically significant stenosis noted on ultrasound cardiology following. Increased NG tube output. 1000 mL suctioned on low intermittent suction. 03/26/2025 Still having thick secretions. Opens eyes but does not follow commands. No bowel movements for 2 or 3 days now. Tolerating ventilator well otherwise. D10 being given to maintain blood sugars above 90. Low-grade fevers noted. Review of systems unobtainable patient is on the vent Vitals/I&O/Wt Last Vital Signs Temp 99.6 F 03/26/25 07:23 Pulse 109 H 03/26/25 11:37 Resp 20 H 03/26/25 11:29 BP 101/62 03/26/25 11:00 Pulse Ox 98 03/26/25 11:29 O2 Del Method Mechanical Ventilation 03/26/25 11:28 FiO2 30 03/26/25 11:29 03/25/25 03/26/25 03/26/25 22:59 06:59 14:59 Intake Total 1050 / 1383.00 155 / 1538.00 Output Total 1050 / 1050 1125 / 2175 250 / 250 Balance 0 / 333.00 -970 / -637.00 -250 / -250 Weight last 48 hrs Weight 143 lb 4.807 oz Weight 169 lb 12.095 oz Physical Exam 2 Narrative: Per RN General: Intubated, sedated ETT less secretions HEENT: EOMI Pulmonary: Diminished breath sounds bilaterally Cardiovascular: rrr, nl s1s2, Abdomen: soft, nt, nd, no r/g, Extremities: no edema Neurologic: Right foot drop noted Agree with above exam Urinary Catheter Management: Archer: Cath Placed During This Visit: yes Reason for Continuing Indwelling Catheter: Accurate Measurement of Urinary Output in Critically Ill Patients Urinary Catheter Date of Insertion: 03/19/25 Urinary Catheter Time of Insertion: 18:47 Data 03/26/25 03:22 03/26/25 03:22 A&P Assessment and plan 1. Acute hypoxemic respiratory failure: 2. Cardiopulmonary arrest with successful resuscitation: 3. Cardiogenic shock: Plan: # Acute hypoxemic respiratory failure - Reviewed chest x-ray 03/22/2025 showing infiltrates in the right base suggestive of aspiration pneumonitis. Small basal right pleural effusion noted as well.could be infiltrate due to either aspiration pneumonitis versus bloody secretions plugging. Will get a chest x-ray again tomorrow. If worsening she may need bronchoscopy. Thick secretions noted. - Vent is #7, weaning trials and SBT 7 - On ventilator support currently tidal volumes of 450, VC-AC, heart rate 14, PEEP of 8, FiO2 40 % currently-satting 96%. - Wean off ventilator first FiO2 to keep O2 sat above 92% -Continue Mucinex. As well as DuoNebs # Acute pulmonary edema Bloody ET tube secretions noted. She is not ready for extubation yet. Will trial SBT tomorrow has a good cough chest x-ray pending today Lasix as needed. Good urine output at 1800 # Cardiogenic shock - Keep Levophed wean as tolerated-keep MAP above 65. Currently at 2. Impella removed 03/22/2025 - Discussed case with Dr. Diaz. Currently very high risk for another cardiac arrest family is aware. She was initially DNR/DNI prior to hospitalization but family has reports that. - Will check BNP and give Lasix. Monitor urine output and creatinine. # Acute renal failure most likely ATN or shock induced although contrast nephropathy cannot be ruled out since she just had PCI 03/19/2025 -Monitor urine output keep above 25 mL/h. May be in shock/ATN. No NSAIDs/ARB's or ROSSY inhibitors to be given. Tolerating diuresis well. Creatinine 1.7 # Acute lactic acidosis Bicarb off # Severe CAD status post PCI Cardiology following appreciate help. # Right pedal pulses feeble - Arterial and venous ultrasound reviewed. Most likely due to being on pressors, dusky appearing feet. Results from 03/24/2025 showing significant arterial insufficiency likely reflecting inflow or postintervention restenosis. Dr. Diaz following, appreciate help. May need angiogram postextubation to evaluate further.. CT head reviewed 03/24/2025 unremarkable # Probable HIT - Argatroban ongoing. HIT panel pending # Anemia -No obvious sign of bleeding. Hemoglobin holding after 2 units of blood at 7.5 reviewed labs today 03/21/2025 # Transaminitis - Improving most likely was related to shock # Probable aspiration pneumonitis/sepsis - Cultures blood and sputum pending. Urine growing Klebsiella pneumonia. stop vancomycin 03/23/2025 labs checked 03/25/2025-growing staph and Pseudomonas. Agree with switching to Zosyn-total of 10 days # Acute cardiomyopathy-repeat echocardiogram showed EF at 40% recent echo # Acute lactic acidosis Most likely secondary to dysoxia related to shock. # Hypoglycemia - Agree with D10 to keep blood sugars above 100. Slowly wean off D10 drip. Keep blood sugars above 100 # Thrombocytopenia - Most likely HIT. HIT panel # Ileus -Monitor BMs. OG to low intermittent wall suction. KUB reviewed has colonic ileus. Dulcolax suppository given. May need enema. # Hyperlipidemia # Anemia stable- hemoglobin 8. 11/70535 # Hypothyroidism # Smoker # Transaminitis -most likely due to shock liver # Hypoalbuminemia # Hyponatremia # Hyperglycemia-insulin sliding scale medium. Avoid hypoglycemia. Maintain blood sugars between 140-180. Dextrose drip continue # Sedation-continue Versed as needed and fentanyl as needed pushes. May use Precedex drip for sedation. # Nutrition-continue tube feeds, monitor BMs # DVT GI prophylaxis-SCDs and famotidine. Ongoing argatroban drip # Goals of care-discussed with at bedside who wants to keep patient full code for now. 03/12/2025. I discussed with son at bedside and talked about possible tracheostomy. He was not sure that is what she would have wanted. Will discuss further and let us know. # CODE STATUS- FULL # Disposition-Will need full ICU support follow-up The high probability of a clinically significant, sudden or life threatening deterioration of the patient's [Respiratory, cardiac and renal] system(s) required my full and direct attention, intervention and personal management. The critical care time is as shown. This time is in addition to time spent performing any reported procedures but includes the following: [x] Data and vital sign review and interpretation [x] Patient assessment, examination and intervention [x] Documentation [x] Medication orders and management Critical Care Time (min): 35 Telemedicine Consent Patient seen today via Telemedicine by agreement and consent of patient.? Telemedicine technology used during the visit includes audio and, as available, review of images.? The patient encounter is appropriate and reasonable under the circumstances given the patient?s particular presentation at this time.? The patient has been advised of the potential risks and limitations of this mode of treatment (including but not limited to the absence of in-person examination) and has agreed to be treated in a remote fashion in spite of them.? Any, and all, of the patient?s/patient?s family?s questions on this issue have been answered and I have made no promises or guarantees to the patient. The patient has also been advised to contact this office for worsening conditions or problems, and seek emergency medical treatment and/or call 911 if the patient deems either necessary PDMP PDMP Reviewed: Not Reviewed Attestations 2 Medical Necessity Statement*: Intubated on the vent Coding Level of Care Code Critical Care >/= 30 minutes Diagnoses Acute hypoxemic respiratory failure J96.01 Cardiopulmonary arrest with successful resuscitation I46.9 Cardiogenic shock R57.0
--- NOTE | 2025-03-26 12:59 | PC.SOCIAL ---
IMM Updated Updated pt's spouse on IMM. No questions voiced. Provided the spouse a copy. Initialed, dated, & timed copy in chart.
[2025-03-26 15:22] LABS: Partial Thromboplastin Time 77.0 SECONDS (23.9-36.7)
--- NOTE | 2025-03-26 16:43 | ECG_ITS ---
[facility] Pat Name: Suzanne Ureña Department: Room: ICU11 Gender: Female Sheet Taker: : 1960 Requested By: Tessa Lizama Order Number: [id number] Wing MD: Landen Calderon M.D. Measurements Intervals [place] Rate: 121 P: 66 VA: 157 QRS: -5 QRSD: 89 T: 77 QT: 415 QTc: 591 Interpretive Statements SINUS TACHYCARDIA LOW QRS VOLTAGE IN EXTREMITY LEADS [QRS DEFLECTION < 0.5 mV IN LIMB LEADS] ABNORMAL RHYTHM ECG Compared to ECG 03/19/2025 18:02:43 Indeterminate axis no longer present Right bundle-branch block no longer present Electronically Signed On 03-27-2025 22:24:41 DEPUTY CHIEF COUNSEL by Landen Calderon M.D. [email or web address]
--- NOTE | 2025-03-26 17:06 | PC.NURSE ---
Patient's heart rate is consistently in the 120s. Dr. Lizama was contacted and she stated to restart precedex drip again and see if it it will help with the agitation.
[2025-03-26] MEDS: dexmedeTOMIDine 0.9 % NaCL 400 MCG/100 ML PREMIX IV (17:22)
--- NOTE | 2025-03-26 17:34 | PM.PN ---
Subjective Subjective: Patient remains intubated. Off all sedation since yesterday. Noted to be tachycardic with heart rate 100-120, sinus tachycardia. Spontaneous breathing trial was not successful today related to apnea and respiratory rate of about 5-7. Medications: Reviewed: Yes Vitals/I&O/Wt Last Vital Signs Temp 100 F H 03/26/25 16:00 Pulse 120 H 03/26/25 16:00 Resp 14 03/26/25 15:27 BP 113/75 03/26/25 16:00 Pulse Ox 97 03/26/25 16:00 O2 Del Method Mechanical Ventilation 03/26/25 16:00 FiO2 30 03/26/25 16:00 03/26/25 03/26/25 03/26/25 06:59 14:59 22:59 Intake Total 155 / 1538.00 50 / 50 953.866 / 1003.866 Output Total 1125 / 2175 250 / 250 450 / 700 Balance -970 / -637.00 -200 / -200 503.866 / 303.866 Weight last 48 hrs Weight 65 kg Weight 77 kg Physical Exam Narrative: General: intubated HEENT: PERRLA, pupils bilaterally equal and reactive, pallors not present Chest: Normal vesicular breath sounds, no added sounds, equal good air entry bilaterally CVS: S1-S2 regular, no murmurs, no tachycardia, no gallops, no rubs Abdomen: Soft, nontender, no organomegaly, bowel sounds present Neuro: No focal deficits, no facial deformity, AO x3, power 5/5 in all limbs Extremities: discolored B/L Toes R > L Urinary Catheter Management: Archer: Cath Placed During This Visit: yes Reason for Continuing Indwelling Catheter: Accurate Measurement of Urinary Output in Critically Ill Patients Urinary Catheter Date of Insertion: 03/19/25 Urinary Catheter Time of Insertion: 18:47 Data 03/26/25 03:22 03/26/25 03:22 A&P Assessment and plan 1. Cardiac arrest due to underlying cardiac condition: Patient s/p V-fib cardiac arrest, with severe acidemia requiring bicarb infusion and later held, improved S/p urgent PCI after STEMI alert, s/p Impella insertion and removal Holding MAP above 65.With low-dose of nor epi and being titrated off Cardiology on board and to follow the plan of care Continue Plavix and statins as per cardio plan Patient was on heparin however due to drop in hemoglobin and low platelets which are still low, the infusion was held, HIT studies sent, argatroban infusion started Of note: Patient was initially DNR as per the however since she was intubated on her way by the EMS patient was taken to the cath for PCI and later underwent Impella. Family appreciated the care and to continue further management as full code after further discussion with the family. 2. Sepsis: Patient s/p cardiac arrest likely underlying cardiogenic in nature severe acidosis s/p bicarb drip, currently off and corrected. ETT cultures grew staphy aureus and pseud aerug sensitive to zosyn, therefore to continue with it for total 14 days minimum with further guidance based on the clinical status of the patient. Initially was on vancomycin which was later on discontinued Monitor intake and output Monitor renal parameters, electrolytes and correction accordingly Maintain normoglycemia NGT feed to continue with increments as tolerated until goal rate ( dietitian consulted ) Radiation Therapy Technologist on board and to follow the recommendation 3. Stenosis of superficial femoral artery: patient having bilateral dusky feet and more on the right foot and improving with rewarming, with foot drop, high likely due to high dose of NE, since there are adequate pulses on clinical exam US venous/arterial done, showed superficial femoral artery stenosis post intervention, having good adequate femoral pulse on examination and adequate perfusion as well with palpable distal tibial artery. cards informed and to start the patient on argatroban HIT studies since platelets are low and to follow 4. Peripheral arterial occlusive disease: as mentioned above 5. Thrombocytopenia: HiT studies to follow hold heparin and related productes started on argatroban infusion and to follow Platelet infusion to keep the platelets above 50,000 or in case of any bleeding 6. Foot drop: likely critical care myopathy CT head negative follow OT/PT 7. Coronary artery disease: Patient was loaded with aspirin and clopidogrel during STEMI alert with 600 mg of clopidogrel once and 325 of aspirin once Continue high-dose statins and Plavix Status post blood transfusion and drop in platelets, held heparin infusion and aspirin at the moment. Continue to monitor Cardiology on board to follow-up 8. Aspiration pneumonia: patient required initially high FIO2 100% and currently on 30-40% improving recieved lasix as well to improve since CXR showed some infiltrates cont vent management fu with pulmonolgist 9. Hypoglycemia: multifactorial since earlier patient had cardiogenic shock and possible sepsis, underwent stress, cont NGT feeding and DW as needed to support the blood glucose levels Maintain normoglycemia 10. Transaminitis: possible induced secondary to hypotension and further low cardiac output currently improving and cont to monitor 11. SYBIL (acute kidney injury): likely pre renal vs intra renal ATN? hypotension vs later contrast induced, seems multifactorial producing good amount of urine monitor renal parameters and electrolytes with correction 12. Anemia: Patient s/p PCI found to have anemia and s/p PRBC, currently no active source of bleeding continue to monitor CBC and hb with PRBC as needed 13. Lumbar stenosis with neurogenic claudication: Currently on sedation meanwhile 14. Nicotine dependence, cigarettes, with other nicotine-induced disorders: Patient recently quit on 06 March 2025, however still there is a risk of possible withdrawal effects Nicotine patch 15. Episode of recurrent major depressive disorder, unspecified depression episode severity: currently sedated and on mechanical vent hold home anti dep medications 16. Hypothyroidism (acquired): Patient on levothyroxine 100 mcg and liothyronine and to continue through NGT 17. Hyperlipidemia, unspecified hyperlipidemia type: Continue statins 18. Degenerative joint disease (DJD) of lumbar spine: Patient on leflunomide 20 mg, tramadol as needed for pain and prednisone To hold this medication at the moment considering cardiac arrest Plan: March 26, 2025. Chart reviewed extensively. 65-year-old lady admitted with V-fib arrest, status post Warp Coiler visit with placement of 2 stents, needing Impella support thereafter. Impella subsequently removed. Echocardiogram showing improving EF postprocedure. Hospital course currently complicated by persisting encephalopathy. CT of the head taken twice during this admission was negative for any acute intracranial events. Concern for potential HIT as received heparin products earlier during the course of admission. Platelet count fell by over 50% during hospital course. Currently on argatroban infusion for HIT. Off pressors today. Blood pressure ranging 97-1 20 systolic millimeter mercury. Bilateral lower extremity toes with discoloration. Lower extremity arterial duplex showing DEYA 0.7 in the right lower extremity. CTA on hold for now given SYBIL. Cardiology following, appreciate recommendations. May be related to high-dose vasopressor use. Currently has ileus for which tube feeding is on hold. Patient off sedation for a weaning trial. Febrile 99.6-100 Fahrenheit today. Has a central line in place from admission which we will remove. Check blood cultures. Chest x-ray showing consolidation bilaterally compatible with pneumonia. Sputum cultures previously have shown Pseudomonas and MSSA. She is currently on piperacillin/tazobactam. Prior history of Klebsiella UTI. Check UA and urine culture. Obtain respiratory viral panel. PDMP PDMP Reviewed: Not Reviewed Attestations Medical Necessity Statement*: Needs continued ventilatory support, off pressors, off sedation, assess for weaning Coding Level of Care Code Acute Code for Chg Fwd High MDM includes number and complexity of problems actively addressed during encounter, amount and/or complexity of data reviewed/ordered and described risk of complication, morbidity or mortality of management as documented Diagnoses Cardiac arrest due to underlying cardiac condition I46.2 Sepsis A41.9 Stenosis of superficial femoral artery I70.209 Peripheral arterial occlusive disease I77.9 Thrombocytopenia D69.6 Foot drop M21.379 Coronary artery disease I25.10 Aspiration pneumonia J69.0 Hypoglycemia E16.2 Transaminitis R74.01 SYBIL (acute kidney injury) N17.9 Anemia D64.9 Lumbar stenosis with neurogenic claudication M48.062 Nicotine dependence, cigarettes, with other nicotine-induced disorders F17.218 Episode of recurrent major depressive disorder, unspecified depression episode severity F33.9 Depression Type: major depressive disorder Major depression recurrence: recurrent Active/Remission status: currently active Major depression episode severity: unspecified Hypothyroidism (acquired) E03.9 Hyperlipidemia, unspecified hyperlipidemia type E78.5 Hyperlipidemia type: unspecified Degenerative joint disease (DJD) of lumbar spine M47.816
[2025-03-26 18:46] LABS: Partial Thromboplastin Time 89.7 SECONDS (23.9-36.7)
[2025-03-26 19:01] LABS: Glucose Urine UA Negative (Normal); Nitrate Urine Negative (Negative); Specific Gravity, Urine 1.013 (1.005-1.030)
[2025-03-26 19:06] LABS: Add Urine Microscopic? YES
[2025-03-26 19:54] LABS: UA Slide Review UA Slide Review Perf
--- NOTE | 2025-03-26 20:18 | ECG_ITS ---
[facility] 2025[facility]26 Pat Name: Suzanne Ureña Department: Room: ICU11 Gender: Female [address]: : [id number] Requested By: Anna Irving Order Number: [id number] Reading MD: Landen Calderon M.D. Measurements Intervals [place] Rate: 113 P: 73 CA: 128 QRS: 4 QRSD: 86 T: 70 QT: 340 QTc: 467 Interpretive Statements SINUS TACHYCARDIA ANTEROSEPTAL MYOCARDIAL INFARCTION , OF INDETERMINATE AGE [40+ ms Q WAVE IN V1-V4] Non diagnostic T wave changes Compared to ECG 03/26/2025 16:43:06 Myocardial infarct finding now present Electronically Signed On 03-27-2025 22:04:11 BEAN WEIGHER by Landen Calderon M.D. [email or web address]
[2025-03-26 20:48] LABS: Coronavirus 229E,HKU1,NL63,OC4 Not Detected (NOT DETECT); Parainfluenza Virus Type 1 Not Detected (NOT DETECT); Parainfluenza Virus Type 2 Not Detected (NOT DETECT); Parainfluenza Virus Type 3 Not Detected (NOT DETECT); Parainfluenza Virus Type 4 Not Detected (NOT DETECT); SARS-COV-2 Not Detected (NOT DETECT)
[2025-03-26] MEDS: FUROsemide 10 mg/mL SDV 2mL 20 MG IVP (21:01)
[2025-03-26] MEDS: norepinephrine 4 MG/250 ML BAG 7.5 MG IV (21:08)
--- NOTE | 2025-03-26 21:19 | PC.NURSE ---
Addendum entered by Srikanth Busby RN 03/26/25 21:22: Witnessed this waste with Teodora Khan RN. Original Note: Wasted 45 ml of fentanyl. Witnessed by LEEANN Duke.
[2025-03-26 21:37] LABS: NT Pro B Type Natriuretic Pept 8806 pg/mL (0-125)
[2025-03-26 22:02] LABS: Partial Thromboplastin Time 114.8 SECONDS (23.9-36.7)
[2025-03-27] VITALS (108 sets, daily range): BP systolic 58–183; BP diastolic 41–133; PULSE 69–116; RESP 10–25; TEMP 37.3; O2SAT 94–100
[2025-03-27 01:09] LABS: Partial Thromboplastin Time 101.5 SECONDS (23.9-36.7)
--- NOTE | 2025-03-27 01:55 | PC.NURSE ---
Addendum entered by Teodora Khan RN 03/27/25 03:59: PTT level 97.1 upon recheck. Received order from Dr Berry to hold argatroban for another hour and recheck a PTT in an hour. Original Note: Patient currently on argatroban drip. PTT result was 101.5. According to protocol, drip should be decreased by 0.2 mcg/kg/hr, but patient's drip was already at 0.1 mcg/kg/hr per last PTT. Contacted Dr Berry. Received order to hold argatroban for 2 hours and recheck PTT level. See JUL.
[2025-03-27 03:32] LABS: Hematocrit 23.3 % (36-47); Hemoglobin 7.90 g/dL (11.27-16.99); Mean Corpuscular HGB Conc 33.9 g/dL (30-55); Mean Corpuscular Hemoglobin 30.0 pg (27-33); Mean Corpuscular Volume 88.6 fl (85-98); Nucleated Red Blood Cells % 0 %; Platelet Count 40 10^3/cmm (157-399); Red Blood Count 2.63 10^6/uL (3.85-5.65); White Blood Count 12.69 10^3/uL (3.29-11.43)
[2025-03-27 03:47] LABS: Alanine Aminotransferase 92 U/L (0-33); Albumin Level 2.4 g/dL (3.5-5.2); Alkaline Phosphatase 124 U/L (35-105); Anion Gap 13.0 (5-19); Aspartate Amino Transferase 72 U/L (0-32); Blood Urea Nitrogen 14 mg/dL (8-23); Calcium 7.6 mg/dL (8.5-10.5); Carbon Dioxide 21 mmol/L (22-29); Chloride 108 mmol/L (98-107); Creatinine Clr Calc Pharmacy 37.2001; Globulin 2.1 g/dL (1.3-4.6); Glucose 104 mg/dL (65-115); Osmolality Calculated 289 mOsm/kg (285-295); Potassium 3.0 mmol/L (3.5-5.1); Sodium 139 mmol/L (136-145); Total Protein 4.5 g/dL (6.6-8.7)
[2025-03-27 03:51] LABS: Partial Thromboplastin Time 97.1 SECONDS (23.9-36.7)
--- NOTE | 2025-03-27 04:00 | XRR_ITS ---
PROCEDURE INFORMATION: Exam: XR Chest Exam date and time: 03/27/2025 5:53 AM Age: 65 years old Clinical indication: Shortness of breath; Additional info: Pneumonia TECHNIQUE: Imaging protocol: Radiologic exam of the chest. Views: 1 view. COMPARISON: CR XR chest 1V portable [id number] 03/25/2025 6:14 PM FINDINGS: Tubes, catheters and devices: Endotracheal tube tip is 6.1 cm above the [place]. Right IJ central venous catheter tip is in the mid SVC. Orogastric tube courses below the diaphragm and off the field of view with the side port below the GE junction. Lungs: Similar streaky bibasilar opacities. No new airspace disease. Pleural spaces: Small bilateral pleural effusions, right slightly more than left. Heart/Mediastinum: Unremarkable. No cardiomegaly. Bones/joints: Unremarkable. XR/XR chest 1V portable [id number] IMPRESSION: No significant interval change.
[2025-03-27 04:12] LABS: ABG PCO2 38.7 mmHg (35-45); ABG PH Result 7.39 (7.35-7.45); Arterial Blood Gas Hematocrit 29.1 % (37-47); Blood Gas Allen Test Pos; Blood Gas Operator Identificat BD; Blood Gas Sample Site Brachial, left; Blood Gas Sample Type Arterial; Blood Gas Tidal Volume 0.45; HCO3 ABG 23.3 mmol/L (22-26); PEEP 8.0 cmH20; PO2 ABG 82.0 mmHg (80.0-100.0); PO2 FiO2 Ratio Arterial Blood 273
[2025-03-27] MEDS: chlorhexidine gluconate 4% Btl 118 mL 1 APPLIC TOPICAL (04:25)
[2025-03-27] MEDS: metoprolol succinate ER (24 HR) 25 mg Tablet 12.5 MG PO (04:30)
[2025-03-27] MEDS: guaiFENesin 100 mg/5 mL UDC 10 mL 200 MG PO ×2 (04:37→16:34)
[2025-03-27] MEDS: piperacillin-tazobactam 3.375 GM in sodium chloride 0.9% (plus) 50 ML IV ×3 (04:45→19:37)
[2025-03-27] MEDS: metoclopramide 5 mg/mL SDV 2 mL 10 MG IVP ×3 (04:49→22:26)
[2025-03-27] MEDS: pantoprazole 40 mg SDV IVP (04:49)
--- NOTE | 2025-03-27 06:36 | XRR_ITS ---
PROCEDURE INFORMATION: Exam: XR Chest Exam date and time: 03/27/2025 8:05 AM Age: 65 years old Clinical indication: Device placement; Picc; Additional info: Post picc insertion, janet placing in icu 11. Should be ready at 0705 TECHNIQUE: Imaging protocol: Radiologic exam of the chest. Views: 1 view. COMPARISON: CR (CHEST, ) 03/27/2025 5:53 AM FINDINGS: Limitations: Portions of the left lung in the right lung base are excluded from the field of view. Tubes, catheters and devices: Interval placement of a left arm PICC with the tip in the lower SVC near the superior cavoatrial junction. Remaining support hardware appears stable. Lungs: Visualized lungs appear unchanged. Pleural spaces: Ongoing bilateral pleural effusions. Heart/Mediastinum: Stable cardiomediastinal silhouette as visualized. Bones/joints: Unremarkable. XR/XR chest 1V portable [id number] IMPRESSION: 1. Interval placement of a left arm PICC with the tip in the lower SVC. 2. Remainder stable.
[2025-03-27 06:46] LABS: Partial Thromboplastin Time 91.1 SECONDS (23.9-36.7)
--- NOTE | 2025-03-27 08:23 | PICC.NOTE ---
Triple lumen PICC placed to left basilic vein. Referred to vascular access nurse for PICC placement due to need for right IJ to be removed per provider request. Risks and benefits discussed and informed consent obtained from pt son at bedside. Left arm assessed with left basilic vein measuring 3.4 mm, straight, and apparent best choice for placement. Using sterile technique and MST, left basilic vein accessed x 1 stick. Mid-arm circumference measured 10 cm from left AC 23 cm. Trimmed cath 45 cm with 0 cm external length noted. CXR shows tip in distal SVC, in good position for use per radiologist. Line secured with stat-lock. Insertion site covered with Biopatch and TSM. Report given to bedside nurse, Jos, RN.
[2025-03-27 09:22] LABS: Partial Thromboplastin Time 78.6 SECONDS (23.9-36.7)
[2025-03-27] MEDS: Fleet Enema 133 mL Enema PR (09:29)
--- NOTE | 2025-03-27 09:38 | P.PN_ITS ---
Subjective 2 Subjective: On precedex, moving legs around in bed. Central line removed today. Noted intermittent fever 99- 100 ?F yesterday and today. Hemoglobin 7.9, platelet 40. Potassium 3.0 this morning, has been replaced. Plan is for bronchoscopy tomorrow. Vitals/I&O/Wt Last Vital Signs Temp 99.2 F 03/27/25 07:30 Pulse 99 03/27/25 09:00 Resp 19 H 03/27/25 08:00 BP 109/63 03/27/25 09:00 Pulse Ox 100 03/27/25 09:00 O2 Del Method Mechanical Ventilation 03/27/25 09:00 FiO2 30 03/27/25 09:00 03/26/25 03/27/25 03/27/25 22:59 06:59 14:59 Intake Total 1036.139 / 1227.952 141.813 / 1227.952 26.328 / 26.328 Output Total 750 / 2800 1800 / 2800 Balance 286.139 / -1572.048 -1658.187 / -1572.048 26.328 / 26.328 Weight last 48 hrs Weight 143 lb 4.807 oz Physical Exam 2 Narrative: intubated, on precedex. Moving both legs. Chest: COMMONS NORMALS: normal inspection of the chest and normal palpation of entire chest wall CHEST: Yes Symmetrical chest wall rise Resp: COMMON NORMALS: normal respiratory effort, No retractions and No use of accessory muscles EFFORT & INSPECTION: Yes symmetric chest movement A USCULTATION: rhonchi Cardio: COMMON NORMALS: regular rate, regular rhythm, S1 normal heart sound present, S2 normal heart sound present, No gallops present (Cardio), No clicks present (Cardio), No murmurs present (Cardio) and No rub (Cardio) RATE: r egular rate RHYTHM: regular rhythm HEART SOUNDS: S1 normal heart sound present and S2 normal heart sound present PERIPHERAL PULSES: radial pulses present, posterior tibial pulses present positive right dopplerable and positive left 2+ and dorsalis pedis present positive right (absent) and positive left 2+ OTHER: dusky toes right foot, anterior and posterior aspect- rest of the foot pink and warm Extremity: COMMON NORMALS: no pedal edema Urinary Catheter Management: Archer: Cath Placed During This Visit: yes Reason for Continuing Indwelling Catheter: Accurate Measurement of Urinary Output in Critically Ill Patients Urinary Catheter Date of Insertion: 03/19/25 Urinary Catheter Time of Insertion: 18:47 Data 03/27/25 03:12 03/27/25 03:12 Micro: Microbiology 03/26/25 17:49 Blood Culture - Preliminary Blood SPECIMEN COLLECTED 03/26/25 18:02 Blood Culture - Preliminary Blood SPECIMEN COLLECTED A&P Assessment and plan 1. Shock: 2. Acute coronary syndrome: 3. Cardiac arrest due to underlying cardiac condition: 4. CAD (coronary artery disease): 5. Atrial fibrillation by electrocardiogram: 6. Hypothyroidism (acquired): 7. Acute hypoxemic respiratory failure: 8. Pneumonia: 9. Peripheral arterial occlusive disease: Plan: She required levophed at 2mcg overnight, has now been weaned. Febrile yesterday, now 99 ?F, antibiotic therapy per hospitalist. Continue Plavix, statin, holding aspirin due to heparin-induced thrombocytopenia. Vent management by Dr. Bailey, pulmonology. Argatroban discontinued. PDMP PDMP Reviewed: Not Reviewed Attestations 2 Medical Necessity Statement*: shock, thrombocytopenia, failed ventilator weaning trial Coding Level of Care Code Acute Code for [facility] Fwd Diagnoses Shock R57.9 Acute coronary syndrome I24.9 Cardiac arrest due to underlying cardiac condition I46.2 CAD (coronary artery disease) I25.10 Atrial fibrillation by electrocardiogram I48.91 Hypothyroidism (acquired) E03.9 Acute hypoxemic respiratory failure J96.01 Pneumonia J18.9 Peripheral arterial occlusive disease I77.9
[2025-03-27 12:12] LABS: Partial Thromboplastin Time 68.9 SECONDS (23.9-36.7)
[2025-03-27 15:47] LABS: Partial Thromboplastin Time 71.7 SECONDS (23.9-36.7)
--- NOTE | 2025-03-27 16:15 | US_ITS ---
WS: [id number] RIGHT UPPER QUADRANT ULTRASOUND HISTORY: fever, deranged LFTs COMPARISON: CT 10/03/2024 Liver: 15.0 cm in length. Normal size liver and echogenicity. No bile duct dilatation or mass. Portal Vein: Normal hepatopetal flow with monophasic waveform. Gallbladder: Surgically absent. CBD: 1.2 cm Pancreas: Normal size and echogenicity. Right kidney: 10.7 cm in length. Normal size and echogenicity. No hydronephrosis or mass. Aorta and IVC: Unremarkable abdominal aorta and IVC. Small RIGHT pleural effusion and a very small amount of ascites is noted. US/US gall bladder [id number] IMPRESSION: 1. Surgically absent gallbladder. 2. Prominent common bile duct is stable and probably on the basis of the roseanne cystectomy. 3. Small RIGHT pleural effusion and small amount of ascites.
--- NOTE | 2025-03-27 16:16 | P.PN_ITS ---
Subjective 2 Subjective: Last febrile 100 Fahrenheit at 4 PM yesterday. Since then Tmax 99 Fahrenheit. Central line removed today. PICC line inserted. WBC count at 12.6. Medications: Reviewed: Yes Vitals/I&O/Wt Last Vital Signs Temp 99.2 F 03/27/25 07:30 Pulse 106 H 03/27/25 16:00 Resp 23 H 03/27/25 15:51 BP 124/85 03/27/25 16:00 Pulse Ox 98 03/27/25 16:00 O2 Del Method Mechanical Ventilation 03/27/25 16:00 FiO2 30 03/27/25 16:00 03/27/25 03/27/25 03/27/25 06:59 14:59 22:59 Intake Total 141.813 / 9964.312 2584.582 / 1082.582 Output Total 1800 / 2800 Balance -1658.187 / -8058.134 3479.582 / 1082.582 Weight last 48 hrs Weight 65 kg Physical Exam 2 Narrative: General: intubated HEENT: PERRLA, pupils bilaterally equal and reactive, pallors not present Chest: Normal vesicular breath sounds, no added sounds, equal good air entry bilaterally CVS: S1-S2 regular, no murmurs, no tachycardia, no gallops, no rubs Abdomen: Soft, nontender, no organomegaly, bowel sounds present Neuro: No focal deficits, no facial deformity, AO x3, power 5/5 in all limbs Extremities: discolored B/L Toes R > L Urinary Catheter Management: Archer: Cath Placed During This Visit: yes Reason for Continuing Indwelling Catheter: Accurate Measurement of Urinary Output in Critically Ill Patients Urinary Catheter Date of Insertion: 03/19/25 Urinary Catheter Time of Insertion: 18:47 Data 03/27/25 03:12 03/27/25 03:12 Micro: Microbiology 03/26/25 17:49 Blood Culture - Preliminary Blood SPECIMEN COLLECTED 03/26/25 18:02 Blood Culture - Preliminary Blood SPECIMEN COLLECTED A&P Assessment and plan 1. Cardiac arrest due to underlying cardiac condition: Patient s/p V-fib cardiac arrest, with severe acidemia requiring bicarb infusion and later held, improved S/p urgent PCI after STEMI alert, s/p Impella insertion and removal Holding MAP above 65.With low-dose of nor epi and being titrated off Cardiology on board and to follow the plan of care Continue Plavix and statins as per cardio plan Patient was on heparin however due to drop in hemoglobin and low platelets which are still low, the infusion was held, HIT studies sent, argatroban infusion started Of note: Patient was initially DNR as per the however since she was intubated on her way by the EMS patient was taken to the cath for PCI and later underwent Impella. Family appreciated the care and to continue further management as full code after further discussion with the family. 2. Sepsis: Patient s/p cardiac arrest likely underlying cardiogenic in nature severe acidosis s/p bicarb drip, currently off and corrected. ETT cultures grew staphy aureus and pseud aerug sensitive to zosyn, therefore to continue with it for total 14 days minimum with further guidance based on the clinical status of the patient. Initially was on vancomycin which was later on discontinued Monitor intake and output Monitor renal parameters, electrolytes and correction accordingly Maintain normoglycemia NGT feed to continue with increments as tolerated until goal rate ( dietitian consulted ) [employer] on board and to follow the recommendation 3. Stenosis of superficial femoral artery: patient having bilateral dusky feet and more on the right foot and improving with rewarming, with foot drop, high likely due to high dose of NE, since there are adequate pulses on clinical exam US venous/arterial done, showed superficial femoral artery stenosis post intervention, having good adequate femoral pulse on examination and adequate perfusion as well with palpable distal tibial artery. cards informed and to start the patient on argatroban HIT studies since platelets are low and to follow 4. Peripheral arterial occlusive disease: as mentioned above 5. Thrombocytopenia: HiT studies to follow hold heparin and related productes started on argatroban infusion and to follow Platelet infusion to keep the platelets above 50,000 or in case of any bleeding 6. Foot drop: likely critical care myopathy CT head negative follow OT/PT 7. Coronary artery disease: Patient was loaded with aspirin and clopidogrel during STEMI alert with 600 mg of clopidogrel once and 325 of aspirin once Continue high-dose statins and Plavix Status post blood transfusion and drop in platelets, held heparin infusion and aspirin at the moment. Continue to monitor Cardiology on board to follow-up 8. Aspiration pneumonia: patient required initially high FIO2 100% and currently on 30-40% improving recieved lasix as well to improve since CXR showed some infiltrates cont vent management fu with pulmonolgist 9. Hypoglycemia: multifactorial since earlier patient had cardiogenic shock and possible sepsis, underwent stress, cont NGT feeding and DW as needed to support the blood glucose levels Maintain normoglycemia 10. Transaminitis: possible induced secondary to hypotension and further low cardiac output currently improving and cont to monitor 11. SYBIL (acute kidney injury): likely pre renal vs intra renal ATN? hypotension vs later contrast induced, seems multifactorial producing good amount of urine monitor renal parameters and electrolytes with correction 12. Anemia: Patient s/p PCI found to have anemia and s/p PRBC, currently no active source of bleeding continue to monitor CBC and hb with PRBC as needed 13. Lumbar stenosis with neurogenic claudication: Currently on sedation meanwhile 14. Nicotine dependence, cigarettes, with other nicotine-induced disorders: Patient recently quit on 06 March 2025, however still there is a risk of possible withdrawal effects Nicotine patch 15. Episode of recurrent major depressive disorder, unspecified depression episode severity: currently sedated and on mechanical vent hold home anti dep medications 16. Hypothyroidism (acquired): Patient on levothyroxine 100 mcg and liothyronine and to continue through NGT 17. Hyperlipidemia, unspecified hyperlipidemia type: Continue statins 18. Degenerative joint disease (DJD) of lumbar spine: Patient on leflunomide 20 mg, tramadol as needed for pain and prednisone To hold this medication at the moment considering cardiac arrest Plan: March 26, 2025. Chart reviewed extensively. 65-year-old lady admitted with V-fib arrest, status post Retrieval Specialist visit with placement of 2 stents, needing Impella support thereafter. Impella subsequently removed. Echocardiogram showing improving EF postprocedure. Hospital course currently complicated by persisting encephalopathy. CT of the head taken twice during this admission was negative for any acute intracranial events. Concern for potential HIT as received heparin products earlier during the course of admission. Platelet count fell by over 50% during hospital course. Currently on argatroban infusion for HIT. Off pressors today. Blood pressure ranging 97-1 20 systolic millimeter mercury. Bilateral lower extremity toes with discoloration. Lower extremity arterial duplex showing DEYA 0.7 in the right lower extremity. CTA on hold for now given SYBIL. Cardiology following, appreciate recommendations. May be related to high- dose vasopressor use. Currently has ileus for which tube feeding is on hold. Patient off sedation for a weaning trial. Febrile 99.6-100 Fahrenheit today. Has a central line in place from admission which we will remove. Check blood cultures. Chest x-ray showing consolidation bilaterally compatible with pneumonia. Sputum cultures previously have shown Pseudomonas and MSSA. She is currently on piperacillin/tazobactam. Prior history of Klebsiella UTI. Check UA and urine culture. Obtain respiratory viral panel. March 27, 2025 Last febrile 100 Fahrenheit at 4 PM. Since then Tmax of 99.2 Fahrenheit. \WBC count stable at 12.6. Platelet count dropped to 40,000. Continues to be on argatroban. HIT serology remains pending. Creatinine stable.Urine output 2100 cc. Repeat blood cultures from yesterday pending. UA from Archer catheter with more than 100 RBC, 6-10 WBC, urine yeast positive. Trace leukocyte esterase. Transaminitis improving, will obtain abdominal imaging specifically gallbladder ultrasound to rule out any acalculous cholecystitis as a reason for her current fever. She this morning with pH of 7.39, pO2 of 82, bicarb 23, CO2 38.7 on 30% FiO2, PEEP of 8. Spontaneous breathing trial today. Plan for bronchoscopy tomorrow with pulmonology. Patient is more awake compared to yesterday, moves bilateral lower extremities, able to flex at the hip and knees. Attempting to move both arms through restraints. Attempting to move upper body as of to set up. She is on Precedex due to above agitation. Still does not follow directed command. She makes eye contact on calling her name however does not follow any commands thereafter. Will likely have a better assessment of her neurological status once extubated. Potentially may have hypoxic encephalopathy related to cardiac arrest. Piperacillin/tazobactam day 8 today. Await culture data. Last sputum culture with Pseudomonas aeruginosa and MSSA. Repeat sputum culture today. Blood culture pending. US GB as above Central line removed. PDMP PDMP Reviewed: Not Reviewed Attestations 2 Medical Necessity Statement*: Continued ventilator management, SBT, bronchoscopy in am Coding Level of Care Code Acute Code for Chg Fwd Diagnoses Cardiac arrest due to underlying cardiac condition I46.2 Sepsis A41.9 Stenosis of superficial femoral artery I70.209 Peripheral arterial occlusive disease I77.9 Thrombocytopenia D69.6 Foot drop M21.379 Coronary artery disease I25.10 Aspiration pneumonia J69.0 Hypoglycemia E16.2 Transaminitis R74.01 SYBIL (acute kidney injury) N17.9 Anemia D64.9 Lumbar stenosis with neurogenic claudication M48.062 Nicotine dependence, cigarettes, with other nicotine-induced disorders F17.218 Episode of recurrent major depressive disorder, unspecified depression episode severity F33.9 Depression Type: major depressive disorder Major depression recurrence: recurrent Active/Remission status: currently active Major depression episode severity: unspecified Hypothyroidism (acquired) E03.9 Hyperlipidemia, unspecified hyperlipidemia type E78.5 Hyperlipidemia type: unspecified Degenerative joint disease (DJD) of lumbar spine M47.816
[2025-03-27 16:25] LABS: ABG PCO2 31.8 mmHg (35-45); ABG PH Result 7.49 (7.35-7.45); Arterial Blood Gas Hematocrit 25.3 % (37-47); Blood Gas Allen Test Pos; Blood Gas Operator Identificat GD; Blood Gas Sample Site Radial, right; Blood Gas Sample Type Arterial; HCO3 ABG 24.1 mmol/L (22-26); PO2 ABG 91.6 mmHg (80.0-100.0); PO2 FiO2 Ratio Arterial Blood 305
[2025-03-27 16:26] LABS: Blood Gas Tidal Volume 0.45; PEEP 8.0 cmH20
[2025-03-27] MEDS: potassium chloride premix 100 ML 25 MEQ IV (16:34)
--- NOTE | 2025-03-27 17:53 | P.PN_ITS ---
Subjective 2 Subjective: kym Ureña is a 65 year old female with past medical history of Hypertension, hyperlipidemia, severe CAD, hypothyroidism was experiencing chest pain at home developed V-fib cardiac arrest, resuscitated after chest compressions and brought to ER where she was intubated, placed on pressors, due to being very acidotic bicarb drip started.. Dr. Diaz to the patient for PCI, stents were placed in LAD, circumflex x 2, balloon dilatation of the diagonal branch. EF was found to be 20%. Overnight hemoglobin fell from 9-6.9. Initially blood thinners were given post PCI but on hold currently. Currently tolerating the ventilator settings well but on 100% FiO2.. Chest x- ray showed some right lower lobe infiltrate suggestive of aspiration. Also on levo at 20 and vaso at 0.05. On bicarb drip running at 75 mL, on Amio 0.5, Precedex 0.3, fentanyl 100 mcg. at bedside 03/21/2025 Patient is on 8 of levo drip and off of vasopressin. Off of bicarb drip. Bloody thick secretions noted out of the ET tube. Family at bedside. 03/22/25 Patient is on 2 of levo. Wakes up and follows commands. ETT bloody secretions. 03/23/2025 Patient has minimal ET tube secretions although chest x-ray does show right lower lobe infiltrate. On levo at 6. Low potassium. Frequently having hypoglycemic episodes is on D10 drip currently blood sugars running 100 100s. Tube feeds on as well. Versed and fentanyl running 03/24/2025 Tolerating ventilator well. Last ET tube bloody secretions noted. Due to right and left leg being cold and high potential for thrombotic events arterial ultrasound Dopplers being performed. Only fentanyl 75, tube feeds at 50. D50 running currently blood sugars holding above 100. Levo at 2. 03/25/2025 Last ET tube secretions. No bloody secretions either. Has a right foot drop. No clinically significant stenosis noted on ultrasound cardiology following. Increased NG tube output. 1000 mL suctioned on low intermittent suction. 03/26/2025 Still having thick secretions. Opens eyes but does not follow commands. No bowel movements for 2 or 3 days now. Tolerating ventilator well otherwise. D10 being given to maintain blood sugars above 90. Low-grade fevers noted. Review of systems unobtainable patient is on the vent Vitals/I&O/Wt Last Vital Signs Temp 99.2 F 03/27/25 07:30 Pulse 106 H 03/27/25 16:00 Resp 15 03/27/25 17:07 BP 124/85 03/27/25 16:00 Pulse Ox 98 03/27/25 17:07 O2 Del Method Mechanical Ventilation 03/27/25 16:00 FiO2 30 03/27/25 17:07 03/27/25 03/27/25 03/27/25 06:59 14:59 22:59 Intake Total 141.813 / 7492.023 4420.827 / 1099.827 50 / 1149.827 Output Total 1800 / 2800 950 / 950 Balance -1658.187 / -7894.372 7548.827 / 1099.827 -900 / 199.827 Weight last 48 hrs Weight 143 lb 4.807 oz Physical Exam 2 Narrative: Per RN General: Intubated, sedated ETT less secretions HEENT: EOMI Pulmonary: Diminished breath sounds bilaterally Cardiovascular: rrr, nl s1s2, Abdomen: soft, nt, nd, no r/g, Extremities: no edema Neurologic: Right foot drop noted Agree with above exam Urinary Catheter Management: Archer: Cath Placed During This Visit: yes Reason for Continuing Indwelling Catheter: Accurate Measurement of Urinary Output in Critically Ill Patients Urinary Catheter Date of Insertion: 03/19/25 Urinary Catheter Time of Insertion: 18:47 Data 03/27/25 03:12 03/27/25 03:12 Micro: Microbiology 03/26/25 17:49 Blood Culture - Preliminary Blood SPECIMEN COLLECTED 03/26/25 18:02 Blood Culture - Preliminary Blood SPECIMEN COLLECTED A&P Assessment and plan 1. Acute hypoxemic respiratory failure: 2. Cardiopulmonary arrest with successful resuscitation: 3. Cardiogenic shock: Plan: # Acute hypoxemic respiratory failure - Reviewed chest x-ray 03/22/2025 showing infiltrates in the right base suggestive of aspiration pneumonitis. Small basal right pleural effusion noted as well.could be infiltrate due to either aspiration pneumonitis versus bloody secretions plugging. Will get a chest x-ray again tomorrow. Bronchoscopy tomorrow- consent obtained. Thick secretions noted. - Vent is #7, weaning trials and SBT daily - On ventilator support currently tidal volumes of 450, VC-AC, heart rate 14, PEEP of 8, FiO2 40 % currently-satting 96%. - Wean off ventilator first FiO2 to keep O2 sat above 92% -Continue Mucinex. As well as DuoNebs # Acute pulmonary edema Bloody ET tube secretions noted. She is not ready for extubation yet. Lasix as needed. Good urine output at 3000 ml # Cardiogenic shock - Keep Levophed wean as tolerated-keep MAP above 65. off levo. Impella removed 03/22/2025 - Discussed case with Dr. Diaz. Currently very high risk for another cardiac arrest family is aware. She was initially DNR/DNI prior to hospitalization but family has reports that. - Prn Lasix. Monitor urine output and creatinine. # Acute renal failure most likely ATN or shock induced although contrast nephropathy cannot be ruled out since she just had PCI 03/19/2025 -Monitor urine output keep above 25 mL/h. May be in shock/ATN. No NSAIDs/ARB's or ROSSY inhibitors to be given. Tolerating diuresis well. Creatinine 1.4 # Acute lactic acidosis Bicarb off # Severe CAD status post PCI Cardiology following appreciate help. # Right pedal pulses feeble - Arterial and venous ultrasound reviewed. Most likely due to being on pressors, dusky appearing feet. Results from 03/24/2025 showing significant arterial insufficiency likely reflecting inflow or postintervention restenosis. Dr. Diaz following, appreciate help. May need angiogram postextubation to evaluate further.. CT head reviewed 03/24/2025 unremarkable # Probable HIT - Argatroban ongoing. HIT panel pending # Anemia -No obvious sign of bleeding. Hemoglobin holding after 2 units of blood at 7.5 reviewed labs today 03/21/2025 # Transaminitis - Improving most likely was related to shock # Probable aspiration pneumonitis/sepsis - Cultures blood and sputum pending. Urine growing Klebsiella pneumonia. stop vancomycin 03/23/2025 labs checked 03/25/2025-growing staph and Pseudomonas. Zosyn-total of 10 days # Acute cardiomyopathy-repeat echocardiogram showed EF at 40% recent echo # Acute lactic acidosis Most likely secondary to dysoxia related to shock. # Hypoglycemia - Agree with D10 to keep blood sugars above 100. Slowly wean off D10 drip. Keep blood sugars above 100 # Thrombocytopenia - Most likely HIT. # Ileus -Monitor BMs. OG to low intermittent wall suction. enema today # Hyperlipidemia # Anemia stable- hemoglobin 8. 11/06957 # Hypothyroidism # Smoker # Transaminitis -most likely due to shock liver # Hypoalbuminemia # Hyponatremia # Hyperglycemia-insulin sliding scale medium. Avoid hypoglycemia. Maintain blood sugars between 140-180. Dextrose drip continue # Sedation-continue Versed as needed and fentanyl as needed pushes. May use Precedex drip for sedation. # Nutrition-continue tube feeds, monitor BMs # DVT GI prophylaxis-SCDs and famotidine. Ongoing argatroban drip # Goals of care-discussed with at bedside who wants to keep patient full code for now. 03/12/2025. I discussed with son at bedside and talked about possible tracheostomy. He was not sure that is what she would have wanted. Will discuss further and let us know. # CODE STATUS- FULL # Disposition-Will need full ICU support follow-up The high probability of a clinically significant, sudden or life threatening deterioration of the patient's [Respiratory, cardiac and renal] system(s) required my full and direct attention, intervention and personal management. The critical care time is as shown. This time is in addition to time spent performing any reported procedures but includes the following: [x] Data and vital sign review and interpretation [x] Patient assessment, examination and intervention [x] Documentation [x] Medication orders and management Critical Care Time (min): 35 Telemedicine Consent Patient seen today via Telemedicine by agreement and consent of patient.? Telemedicine technology used during the visit includes audio and, as available, review of images.? The patient encounter is appropriate and reasonable under the circumstances given the patient?s particular presentation at this time.? The patient has been advised of the potential risks and limitations of this mode of treatment (including but not limited to the absence of in-person examination) and has agreed to be treated in a remote fashion in spite of them.? Any, and all, of the patient?s/patient?s family?s questions on this issue have been answered and I have made no promises or guarantees to the patient. The patient has also been advised to contact this office for worsening conditions or problems, and seek emergency medical treatment and/or call 911 if the patient deems either necessary PDMP PDMP Reviewed: Not Reviewed Attestations 2 Medical Necessity Statement*: intubated, on mechanical ventillation Coding Level of Care Code Critical Care >/= 30 minutes Diagnoses Acute hypoxemic respiratory failure J96.01 Cardiopulmonary arrest with successful resuscitation I46.9 Cardiogenic shock R57.0
[2025-03-27 18:18] LABS: Partial Thromboplastin Time 66.4 SECONDS (23.9-36.7)
[2025-03-27] MEDS: dexmedeTOMIDine 0.9 % NaCL 400 MCG/100 ML PREMIX IV (18:58)
[2025-03-27 20:35] LABS: Partial Thromboplastin Time 66.2 SECONDS (23.9-36.7)
[2025-03-27] MEDS: fentaNYL 1,000 MCG/100 ML BAG 2.5 MCG IV (21:53)
--- NOTE | 2025-03-27 22:00 | PC.NURSE ---
Contacted Dr Berry regarding patient's lack of sedation. Patient thrashing legs around in bed in apparent discomfort. Patient only on precedex drip. Received orders to continue increasing patient's precedex drip. See MAR for titrations. Patient again thrashing legs in bed, hitting ET tube with knees, flailing body side to side, pulling against restraints, and pulling head side to side against the vent. Patient succeeded in disconnecting vent tubing due to thrashing head side to side, and was immediately reconnected by nursing staff. Noted almost constant facial grimacing and furrowed brow, unable to follow any commands, but appeared to be attempting to speak around ET tube. Called Dr Berry again to voice concern over the possibility of patient self-extubating due to movement. Received order for fentanyl drip. See MAR. Dr Diaz to bedside to check on patient who stated to keep patient sedated until the morning. Patient now resting in bed.
[2025-03-27 23:36] LABS: Partial Thromboplastin Time 68.4 SECONDS (23.9-36.7)
[2025-03-28] VITALS (102 sets, daily range): BP systolic 65–154; BP diastolic 47–105; PULSE 66–100; RESP 14–26; TEMP 35.1–37.5; O2SAT 93–100
[2025-03-28] MEDS: dexmedeTOMIDine 0.9 % NaCL 400 MCG/100 ML PREMIX 14.74 MCG IV (01:09)
[2025-03-28 02:48] LABS: Hematocrit 21.0 % (36-47); Hemoglobin 7.10 g/dL (11.27-16.99); Mean Corpuscular HGB Conc 33.8 g/dL (30-55); Mean Corpuscular Hemoglobin 29.7 pg (27-33); Mean Corpuscular Volume 87.9 fl (85-98); Nucleated Red Blood Cells % 0 %; Platelet Count 39 10^3/cmm (157-399); Red Blood Count 2.39 10^6/uL (3.85-5.65); White Blood Count 11.73 10^3/uL (3.29-11.43)
[2025-03-28 02:59] LABS: Partial Thromboplastin Time 63.6 SECONDS (23.9-36.7)
[2025-03-28 03:03] LABS: Alanine Aminotransferase 62 U/L (0-33); Albumin Level 2.1 g/dL (3.5-5.2); Alkaline Phosphatase 145 U/L (35-105); Anion Gap 12.5 (5-19); Aspartate Amino Transferase 69 U/L (0-32); Blood Urea Nitrogen 12 mg/dL (8-23); Calcium 7.0 mg/dL (8.5-10.5); Carbon Dioxide 21 mmol/L (22-29); Chloride 103 mmol/L (98-107); Creatinine Clr Calc Pharmacy 43.4002; Globulin 2.2 g/dL (1.3-4.6); Glucose 381 mg/dL (65-115); Osmolality Calculated 293 mOsm/kg (285-295); Sodium 134 mmol/L (136-145); Total Protein 4.3 g/dL (6.6-8.7)
[2025-03-28 03:17] LABS: Potassium 2.5 mmol/L (3.5-5.1)
[2025-03-28 03:41] LABS: ABG PCO2 37.2 mmHg (35-45); ABG PH Result 7.42 (7.35-7.45); Arterial Blood Gas Hematocrit 26.9 % (37-47); Blood Gas Allen Test Pos; Blood Gas Operator Identificat BD; Blood Gas Sample Site Brachial, right; Blood Gas Sample Type Arterial; Blood Gas Tidal Volume 0.45; HCO3 ABG 24.3 mmol/L (22-26); PEEP 8.0 cmH20; PO2 ABG 104.0 mmHg (80.0-100.0); PO2 FiO2 Ratio Arterial Blood 346
[2025-03-28] MEDS: piperacillin-tazobactam 3.375 GM in sodium chloride 0.9% (plus) 50 ML IV ×3 (03:44→19:33)
[2025-03-28] MEDS: lidocaine 1% 5 ML in potassium chloride premix 100 ML 26.25 ML IV ×2 (03:44→07:25)
--- NOTE | 2025-03-28 04:00 | XRR_ITS ---
PROCEDURE INFORMATION: Exam: XR Chest Exam date and time: 03/28/2025 4:55 AM Age: 65 years old Clinical indication: Shortness of breath; Additional info: Cxrp TECHNIQUE: Imaging protocol: Radiologic exam of the chest. Views: 1 view. COMPARISON: CR (CHEST, ) 03/27/2025 8:05 AM FINDINGS: Tubes, catheters and devices: Endotracheal tube is above the [place]. Left upper extremity PICC projects over the SVC. Enteric tube terminates in the stomach. Lungs: Bilateral perihilar and right lung opacities. Left basilar consolidation. Pleural spaces: No pleural effusion. No pneumothorax. Heart/Mediastinum: No cardiomegaly. Bones/joints: No acute fracture. XR/XR chest 1V portable [id number] IMPRESSION: Bilateral perihilar and right lung opacities. Left basilar consolidation. Findings may represent pneumonia.
[2025-03-28] MEDS: metoprolol succinate ER (24 HR) 25 mg Tablet 12.5 MG PO (04:08)
[2025-03-28] MEDS: guaiFENesin 100 mg/5 mL UDC 10 mL 200 MG PO (04:14)
[2025-03-28] MEDS: pantoprazole 40 mg SDV IVP (04:18)
[2025-03-28] MEDS: metoclopramide 5 mg/mL SDV 2 mL 10 MG IVP ×3 (04:32→21:47)
[2025-03-28 05:22] LABS: Partial Thromboplastin Time 68.0 SECONDS (23.9-36.7)
[2025-03-28 05:37] LABS: Free T4 Free Thyroxine 0.36 ng/dL (0.82-1.77)
[2025-03-28 05:39] LABS: Thyroid Stimulating Hormone 8.14 uIU/mL (0.27-4.20)
[2025-03-28] MEDS: dexmedeTOMIDine 0.9 % NaCL 400 MCG/100 ML PREMIX 10.32 MCG IV ×2 (06:17→20:39)
[2025-03-28 07:52] LABS: Partial Thromboplastin Time 60.3 SECONDS (23.9-36.7)
--- NOTE | 2025-03-28 08:26 | P.PN_ITS ---
<Statement entered by Isaias Diaz MD - 03/30/25 19:33> Patient was evaluated and cared for in conjunction with an advanced practice practitioner. I personally examined the patient and reviewed the chart and all pertinent data including imaging, telemetry, and laboratory results. I discussed the patient in detail with the advanced practice practitioner. Please see their note for complete H&P testing result and agreed upon plan of care for the patient. Subjective 2 Subjective: Bronchoscopy planned today. Continued discussion with family regarding possible extubation versus tracheostomy and transfer to long-term care facility. According to family, patient previously expressed she did not want to be intubated long-term. She will need an MRI of brain after extubation to assess for possible stroke due to her neurological status if she is not made comfort care status. She is not on much sedation but is not able to follow commands and no purposeful movements. She required Esperanza hugger warming overnight due to drop in temperature to 95.8 ?F. Temperature now up to 97.7 ?F without warming blanket. She becomes hypotensive during sleep, has required Levophed infusion intermittently. Hemoglobin 7.1, was 7.9-8 for the last few days, but has been as low as 6.9 this admission. Urine output good. Vitals/I&O/Wt Last Vital Signs Temp 95.8 F L 03/28/25 06:21 Pulse 70 03/28/25 08:00 Resp 14 03/28/25 08:00 BP 132/85 03/28/25 06:00 Pulse Ox 99 03/28/25 08:00 O2 Del Method Mechanical Ventilation 03/28/25 08:00 FiO2 30 03/28/25 08:00 03/27/25 03/28/25 03/28/25 22:59 06:59 14:59 Intake Total 440.450 / 2207.475 667.198 / 2207.475 335.854 / 335.854 Output Total 950 / 1425 475 / 1425 Balance -509.550 / 782.475 192.198 / 782.475 335.854 / 335.854 Physical Exam 2 Chest: COMMONS NORMALS: normal inspection of the chest and normal palpation of entire chest wall CHEST: Yes Symmetrical chest wall rise Resp: COMMON NORMALS: No retractions and No use of accessory muscles EFFORT & INSPECTION: Yes symmetric chest movement AUSCULTATION: rales (coarse) bilateral Cardio: COMMON NORMALS: regular rate, regular rhythm, S1 normal heart sound present, S2 normal heart sound present, No gallops present (Cardio), No clicks present (Cardio), No murmurs present (Cardio) and No rub (Cardio) RATE: r egular rate RHYTHM: regular rhythm HEART SOUNDS: S1 normal heart sound present and S2 normal heart sound present PERIPHERAL PULSES: radial pulses present, posterior tibial pulses present positive right dopplerable and positive left 2+ and dorsalis pedis present positive right other (absent) and positive left 2+ OTHER: right foot toes are dusky, right foot is pink and warm Extremity: COMMON NORMALS: no pedal edema Neuro: COMMON NORMALS: moves all extremities (Unable to follow commands) Urinary Catheter Management: Archer: Cath Placed During This Visit: yes Reason for Continuing Indwelling Catheter: Accurate Measurement of Urinary Output in Critically Ill Patients Urinary Catheter Date of Insertion: 03/19/25 Urinary Catheter Time of Insertion: 18:47 Data 03/28/25 02:20 03/28/25 02:20 Micro: Microbiology 03/26/25 17:49 Blood Culture - Preliminary Blood NEGATIVE TO DATE 03/26/25 18:02 Blood Culture - Preliminary Blood NEGATIVE TO DATE A&P Assessment and plan 1. Cardiac arrest due to underlying cardiac condition: 2. Acute coronary syndrome: 3. Shock: 4. Thrombocytopenia: 5. Peripheral arterial occlusive disease: 6. Nicotine dependence, cigarettes, with other nicotine-induced disorders: Plan: Continue Plavix due to recent circumflex and mLAD stents, metoprolol succinate 12.5 mg daily, statin. Aspirin withheld due to thrombocytopenia, platelet count 39 today. Potassium replaced. Liver enzymes improving. She appears euvolemic. PDMP PDMP Reviewed: Not Reviewed Attestations 2 Medical Necessity Statement*: bronch today, hypotension requiring vasopressor Coding Level of Care Code Acute Code for [facility] Diagnoses Cardiac arrest due to underlying cardiac condition I46.2 Acute coronary syndrome I24.9 Shock R57.9 Thrombocytopenia D69.6 Peripheral arterial occlusive disease I77.9 Nicotine dependence, cigarettes, with other nicotine-induced disorders F17.218
[2025-03-28 11:08] LABS: Partial Thromboplastin Time 53.7 SECONDS (23.9-36.7)
[2025-03-28] MEDS: fentaNYL 50 mcg/mL INJ 2mL 100 MCG IVP (11:39)
[2025-03-28] MEDS: midazolam 1 mg/mL INJ 2 mL 5 MG IVP (11:40)
--- NOTE | 2025-03-28 12:13 | P.OP_ITS ---
Procedure: Flexible bronchoscopy Attending: Oneil Bailey MD Indication: Bilateral lower lobes infiltrates Medications: Lidocaine 2% (8 cc) applied to the tracheobronchial tree [place] Protocol: Pre-procedure Verification: Prior to the procedure, the patient's identity was confirmed using full name, date of , and medical record number. Identity verification included a review of all relevant medical records, history, physical examination, medications, allergies, and previous anesthesia tolerance. Risks, benefits, sedation options, and associated risks were reviewed with the patient, and informed consent was obtained after addressing all questions. Time-Out: Immediately before the procedure, a time-out was conducted to confirm patient identification, procedure details, consent, image labeling, and the need for prophylactic antibiotics. This was verified by the physician, nurse, anesthesiologist, and director strategy. Outcome: The procedure was completed without difficulty, and the patient tolerated it well. Findings: A thorough airway exam was performed after passage of the bronchoscope via ETT The trachea was anatomically normal. The right sided airway was anatomically normal without endobronchial lesions. Lots of thick mucus secretions suctioned out The left sided airway was anatomically normal without endobronchial lesions. Lots of thick mucus secretions suctioned out After confirming our location, we proceeded to sampling. A bronchoalveolar lavage was performed of the lobe containing the target lesion with 120mL of saline instilled and 40 mL of effluent returned. Additional rinse from the bronchoscope lumen was added to the sample after removal of the scope. ([id number]) [place] Bleeding Scale Grade 1: Suctioning <1 minute. Bleeding of no clinical consequence to patient or provider. Following completion of all diagnostic and therapeutic procedures, hemostasis was verified. The scope was removed and procedure concluded. In summary, the following procedures were performed: [id number] BAL, (Bronchoalveolar Lavage), Oneil Bailey MD Pulmonary and Critical Care
--- NOTE | 2025-03-28 12:15 | P.PN_ITS ---
Subjective 2 Subjective: kym Ureña is a 65 year old female with past medical history of Hypertension, hyperlipidemia, severe CAD, hypothyroidism was experiencing chest pain at home developed V-fib cardiac arrest, resuscitated after chest compressions and brought to ER where she was intubated, placed on pressors, due to being very acidotic bicarb drip started.. Dr. Diaz to the patient for PCI, stents were placed in LAD, circumflex x 2, balloon dilatation of the diagonal branch. EF was found to be 20%. Overnight hemoglobin fell from 9-6.9. Initially blood thinners were given post PCI but on hold currently. Currently tolerating the ventilator settings well but on 100% FiO2.. Chest x- ray showed some right lower lobe infiltrate suggestive of aspiration. Also on levo at 20 and vaso at 0.05. On bicarb drip running at 75 mL, on Amio 0.5, Precedex 0.3, fentanyl 100 mcg. at bedside 03/21/2025 Patient is on 8 of levo drip and off of vasopressin. Off of bicarb drip. Bloody thick secretions noted out of the ET tube. Family at bedside. 03/22/25 Patient is on 2 of levo. Wakes up and follows commands. ETT bloody secretions. 03/23/2025 Patient has minimal ET tube secretions although chest x-ray does show right lower lobe infiltrate. On levo at 6. Low potassium. Frequently having hypoglycemic episodes is on D10 drip currently blood sugars running 100 100s. Tube feeds on as well. Versed and fentanyl running 03/24/2025 Tolerating ventilator well. Last ET tube bloody secretions noted. Due to right and left leg being cold and high potential for thrombotic events arterial ultrasound Dopplers being performed. Only fentanyl 75, tube feeds at 50. D50 running currently blood sugars holding above 100. Levo at 2. 03/25/2025 Last ET tube secretions. No bloody secretions either. Has a right foot drop. No clinically significant stenosis noted on ultrasound cardiology following. Increased NG tube output. 1000 mL suctioned on low intermittent suction. 03/26/2025 Still having thick secretions. Opens eyes but does not follow commands. No bowel movements for 2 or 3 days now. Tolerating ventilator well otherwise. D10 being given to maintain blood sugars above 90. Low-grade fevers noted. 03/28/2025 Thick secretions still but tolerating low vent settings well. Son and at bedside Review of systems unobtainable patient is on the vent Vitals/I&O/Wt Last Vital Signs Temp 97.7 F 03/28/25 10:00 Pulse 78 03/28/25 11:56 Resp 14 03/28/25 11:56 BP 75/51 03/28/25 10:00 Pulse Ox 98 03/28/25 11:56 O2 Del Method Mechanical Ventilation 03/28/25 11:56 FiO2 30 03/28/25 11:56 03/27/25 03/28/25 03/28/25 22:59 06:59 14:59 Intake Total 440.450 / 1540.277 667.198 / 2207.475 423.397 / 423.397 Output Total 950 / 950 475 / 1425 Balance -509.550 / 590.277 192.198 / 782.475 423.397 / 423.397 Physical Exam 2 Narrative: General: Intubated, sedated ETT less secretions HEENT: EOMI Pulmonary: Diminished breath sounds bilaterally Cardiovascular: rrr, nl s1s2, Abdomen: soft, nt, nd, no r/g, Extremities: no edema Neurologic: Right foot drop noted Urinary Catheter Management: Archer: Cath Placed During This Visit: yes Reason for Continuing Indwelling Catheter: Accurate Measurement of Urinary Output in Critically Ill Patients Urinary Catheter Date of Insertion: 03/19/25 Urinary Catheter Time of Insertion: 18:47 Data 03/28/25 02:20 03/28/25 13:16 Micro: Microbiology 03/27/25 16:25 Gram Stain - Final Sputum - Endotracheal Tube Aspirate 03/26/25 17:49 Blood Culture - Preliminary Blood NEGATIVE TO DATE 03/26/25 18:02 Blood Culture - Preliminary Blood NEGATIVE TO DATE A&P Assessment and plan 1. Acute hypoxemic respiratory failure: 2. Cardiopulmonary arrest with successful resuscitation: 3. Cardiogenic shock: Plan: # Acute hypoxemic respiratory failure - Reviewed chest x-ray 03/22/2025 showing infiltrates in the right base suggestive of aspiration pneumonitis. Small basal right pleural effusion noted as well.could be infiltrate due to either aspiration pneumonitis versus bloody secretions plugging. Will get a chest x-ray again tomorrow. Bronchoscopy today- consent obtained. Thick secretions noted. - Vent is #10, weaning trials and SBT daily - On ventilator support currently tidal volumes of 450, VC-AC, heart rate 14, PEEP of 8, FiO2 40 % currently-satting 96%. - Wean off ventilator first FiO2 to keep O2 sat above 92% -Continue Mucinex. As well as DuoNebs # Acute pulmonary edema Bloody ET tube secretions noted. She is not ready for extubation yet. Lasix as needed. Good urine output at 3000 ml # Cardiogenic shock - Keep Levophed wean as tolerated-keep MAP above 65. off levo. Impella removed 03/22/2025 - Discussed case with Dr. Diaz. Currently very high risk for another cardiac arrest family is aware. She was initially DNR/DNI prior to hospitalization but family has reports that. - Prn Lasix. Monitor urine output and creatinine. # Acute renal failure most likely ATN or shock induced although contrast nephropathy cannot be ruled out since she just had PCI 03/19/2025 -Monitor urine output keep above 25 mL/h. May be in shock/ATN. No NSAIDs/ARB's or ROSSY inhibitors to be given. Tolerating diuresis well. Creatinine 1.4 # Acute lactic acidosis Bicarb off # Severe CAD status post PCI Cardiology following appreciate help. # Right pedal pulses feeble - Arterial and venous ultrasound reviewed. Most likely due to being on pressors, dusky appearing feet. Results from 03/24/2025 showing significant arterial insufficiency likely reflecting inflow or postintervention restenosis. Dr. Diaz following, appreciate help. May need angiogram postextubation to evaluate further.. CT head reviewed 03/24/2025 unremarkable # Probable HIT - Argatroban ongoing. HIT panel pending # Anemia -No obvious sign of bleeding. Hemoglobin holding after 2 units of blood at 7.5 reviewed labs today 03/21/2025 # Transaminitis - Improving most likely was related to shock # Probable aspiration pneumonitis/sepsis - Cultures blood and sputum pending. Urine growing Klebsiella pneumonia. stop vancomycin 03/23/2025 labs checked 03/25/2025-growing staph and Pseudomonas. Zosyn-total of 10 days # Acute cardiomyopathy-repeat echocardiogram showed EF at 40% recent echo # Acute lactic acidosis Most likely secondary to dysoxia related to shock. # Hypoglycemia - Agree with D10 to keep blood sugars above 100. Slowly wean off D10 drip. Keep blood sugars above 100 # Thrombocytopenia - Most likely HIT. # Ileus -Monitor BMs. OG to low intermittent wall suction. enema today # Hyperlipidemia # Anemia stable- hemoglobin 8. 11/13212 # Hypothyroidism # Smoker # Transaminitis -most likely due to shock liver # Hypoalbuminemia # Hyponatremia # Hyperglycemia-insulin sliding scale medium. Avoid hypoglycemia. Maintain blood sugars between 140-180. Dextrose drip continue # Sedation-continue Versed as needed and fentanyl as needed pushes. May use Precedex drip for sedation. # Nutrition-continue tube feeds, monitor BMs # DVT GI prophylaxis-SCDs and famotidine. Ongoing argatroban drip # Goals of care-discussed with at bedside who wants to keep patient full code for now. 03/12/2025. I discussed with son at bedside and talked about possible tracheostomy. He was not sure that is what she would have wanted. Will discuss further and let us know. 03/28- son wants her to be extubated and dni. Thinking about DNR # CODE STATUS- FULL # Disposition-Will need full ICU support follow-up The high probability of a clinically significant, sudden or life threatening deterioration of the patient's [Respiratory, cardiac and renal] system(s) required my full and direct attention, intervention and personal management. The critical care time is as shown. This time is in addition to time spent performing any reported procedures but includes the following: [x] Data and vital sign review and interpretation [x] Patient assessment, examination and intervention [x] Documentation [x] Medication orders and management Critical Care Time (min): 35 PDMP PDMP Reviewed: Not Reviewed Attestations 2 Medical Necessity Statement*: intubated Coding Level of Care Code Critical Care >/= 30 minutes Diagnoses Acute hypoxemic respiratory failure J96.01 Cardiopulmonary arrest with successful resuscitation I46.9 Cardiogenic shock R57.0
--- NOTE | 2025-03-28 12:24 | PM.PN ---
Subjective Subjective: Plan for bronchoscopy this morning. Currently on pressure support. Tolerating well. Needed to be restarted on Levophed 2 mics overnight to maintain maps. No longer febrile Medications: Reviewed: Yes Vitals/I&O/Wt Last Vital Signs Temp 97.7 F 03/28/25 10:00 Pulse 78 03/28/25 11:56 Resp 14 03/28/25 11:56 BP 75/51 03/28/25 10:00 Pulse Ox 98 03/28/25 11:56 O2 Del Method Mechanical Ventilation 03/28/25 11:56 FiO2 30 03/28/25 11:56 03/27/25 03/28/25 03/28/25 22:59 06:59 14:59 Intake Total 440.450 / 1540.277 667.198 / 2207.475 436.397 / 436.397 Output Total 950 / 950 475 / 1425 Balance -509.550 / 590.277 192.198 / 782.475 436.397 / 436.397 Physical Exam Narrative: General: intubated HEENT: PERRLA, pupils bilaterally equal and reactive, pallors not present Chest: Normal vesicular breath sounds, no added sounds, equal good air entry bilaterally CVS: S1-S2 regular, no murmurs, no tachycardia, no gallops, no rubs Abdomen: Soft, nontender, no organomegaly, bowel sounds present Neuro: No focal deficits, no facial deformity, AO x3, power 5/5 in all limbs Extremities: discolored B/L Toes R > L Urinary Catheter Management: Archer: Cath Placed During This Visit: yes Reason for Continuing Indwelling Catheter: Accurate Measurement of Urinary Output in Critically Ill Patients Urinary Catheter Date of Insertion: 03/19/25 Urinary Catheter Time of Insertion: 18:47 Data 03/28/25 02:20 03/28/25 02:20 Micro: Microbiology 03/27/25 16:25 Gram Stain - Final Sputum - Endotracheal Tube Aspirate 03/26/25 17:49 Blood Culture - Preliminary Blood NEGATIVE TO DATE 03/26/25 18:02 Blood Culture - Preliminary Blood NEGATIVE TO DATE A&P Assessment and plan 1. Cardiac arrest due to underlying cardiac condition: Patient s/p V-fib cardiac arrest, with severe acidemia requiring bicarb infusion and later held, improved S/p urgent PCI after STEMI alert, s/p Impella insertion and removal Holding MAP above 65.With low-dose of nor epi and being titrated off Cardiology on board and to follow the plan of care Continue Plavix and statins as per cardio plan Patient was on heparin however due to drop in hemoglobin and low platelets which are still low, the infusion was held, HIT studies sent, argatroban infusion started Of note: Patient was initially DNR as per the however since she was intubated on her way by the EMS patient was taken to the cath for PCI and later underwent Impella. Family appreciated the care and to continue further management as full code after further discussion with the family. 2. Sepsis: Patient s/p cardiac arrest likely underlying cardiogenic in nature severe acidosis s/p bicarb drip, currently off and corrected. ETT cultures grew staphy aureus and pseud aerug sensitive to zosyn, therefore to continue with it for total 14 days minimum with further guidance based on the clinical status of the patient. Initially was on vancomycin which was later on discontinued Monitor intake and output Monitor renal parameters, electrolytes and correction accordingly Maintain normoglycemia NGT feed to continue with increments as tolerated until goal rate ( dietitian consulted ) Certified Wellness Program Coordinator on board and to follow the recommendation 3. Stenosis of superficial femoral artery: patient having bilateral dusky feet and more on the right foot and improving with rewarming, with foot drop, high likely due to high dose of NE, since there are adequate pulses on clinical exam US venous/arterial done, showed superficial femoral artery stenosis post intervention, having good adequate femoral pulse on examination and adequate perfusion as well with palpable distal tibial artery. cards informed and to start the patient on argatroban HIT studies since platelets are low and to follow 4. Peripheral arterial occlusive disease: as mentioned above 5. Thrombocytopenia: HiT studies to follow hold heparin and related productes started on argatroban infusion and to follow Platelet infusion to keep the platelets above 50,000 or in case of any bleeding 6. Foot drop: likely critical care myopathy CT head negative follow OT/PT 7. Coronary artery disease: Patient was loaded with aspirin and clopidogrel during STEMI alert with 600 mg of clopidogrel once and 325 of aspirin once Continue high-dose statins and Plavix Status post blood transfusion and drop in platelets, held heparin infusion and aspirin at the moment. Continue to monitor Cardiology on board to follow-up 8. Aspiration pneumonia: patient required initially high FIO2 100% and currently on 30-40% improving recieved lasix as well to improve since CXR showed some infiltrates cont vent management fu with pulmonolgist 9. Hypoglycemia: multifactorial since earlier patient had cardiogenic shock and possible sepsis, underwent stress, cont NGT feeding and DW as needed to support the blood glucose levels Maintain normoglycemia 10. Transaminitis: possible induced secondary to hypotension and further low cardiac output currently improving and cont to monitor 11. SYBIL (acute kidney injury): likely pre renal vs intra renal ATN? hypotension vs later contrast induced, seems multifactorial producing good amount of urine monitor renal parameters and electrolytes with correction 12. Anemia: Patient s/p PCI found to have anemia and s/p PRBC, currently no active source of bleeding continue to monitor CBC and hb with PRBC as needed 13. Lumbar stenosis with neurogenic claudication: Currently on sedation meanwhile 14. Nicotine dependence, cigarettes, with other nicotine-induced disorders: Patient recently quit on 06 March 2025, however still there is a risk of possible withdrawal effects Nicotine patch 15. Episode of recurrent major depressive disorder, unspecified depression episode severity: currently sedated and on mechanical vent hold home anti dep medications 16. Hypothyroidism (acquired): Patient on levothyroxine 100 mcg and liothyronine and to continue through NGT 17. Hyperlipidemia, unspecified hyperlipidemia type: Continue statins 18. Degenerative joint disease (DJD) of lumbar spine: Patient on leflunomide 20 mg, tramadol as needed for pain and prednisone To hold this medication at the moment considering cardiac arrest Plan: March 26, 2025. Chart reviewed extensively. 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 Impella subsequently removed. Echocardiogram showing improving EF postprocedure. Hospital course currently complicated by persisting encephalopathy. CT of the head taken twice during this admission was negative for any acute intracranial events. Concern for potential HIT as received heparin products earlier during the course of admission. Platelet count fell by over 50% during hospital course. Currently on argatroban infusion for HIT. Off pressors today. Blood pressure ranging 97-1 20 systolic millimeter mercury. Bilateral lower extremity toes with discoloration. Lower extremity arterial duplex showing DEYA 0.7 in the right lower extremity. CTA on hold for now given SYBIL. Cardiology following, appreciate recommendations. May be related to high-dose vasopressor use. Currently has ileus for which tube feeding is on hold. Patient off sedation for a weaning trial. Febrile 99.6-100 Fahrenheit today. Has a central line in place from admission which we will remove. Check blood cultures. Chest x-ray showing consolidation bilaterally compatible with pneumonia. Sputum cultures previously have shown Pseudomonas and MSSA. She is currently on piperacillin/tazobactam. Prior history of Klebsiella UTI. Check UA and urine culture. Obtain respiratory viral panel. March 27, 2025 Last febrile 100 Fahrenheit at 4 PM. Since then Tmax of 99.2 Fahrenheit. \WBC count stable at 12.6. Platelet count dropped to 40,000. Continues to be on argatroban. HIT serology remains pending. Creatinine stable.Urine output 2100 cc. Repeat blood cultures from yesterday pending. UA from Archer catheter with more than 100 RBC, 6-10 WBC, urine yeast positive. Trace leukocyte esterase. Transaminitis improving, will obtain abdominal imaging specifically gallbladder ultrasound to rule out any acalculous cholecystitis as a reason for her current fever. She this morning with pH of 7.39, pO2 of 82, bicarb 23, CO2 38.7 on 30% FiO2, PEEP of 8. Spontaneous breathing trial today. Plan for bronchoscopy tomorrow with pulmonology. Patient is more awake compared to yesterday, moves bilateral lower extremities, able to flex at the hip and knees. Attempting to move both arms through restraints. Attempting to move upper body as of to set up. She is on Precedex due to above agitation. Still does not follow directed command. She makes eye contact on calling her name however does not follow any commands thereafter. Will likely have a better assessment of her neurological status once extubated. Potentially may have hypoxic encephalopathy related to cardiac arrest. Piperacillin/tazobactam day 8 today. Await culture data. Last sputum culture with Pseudomonas aeruginosa and MSSA. Repeat sputum culture today. Blood culture pending. US GB as above Central line removed. March 28, 2025 No longer febrile. Leukocytosis is stable. Doing well on pressure support this morning. ABG reviewed. Plan for bronchoscopy followed by extubation later today. Discussed goals of care extensively with family that his and son at bedside. Should patient have respiratory deterioration after extubation, they declined reintubation or tracheostomy in keeping with patient's last known wishes which were to allow natural . Continues to have low-dose Levophed requirement at 2 mics currently. Start midodrine 10 mg 3 times daily in an attempt to wean off Levophed drip. Continues to be on argatroban. Platelet count stabilized at 39,000 today. Continues to be persistently encephalopathic. While patient is able to move her lower extremities and trunk spontaneously, she does not follow directed commands. Once she is extubated, we will proceed to an MRI of the brain to evaluate for stroke. Alternate possibility is that of anoxic metabolic encephalopathy given cardiac arrest and postcode status. Once extubated will have further discussions with family with regards to enteral feeding, swallow assessments etc. Hypokalemia 2.5, repleted with IV and p.o. supplementation. Recheck CMP this evening. TSH 8.14, T4 0.36, T3 0.8 ; low free T3 and T4. Potentially hypothyroidism may be contributing to her mental status. Will check random cortisol first and then likely start levothyroxine. GB US with post cholecystectomy status, no acute findings. Check Ammonia level PDMP PDMP Reviewed: Not Reviewed Attestations Medical Necessity Statement*: Plan for extubation today after bronchoscopy. Critical Care Time: The high probability of a clinically significant, sudden or life threatening deterioration of the patient's [respiratory, cardiac,ID] system(s) required my full and direct attention, intervention and personal management. The critical care time is as shown. This time is in addition to time spent performing any reported procedures but includes the following: [x] Data and vital sign review and interpretation [x] Patient assessment, examination and intervention [x] Documentation [x] Medication orders and management Critical Care Time (min): 50 Coding Level of Care Code Acute Code for Chg Fwd Diagnoses Cardiac arrest due to underlying cardiac condition I46.2 Sepsis A41.9 Stenosis of superficial femoral artery I70.209 Peripheral arterial occlusive disease I77.9 Thrombocytopenia D69.6 Foot drop M21.379 Coronary artery disease I25.10 Aspiration pneumonia J69.0 Hypoglycemia E16.2 Transaminitis R74.01 SYBIL (acute kidney injury) N17.9 Anemia D64.9 Lumbar stenosis with neurogenic claudication M48.062 Nicotine dependence, cigarettes, with other nicotine-induced disorders F17.218 Episode of recurrent major depressive disorder, unspecified depression episode severity F33.9 Depression Type: major depressive disorder Major depression recurrence: recurrent Active/Remission status: currently active Major depression episode severity: unspecified Hypothyroidism (acquired) E03.9 Hyperlipidemia, unspecified hyperlipidemia type E78.5 Hyperlipidemia type: unspecified Degenerative joint disease (DJD) of lumbar spine M47.816
--- NOTE | 2025-03-28 12:55 | PC.RESP ---
ASSIST WITH BRONCH WASH 1 BAL COLLECTED SENT TO LAB
[2025-03-28 13:49] LABS: Alanine Aminotransferase 56 U/L (0-33); Albumin Level 1.9 g/dL (3.5-5.2); Alkaline Phosphatase 115 U/L (35-105); Ammonia 34 umol/L (11-51); Anion Gap 12.7 (5-19); Aspartate Amino Transferase 50 U/L (0-32); Blood Urea Nitrogen 12 mg/dL (8-23); Calcium 7.1 mg/dL (8.5-10.5); Carbon Dioxide 20 mmol/L (22-29); Chloride 104 mmol/L (98-107); Creatinine Clr Calc Pharmacy 43.4002; Globulin 2.4 g/dL (1.3-4.6); Glucose 324 mg/dL (65-115); Osmolality Calculated 288 mOsm/kg (285-295); Potassium 3.7 mmol/L (3.5-5.1); Sodium 133 mmol/L (136-145); Total Protein 4.3 g/dL (6.6-8.7)
[2025-03-28 14:11] LABS: Partial Thromboplastin Time 84.8 SECONDS (23.9-36.7)
--- NOTE | 2025-03-28 15:41 | PC.SOCIAL ---
IMM Updated Updated pt's on IMM. No questions voiced. Provided pt a copy. Initialed, dated, & timed copy in chart.
--- NOTE | 2025-03-28 16:00 | PC.NURSE ---
Patient was extubated at 1525 to 3L NC by respiratory therapist.
[2025-03-28 16:20] LABS: Patient O.D 0.038
[2025-03-28 17:07] LABS: Partial Thromboplastin Time 161.8 SECONDS (23.9-36.7)
--- NOTE | 2025-03-28 21:22 | PC.NURSE ---
Patient unable to safely take PO medications at this time due to confusion and lethargy. Notified Dr Pearce.
[2025-03-28 21:24] LABS: Partial Thromboplastin Time 84.3 SECONDS (23.9-36.7)
[2025-03-29] VITALS (70 sets, daily range): BP systolic 94–177; BP diastolic 60–119; PULSE 72–125; RESP 13–31; TEMP 35.9–36.6; O2SAT 84–100
[2025-03-29 00:12] LABS: Partial Thromboplastin Time 80.2 SECONDS (23.9-36.7)
[2025-03-29 02:50] LABS: Hematocrit 21.0 % (36-47); Hemoglobin 6.90 g/dL (11.27-16.99); Mean Corpuscular HGB Conc 32.9 g/dL (30-55); Mean Corpuscular Hemoglobin 29.7 pg (27-33); Mean Corpuscular Volume 90.5 fl (85-98); Nucleated Red Blood Cells % 0 %; Platelet Count 54 10^3/cmm (157-399); Red Blood Count 2.32 10^6/uL (3.85-5.65); White Blood Count 11.40 10^3/uL (3.29-11.43)
[2025-03-29 03:02] LABS: Alanine Aminotransferase 51 U/L (0-33); Albumin Level 2.1 g/dL (3.5-5.2); Alkaline Phosphatase 108 U/L (35-105); Anion Gap 12.3 (5-19); Aspartate Amino Transferase 55 U/L (0-32); Blood Urea Nitrogen 11 mg/dL (8-23); Calcium 7.2 mg/dL (8.5-10.5); Carbon Dioxide 21 mmol/L (22-29); Chloride 106 mmol/L (98-107); Creatinine Clr Calc Pharmacy 47.3456; Globulin 2.1 g/dL (1.3-4.6); Glucose 113 mg/dL (65-115); Osmolality Calculated 282 mOsm/kg (285-295); Potassium 3.3 mmol/L (3.5-5.1); Sodium 136 mmol/L (136-145); Total Protein 4.2 g/dL (6.6-8.7)
[2025-03-29 03:04] LABS: Partial Thromboplastin Time 76.3 SECONDS (23.9-36.7)
[2025-03-29] MEDS: piperacillin-tazobactam 3.375 GM in sodium chloride 0.9% (plus) 50 ML IV ×3 (03:33→23:35)
--- NOTE | 2025-03-29 04:59 | W.PM.EVENTAC ---
Event Note Event Note: Drop in hemoglobin to 6.9 Event Notes Attestations Time Spent in Patient Care: Patient s/p STEMI alert and PCI s/p Impella, intubation and extubated recently Drop in hemoglobin 6.9 without any hemodynamic compromise was observed. Based on patient severe coronary artery disease 1 unit PRBC stat to be given and 1 unit at standby to keep the hemoglobin around 8 Monitor hemodynamics closely Continue with PRBC infusion protocol
[2025-03-29] MEDS: metoclopramide 5 mg/mL SDV 2 mL 10 MG IVP ×3 (05:31→23:35)
[2025-03-29] MEDS: pantoprazole 40 mg SDV IVP (05:31)
[2025-03-29 05:40] LABS: Partial Thromboplastin Time 70.1 SECONDS (23.9-36.7)
[2025-03-29 08:35] LABS: Partial Thromboplastin Time 67.8 SECONDS (23.9-36.7)
--- NOTE | 2025-03-29 09:27 | P.PN_ITS ---
<Statement entered by Isaias Diaz MD - 03/30/25 19:30> Patient was evaluated and cared for in conjunction with an advanced practice practitioner. I personally examined the patient and reviewed the chart and all pertinent data including imaging, telemetry, and laboratory results. I discussed the patient in detail with the advanced practice practitioner. Please see their note for complete H&P testing result and agreed upon plan of care for the patient. Subjective 2 Subjective: Extubated yesterday, on 2L NC now maintaining saturation. Remains in sinus rhythm. Receiving blood transfusion now. Toes on right foot still dusky, foot warm and pink. Blood pressure running 120-140 systolic, will reduce midodrine to 2.5mg TID, increase metoprolol to 25mg daily. Liver enzymes improved. HIT antibody negative. Discontinue argatroban. She is talking, not oriented but does know she had an PR, and can recognize her family. Vitals/I&O/Wt Last Vital Signs Temp 97.2 F L 03/29/25 08:38 Pulse 90 03/29/25 08:38 Resp 22 H 03/29/25 08:38 BP 144/84 03/29/25 08:38 Pulse Ox 96 03/29/25 08:38 O2 Del Method Room Air 03/29/25 08:00 O2 Flow Rate 3 03/28/25 18:30 FiO2 2 03/29/25 07:57 03/28/25 03/29/25 03/29/25 22:59 06:59 14:59 Intake Total 711.098 / 1711.041 534.103 / 1711.041 50.907 / 50.907 Output Total 400 / 1000 600 / 1000 Balance 311.098 / 711.041 -65.897 / 711.041 50.907 / 50.907 Physical Exam 2 Const: COMMON NORMALS: no acute distress GENERAL APPEARANCE: cooperative and comfortable ORIENTATION/CONSCIOUSNESS: Yes awake and Yes oriented to person Chest: COMMONS NORMALS: normal inspection of the chest and normal palpation of entire chest wall CHEST: Yes Symmetrical chest wall rise Resp: COMMON NORMALS: normal respiratory effort, No retractions and No use of accessory muscles EFFORT & INSPECTION: Yes symmetric chest movement A USCULTATION: diminished lung sounds on the right in the lower lung beauchamp Cardio: COMMON NORMALS: regular rate, regular rhythm, S1 normal heart sound present, S2 normal heart sound present, No gallops present (Cardio), No clicks present (Cardio), No murmurs present (Cardio) and No rub (Cardio) RATE: r egular rate RHYTHM: regular rhythm HEART SOUNDS: S1 normal heart sound present and S2 normal heart sound present PERIPHERAL PULSES: radial pulses present, posterior tibial pulses present and dorsalis pedis present positive right other (absent) and positive left 2+ Extremity: COMMON NORMALS: no pedal edema Neuro: COMMON NORMALS: moves all extremities SENSORIUM/ORIENTATION: Yes oriented to person Urinary Catheter Management: Archer: Cath Placed During This Visit: yes Reason for Continuing Indwelling Catheter: Accurate Measurement of Urinary Output in Critically Ill Patients Urinary Catheter Date of Insertion: 03/19/25 Urinary Catheter Time of Insertion: 18:47 Data 03/29/25 02:35 03/29/25 02:35 Micro: Microbiology 03/27/25 16:25 Gram Stain - Final Sputum - Endotracheal Tube Aspirate Sputum Culture - Preliminary Gram Negative Rods A&P Assessment and plan 1. Cardiac arrest due to underlying cardiac condition: 2. Acute coronary syndrome: 3. Shock: 4. Thrombocytopenia: 5. Peripheral arterial occlusive disease: 6. Hyperlipidemia: 7. Atrial fibrillation by electrocardiogram: Plan: Continuing to improve. Reducing midodrine, uptitrating metoprolol. She appears well compensated. Continue Plavix, holding aspirin, platelets 54 today. PDMP PDMP Reviewed: Not Reviewed Attestations 2 Medical Necessity Statement*: shock resolved, extubated, GMDT heart failure treatment Coding Level of Care Code Acute Code for [facility] Diagnoses Cardiac arrest due to underlying cardiac condition I46.2 Acute coronary syndrome I24.9 Shock R57.9 Thrombocytopenia D69.6 Peripheral arterial occlusive disease I77.9 Hyperlipidemia E78.5 Atrial fibrillation by electrocardiogram I48.91
--- NOTE | 2025-03-29 09:56 | US_ITS ---
WS: [id number] ULTRASOUND ABDOMEN LIMITED CLINICAL INFORMATION: assess for hemoperitoneum COMPARISON: None. FINDINGS: No visualized fluid or hemoperitoneum US/US abdomen limited [id number] IMPRESSION: No visualized fluid in the upper quadrant
--- NOTE | 2025-03-29 12:00 | PC.NURSE ---
Patient slid out of bed and hit head on IV pump. Small bruise and slight swelling noted to forehead. V/S stable. No reports of pain or discomfort. Notified Dr. Lizama, Genevieve Braga, LEEANN, and Roby Ureña patients son. CT of head ordered per Dr. Lizama.
--- NOTE | 2025-03-29 12:03 | CT_ITS ---
WS: [id number] CT HEAD TECHNIQUE: Noncontrast CT of the head obtained from the skullbase to the vertex. CLINICAL INFORMATION: fall/hit head COMPARISON: 03/24/2025 DLP: 1174.[address] scans at [facility] use at least one of these dose optimization techniques: automated exposure control; mA and/or kV adjustment per patient size (includes targeted exams where dose is matched to clinical indication); or iterative reconstruction. FINDINGS: No evidence of intracranial hemorrhage or mass effect. Ventricular system and basal cisterns are patent. Mild small vessel changes with mild parenchymal volume loss. No extra-axial fluid collections. No evidence of mass or mass effect. A few secretions in the sphenoid sinus. Fluid and mucosal thickening in the mastoid air cells and middle ears bilaterally. CT/CT head wo con* [id number] IMPRESSION: 1. No evidence of intracranial hemorrhage or mass effect. 2. No acute intracranial findings.
--- NOTE | 2025-03-29 12:46 | P.PN_ITS ---
Subjective 2 Subjective: HIT panel returned negative today. Her catheter been discontinued. Hemoglobin dropped to 6.9. Extubated yesterday Patient is much more awake and alert today. She is able to state her correct name, correct date of . Disoriented as to place and time. However is communicative today mental status is improving. Saturating 93% on room air. Medications: Reviewed: Yes Vitals/I&O/Wt Last Vital Signs Temp 97.5 F L 03/29/25 11:36 Pulse 90 03/29/25 11:36 Resp 19 H 03/29/25 11:36 BP 160/84 03/29/25 11:36 Pulse Ox 93 03/29/25 11:36 O2 Del Method Room Air 03/29/25 11:20 O2 Flow Rate 3 03/28/25 18:30 FiO2 2 03/29/25 07:57 03/28/25 03/29/25 03/29/25 22:59 06:59 14:59 Intake Total 711.098 / 1176.938 534.103 / 1711.041 450.907 / 450.907 Output Total 400 / 400 600 / 1000 Balance 311.098 / 776.938 -65.897 / 711.041 450.907 / 450.907 Physical Exam 2 Narrative: General: Awake, alert, oriented x 1 HEENT: PERRLA, pupils bilaterally equal and reactive, pallors not present Chest: Normal vesicular breath sounds, no added sounds, equal good air entry bilaterally CVS: S1-S2 regular, no murmurs, no tachycardia, no gallops, no rubs Abdomen: Soft, nontender, no organomegaly, bowel sounds present Neuro: No focal deficits, moving all extremities still severely deconditioned. Extremities: discolored B/L Toes R > L improving compared to previous exams. Urinary Catheter Management: Archer: Cath Placed During This Visit: yes Reason for Continuing Indwelling Catheter: Accurate Measurement of Urinary Output in Critically Ill Patients Urinary Catheter Date of Insertion: 03/19/25 Urinary Catheter Time of Insertion: 18:47 Data 03/29/25 02:35 03/29/25 02:35 Micro: Microbiology 03/26/25 17:49 Urine Culture - Preliminary Urine Catheterized Yeast species 03/27/25 16:25 Gram Stain - Final Sputum - Endotracheal Tube Aspirate Sputum Culture - Preliminary Gram Negative Rods A&P Assessment and plan 1. Cardiac arrest due to underlying cardiac condition: Patient s/p V-fib cardiac arrest, with severe acidemia requiring bicarb infusion and later held, improved S/p urgent PCI after STEMI alert, s/p Impella insertion and removal Holding MAP above 65.With low-dose of nor epi and being titrated off Cardiology on board and to follow the plan of care Continue Plavix and statins as per cardio plan Patient was on heparin however due to drop in hemoglobin and low platelets which are still low, the infusion was held, HIT studies sent, argatroban infusion started Of note: Patient was initially DNR as per the however since she was intubated on her way by the EMS patient was taken to the cath for PCI and later underwent Impella. Family appreciated the care and to continue further management as full code after further discussion with the family. 2. Sepsis: Patient s/p cardiac arrest likely underlying cardiogenic in nature severe acidosis s/p bicarb drip, currently off and corrected. ETT cultures grew staphy aureus and pseud aerug sensitive to zosyn, therefore to continue with it for total 14 days minimum with further guidance based on the clinical status of the patient. Initially was on vancomycin which was later on discontinued Monitor intake and output Monitor renal parameters, electrolytes and correction accordingly Maintain normoglycemia NGT feed to continue with increments as tolerated until goal rate ( dietitian consulted ) Diesel Maintenance Technician on board and to follow the recommendation 3. Stenosis of superficial femoral artery: patient having bilateral dusky feet and more on the right foot and improving with rewarming, with foot drop, high likely due to high dose of NE, since there are adequate pulses on clinical exam US venous/arterial done, showed superficial femoral artery stenosis post intervention, having good adequate femoral pulse on examination and adequate perfusion as well with palpable distal tibial artery. cards informed and to start the patient on argatroban HIT studies since platelets are low and to follow 4. Peripheral arterial occlusive disease: as mentioned above 5. Thrombocytopenia: HiT studies to follow hold heparin and related productes started on argatroban infusion and to follow Platelet infusion to keep the platelets above 50,000 or in case of any bleeding 6. Foot drop: likely critical care myopathy CT head negative follow OT/PT 7. Coronary artery disease: Patient was loaded with aspirin and clopidogrel during STEMI alert with 600 mg of clopidogrel once and 325 of aspirin once Continue high-dose statins and Plavix Status post blood transfusion and drop in platelets, held heparin infusion and aspirin at the moment. Continue to monitor Cardiology on board to follow-up 8. Aspiration pneumonia: patient required initially high FIO2 100% and currently on 30-40% improving recieved lasix as well to improve since CXR showed some infiltrates cont vent management fu with pulmonolgist 9. Hypoglycemia: multifactorial since earlier patient had cardiogenic shock and possible sepsis, underwent stress, cont NGT feeding and DW as needed to support the blood glucose levels Maintain normoglycemia 10. Transaminitis: possible induced secondary to hypotension and further low cardiac output currently improving and cont to monitor 11. SYBIL (acute kidney injury): likely pre renal vs intra renal ATN? hypotension vs later contrast induced, seems multifactorial producing good amount of urine monitor renal parameters and electrolytes with correction 12. Anemia: Patient s/p PCI found to have anemia and s/p PRBC, currently no active source of bleeding continue to monitor CBC and hb with PRBC as needed 13. Lumbar stenosis with neurogenic claudication: Currently on sedation meanwhile 14. Nicotine dependence, cigarettes, with other nicotine-induced disorders: Patient recently quit on 06 March 2025, however still there is a risk of possible withdrawal effects Nicotine patch 15. Episode of recurrent major depressive disorder, unspecified depression episode severity: currently sedated and on mechanical vent hold home anti dep medications 16. Hypothyroidism (acquired): Patient on levothyroxine 100 mcg and liothyronine and to continue through NGT 17. Hyperlipidemia, unspecified hyperlipidemia type: Continue statins 18. Degenerative joint disease (DJD) of lumbar spine: Patient on leflunomide 20 mg, tramadol as needed for pain and prednisone To hold this medication at the moment considering cardiac arrest Plan: March 26, 2025. Chart reviewed extensively. 65-year-old lady admitted with V-fib arrest, status post Assembler Piano visit with placement of 2 stents, needing Impella support thereafter. Impella subsequently removed. Echocardiogram showing improving EF postprocedure. Hospital course currently complicated by persisting encephalopathy. CT of the head taken twice during this admission was negative for any acute intracranial events. Concern for potential HIT as received heparin products earlier during the course of admission. Platelet count fell by over 50% during hospital course. Currently on argatroban infusion for HIT. Off pressors today. Blood pressure ranging 97-1 20 systolic millimeter mercury. Bilateral lower extremity toes with discoloration. Lower extremity arterial duplex showing DEYA 0.7 in the right lower extremity. CTA on hold for now given SYBIL. Cardiology following, appreciate recommendations. May be related to high- dose vasopressor use. Currently has ileus for which tube feeding is on hold. Patient off sedation for a weaning trial. Febrile 99.6-100 Fahrenheit today. Has a central line in place from admission which we will remove. Check blood cultures. Chest x-ray showing consolidation bilaterally compatible with pneumonia. Sputum cultures previously have shown Pseudomonas and MSSA. She is currently on piperacillin/tazobactam. Prior history of Klebsiella UTI. Check UA and urine culture. Obtain respiratory viral panel. March 27, 2025 Last febrile 100 Fahrenheit at 4 PM. Since then Tmax of 99.2 Fahrenheit. \WBC count stable at 12.6. Platelet count dropped to 40,000. Continues to be on argatroban. HIT serology remains pending. Creatinine stable.Urine output 2100 cc. Repeat blood cultures from yesterday pending. UA from Archer catheter with more than 100 RBC, 6-10 WBC, urine yeast positive. Trace leukocyte esterase. Transaminitis improving, will obtain abdominal imaging specifically gallbladder ultrasound to rule out any acalculous cholecystitis as a reason for her current fever. She this morning with pH of 7.39, pO2 of 82, bicarb 23, CO2 38.7 on 30% FiO2, PEEP of 8. Spontaneous breathing trial today. Plan for bronchoscopy tomorrow with pulmonology. Patient is more awake compared to yesterday, moves bilateral lower extremities, able to flex at the hip and knees. Attempting to move both arms through restraints. Attempting to move upper body as of to set up. She is on Precedex due to above agitation. Still does not follow directed command. She makes eye contact on calling her name however does not follow any commands thereafter. Will likely have a better assessment of her neurological status once extubated. Potentially may have hypoxic encephalopathy related to cardiac arrest. Piperacillin/tazobactam day 8 today. Await culture data. Last sputum culture with Pseudomonas aeruginosa and MSSA. Repeat sputum culture today. Blood culture pending. US GB as above Central line removed. March 28, 2025 No longer febrile. Leukocytosis is stable. Doing well on pressure support this morning. ABG reviewed. Plan for bronchoscopy followed by extubation later today. Discussed goals of care extensively with family that his and son at bedside. Should patient have respiratory deterioration after extubation, they declined reintubation or tracheostomy in keeping with patient's last known wishes which were to allow natural . Continues to have low-dose Levophed requirement at 2 mics currently. Start midodrine 10 mg 3 times daily in an attempt to wean off Levophed drip. Continues to be on argatroban. Platelet count stabilized at 39,000 today. Continues to be persistently encephalopathic. While patient is able to move her lower extremities and trunk spontaneously, she does not follow directed commands. Once she is extubated, we will proceed to an MRI of the brain to evaluate for stroke. Alternate possibility is that of anoxic metabolic encephalopathy given cardiac arrest and postcode status. Once extubated will have further discussions with family with regards to enteral feeding, swallow assessments etc. Hypokalemia 2.5, repleted with IV and p.o. supplementation. Recheck CMP this evening. TSH 8.14, T4 0.36, T3 0.8 ; low free T3 and T4. Potentially hypothyroidism may be contributing to her mental status. Will check random cortisol first and then likely start levothyroxine. GB US with post cholecystectomy status, no acute findings. Check Ammonia level March 29, 2025 Mental status is much better today. She is alert awake attempting to have a conversation. States her correct name, date of , recognizes her son at bedside. She was able to get out of bed to use the bedside commode for a bowel movement with max assist. She is severely deconditioned though no focal deficits are appreciated. MRI of the brain has been canceled given no focal deficits, low suspicion of stroke at this point. Patient has generalized encephalopathy related to critical illness and recent events. Argatroban discontinued as HIT panel returned negative. Likely thrombocytopenia related to acute illness. Continue piperacillin/tazobactam day 11 today. Will aim for a total 2-week course. Swallow eval today and if able to tolerate to start a dysphagia diet. Given her improvement in mental status, less likely that myxedema coma is contributing. Patient has been on oral levothyroxine and liothyronine. Increase levothyroxine to 125 mcg daily. Hemoglobin dropped to 6.9 today. Obtain ultrasound of the abdomen limited to assess for any hemoperitoneum. Transfusing 1 units PRBC today. Slowly improving, severely deconditioned PT OT speech therapy evaluation Disposition planning ongoing. Patient will likely need several days to weeks of acute rehab. Likely transfer to LTAC. PDMP PDMP Reviewed: Not Reviewed Attestations 2 Medical Necessity Statement*: Blood transfusion today. Therapy assessments. Slowly improving. Coding Level of Care Code Acute Code for Chg Fwd Diagnoses Cardiac arrest due to underlying cardiac condition I46.2 Sepsis A41.9 Stenosis of superficial femoral artery I70.209 Peripheral arterial occlusive disease I77.9 Thrombocytopenia D69.6 Foot drop M21.379 Coronary artery disease I25.10 Aspiration pneumonia J69.0 Hypoglycemia E16.2 Transaminitis R74.01 SYBIL (acute kidney injury) N17.9 Anemia D64.9 Lumbar stenosis with neurogenic claudication M48.062 Nicotine dependence, cigarettes, with other nicotine-induced disorders F17.218 Episode of recurrent major depressive disorder, unspecified depression episode severity F33.9 Depression Type: major depressive disorder Major depression recurrence: recurrent Active/Remission status: currently active Major depression episode severity: unspecified Hypothyroidism (acquired) E03.9 Hyperlipidemia, unspecified hyperlipidemia type E78.5 Hyperlipidemia type: unspecified Degenerative joint disease (DJD) of lumbar spine M47.816
[2025-03-29 16:03] LABS: Body Fluid Basophils % 0 %; Body Fluid Eosinophils % 0 %; Body Fluid Mesothelial Cells % 0 %; Body Fluid Monocytes/Macrophag 6 %; Cell Count Appearance HAZY; Cell Count Color of fluid GRAY WHITE; Total Nucleated Cell Count 1813 cells/uL
[2025-03-30] VITALS (56 sets, daily range): BP systolic 114–171; BP diastolic 72–108; PULSE 83–96; RESP 15–32; TEMP 36.6–37.3; O2SAT 91–97
--- NOTE | 2025-03-30 05:31 | PC.NURSE ---
NPO PO medications not administered due to patient's NPO status. Dr. Pearce notified.
[2025-03-30] MEDS: pantoprazole 40 mg SDV IVP (05:45)
[2025-03-30 06:42] LABS: Alanine Aminotransferase 43 U/L (0-33); Albumin Level 2.4 g/dL (3.5-5.2); Alkaline Phosphatase 125 U/L (35-105); Anion Gap 14.8 (5-19); Aspartate Amino Transferase 35 U/L (0-32); Blood Urea Nitrogen 10 mg/dL (8-23); Calcium 7.4 mg/dL (8.5-10.5); Carbon Dioxide 21 mmol/L (22-29); Chloride 105 mmol/L (98-107); Creatinine Clr Calc Pharmacy 51.9031; Globulin 2.4 g/dL (1.3-4.6); Glucose 100 mg/dL (65-115); Osmolality Calculated 285 mOsm/kg (285-295); Sodium 138 mmol/L (136-145); Total Protein 4.8 g/dL (6.6-8.7)
[2025-03-30 06:53] LABS: Hematocrit 28.8 % (36-47); Hemoglobin 9.80 g/dL (11.27-16.99); Mean Corpuscular HGB Conc 34.0 g/dL (30-55); Mean Corpuscular Hemoglobin 28.9 pg (27-33); Mean Corpuscular Volume 85.0 fl (85-98); Nucleated Red Blood Cells % 0 %; Platelet Count 69 10^3/cmm (157-399); Red Blood Count 3.39 10^6/uL (3.85-5.65); White Blood Count 11.76 10^3/uL (3.29-11.43)
[2025-03-30 08:14] LABS: Potassium 2.8 mmol/L (3.5-5.1)
[2025-03-30] MEDS: lidocaine 1% 5 ML in potassium chloride premix 100 ML 26.25 ML IV ×2 (08:29→12:42)
[2025-03-30] MEDS: piperacillin-tazobactam 3.375 GM in sodium chloride 0.9% (plus) 50 ML IV (08:30)
[2025-03-30] MEDS: metoclopramide 5 mg/mL SDV 2 mL 10 MG IVP ×2 (08:31→17:49)
--- NOTE | 2025-03-30 10:27 | PC.SLP ---
Full supervision required with all meals and all drinks due to small sips and bites recommended and use of chin tuck with each swallow. Family has been educated on need for full supervision with food and drink consumption.
--- NOTE | 2025-03-30 11:01 | PC.SOCIAL ---
IMM Updated Updated pt & son on IMM. No questions voiced. Provided pt a copy. Initialed, dated, & timed copy in chart.
--- NOTE | 2025-03-30 11:02 | P.PN_ITS ---
<Statement entered by Isaias Diaz MD - 03/30/25 19:29> Patient was evaluated and cared for in conjunction with an advanced practice practitioner. I personally examined the patient and reviewed the chart and all pertinent data including imaging, telemetry, and laboratory results. I discussed the patient in detail with the advanced practice practitioner. Please see their note for complete H&P testing result and agreed upon plan of care for the patient. Patient is up in the chair She recognized me and his family in the room Overall she appeared to be weak but stable vital garrett GENERAL: Patient is alert, awake and oriented x3. HEART: Regular S1 and S2. No murmur, rub or gallop. LUNGS: Mild inspiratory crackles on the right. CENTRAL NERVOUS SYSTEM: Grossly nonfocal. EXTREMITIES: Lower extremities with out edema bilaterally. Assessment and plan Shock: Improved Cardiomyopathy: Ischemic with mixed picture of stress-induced status post drug- eluting stents Sepsis/pneumonia. Aspiration: Patient is on antibiotics recovering much improved Chest pain: Most likely secondary to CPR: Pain medicine Increase metoprolol to 25 mg Add Entresto Physiotherapy to work with Hopefully tomorrow may transfer patient to stepdown Subjective 2 Subjective: She has been sitting up in the chair this morning. No events overnight. Platelets and hemoglobin improved. Blood pressure elevated. Had an episode of short lived chest pain this morning, resolved spontaneously.? Vitals/I&O/Wt Last Vital Signs Temp 99.2 F 03/30/25 07:30 Pulse 89 03/30/25 08:30 Resp 18 03/30/25 08:00 BP 166/90 03/30/25 07:30 Pulse Ox 95 03/30/25 08:00 O2 Del Method Room Air 03/30/25 08:00 O2 Flow Rate 2 03/29/25 12:00 FiO2 2 03/29/25 07:57 03/29/25 03/30/25 03/30/25 22:59 06:59 14:59 Intake Total 50 / 2537.586 5808 / 1550.907 Output Total 600 / 1275 675 / 1275 Balance -550 / 275.907 375 / 275.907 Weight last 48 hrs Weight 142 lb 3.17 oz Physical Exam 2 Const: COMMON NORMALS: no acute distress and alert GENERAL APPEARANCE: c ooperative and comfortable ORIENTATION/CONSCIOUSNESS: Yes awake and Yes oriented to person Chest: COMMONS NORMALS: normal inspection of the chest and normal palpation of entire chest wall CHEST: Yes Symmetrical chest wall rise Resp: COMMON NORMALS: normal respiratory effort, No retractions and No use of accessory muscles EFFORT & INSPECTION: Yes symmetric chest movement A USCULTATION: rhonchi (expiratory) right lower Cardio: COMMON NORMALS: regular rate, regular rhythm, S1 normal heart sound present, S2 normal heart sound present, No gallops present (Cardio), No clicks present (Cardio), No murmurs present (Cardio) and No rub (Cardio) RATE: r egular rate RHYTHM: regular rhythm HEART SOUNDS: S1 normal heart sound present and S2 normal heart sound present PERIPHERAL PULSES: radial pulses present Extremity: COMMON NORMALS: no pedal edema Neuro: COMMON NORMALS: moves all extremities SENSORIUM/ORIENTATION: Yes alert and Yes oriented to person Urinary Catheter Management: Archer: Cath Placed During This Visit: yes Reason for Continuing Indwelling Catheter: Accurate Measurement of Urinary Output in Critically Ill Patients Urinary Catheter Date of Insertion: 03/19/25 Urinary Catheter Time of Insertion: 18:47 Data 03/30/25 05:56 03/30/25 05:56 Micro: Microbiology 03/28/25 11:40 Bronchial Washings Culture - Preliminary Bronchial Washings Gram Negative Rods Gram Negative Rods#2 03/27/25 16:25 Gram Stain - Final Sputum - Endotracheal Tube Aspirate Sputum Culture - Preliminary Gram Negative Rods Gram Negative Rods#2 03/26/25 17:49 Urine Culture - Preliminary Urine Catheterized Yeast species A&P Assessment and plan 1. Cardiac arrest due to underlying cardiac condition: 2. Coronary artery disease: 3. Acute coronary syndrome: 4. Peripheral arterial occlusive disease: 5. Benign essential HTN: 6. Hyperlipidemia: 7. Nicotine dependence, cigarettes, with other nicotine-induced disorders: 8. Hypothyroidism (acquired): 9. Pneumonia: Plan: Improving. She has combination Takotsubo and ischemic cardiomyopathy, will add isosorbide mononitrate 15mg BID, Entresto 24/26mg BID. Continue metoprolol succinate 25mg daily. Renal function normal. Liver enzymes near normal. Potassium 2.8, being replaced. She would benefit from going outside in the wheelchair to reduce ICU psychosis. PDMP PDMP Reviewed: Not Reviewed Attestations 2 Medical Necessity Statement*: per hospitalist, GDMT heart failure Coding Level of Care Code Acute Code for Chg Fwd Diagnoses Cardiac arrest due to underlying cardiac condition I46.2 Coronary artery disease I25.10 Acute coronary syndrome I24.9 Peripheral arterial occlusive disease I77.9 Benign essential HTN I10 Hyperlipidemia E78.5 Nicotine dependence, cigarettes, with other nicotine-induced disorders F17.218 Hypothyroidism (acquired) E03.9 Pneumonia J18.9
--- NOTE | 2025-03-30 14:17 | P.PN_ITS ---
Subjective 2 Subjective: kym Ureña is a 65 year old female with past medical history of Hypertension, hyperlipidemia, severe CAD, hypothyroidism was experiencing chest pain at home developed V-fib cardiac arrest, resuscitated after chest compressions and brought to ER where she was intubated, placed on pressors, due to being very acidotic bicarb drip started.. Dr. Diaz to the patient for PCI, stents were placed in LAD, circumflex x 2, balloon dilatation of the diagonal branch. EF was found to be 20%. Overnight hemoglobin fell from 9-6.9. Initially blood thinners were given post PCI but on hold currently. Currently tolerating the ventilator settings well but on 100% FiO2.. Chest x- ray showed some right lower lobe infiltrate suggestive of aspiration. Also on levo at 20 and vaso at 0.05. On bicarb drip running at 75 mL, on Amio 0.5, Precedex 0.3, fentanyl 100 mcg. at bedside 03/21/2025 Patient is on 8 of levo drip and off of vasopressin. Off of bicarb drip. Bloody thick secretions noted out of the ET tube. Family at bedside. 03/22/25 Patient is on 2 of levo. Wakes up and follows commands. ETT bloody secretions. 03/23/2025 Patient has minimal ET tube secretions although chest x-ray does show right lower lobe infiltrate. On levo at 6. Low potassium. Frequently having hypoglycemic episodes is on D10 drip currently blood sugars running 100 100s. Tube feeds on as well. Versed and fentanyl running 03/24/2025 Tolerating ventilator well. Last ET tube bloody secretions noted. Due to right and left leg being cold and high potential for thrombotic events arterial ultrasound Dopplers being performed. Only fentanyl 75, tube feeds at 50. D50 running currently blood sugars holding above 100. Levo at 2. 03/25/2025 Last ET tube secretions. No bloody secretions either. Has a right foot drop. No clinically significant stenosis noted on ultrasound cardiology following. Increased NG tube output. 1000 mL suctioned on low intermittent suction. 03/26/2025 Still having thick secretions. Opens eyes but does not follow commands. No bowel movements for 2 or 3 days now. Tolerating ventilator well otherwise. D10 being given to maintain blood sugars above 90. Low-grade fevers noted. 03/28/2025 Thick secretions still but tolerating low vent settings well. Son and at bedside 03/30/2025 On room air tolerated extubation well. Positive BMs. On and off afebrile RVR. Vitals/I&O/Wt Last Vital Signs Temp 99.2 F 03/30/25 07:30 Pulse 88 03/30/25 11:30 Resp 25 H 03/30/25 11:30 BP 160/80 03/30/25 11:30 Pulse Ox 95 03/30/25 11:30 O2 Del Method Room Air 03/30/25 11:30 O2 Flow Rate 2 03/29/25 12:00 FiO2 2 03/29/25 07:57 03/29/25 03/30/25 03/30/25 22:59 06:59 14:59 Intake Total 50 / 896.299 8217 / 1550.907 155 / 155 Output Total 600 / 600 675 / 1275 Balance -550 / -99.093 375 / 275.907 155 / 155 Weight last 48 hrs Weight 142 lb 3.17 oz Physical Exam 2 Narrative: Per RN General: alert, NAD HEENT: EOMI Pulmonary: Diminished breath sounds bilaterally Cardiovascular: rrr, nl s1s2, Abdomen: soft, nt, nd, no r/g, Extremities: Toes discoloration improving Neurologic: grossly intact Agree with above exam Urinary Catheter Management: Archer: Cath Placed During This Visit: yes Reason for Continuing Indwelling Catheter: Accurate Measurement of Urinary Output in Critically Ill Patients Urinary Catheter Date of Insertion: 03/19/25 Urinary Catheter Time of Insertion: 18:47 Data 03/30/25 05:56 03/30/25 05:56 Micro: Microbiology 03/28/25 11:40 Bronchial Washings Culture - Preliminary Bronchial Washings Gram Negative Rods Gram Negative Rods#2 03/27/25 16:25 Gram Stain - Final Sputum - Endotracheal Tube Aspirate Sputum Culture - Preliminary Gram Negative Rods Gram Negative Rods#2 03/26/25 17:49 Urine Culture - Preliminary Urine Catheterized Yeast species A&P Assessment and plan 1. Acute hypoxemic respiratory failure: 2. Cardiopulmonary arrest with successful resuscitation: 3. Cardiogenic shock: Plan: # Acute hypoxemic respiratory failure-resolved - Reviewed chest x-ray 03/22/2025 showing infiltrates in the right base suggestive of aspiration pneumonitis. Small basal right pleural effusion noted as well.could be infiltrate due to either aspiration pneumonitis versus bloody secretions plugging. Will get a chest x-ray again tomorrow. Status post bronchoscopy 03/17. Cultures growing gram-negative rods-speciation pending -Extubated 02/25/2025 -Continue Mucinex. As well as DuoNebs # Acute pulmonary edema -Resolved # Cardiogenic shock As needed levo-keep MAP above 65. off levo. Impella removed 03/22/2025 currently very high risk for another cardiac arrest family is aware. She was initially DNR/DNI prior to hospitalization but family has reports that. - Prn Lasix. Monitor urine output and creatinine. # Acute renal failure most likely ATN or shock induced although contrast nephropathy cannot be ruled out since she just had PCI 03/19/2025 -Monitor urine output keep above 25 mL/h. May be in shock/ATN. No NSAIDs/ARB's or ROSSY inhibitors to be given. Tolerating diuresis well. Creatinine 1.0. # Acute lactic acidosis Bicarb off # Severe CAD status post PCI Cardiology following appreciate help. # Right pedal pulses feeble - Arterial and venous ultrasound reviewed. Most likely due to being on pressors, dusky appearing feet. Results from 03/24/2025 showing significant arterial insufficiency likely reflecting inflow or postintervention restenosis. CT head reviewed 03/24/2025 unremarkable - Patient has underlying rheumatoid arthritis seronegative-could be Raynaud's phenomenon causing the blue toes as well. 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 HIT panel pending # Anemia -No obvious sign of bleeding. Hemoglobin holding after 2 units of blood at 7.5 reviewed labs today 03/21/2025 # Transaminitis - Improving most likely was related to shock # Probable aspiration pneumonitis/sepsis - Cultures blood and sputum pending. Urine growing Klebsiella pneumonia. stop vancomycin 03/23/2025 labs checked 03/25/2025-growing staph and Pseudomonas. Zosyn-total of 10 days s/p bronch growing gram-negative rods 02/25/2025 # Acute cardiomyopathy-repeat echocardiogram showed EF at 40% recent echo # Acute lactic acidosis Most likely secondary to dysoxia related to shock. # Hypoglycemia Advance p.o. diet # Thrombocytopenia - Most likely HIT.-Slowly improving 69,000 today. # Ileus -Monitor BMs # Hyperlipidemia # Anemia stable- hemoglobin 9.8 03/30/2025 no obvious source of bleeding noted. # Hypothyroidism # Smoker # Hypoalbuminemia # Hyponatremia # Hyperglycemia-insulin sliding scale medium. Avoid hypoglycemia. Maintain blood sugars between 140-180. # DVT GI prophylaxis-SCDs and famotidine. Ongoing argatroban drip # Goals of care-discussed with at bedside who wants to keep patient full code for now. 03/12/2025. I discussed with son at bedside and talked about possible tracheostomy. He was not sure that is what she would have wanted. Will discuss further and let us know. 03/28-DNR/DNI # CODE STATUS-DNR/DNI # Disposition- okay to transfer to the floor and eventually to SNF on Wednesday. Medical decision making level-moderate Moderate MDM includes number and complexity of problems actively addressed during encounter, amount and/or complexity of data reviewed/ordered [ previous or external records, resulted lab(s)/test(s), ordered lab(s)/test(s), independent historian, independent test interpretation and other healthcare professional discussion] and described risk of complication, morbidity or mortality of management as documented This documentation was created by [employer] bed machine operator software (known for inherent bed machine operator error). Every effort was made to assure accuracy of bed machine operator. Any obvious errors or omissions should be clarified with the author of the document PDMP PDMP Reviewed: Not Reviewed Attestations 2 Medical Necessity Statement*: Okay to discharge to SNF from pulmonary standpoint Coding Level of Care Code 73083 Diagnoses Acute hypoxemic respiratory failure J96.01 Cardiopulmonary arrest with successful resuscitation I46.9 Cardiogenic shock R57.0
--- NOTE | 2025-03-30 16:38 | P.PN_ITS ---
Subjective 2 Subjective: Clinically much improved today. Noted hematomas over bilateral upper chest laterally. Hemoglobin stable at 9.8 today, platelet count at 69,000. Both improved. Participated with physical therapy today. Medications: Reviewed: Yes Vitals/I&O/Wt Last Vital Signs Temp 99.2 F 03/30/25 07:30 Pulse 90 03/30/25 15:15 Resp 22 H 03/30/25 15:14 BP 153/73 03/30/25 14:00 Pulse Ox 93 03/30/25 15:14 O2 Del Method Room Air 03/30/25 15:14 O2 Flow Rate 2 03/29/25 12:00 FiO2 2 03/29/25 07:57 03/30/25 03/30/25 03/30/25 06:59 14:59 22:59 Intake Total 1050 / 1550.907 914.167 / 914.167 Output Total 675 / 1275 450 / 450 Balance 375 / 275.907 464.167 / 464.167 Weight last 48 hrs Weight 64.5 kg Physical Exam 2 Narrative: General: Awake, alert, oriented x 2-3 HEENT: PERRLA, pupils bilaterally equal and reactive, pallors not present Chest: Normal vesicular breath sounds, no added sounds, equal good air entry bilaterally CVS: S1-S2 regular, no murmurs, no tachycardia, no gallops, no rubs Abdomen: Soft, nontender, no organomegaly, bowel sounds present Neuro: No focal deficits, moving all extremities still severely deconditioned. Extremities: discolored B/L Toes R > L improving compared to previous exams. Urinary Catheter Management: Archer: Cath Placed During This Visit: yes Reason for Continuing Indwelling Catheter: Accurate Measurement of Urinary Output in Critically Ill Patients Urinary Catheter Date of Insertion: 03/19/25 Urinary Catheter Time of Insertion: 18:47 Data 03/30/25 05:56 03/30/25 05:56 Micro: Microbiology 03/27/25 16:25 Gram Stain - Final Sputum - Endotracheal Tube Aspirate Sputum Culture - Final Pseudomonas aeruginosa Klebsiella oxytoca esbl 03/28/25 11:40 Bronchial Washings Culture - Preliminary Bronchial Washings Gram Negative Rods Gram Negative Rods#2 03/26/25 17:49 Urine Culture - Preliminary Urine Catheterized Yeast species A&P Assessment and plan 1. Cardiac arrest due to underlying cardiac condition: Patient s/p V-fib cardiac arrest, with severe acidemia requiring bicarb infusion and later held, improved S/p urgent PCI after STEMI alert, s/p Impella insertion and removal Holding MAP above 65.With low-dose of nor epi and being titrated off Cardiology on board and to follow the plan of care Continue Plavix and statins as per cardio plan Patient was on heparin however due to drop in hemoglobin and low platelets which are still low, the infusion was held, HIT studies sent, argatroban infusion started Of note: Patient was initially DNR as per the however since she was intubated on her way by the EMS patient was taken to the cath for PCI and later underwent Impella. Family appreciated the care and to continue further management as full code after further discussion with the family. 2. Sepsis: Patient s/p cardiac arrest likely underlying cardiogenic in nature severe acidosis s/p bicarb drip, currently off and corrected. ETT cultures grew staphy aureus and pseud aerug sensitive to zosyn, therefore to continue with it for total 14 days minimum with further guidance based on the clinical status of the patient. Initially was on vancomycin which was later on discontinued Monitor intake and output Monitor renal parameters, electrolytes and correction accordingly Maintain normoglycemia NGT feed to continue with increments as tolerated until goal rate ( dietitian consulted ) Manager Sales And Marketing on board and to follow the recommendation 3. Stenosis of superficial femoral artery: patient having bilateral dusky feet and more on the right foot and improving with rewarming, with foot drop, high likely due to high dose of NE, since there are adequate pulses on clinical exam US venous/arterial done, showed superficial femoral artery stenosis post intervention, having good adequate femoral pulse on examination and adequate perfusion as well with palpable distal tibial artery. cards informed and to start the patient on argatroban HIT studies since platelets are low and to follow 4. Peripheral arterial occlusive disease: as mentioned above 5. Thrombocytopenia: HiT studies to follow hold heparin and related productes started on argatroban infusion and to follow Platelet infusion to keep the platelets above 50,000 or in case of any bleeding 6. Foot drop: likely critical care myopathy CT head negative follow OT/PT 7. Coronary artery disease: Patient was loaded with aspirin and clopidogrel during STEMI alert with 600 mg of clopidogrel once and 325 of aspirin once Continue high-dose statins and Plavix Status post blood transfusion and drop in platelets, held heparin infusion and aspirin at the moment. Continue to monitor Cardiology on board to follow-up 8. Aspiration pneumonia: patient required initially high FIO2 100% and currently on 30-40% improving recieved lasix as well to improve since CXR showed some infiltrates cont vent management fu with pulmonolgist 9. Hypoglycemia: multifactorial since earlier patient had cardiogenic shock and possible sepsis, underwent stress, cont NGT feeding and DW as needed to support the blood glucose levels Maintain normoglycemia 10. Transaminitis: possible induced secondary to hypotension and further low cardiac output currently improving and cont to monitor 11. SYBIL (acute kidney injury): likely pre renal vs intra renal ATN? hypotension vs later contrast induced, seems multifactorial producing good amount of urine monitor renal parameters and electrolytes with correction 12. Anemia: Patient s/p PCI found to have anemia and s/p PRBC, currently no active source of bleeding continue to monitor CBC and hb with PRBC as needed 13. Lumbar stenosis with neurogenic claudication: Currently on sedation meanwhile 14. Nicotine dependence, cigarettes, with other nicotine-induced disorders: Patient recently quit on 06 March 2025, however still there is a risk of possible withdrawal effects Nicotine patch 15. Episode of recurrent major depressive disorder, unspecified depression episode severity: currently sedated and on mechanical vent hold home anti dep medications 16. Hypothyroidism (acquired): Patient on levothyroxine 100 mcg and liothyronine and to continue through NGT 17. Hyperlipidemia, unspecified hyperlipidemia type: Continue statins 18. Degenerative joint disease (DJD) of lumbar spine: Patient on leflunomide 20 mg, tramadol as needed for pain and prednisone To hold this medication at the moment considering cardiac arrest Plan: March 26, 2025. Chart reviewed extensively. 65-year-old lady admitted with V-fib arrest, status post Sales Rep visit with placement of 2 stents, needing Impella support thereafter. Impella subsequently removed. Echocardiogram showing improving EF postprocedure. Hospital course currently complicated by persisting encephalopathy. CT of the head taken twice during this admission was negative for any acute intracranial events. Concern for potential HIT as received heparin products earlier during the course of admission. Platelet count fell by over 50% during hospital course. Currently on argatroban infusion for HIT. Off pressors today. Blood pressure ranging 97-1 20 systolic millimeter mercury. Bilateral lower extremity toes with discoloration. Lower extremity arterial duplex showing DEYA 0.7 in the right lower extremity. CTA on hold for now given SYBIL. Cardiology following, appreciate recommendations. May be related to high- dose vasopressor use. Currently has ileus for which tube feeding is on hold. Patient off sedation for a weaning trial. Febrile 99.6-100 Fahrenheit today. Has a central line in place from admission which we will remove. Check blood cultures. Chest x-ray showing consolidation bilaterally compatible with pneumonia. Sputum cultures previously have shown Pseudomonas and MSSA. She is currently on piperacillin/tazobactam. Prior history of Klebsiella UTI. Check UA and urine culture. Obtain respiratory viral panel. March 27, 2025 Last febrile 100 Fahrenheit at 4 PM. Since then Tmax of 99.2 Fahrenheit. \WBC count stable at 12.6. Platelet count dropped to 40,000. Continues to be on argatroban. HIT serology remains pending. Creatinine stable.Urine output 2100 cc. Repeat blood cultures from yesterday pending. UA from Archer catheter with more than 100 RBC, 6-10 WBC, urine yeast positive. Trace leukocyte esterase. Transaminitis improving, will obtain abdominal imaging specifically gallbladder ultrasound to rule out any acalculous cholecystitis as a reason for her current fever. She this morning with pH of 7.39, pO2 of 82, bicarb 23, CO2 38.7 on 30% FiO2, PEEP of 8. Spontaneous breathing trial today. Plan for bronchoscopy tomorrow with pulmonology. Patient is more awake compared to yesterday, moves bilateral lower extremities, able to flex at the hip and knees. Attempting to move both arms through restraints. Attempting to move upper body as of to set up. She is on Precedex due to above agitation. Still does not follow directed command. She makes eye contact on calling her name however does not follow any commands thereafter. Will likely have a better assessment of her neurological status once extubated. Potentially may have hypoxic encephalopathy related to cardiac arrest. Piperacillin/tazobactam day 8 today. Await culture data. Last sputum culture with Pseudomonas aeruginosa and MSSA. Repeat sputum culture today. Blood culture pending. US GB as above Central line removed. March 28, 2025 No longer febrile. Leukocytosis is stable. Doing well on pressure support this morning. ABG reviewed. Plan for bronchoscopy followed by extubation later today. Discussed goals of care extensively with family that his and son at bedside. Should patient have respiratory deterioration after extubation, they declined reintubation or tracheostomy in keeping with patient's last known wishes which were to allow natural . Continues to have low-dose Levophed requirement at 2 mics currently. Start midodrine 10 mg 3 times daily in an attempt to wean off Levophed drip. Continues to be on argatroban. Platelet count stabilized at 39,000 today. Continues to be persistently encephalopathic. While patient is able to move her lower extremities and trunk spontaneously, she does not follow directed commands. Once she is extubated, we will proceed to an MRI of the brain to evaluate for stroke. Alternate possibility is that of anoxic metabolic encephalopathy given cardiac arrest and postcode status. Once extubated will have further discussions with family with regards to enteral feeding, swallow assessments etc. Hypokalemia 2.5, repleted with IV and p.o. supplementation. Recheck CMP this evening. TSH 8.14, T4 0.36, T3 0.8 ; low free T3 and T4. Potentially hypothyroidism may be contributing to her mental status. Will check random cortisol first and then likely start levothyroxine. GB US with post cholecystectomy status, no acute findings. Check Ammonia level March 29, 2025 Mental status is much better today. She is alert awake attempting to have a conversation. States her correct name, date of , recognizes her son at bedside. She was able to get out of bed to use the bedside commode for a bowel movement with max assist. She is severely deconditioned though no focal deficits are appreciated. MRI of the brain has been canceled given no focal deficits, low suspicion of stroke at this point. Patient has generalized encephalopathy related to critical illness and recent events. Argatroban discontinued as HIT panel returned negative. Likely thrombocytopenia related to acute illness. Continue piperacillin/tazobactam day 11 today. Will aim for a total 2-week course. Swallow eval today and if able to tolerate to start a dysphagia diet. Given her improvement in mental status, less likely that myxedema coma is contributing. Patient has been on oral levothyroxine and liothyronine. Increase levothyroxine to 125 mcg daily. Hemoglobin dropped to 6.9 today. Obtain ultrasound of the abdomen limited to assess for any hemoperitoneum. Transfusing 1 units PRBC today. Slowly improving, severely deconditioned PT OT speech therapy evaluation Disposition planning ongoing. Patient will likely need several days to weeks of acute rehab. Likely transfer to LTAC. March 30, 2025 Mental status continues to improve. Less agitated today. Follows commands. Oriented x 2-3. Recognizes family members at bedside and attempts to have short conversations. Passed swallow eval today. Started dysphagia 4 diet. Discontinue dextrose infusion. Sputum culture from 11 4 updated to reflect Pseudomonas aeruginosa and Klebsiella oxytocin ESBL. Discontinue piperacillin/tazobactam and switch to meropenem. Antibiotic day 12 today. Aiming for 2-week course. Appreciate cardiology recommendations, optimizing GDMT today. Continue Plavix 75 mg. Beta-blockers added with metoprolol 25 mg p.o. daily now that blood pressure is better. Additionally adding Entresto 1 tablet p.o. twice daily. Hypokalemia 2.8 repleted IV. Will add p.o. supplementation now that able to tolerate. Continue to encourage participation with PT OT. Patient is significantly deconditioned from her acute critical illness and would likely benefit from ongoing rehab. Likely to transition to SNF at discharge. PDMP PDMP Reviewed: Not Reviewed Attestations 2 Medical Necessity Statement*: Optimizing cardiac therapy, start feeding, change antibiotics, discontinue dextrose. Transfer out of ICU to [facility] Coding Level of Care Code Acute Code for Chg Fwd Diagnoses Cardiac arrest due to underlying cardiac condition I46.2 Sepsis A41.9 Stenosis of superficial femoral artery I70.209 Peripheral arterial occlusive disease I77.9 Thrombocytopenia D69.6 Foot drop M21.379 Coronary artery disease I25.10 Aspiration pneumonia J69.0 Hypoglycemia E16.2 Transaminitis R74.01 SYBIL (acute kidney injury) N17.9 Anemia D64.9 Lumbar stenosis with neurogenic claudication M48.062 Nicotine dependence, cigarettes, with other nicotine-induced disorders F17.218 Episode of recurrent major depressive disorder, unspecified depression episode severity F33.9 Depression Type: major depressive disorder Major depression recurrence: recurrent Active/Remission status: currently active Major depression episode severity: unspecified Hypothyroidism (acquired) E03.9 Hyperlipidemia, unspecified hyperlipidemia type E78.5 Hyperlipidemia type: unspecified Degenerative joint disease (DJD) of lumbar spine M47.816
[2025-03-30] MEDS: guaiFENesin 100 mg/5 mL UDC 10 mL 200 MG PO (17:49)
[2025-03-30] MEDS: meropenem 1,000 mg SDV 1000 MG IVP (17:49)
--- NOTE | 2025-03-30 21:45 | CTR_ITS ---
PROCEDURE INFORMATION: Exam: CT Head Without Contrast Exam date and time: 03/30/2025 9:59 PM Age: 65 years old Clinical indication: Injury or trauma; Fall; Blunt trauma (contusions or hematomas); Patient fell onto floor trying to get out of inpt bed. C/O head, neck, upper, and lower back pain. TECHNIQUE: Imaging protocol: Computed tomography of the head without contrast. Radiation optimization: All CT scans at this facility use at least one of these dose optimization techniques: automated exposure control; mA and/or kV adjustment per patient size (includes targeted exams where dose is matched to clinical indication); or iterative reconstruction. COMPARISON: CT head wo con* [id number] 03/29/2025 12:26 PM RADIATION DOSE METRICS: Total DLP (mGy-cm): 303 FINDINGS: Brain: No acute intracranial hemorrhage. No midline shift or mass effect. No acute territorial infarct. Global age-related cerebral atrophy. Chronic, age related microangiopathy, consistent periventricular and subcortical white matter hypoattenuation. Cerebral ventricles: No ventriculomegaly. Paranasal sinuses: Visualized sinuses are unremarkable. No fluid levels. Mastoid air cells: Visualized mastoid air cells are well aerated. Bones: Unremarkable. No acute fracture. Soft tissues: Unremarkable. CT/CT head wo con* [id number] IMPRESSION: No acute intracranial hemorrhage. No midline shift or mass effect.
--- NOTE | 2025-03-30 21:46 | XRR_ITS ---
PROCEDURE INFORMATION: Exam: XR Spine; Lumbar Exam date and time: 03/30/2025 10:01 PM Age: 65 years old Clinical indication: Injury or trauma; Fall; Injury: Patient fell onto floor trying to get out of inpt bed. C/O head, neck, upper, and lower back pain. Prior surgery; Surgery date: 6+ months; Surgery type: Lumbar spacers TECHNIQUE: Imaging protocol: XR of the spine. Exam focused on the lumbar spine. Views: 1 view. 1 view. COMPARISON: MR lumbar spine wo con* [id number] 07/07/2024 11:19 AM FINDINGS: Bones/joints: Diffuse osseous demineralization. Interbody spacers at L2-L3 and L3-L4. Gastrointestinal tract: Nonobstructed bowel-gas pattern. Organs: Cholecystectomy clips were Soft tissues: Normal. XR/XR lumbar spine 1V port [id number] IMPRESSION: Nonobstructed bowel-gas pattern.
--- NOTE | 2025-03-30 21:46 | XRR_ITS ---
PROCEDURE INFORMATION: Exam: XR Chest Exam date and time: 03/30/2025 10:06 PM Age: 65 years old Clinical indication: Injury or trauma; Fall; Blunt trauma (contusions or hematomas); Prior surgery; Surgery date: 6+ months; Surgery type: Gb; Patient fell onto floor trying to get out of inpt bed. C/O head, neck, upper, and lower back pain. TECHNIQUE: Imaging protocol: Radiologic exam of the chest. Views: 1 view. COMPARISON: CR (CHEST, ) 03/28/2025 4:55 AM FINDINGS: Tubes, catheters and devices: Left PICC line terminates in the SVC. Lungs: Mild pulmonary vascular congestion, correlate for CHF. Pleural spaces: Unremarkable. No pleural effusion. No pneumothorax. Heart/Mediastinum: Mild cardiomegaly. Bones/joints: Unremarkable. XR/XR chest 1V portable [id number] IMPRESSION: Mild pulmonary vascular congestion, correlate for CHF.
--- NOTE | 2025-03-30 21:46 | XRR_ITS ---
PROCEDURE INFORMATION: Exam: XR Spine; Cervical Exam date and time: 03/30/2025 10:03 PM Age: 65 years old Clinical indication: Injury or trauma; Fall; Injury: Patient fell onto floor trying to get out of inpt bed. C/O head, neck, upper, and lower back pain. TECHNIQUE: Imaging protocol: XR of the spine. Exam focused on the cervical spine. Views: 1 view. COMPARISON: CT head wo con* [id number] 03/30/2025 9:59 PM FINDINGS: Bones/joints: Single AP view of the cervical spine was submitted. Recommend additional views. Multilevel degenerative changes. Osseous demineralization. Lungs: Mild airspace consolidations in the upper lung beauchamp, recommend CA sclerotic areas concern for pneumonia. Soft tissues: Normal. XR/XR cervical spine 1Vport [id number] IMPRESSION: 1. Single AP view of the cervical spine was submitted. Recommend additional views. Multilevel degenerative changes. 2. Mild airspace consolidations in the upper lung beauchamp, recommend CA sclerotic areas concern for pneumonia.
--- NOTE | 2025-03-30 21:46 | XRR_ITS ---
PROCEDURE INFORMATION: Exam: XR Spine; Thoracic Exam date and time: 03/30/2025 10:13 PM Age: 65 years old Clinical indication: Injury or trauma; Fall; Injury: Patient fell onto floor trying to get out of inpt bed. C/O head, neck, upper, and lower back pain. Prior surgery; Surgery date: 6+ months; Surgery type: Gb TECHNIQUE: Imaging protocol: XR of the spine. Exam focused on the thoracic spine. Views: 1 view. COMPARISON: CR XR chest 1V portable [id number] 03/30/2025 10:06 PM FINDINGS: Tubes, catheters and devices: Left PICC line terminates in the SVC. Bones/joints: Normal. No acute fracture. Normal alignment. Soft tissues: Normal. XR/XR thoracic spine 1Vport [id number] IMPRESSION: Left PICC line terminates in the SVC.
[2025-03-31] VITALS (41 sets, daily range): BP systolic 96–155; BP diastolic 59–83; PULSE 86–108; RESP 16–41; TEMP 36.8–37; O2SAT 88–98
--- NOTE | 2025-03-31 00:09 | PC.NURSE ---
Addendum entered by Pamela Vergara RN 03/31/25 01:22: Order also received from Dr. Pearce for 1:1 sitter. Original Note: Fall At 2129, patient resting quietly in bed with respiratory rate even and unlabored. At around 2138, shout heard from patient's room. Upon entering room, patient laying in the floor to the left side of the bed. When asked if patient was ok, patient stated, This is uncomfortable, shit. No new bruises or wounds noted. Patient remaining confused with no new noted neurological deficits. Dr. Pearce and Dr. Diaz at bedside. Orders received for a head CT without contrast, chest xray, and spinal xrays Stat. Hover hai utilized to place patient back in bed. Following scan results, patient's son Roby notified of events and results. Son verbalized understanding and no further questions
--- NOTE | 2025-03-31 00:10 | PC.NURSE ---
Physician Communication Patient's blood sugar remaining in the 80s with oral intake. D10 stated to be discontinued in physician's note with an active medication order. Dr. Pearce on unit; order received to resume D10 at 50 ml/hr. At 2206, Chest xray results of mild pulmonary vascular congestion discussed. Second verification received to continue D10 at 50 ml/hr. Patient also complaining of abdominal discomfort as well as having multiple small mucoid bowel movements. Dr. Pearce notified; order received to place reglan on hold. Furthermore, patient attempted to void two times unsuccessfully. Bladder scan performed revealing 436 ml urine at [address] Pearce notified; order received to perform bladder scan in one hour. If >500 ml remaining, then perform a straight cath and perform another bladder scan in 5-6 hours. If urine amount <400, perform another bladder scan in 2-3 hours.
[2025-03-31] MEDS: meropenem 1,000 mg SDV 1000 MG IVP ×3 (00:46→17:38)
--- NOTE | 2025-03-31 01:10 | PC.NURSE ---
Urine Output Bladder scan at 0030 revealed 379 ml of urine in the bladder. At 0100, patient able to void 225 ml urine in bedside commode.
--- NOTE | 2025-03-31 01:43 | P.EN_ITS ---
Event Note Event Note: Patient had a fall after trying to get out of the bed. Patient also had mild urinary retention of 4 degrees on bladder scan? Event Notes Attestations Time Spent in Patient Care: Patient was found on the floor and there was mild trauma to the head. No bleeding or unconsciousness of the patient was reported or seen. I was available when the patient had a fall and saw her. He was trying to get up but felt too weak to get up and lost her balance and hit the floor. Urgent CT head of the patient was done which did not show any acute stroke X-ray of the spine and chest x-ray was done did not show any acute fracture He had mild congestive features however no shortness of breath and was at room air Continue to monitor with fall precautions One-to-one observation to be carried on since this patient is still having mild critical care myopathy and needs occupational physical therapist to help with her weakness and strength Patient reviewed with the painter who also was present at the moment. Monitor hemodynamics and application development consultant to continue The nurse also reported that the patient was having mild urinary retention of 430s however she was lying in the bed and had an urge to pee. I informed nurse to monitor since patient is lying in the bed and can pee by herself however if the repeat bladder scan in 1 to 2-hour is showing more than 500 than just straight cath and later on to repeat bladder scan in the next 5 to 6 hours. If the patient still retains second time then consider reinserting Archer's catheter based on the clinical assessment and objective parameters?
--- NOTE | 2025-03-31 04:08 | PC.NURSE ---
Bruise/Bladder Scan New bruising noted to patient's left and right lateral chest. Bruises soft to palpation. Latest bladder scan resulted in 462 ml of urine in the bladder. Dr. Pearce notified of urine retained as well as new bruising. Order received to perform another bladder scan in 4 hours and do not perform straight cath.
[2025-03-31 04:23] LABS: Hematocrit 29.0 % (36-47); Hemoglobin 9.40 g/dL (11.27-16.99); Mean Corpuscular HGB Conc 32.4 g/dL (30-55); Mean Corpuscular Hemoglobin 28.7 pg (27-33); Mean Corpuscular Volume 88.4 fl (85-98); Nucleated Red Blood Cells % 0 %; Platelet Count 80 10^3/cmm (157-399); Red Blood Count 3.28 10^6/uL (3.85-5.65); White Blood Count 11.09 10^3/uL (3.29-11.43)
[2025-03-31 04:43] LABS: Alanine Aminotransferase 34 U/L (0-33); Albumin Level 2.2 g/dL (3.5-5.2); Alkaline Phosphatase 119 U/L (35-105); Anion Gap 14.1 (5-19); Aspartate Amino Transferase 24 U/L (0-32); Blood Urea Nitrogen 12 mg/dL (8-23); Calcium 7.4 mg/dL (8.5-10.5); Carbon Dioxide 20 mmol/L (22-29); Chloride 106 mmol/L (98-107); Creatinine Clr Calc Pharmacy 51.9031; Globulin 2.4 g/dL (1.3-4.6); Glucose 102 mg/dL (65-115); Osmolality Calculated 284 mOsm/kg (285-295); Potassium 3.1 mmol/L (3.5-5.1); Sodium 137 mmol/L (136-145); Total Protein 4.6 g/dL (6.6-8.7)
--- NOTE | 2025-03-31 05:04 | PC.NURSE ---
Potassium Patient's potassium level 3.1. Dr. Pearce notified; order received to administer 40 meq KCL PO once and repeat a BMP with a magnesium level at 1000.
[2025-03-31] MEDS: pantoprazole 40 mg SDV IVP (05:44)
[2025-03-31] MEDS: metoprolol succinate ER (24 HR) 25 mg Tablet PO (05:59)
[2025-03-31] MEDS: guaiFENesin 100 mg/5 mL UDC 10 mL 200 MG PO ×2 (06:00→17:39)
[2025-03-31 10:34] LABS: Anion Gap 12.8 (5-19); Blood Urea Nitrogen 11 mg/dL (8-23); Calcium 7.2 mg/dL (8.5-10.5); Carbon Dioxide 20 mmol/L (22-29); Chloride 100 mmol/L (98-107); Creatinine Clr Calc Pharmacy 51.9031; Glucose 418 mg/dL (65-115); Magnesium 1.4 mg/dL (1.7-2.3); Osmolality Calculated 287 mOsm/kg (285-295); Sodium 130 mmol/L (136-145)
[2025-03-31 10:47] LABS: Potassium 2.8 mmol/L (3.5-5.1)
--- NOTE | 2025-03-31 11:22 | PC.NURSE ---
Dr. Lizama in unit to assess patient. Verified that patient is okay to transfer to [facility].
--- NOTE | 2025-03-31 12:51 | P.PN_ITS ---
Subjective 2 Subjective: . Patient had overnight fall out of the bed. No significant fracture or intracranial pathology noted on imaging This morning sitting in the bed with one-to-one sitter She denies any chest pain. Medications: Reviewed: Yes Vitals/I&O/Wt Last Vital Signs Temp 98.6 F 03/31/25 08:00 Pulse 90 03/31/25 11:38 Resp 18 03/31/25 11:38 BP 103/61 03/31/25 10:30 Pulse Ox 97 03/31/25 11:38 O2 Del Method Nasal Cannula 03/31/25 11:38 O2 Flow Rate 2 03/31/25 11:38 FiO2 2 03/29/25 07:57 03/30/25 03/31/25 03/31/25 22:59 06:59 14:59 Intake Total 120 / 1034.167 540.833 / 1575.000 Output Total 425 / 875 350 / 350 Balance 120 / 584.167 115.833 / 700.000 -350 / -350 Weight last 48 hrs Weight 142 lb 3.17 oz Weight 142 lb 3.17 oz Physical Exam 2 Const: OTHER: GENERAL: Patient is intubated on the vent HEART: Regular S1 and S2. No murmur, rub or gallop. LUNGS: Decreased breath sounds bilaterally. CENTRAL NERVOUS SYSTEM: Grossly nonfocal. EXTREMITIES: Lower extremities with out edema bilaterally. Dusky appearance of the distal edges of the foot bilaterally, both legs and feet are warm Resp: COMMON NORMALS: clear to auscultation bilaterally AUSCULTATION: clear to auscultation bilaterally Urinary Catheter Management: Archer: Cath Placed During This Visit: yes Reason for Continuing Indwelling Catheter: Accurate Measurement of Urinary Output in Critically Ill Patients Urinary Catheter Date of Insertion: 03/19/25 Urinary Catheter Time of Insertion: 18:47 Data 03/31/25 04:04 03/31/25 10:11 Micro: Microbiology 03/28/25 11:40 Bronchial Washings Culture - Final Bronchial Washings Klebsiella oxytoca esbl Pseudomonas aeruginosa 03/28/25 11:40 Mycobacterial Smear - Preliminary Body Fluids - Bronchial 03/27/25 16:25 Gram Stain - Final Sputum - Endotracheal Tube Aspirate Sputum Culture - Final Pseudomonas aeruginosa Klebsiella oxytoca esbl A&P Assessment and plan 1. Cardiac arrest due to underlying cardiac condition: 2. Coronary artery disease: 3. Acute coronary syndrome: 4. Peripheral arterial occlusive disease: 5. Benign essential HTN: 6. Hyperlipidemia, unspecified hyperlipidemia type: 7. Nicotine dependence, cigarettes, with other nicotine-induced disorders: 8. Hypothyroidism (acquired): 9. Pneumonia: Plan: Remained stable since platelets are more than 80,000 will add aspirin 81 mg continue aspirin statin Beta-jerman Plavix and Entresto Chest pain is secondary to CPR and trauma to the rib and not cardiac Since blood pressure is on the higher side I will reduce Entresto to once a day. I will be on vacation from tomorrow Dr. Calderon will take over. Patient will be awaiting placement for assisted care facility PDMP PDMP Reviewed: Not Reviewed Attestations 2 Medical Necessity Statement*: Patient require continuation hospitalization for above defined care Coding Level of Care Code Acute Code for Chg Fwd Diagnoses Cardiac arrest due to underlying cardiac condition I46.2 Coronary artery disease I25.10 Acute coronary syndrome I24.9 Peripheral arterial occlusive disease I77.9 Benign essential HTN I10 Hyperlipidemia, unspecified hyperlipidemia type E78.5 Hyperlipidemia type: unspecified Nicotine dependence, cigarettes, with other nicotine-induced disorders F17.218 Hypothyroidism (acquired) E03.9 Pneumonia J18.9
[2025-03-31] MEDS: lidocaine 1% 5 ML in potassium chloride premix 100 ML 26.25 ML IV ×2 (12:52→17:38)
--- NOTE | 2025-03-31 13:04 | PC.NURSE ---
patient arrived on floor from icu, report ttaken from LEEANN Desouza. Patient resting comfortably in a recliner. Son and one to one sitter at bedside.
--- NOTE | 2025-03-31 17:50 | PC.NURSE ---
patient is asking to go outside and nurse told patient not while her potassium was critically low and she ws getting potassium. It was then discovered that patient only wanted to go outside to smoke. It was explained to patient that she was on oxygen and that would not be safe, as well as smoking is not allowed on the hospital campus. Cinthia said You quit smoking, why do you want to go smoke? When patient was asked if she wanted a nicotine patch, patient declined.
[2025-04-01] VITALS (8 sets, daily range): BP systolic 102–135; BP diastolic 69–84; PULSE 84–99; RESP 16–22; TEMP 36.4–37; O2SAT 93–98; BMI 25.0
[2025-04-01] MEDS: meropenem 1,000 mg SDV 1000 MG IVP ×4 (00:13→23:53)
--- NOTE | 2025-04-01 01:15 | PC.NURSE ---
Received verbal orders from Dr. Pearce to stop dextrose infusion due to chances of causing hypokalemia. Also received orders for stat K and Mg labs. Monitor medications for any dextrose containing fluids. reported these requested to primary RN Tracy.
[2025-04-01 02:06] LABS: Anion Gap 14.0 (5-19); Blood Urea Nitrogen 12 mg/dL (8-23); Calcium 7.5 mg/dL (8.5-10.5); Carbon Dioxide 20 mmol/L (22-29); Chloride 107 mmol/L (98-107); Creatinine Clr Calc Pharmacy 51.9031; Glucose 83 mg/dL (65-115); Magnesium 1.5 mg/dL (1.7-2.3); Osmolality Calculated 283 mOsm/kg (285-295); Potassium 4.0 mmol/L (3.5-5.1); Sodium 137 mmol/L (136-145)
[2025-04-01] MEDS: magnesium sulfate premix 2 GM/50 ML PIGGYBACK IV (02:43)
[2025-04-01] MEDS: metoprolol succinate ER (24 HR) 25 mg Tablet PO (04:43)
[2025-04-01] MEDS: guaiFENesin 100 mg/5 mL UDC 10 mL 200 MG PO (04:45)
[2025-04-01 13:25] LABS: Free T4 Free Thyroxine 0.66 ng/dL (0.82-1.77); Thyroid Stimulating Hormone 18.48 uIU/mL (0.27-4.20)
--- NOTE | 2025-04-01 14:04 | MRR_ITS ---
PROCEDURE INFORMATION: Exam: MR Head Without Contrast Exam date and time: 04/01/2025 3:23 PM Age: 65 years old Clinical indication: Altered mental status/memory loss; Confusion or disorientation; Additional info: Persistent confusion/encephalopathy TECHNIQUE: Imaging protocol: Magnetic resonance imaging of the head without contrast. COMPARISON: CT head wo con* [id number] 03/30/2025 9:59 PM FINDINGS: Brain: Few foci of restricted diffusion in the right frontal lobe cortex, left parietal lobe cortex, left peritrigonal white matter measuring up to 6 mm. Bilateral periventricular white matter and centrum semiovale foci of high FLAIR signal, consistent with chronic ischemic small vessel disease. Mineralization of bilateral basal ganglia, age-related. No intracranial bleed. No intracranial mass. Cerebral ventricles: Normal. No ventriculomegaly. Bones: Unremarkable. Paranasal sinuses: Normal as visualized. No acute sinusitis. Mastoid air cells: Bilateral mastoid air cells fluid Orbital cavities: Unremarkable. Soft tissues: Unremarkable. MR/MR head wo con* [id number] IMPRESSION: 1. At least 3 acute lacunar infarcts in the right frontal lobe, left parietal lobe and left peritrigonal white matter. 2. No intracranial hemorrhage.
--- NOTE | 2025-04-01 15:18 | PC.NURSE ---
off unit to MRI
--- NOTE | 2025-04-01 16:34 | P.PN_ITS ---
Subjective 2 Subjective: Patient is much more alert and conversant today. She was able to correctly tell me her name, age, date of , recognized for family members at bedside including son, [id number], grandchild and . She was able to express frustration with her confusion, she acknowledges that she is not at her mental baseline, reports being scared to babysit, recalls talking to her friend last evening however does not remember the content. She is aware of the memory gaps and is frustrated with her mental recovery. However overall She is using appropriate words, expressing appropriate fears and thoughts, She does have some confusion and tangential conversation however overall much more alert than in previous assessments today. She tolerated Zyprexa 2.5 mg well overnight. Medications: Reviewed: Yes Vitals/I&O/Wt Last Vital Signs Temp 98.6 F 04/01/25 08:00 Pulse 88 04/01/25 12:00 Resp 21 H 04/01/25 12:00 BP 102/69 04/01/25 12:00 Pulse Ox 96 04/01/25 12:00 O2 Del Method Nasal Cannula 04/01/25 11:29 O2 Flow Rate 2 04/01/25 11:29 FiO2 2 03/29/25 07:57 04/01/25 04/01/25 04/01/25 06:59 14:59 22:59 Intake Total 1050 / 2175 720 / 720 Output Total 250 / 1200 Balance 800 / 975 720 / 720 Weight last 48 hrs Weight 66.2 kg Weight 64.5 kg Physical Exam 2 Narrative: General: No acute distress, AO x3 HEENT: PERRLA, pupils bilaterally equal and reactive, pallors not present Chest: Normal vesicular breath sounds, no added sounds, equal good air entry bilaterally CVS: S1-S2 regular, no murmurs, no tachycardia, no gallops, no rubs Abdomen: Soft, nontender, no organomegaly, bowel sounds present Neuro: Extremely deconditioned related to critical illness Urinary Catheter Management: Archer: Cath Placed During This Visit: yes Reason for Continuing Indwelling Catheter: Accurate Measurement of Urinary Output in Critically Ill Patients Urinary Catheter Date of Insertion: 03/19/25 Urinary Catheter Time of Insertion: 18:47 Data 03/31/25 04:04 04/01/25 01:25 Micro: Microbiology 03/26/25 17:49 Urine Culture - Final Urine Catheterized Nakaseomyces glabrata 03/28/25 11:40 Bronchial Washings Culture - Final Bronchial Washings Klebsiella oxytoca esbl Pseudomonas aeruginosa A&P Assessment and plan 1. Cardiac arrest due to underlying cardiac condition: Patient s/p V-fib cardiac arrest, with severe acidemia requiring bicarb infusion and later held, improved S/p urgent PCI after STEMI alert, s/p Impella insertion and removal Holding MAP above 65.With low-dose of nor epi and being titrated off Cardiology on board and to follow the plan of care Continue Plavix and statins as per cardio plan Patient was on heparin however due to drop in hemoglobin and low platelets which are still low, the infusion was held, HIT studies sent, argatroban infusion started Of note: Patient was initially DNR as per the however since she was intubated on her way by the EMS patient was taken to the cath for PCI and later underwent Impella. Family appreciated the care and to continue further management as full code after further discussion with the family. 2. Sepsis: Patient s/p cardiac arrest likely underlying cardiogenic in nature severe acidosis s/p bicarb drip, currently off and corrected. ETT cultures grew staphy aureus and pseud aerug sensitive to zosyn, therefore to continue with it for total 14 days minimum with further guidance based on the clinical status of the patient. Initially was on vancomycin which was later on discontinued Monitor intake and output Monitor renal parameters, electrolytes and correction accordingly Maintain normoglycemia NGT feed to continue with increments as tolerated until goal rate ( dietitian consulted ) Drilling Engineering Manager on board and to follow the recommendation 3. Stenosis of superficial femoral artery: patient having bilateral dusky feet and more on the right foot and improving with rewarming, with foot drop, high likely due to high dose of NE, since there are adequate pulses on clinical exam US venous/arterial done, showed superficial femoral artery stenosis post intervention, having good adequate femoral pulse on examination and adequate perfusion as well with palpable distal tibial artery. cards informed and to start the patient on argatroban HIT studies since platelets are low and to follow 4. Peripheral arterial occlusive disease: as mentioned above 5. Thrombocytopenia: HiT studies to follow hold heparin and related productes started on argatroban infusion and to follow Platelet infusion to keep the platelets above 50,000 or in case of any bleeding 6. Foot drop: likely critical care myopathy CT head negative follow OT/PT 7. Coronary artery disease: Patient was loaded with aspirin and clopidogrel during STEMI alert with 600 mg of clopidogrel once and 325 of aspirin once Continue high-dose statins and Plavix Status post blood transfusion and drop in platelets, held heparin infusion and aspirin at the moment. Continue to monitor Cardiology on board to follow-up 8. Aspiration pneumonia: patient required initially high FIO2 100% and currently on 30-40% improving recieved lasix as well to improve since CXR showed some infiltrates cont vent management fu with pulmonolgist 9. Hypoglycemia: multifactorial since earlier patient had cardiogenic shock and possible sepsis, underwent stress, cont NGT feeding and DW as needed to support the blood glucose levels Maintain normoglycemia 10. Transaminitis: possible induced secondary to hypotension and further low cardiac output currently improving and cont to monitor 11. SYBIL (acute kidney injury): likely pre renal vs intra renal ATN? hypotension vs later contrast induced, seems multifactorial producing good amount of urine monitor renal parameters and electrolytes with correction 12. Anemia: Patient s/p PCI found to have anemia and s/p PRBC, currently no active source of bleeding continue to monitor CBC and hb with PRBC as needed 13. Lumbar stenosis with neurogenic claudication: Currently on sedation meanwhile 14. Nicotine dependence, cigarettes, with other nicotine-induced disorders: Patient recently quit on 06 March 2025, however still there is a risk of possible withdrawal effects Nicotine patch 15. Episode of recurrent major depressive disorder, unspecified depression episode severity: currently sedated and on mechanical vent hold home anti dep medications 16. Hypothyroidism (acquired): Patient on levothyroxine 100 mcg and liothyronine and to continue through NGT 17. Hyperlipidemia, unspecified hyperlipidemia type: Continue statins 18. Degenerative joint disease (DJD) of lumbar spine: Patient on leflunomide 20 mg, tramadol as needed for pain and prednisone To hold this medication at the moment considering cardiac arrest Plan: March 26, 2025. Chart reviewed extensively. 65-year-old lady admitted with V-fib arrest, status post Office Aide visit with placement of 2 stents, needing Impella support thereafter. Impella subsequently removed. Echocardiogram showing improving EF postprocedure. Hospital course currently complicated by persisting encephalopathy. CT of the head taken twice during this admission was negative for any acute intracranial events. Concern for potential HIT as received heparin products earlier during the course of admission. Platelet count fell by over 50% during hospital course. Currently on argatroban infusion for HIT. Off pressors today. Blood pressure ranging 97-1 20 systolic millimeter mercury. Bilateral lower extremity toes with discoloration. Lower extremity arterial duplex showing DEYA 0.7 in the right lower extremity. CTA on hold for now given SYBIL. Cardiology following, appreciate recommendations. May be related to high- dose vasopressor use. Currently has ileus for which tube feeding is on hold. Patient off sedation for a weaning trial. Febrile 99.6-100 Fahrenheit today. Has a central line in place from admission which we will remove. Check blood cultures. Chest x-ray showing consolidation bilaterally compatible with pneumonia. Sputum cultures previously have shown Pseudomonas and MSSA. She is currently on piperacillin/tazobactam. Prior history of Klebsiella UTI. Check UA and urine culture. Obtain respiratory viral panel. March 27, 2025 Last febrile 100 Fahrenheit at 4 PM. Since then Tmax of 99.2 Fahrenheit. \WBC count stable at 12.6. Platelet count dropped to 40,000. Continues to be on argatroban. HIT serology remains pending. Creatinine stable.Urine output 2100 cc. Repeat blood cultures from yesterday pending. UA from Archer catheter with more than 100 RBC, 6-10 WBC, urine yeast positive. Trace leukocyte esterase. Transaminitis improving, will obtain abdominal imaging specifically gallbladder ultrasound to rule out any acalculous cholecystitis as a reason for her current fever. She this morning with pH of 7.39, pO2 of 82, bicarb 23, CO2 38.7 on 30% FiO2, PEEP of 8. Spontaneous breathing trial today. Plan for bronchoscopy tomorrow with pulmonology. Patient is more awake compared to yesterday, moves bilateral lower extremities, able to flex at the hip and knees. Attempting to move both arms through restraints. Attempting to move upper body as of to set up. She is on Precedex due to above agitation. Still does not follow directed command. She makes eye contact on calling her name however does not follow any commands thereafter. Will likely have a better assessment of her neurological status once extubated. Potentially may have hypoxic encephalopathy related to cardiac arrest. Piperacillin/tazobactam day 8 today. Await culture data. Last sputum culture with Pseudomonas aeruginosa and MSSA. Repeat sputum culture today. Blood culture pending. US GB as above Central line removed. March 28, 2025 No longer febrile. Leukocytosis is stable. Doing well on pressure support this morning. ABG reviewed. Plan for bronchoscopy followed by extubation later today. Discussed goals of care extensively with family that his and son at bedside. Should patient have respiratory deterioration after extubation, they declined reintubation or tracheostomy in keeping with patient's last known wishes which were to allow natural . Continues to have low-dose Levophed requirement at 2 mics currently. Start midodrine 10 mg 3 times daily in an attempt to wean off Levophed drip. Continues to be on argatroban. Platelet count stabilized at 39,000 today. Continues to be persistently encephalopathic. While patient is able to move her lower extremities and trunk spontaneously, she does not follow directed commands. Once she is extubated, we will proceed to an MRI of the brain to evaluate for stroke. Alternate possibility is that of anoxic metabolic encephalopathy given cardiac arrest and postcode status. Once extubated will have further discussions with family with regards to enteral feeding, swallow assessments etc. Hypokalemia 2.5, repleted with IV and p.o. supplementation. Recheck CMP this evening. TSH 8.14, T4 0.36, T3 0.8 ; low free T3 and T4. Potentially hypothyroidism may be contributing to her mental status. Will check random cortisol first and then likely start levothyroxine. GB US with post cholecystectomy status, no acute findings. Check Ammonia level March 29, 2025 Mental status is much better today. She is alert awake attempting to have a conversation. States her correct name, date of , recognizes her son at bedside. She was able to get out of bed to use the bedside commode for a bowel movement with max assist. She is severely deconditioned though no focal deficits are appreciated. MRI of the brain has been canceled given no focal deficits, low suspicion of stroke at this point. Patient has generalized encephalopathy related to critical illness and recent events. Argatroban discontinued as HIT panel returned negative. Likely thrombocytopenia related to acute illness. Continue piperacillin/tazobactam day 11 today. Will aim for a total 2-week course. Swallow eval today and if able to tolerate to start a dysphagia diet. Given her improvement in mental status, less likely that myxedema coma is contributing. Patient has been on oral levothyroxine and liothyronine. Increase levothyroxine to 125 mcg daily. Hemoglobin dropped to 6.9 today. Obtain ultrasound of the abdomen limited to assess for any hemoperitoneum. Transfusing 1 units PRBC today. Slowly improving, severely deconditioned PT OT speech therapy evaluation Disposition planning ongoing. Patient will likely need several days to weeks of acute rehab. Likely transfer to LTAC. March 30, 2025 Mental status continues to improve. Less agitated today. Follows commands. Oriented x 2-3. Recognizes family members at bedside and attempts to have short conversations. Passed swallow eval today. Started dysphagia 4 diet. Discontinue dextrose infusion. Sputum culture from 03 27 updated to reflect Pseudomonas aeruginosa and Klebsiella oxytocin ESBL. Discontinue piperacillin/tazobactam and switch to meropenem. Antibiotic day 12 today. Aiming for 2-week course. Appreciate cardiology recommendations, optimizing GDMT today. Continue Plavix 75 mg. Beta-blockers added with metoprolol 25 mg p.o. daily now that blood pressure is better. Additionally adding Entresto 1 tablet p.o. twice daily. Hypokalemia 2.8 repleted IV. Will add p.o. supplementation now that able to tolerate. Continue to encourage participation with PT OT. Patient is significantly deconditioned from her acute critical illness and would likely benefit from ongoing rehab. Likely to transition to SNF at discharge. March 31, 2025 Mental status continues to improve. Patient is much more alert and conversant today. She does exhibit intermittent confusion and has tangential conversation however able to sustain a conversation for over 10 minutes today in the room. She expresses appropriate frustration with regards to prolonged hospitalization and her current mental confusion of which she is aware. She worries about her prognosis and return to previous level of functioning. Tolerated addition of Zyprexa 2.5 mg p.o. overnight. Family expresses concerns today with regard to her confused behavior. Extensively counseled that patient has several factors to explain her confusion at this time, including but not limited to critical illness/ICU delirium, possibly hypoxic encephalopathy related to having had cardiac arrest and CPR on admission. She has had 2 falls during this admission course however CT head negative for bleeding. Possibility of stroke not excluded, however patient is currently optimized with aspirin Plavix atorvastatin which would be appropriate for stroke. Family would like to proceed with an MRI of the brain to evaluate for possibility of stroke. Discussed with them that patient would likely require several days to weeks of acute rehab to enable her to return to previous level of functioning. With regards to mental status it is quite possible that patient may have a new baseline and may or may not be able to return to her previous level of cognitive functioning. Encourage frequent reorientation with family at bedside. Will discuss results of MRI with family when available. Will check ABG today as patient has a history of COPD, will evaluate for hypercapnia as possibly contributing to intermittent confusion. Otherwise clinically euvolemic. Improving from a pneumonia standpoint. IV antibiotic day 14 today. Discontinue after completing course today. Noted to have borderline blood pressure with systolic ranging between 92-1 02 today. Discontinue Imdur. Continue Entresto 1 tab p.o. twice daily. Continue metoprolol. Encourage participation with PT OT. Appropriate disposition planning is ongoing. PDMP PDMP Reviewed: Not Reviewed Attestations 2 Medical Necessity Statement*: AWAITING APPROPRIATE DISPOSITION PLANNING, optimize GMDT Coding Level of Care Code Acute Code for Chg Fwd Diagnoses Cardiac arrest due to underlying cardiac condition I46.2 Sepsis A41.9 Stenosis of superficial femoral artery I70.209 Peripheral arterial occlusive disease I77.9 Thrombocytopenia D69.6 Foot drop M21.379 Coronary artery disease I25.10 Aspiration pneumonia J69.0 Hypoglycemia E16.2 Transaminitis R74.01 SYBIL (acute kidney injury) N17.9 Anemia D64.9 Lumbar stenosis with neurogenic claudication M48.062 Nicotine dependence, cigarettes, with other nicotine-induced disorders F17.218 Episode of recurrent major depressive disorder, unspecified depression episode severity F33.9 Depression Type: major depressive disorder Major depression recurrence: recurrent Active/Remission status: currently active Major depression episode severity: unspecified Hypothyroidism (acquired) E03.9 Hyperlipidemia, unspecified hyperlipidemia type E78.5 Hyperlipidemia type: unspecified Degenerative joint disease (DJD) of lumbar spine M47.816
[2025-04-01 17:46] LABS: ABG PCO2 23.7 mmHg (35-45); ABG PH Result 7.54 (7.35-7.45); Arterial Blood Gas Hematocrit 31.3 % (37-47); Blood Gas Allen Test Pos; Blood Gas Operator Identificat AMH; Blood Gas Sample Site Brachial, right; Blood Gas Sample Type Arterial; HCO3 ABG 20.3 mmol/L (22-26); PO2 ABG 69.4 mmHg (80.0-100.0); PO2 FiO2 Ratio Arterial Blood 330
--- NOTE | 2025-04-01 19:57 | ECG_ITS ---
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 Measurements Intervals [place] Rate: 94 P: 73 AK: 127 QRS: 44 QRSD: 83 T: 97 QT: 357 QTc: 449 Interpretive Statements SINUS RHYTHM SEPTAL MYOCARDIAL INFARCTION , OF INDETERMINATE AGE [40+ ms Q WAVE IN V1/V2] MODERATE T-WAVE ABNORMALITY, CONSIDER LATERAL ISCHEMIA [-0.1+ mV T-WAVE IN I/aVL/V5/V6] MODERATE T-WAVE ABNORMALITY, CONSIDER INFERIOR ISCHEMIA [-0.1+ mV T-WAVE IN II/aVF] Compared to ECG 03/26/2025 20:18:41 Possible ischemia now present Sinus tachycardia no longer present Myocardial infarct finding still present T-wave abnormality still present Electronically Signed On 04-01-2025 20:16:23 MACHINE SETTER by Landen Calderon M.D. [id number]
[2025-04-01] MEDS: HYDROmorphone 0.5 MG/0.5 ML INJ 0.2 MG IVP (20:52)
[2025-04-01 21:29] LABS: Anion Gap 14.6 (5-19); Blood Urea Nitrogen 15 mg/dL (8-23); Calcium 7.3 mg/dL (8.5-10.5); Carbon Dioxide 20 mmol/L (22-29); Chloride 106 mmol/L (98-107); Creatinine Clr Calc Pharmacy 65.6315; Glucose 78 mg/dL (65-115); Magnesium 1.9 mg/dL (1.7-2.3); Osmolality Calculated 284 mOsm/kg (285-295); Potassium 3.6 mmol/L (3.5-5.1); Sodium 137 mmol/L (136-145)
[2025-04-01 21:35] LABS: Troponin(5th) Baseline 263 ng/L (0-10)
[2025-04-01] MEDS: heparin drip 25,000 UNIT/500 ML PREMIX 16 UNIT IV (22:11)
--- NOTE | 2025-04-01 22:15 | W.PM.EVENTAC ---
Event Note Event Note: Patient reported chest pain around 9:30 PM, nitroglycerin sublingual gave mild resolution Troponins and EKG done Troponin raised EKG no changes Heparin infusion without bolus and at 12 units infusion rate, HIT studies were negative in this patient. Patient has thrombocytopenia therefore to have CBC as well along with APTT and if further dropping of platelets or bleeding then consider platelet transfusion and further cardiology opinion Cardiology on-call consulted and recommended for nitro infusion and to continue heparin infusion To follow further troponins and EKGs Follow further cardiac recommendation Monitor hemodynamics If the patient has ongoing chest pain then to transfer to ICU CODE STATUS reviewed and will be managed according to the protocol
--- NOTE | 2025-04-01 22:28 | ECG_ITS ---
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 Measurements Intervals [place] Rate: 100 P: 80 DC: 129 QRS: 38 QRSD: 75 T: 244 QT: 355 QTc: 459 Interpretive Statements SINUS TACHYCARDIA WITH OCCASIONAL ECTOPIC PREMATURE COMPLEXES LOW QRS VOLTAGE IN PRECORDIAL LEADS [QRS DEFLECTION < 1.0 mV IN CHEST LEADS] ST DEVIATION AND MODERATE T-WAVE ABNORMALITY, CONSIDER LATERAL ISCHEMIA [-0.1+ mV T-WAVE IN I/aVL/V5/V6] ST DEVIATION AND MODERATE T-WAVE ABNORMALITY, CONSIDER INFERIOR ISCHEMIA [-0.1+ mV T-WAVE IN II/aVF] Compared to ECG 04/01/2025 19:58:57 Low QRS voltage now present Sinus rhythm no longer present Myocardial infarct finding no longer present T-wave abnormality still present Possible ischemia still present Electronically Signed On 04-02-2025 18:16:53 DIRECTOR OF EARLY CHILDHOOD by Landen Calderon M.D. [email or web address]
[2025-04-01] MEDS: nitroglycerin drip 50 MG/250 ML PREMIX IV (22:31)
[2025-04-01 22:50] LABS: Hematocrit 26.5 % (36-47); Hemoglobin 8.90 g/dL (11.27-16.99); Mean Corpuscular HGB Conc 33.6 g/dL (30-55); Mean Corpuscular Hemoglobin 28.9 pg (27-33); Mean Corpuscular Volume 86.0 fl (85-98); Nucleated Red Blood Cells % 0 %; Platelet Count 101 10^3/cmm (157-399); Red Blood Count 3.08 10^6/uL (3.85-5.65); White Blood Count 8.17 10^3/uL (3.29-11.43)
[2025-04-01 23:11] LABS: Troponin 5 2HR 274.9 ng/L (0-10); Troponin 5 2HR Delta 11.9 ABS# (0-10)
--- NOTE | 2025-04-01 23:22 | P.PN_ITS ---
Subjective 2 Subjective: The patient apparently had some chest pain this evening. I was called to see this patient. Patient is very vague about her symptoms. According to her, she is concerned about the lack of appetite and! And some stomach discomfort . Her vitals are stable. The EKG does not show any new changes. Medications: Medication Review Details: Current Medications Acetaminophen (Acetaminophen 325 Mg Tablet) 650 mg PO Q6H PRN PRN Reason: MILD PAIN Al Hydrox/Mg Hydrox/Simethicone (Hknb-Xqh-Cbbmwcztt-Bonnie 30 Ml Udc) 30 ml PO Q15M PRN PRN Reason: INDIGESTION Albuterol/Ipratropium (Ipratropium-Albuterol 3 Ml Neb) 3 ml INHALATION Q4H.RESPIRATORY TESSA Last Admin: 04/01/25 20:27 Dose: 3 ml Alprazolam (Alprazolam 0.25 Mg Tablet) 0.25 mg PO BID PRN PRN Reason: ANXIETY Last Admin: 04/01/25 23:19 Dose: 0.25 mg Aspirin (Aspirin 81 Mg Ec Tablet) 81 mg PO DAILY TESSA Last Admin: 04/01/25 04:45 Dose: 81 mg Atorvastatin Calcium (Atorvastatin 40 Mg Tablet) 80 mg PO DAILY TESSA Last Admin: 04/01/25 04:44 Dose: 80 mg Atropine Sulfate (Atropine 1 Mg/Ml Sdv 1 Ml) 0.5 mg IVP PRN PRN PRN Reason: Symptomatic bradycardia Clopidogrel Bisulfate (Clopidogrel 75 Mg Tablet) 75 mg PO DAILY [facility] Last Admin: 04/01/25 04:45 Dose: 75 mg Guaifenesin (Guaifenesin 100 Mg/5 Ml Udc 10 Ml) 200 mg PO BID PRN PRN Reason: cough Heparin Sodium (Porcine) (Heparin 5,000 Unit/Ml Inj 1 Ml) 0 unit IVP PRN PRN; Protocol PRN Reason: Heparin Weight Based Protocol -Subsequent Bolus Heparin Sodium/Sodium Chloride (Heparin Drip) 25,000 unit in 500 mls @ 0 mls/hr IV CONT [facility]; Protocol Last Admin: 04/01/25 22:11 Dose: 12.08 unit/kg/hr, 16 mls/hr Nitroglycerin/Dextrose (Nitroglycerin Drip) 50 mg in 250 mls @ 0 mls/hr IV .Q0M TESSA; Protocol Last Titration: 04/01/25 23:21 Dose: 20 mcg/min, 6 mls/hr Isosorbide Mononitrate (Isosorbide Mononitrate Er 30 Mg Tablet) 15 mg PO BID [facility] On Hold: 04/01/25 16:32 Last Admin: 04/01/25 04:43 Dose: 15 mg Lanolin (Lanolin Oint 7 Gm) 1 applic TOPICAL PRN PRN PRN Reason: DRYNESS Last Admin: 03/29/25 03:39 Dose: 1 applic Levothyroxine Sodium (Levothyroxine 125 Mcg Tablet) 125 mcg PO DAILY [facility] Last Admin: 04/01/25 04:45 Dose: 125 mcg Liothyronine Sodium (Liothyronine 5 Mcg Tablet) 10 mcg PO DAILY [facility] Last Admin: 04/01/25 04:43 Dose: 10 mcg Magnesium Hydroxide (Magnesium Hydroxide 30 Ml Udc) 30 ml PO DAILY PRN PRN Reason: CONSTIPATION Meropenem (Meropenem 1,000 Mg Sdv) 1,000 mg IVP Q8H [facility]; Protocol Last Admin: 04/01/25 19:04 Dose: 1,000 mg Metoprolol Succinate (Metoprolol Succinate Er (24 Hr) 25 Mg Tablet) 25 mg PO DAILY [facility] Last Admin: 04/01/25 04:43 Dose: 25 mg Naloxone HCl (Naloxone 0.4 Mg/Ml Sdv) 0.1 mg IVP Q2M PRN PRN Reason: RESPIRATORY RATE < 8/MIN Nicotine (Nicotine 21 Mg Patch) 1 patch TRANSDERMA DAILY [facility] Last Admin: 04/01/25 04:50 Dose: 1 patch Nitroglycerin (Nitroglycerin 0.4 Mg Sublingual Tablet) 0.4 mg SUBLINGUAL Q5M PRN PRN Reason: CHEST PAIN Last Admin: 04/01/25 20:07 Dose: 0.4 mg Olanzapine (Olanzapine 5 Mg Odt) 5 mg PO BEDTIME [facility] Last Admin: 04/01/25 20:50 Dose: 5 mg Ondansetron HCl (Ondansetron 2 Mg/Ml Sdv 2 Ml) 4 mg IVP Q6H PRN PRN Reason: NAUSEA AND VOMITING Pantoprazole Sodium (Pantoprazole Dr 40 Mg Tablet) 40 mg PO DAILY [facility] Last Admin: 04/01/25 04:45 Dose: 40 mg Sacubitril/Valsartan (Sacubitril/Valsartan 24-26 Mg Tablet) 1 each PO BID TESSA Last Admin: 04/01/25 19:05 Dose: 1 each Senna (Sennosides 8.6 Mg Tablet) 17.2 mg PO BEDTIME PRN PRN Reason: Constipation Vitals/I&O/Wt Last Vital Signs Temp 97.6 F 04/01/25 19:47 Pulse 93 04/01/25 20:33 Resp 18 04/01/25 20:33 BP 134/80 04/01/25 19:47 Pulse Ox 94 04/01/25 20:33 O2 Del Method Room Air 04/01/25 20:33 O2 Flow Rate 2 04/01/25 11:29 FiO2 2 03/29/25 07:57 04/01/25 04/01/25 04/02/25 14:59 22:59 06:59 Intake Total 720 / 720 57.189 / 777.189 2.5 / 779.689 Balance 720 / 720 57.189 / 777.189 2.5 / 779.689 Weight last 48 hrs Weight 145 lb 15.136 oz Weight 142 lb 3.17 oz Physical Exam 2 Narrative: GENERAL: The patient is alert but somewhat confused. Not in any acute distress. HEENT: No significant pallor, icterus or lymphadenopathy.Oral cavity: There are no mucous membrane lesions. NECK: Trachea appears to be central. No masses noted. No JVD or thyromegaly appreciated. RESPIRATORY: Chest is symmetrical. No intercostals muscle retraction or any accessory muscle activation. There is no chest wall tenderness. Breath sounds are heard bilaterally. No rales or rhonchi heard. No evidence of any consolidation. BREASTS: Deferred. HEART: The heart sounds are normal. No S3 or S4. Short systolic murmur in the lower sternal border.. No pericardial rub ABDOMEN: No vessel pulsations or distention. No tenderness. No organomegaly appreciated. Bowel sounds are normally heard. : Deferred. RECTAL: Deferred. LYMPHATIC: No lymphadenopathy noted in the neck. EXTREMITIES: No edema or cyanosis. No clubbing. MUSCULOSKELETAL: No acute joint deformities or swelling SKIN: Areas of ecchymosis in the upper extremity NEUROPSYCHIATRIC: The patient is alert but seems to be somewhat confused Urinary Catheter Management: Archer: Cath Placed During This Visit: yes Reason for Continuing Indwelling Catheter: Accurate Measurement of Urinary Output in Critically Ill Patients Urinary Catheter Date of Insertion: 03/19/25 Urinary Catheter Time of Insertion: 18:47 Data 04/01/25 22:27 04/01/25 20:30 Other Labs: Laboratory Last Values WBC 8.17 10^3/uL (3.29-11.43) 04/01/25: RBC 3.08 10^6/uL (3.85-5.65) L 04/01/25: Hgb 8.90 g/dL (11.27-16.99) L 04/01/25 22: Hct 26.5 % (36-47) L 04/01/25: MCV 86.0 fl (85-98) 04/01/25: MCH 28.9 pg (27-33) 04/01/25: MCHC 33.6 g/dL (30-55) 04/01/25: RDW 17.3 % (12.1-15.1) H 04/01/25: Plt Count 101 10^3/cmm (157-399) L 04/01/25: Plt Count Cancelled 04/01/25: MPV 12.3 fL (7.4-10.4) H 04/01/25: Neut % (Auto) 62.6 % 04/01/25: Lymph % (Auto) 14.7 % 04/01/25: [place] % (Auto) 18.8 % 04/01/25: Eos % (Auto) 1.3 % 04/01/25: Baso % (Auto) 1.1 % 04/01/25: Neut # (Auto) 5.11 10^3/uL (1.8-7.7) 04/01/25: Lymph # (Auto) 1.2 10^3/uL (0.8-4.8) 04/01/25: [place] # (Auto) 1.5 10^3/uL (0.2-0.9) H 04/01/25: Eos # (Auto) 0.1 10^3/uL (0.0-0.8) 04/01/25: Baso # (Auto) 0.1 10^3/uL (0.0-0.1) 04/01/25 22:27 Nucleated RBC % (auto) 0 % 04/01/25 22: Total Counted 100 (0-100) 03/21/25 17: Atypical Lymphs % 4.0 % (0-5) 03/21/25 17: Absolute Neutrophils 4.9 10^3/cmm (1.4-6.5) 03/21/25 17: Segmented Neutrophils 66 % 03/21/25 17: Band Neutrophils 9.0 % 03/21/25 17: Absolute Lymphocytes 0.9 10^3/cmm (1.2-3.4) L 03/21/25 17: Lymphocytes (Manual) 10 % 03/21/25 17: Monocytes (Manual) 8.0 % 03/21/25: Absolute Monocytes 0.5 10^3/cmm (0.1-0.6) 03/21/25: Eosinophils (Manual) 1 % 03/21/25: Absolute Eosinophils 0.1 10^3/cmm (0.0-0.7) 03/21/25 17: Basophils (Manual) 2.0 % 03/21/25: Absolute Basophils 0.1 10^3/cmm (0.0-0.2) 03/21/25: Nucleated RBCs # 0.0 /100WBC 04/01/25: Platelet Estimate Decreased (Normal) L 03/21/25 17: Giant Platelets Trace 03/21/25 17:25 Anisocytosis Trace 03/21/25 17:25 Heparin Require Pat 0.035 OD UNITS 03/24/25 13:55 Heparin Require Pat 0.038 03/24/25 13:55 PT 18.00 SECONDS (12.1-14.9) H 03/22/25 11:17 INR 1.39 (0.8-1.2) H 03/22/25 11:17 APTT 67.8 SECONDS (23.9-36.7) H 03/29/25 07:49 Specimen Type Arterial 04/01/25 17:35 Sample Site Brachial, right 04/01/25 17:35 ABG pH 7.54 (7.35-7.45) H 04/01/25 17:35 ABG pCO2 23.7 mmHg (35-45) L 04/01/25 17:35 ABG pO2 69.4 mmHg (80.0-100.0) L 04/01/25 17:35 ABG PO2/FiO2 Ratio 330 04/01/25 17:35 ABG HCO3 20.3 mmol/L (22-26) L 04/01/25 17:35 ABG O2 Saturation 91.6 03/24/25 04:40 ABG Base Excess -1.2 mmol/L (-2.0-2.0) 04/01/25 17:35 Sai Test Pos 04/01/25 17:35 A-a O2 Gradient 13.1 mmHg (5-10) H 03/24/25 04:40 Hematocrit 31.3 % (37-47) L 04/01/25 17:35 Hgb O2 Saturation 88.1 % (95-100) L 03/24/25 04:40 Carboxyhemoglobin 2.7 %THgb (0.4-20.1) 03/24/25 04:40 Methemoglobin 1.1 % (0.4-1.5) 03/24/25 04:40 Total Hemoglobin 10.1 g/dL (12-16) L 03/24/25 04:40 Sodium 138.0 mmol/L (131-143) 03/24/25 04:40 Potassium 3.8 mmol/L (3.5-5.0) 03/24/25 04:40 Glucose 145.0 mg/dL (70-115) H 03/24/25 04:40 Ionized Calcium 1.1 mmol/L (1.1-1.4) 03/24/25 04:40 O2 Delivery Device Room air 04/01/25 17:35 FiO2 21.0 % 04/01/25 17:35 Tidal Volume 0.45 03/28/25 03:32 PEEP 8.0 cmH20 03/28/25 03:32 Staffing Mgr ID Amh 04/01/25 17:35 Sodium 137 mmol/L (136-145) 04/01/25 20:30 Potassium 3.6 mmol/L (3.5-5.1) 04/01/25 20:30 Chloride 106 mmol/L (98-107) 04/01/25 20:30 Carbon Dioxide 20 mmol/L (22-29) L 04/01/25 20:30 Anion Gap 14.6 (5-19) 04/01/25 20:30 BUN 15 mg/dL (8-23) 04/01/25 20:30 Creatinine 0.8 mg/dL (0.5-0.9) 04/01/25 20:30 GFR Calculation 72.0 mL/min (90-130) L 04/01/25 20:30 Glucose 78 mg/dL (65-115) 04/01/25 20:30 POC Glucose 84 mg/dL (70-110) 04/01/25 21:20 Calculated Osmolality 284 mOsm/kg (285-295) L 04/01/25 20:30 Lactic Acid 3.8 mmol/L (0.5-2.2) H 03/19/25 18:09 Lactic Acid (Sepsis) 2.0 mmol/L (0.5-2.2) 03/19/25 21:37 Lactate 1.8 mmol/L (0.5-2.2) 03/21/25 12:59 Calcium 7.3 mg/dL (8.5-10.5) L 04/01/25 20:30 Phosphorus 3.6 mg/dL (2.5-4.5) 03/25/25 04:10 Magnesium 1.9 mg/dL (1.7-2.3) 04/01/25 20:30 Total Bilirubin 1.1 mg/dL (0.15-1.2) 03/31/25 04:04 AST 24 U/L (0-32) 03/31/25 04:04 ALT 34 U/L (0-33) H 03/31/25 04:04 Alkaline Phosphatase 119 U/L (35-105) H 03/31/25 04:04 Ammonia 34 umol/L (11-51) 03/28/25 13:16 Troponin T Baseline 263 ng/L (0-10) H* 04/01/25 20:30 Troponin T 120 Minute 274.9 ng/L (0-10) H 04/01/25 22:27 Delta Troponin T 11.9 ABS# (0-10) H* 04/01/25 22:27 NT-Pro-B Natriuret Pep 8806 pg/mL (0-125) H 03/26/25 14:43 Total Protein 4.6 g/dL (6.6-8.7) L 03/31/25 04:04 Albumin 2.2 g/dL (3.5-5.2) L 03/31/25 04:04 Globulin 2.4 g/dL (1.3-4.6) 03/31/25 04:04 TSH 18.48 uIU/mL (0.27-4.20) H 04/01/25 01: Free T4 0.66 ng/dL (0.82-1.77) L 04/01/25 01: Free T3 1.5 PG/ML (2.0-4.4) L 04/01/25 01: Random Cortisol 13.05 ug/dL (2.47-19.5) 03/28/25 13:16 Urine Color Yellow (Yellow) 03/26/25 17:49 Urine Appearance Clear (CLEAR) 03/26/25 17:49 Urine pH 5.5 (5-7) 03/26/25 17:49 Ur Specific [place] 1.013 (1.005-1.030) 03/26/25 17:49 Urine Protein 1+ (Negative) A 03/26/25 17:49 Urine Glucose (UA) Negative (Normal) 03/26/25 17:49 Urine Ketones Negative (Negative) 03/26/25 17:49 Urine Blood 3+ (Negative) A 03/26/25 17:49 Urine Nitrate Negative (Negative) 03/26/25 17:49 Urine Bilirubin Negative (Negative) 03/26/25 17:49 Urine Urobilinogen 0.2 mg/dL (Negative) 03/26/25 17:49 Ur Leukocyte Esterase Trace (Negative) A 03/26/25 17:49 Urine RBC >100 /hpf (0-2) H 03/26/25 17:49 Urine WBC 6-10 /hpf (0-5) 03/26/25 17:49 Ur Squamous Epith Cells 0-5 /hpf (0-5) 03/26/25 17:49 Amorphous Sediment Not Reportable 03/26/25 17:49 Urine Bacteria None seen /hpf (NONE) 03/26/25 17:49 Hyaline Casts 1.21 /lpf 03/26/25 17:49 Urine Yeast 3+ /hpf H 03/26/25 17:49 Fl Cell Cnt/Diff Source 03/28/25 11:40 Fld Tot Nucleated Cell 1813 cells/uL 03/28/25 11:40 Fluid Neutrophils % 78 % 03/28/25 11:40 Fluid Lymphocytes % 16 % 03/28/25 11:40 Fluid Eosinophils % 0 % 03/28/25 11:40 Fluid Basophils % 0 % 03/28/25 11:40 Fl Monocyt/Macrophag % 6 % 03/28/25 11:40 Fld Mesothelial Cell % 0 % 03/28/25 11:40 Fluid Crystal Appear Hazy 03/28/25 11:40 Fluid Crystal Color Little white 03/28/25 11:40 Clinical Comments See note 03/28/25 11:40 Vancomycin Trough 16.9 ug/mL (10-15) H 03/23/25 19:03 Heparin-induced Ab Negative (NEGATIVE) 03/24/25 13:55 Heparin-induced Plt Ab Negative (Negative) 03/24/25 13:55 UF Heparin Result Negative (Negative) 03/24/25 13:55 SALMA UFH Low Dose 0.1 3 % Release 03/24/25 13:55 SALMA UFH Low Dose 0.5 3 % Release 03/24/25 13:55 SALMA UFH High Dose 100 2 % Release 03/24/25 13:55 Adenovirus (PCR) Not detected (NOT DETECT) 03/26/25 17:49 C. pneumoniae DNA (PCR) Not detected (NOT DETECT) 03/26/25 17:49 Coronavirus 229E (PCR) Not detected (NOT DETECT) 03/26/25 17:49 Human Metapneumovir PCR Not detected (NOT DETECT) 03/26/25 17:49 Influenza A (H1) PCR Not detected (NOT DETECT) 03/26/25 17:49 Influ A (H1/09) PCR Not detected (NOT DETECT) 03/26/25 17:49 Influenza A (H3) PCR Not detected (NOT DETECT) 03/26/25 17:49 Influenza Type A (PCR) Not detected (NOT DETECT) 03/26/25 17:49 Influenza Type B (PCR) Not detected (NOT DETECT) 03/26/25 17:49 M. pneumoniae (PCR) Not detected (NOT DETECT) 03/26/25 17:49 Parainfluenza 1 (PCR) Not detected (NOT DETECT) 03/26/25 17:49 Parainfluenza 2 (PCR) Not detected (NOT DETECT) 03/26/25 17:49 Parainfluenza 3 (PCR) Not detected (NOT DETECT) 03/26/25 17:49 Parainfluenza 4 (PCR) Not detected (NOT DETECT) 03/26/25 17:49 RSV Type A (PCR) Not detected (NOT DETECT) 03/26/25 17:49 RSV Type B (PCR) Not detected (NOT DETECT) 03/26/25 17:49 Entero/Rhino (PCR) Not detected (NOT DETECT) 03/26/25 17:49 SARS-CoV-2 (PCR) Not detected (NOT DETECT) 03/26/25 17:49 Blood Type O Positive 03/29/25 05:35 Rho(D) Type Rh positive 03/29/25 05:35 Antibody Screen Negative 03/29/25 05:35 Crossmatch See Detail 03/29/25 05:35 Other data: The EKG showed sinus tachycardia with a diffuse nonspecific ST-T changes. Poor R wave progression. Occasional PVCs. A&P Assessment and plan 1. Recent non-ST elevation myocardial infarction: Patient status post PCI with Impella support. Currently seems to be stable. 2. Chest pain, unspecified type: Patient seems to be vague over this symptom. The EKG is unremarkable. The baseline troponin T is elevated. 3. Cardiac arrest due to underlying cardiac condition: Fairly patient had multiple resuscitative measures. No recurrence. 4. Ventricular tachycardia: Currently remaining in sinus rhythm with occasional PVCs 5. Thrombocytopenia: Seems to be fairly stable. The platelet count is 101,000 6. Atrial fibrillation by electrocardiogram: Currently in sinus rhythm 7. 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 She has some vague symptoms. We may closely monitor her vitals. Started on a small dose of IV nitrates, may be continued Based on the clinical progress, further recommendations will be made. PDMP PDMP Reviewed: Not Reviewed Attestations 2 Medical Necessity Statement*: Patient requires continued hospital stay for close monitoring and further management Coding Level of Care Code 95691 Diagnoses Recent non-ST elevation myocardial infarction Chest pain, unspecified type R07.9 Chest pain type: unspecified Cardiac arrest due to underlying cardiac condition I46.2 Ventricular tachycardia I47.20 Thrombocytopenia D69.6 Atrial fibrillation by electrocardiogram I48.91 Stenosis of superficial femoral artery I70.209
[2025-04-02] VITALS (17 sets, daily range): BP systolic 99–141; BP diastolic 60–79; PULSE 80–105; RESP 11–26; TEMP 36.4–36.9; O2SAT 92–99
--- NOTE | 2025-04-02 02:15 | ECG_ITS ---
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 Measurements Intervals [place] Rate: 91 P: 67 [place]: 125 QRS: 43 QRSD: 88 T: 85 QT: 372 QTc: 459 Interpretive Statements SINUS RHYTHM WITH OCCASIONAL SUPRAVENTRICULAR PREMATURE COMPLEXES SEPTAL MYOCARDIAL INFARCTION , PROBABLY OLD [40+ ms Q WAVE IN V1/V2] Compared to ECG 04/01/2025 22:28:10 Myocardial infarct finding now present Sinus tachycardia no longer present T-wave abnormality no longer present Possible ischemia no longer present Electronically Signed On 04-02-2025 18:16:04 DESIGNATED BROKER by Landen Calderon M.D. [email or web address]
[2025-04-02 02:41] LABS: Hematocrit 26.4 % (36-47); Hemoglobin 8.70 g/dL (11.27-16.99); Mean Corpuscular HGB Conc 33.0 g/dL (30-55); Mean Corpuscular Hemoglobin 28.5 pg (27-33); Mean Corpuscular Volume 86.6 fl (85-98); Nucleated Red Blood Cells % 0 %; Platelet Count 105 10^3/cmm (157-399); Red Blood Count 3.05 10^6/uL (3.85-5.65); White Blood Count 8.25 10^3/uL (3.29-11.43)
[2025-04-02 03:01] LABS: Troponin 5 6HR Delta 61.9 ng/L (0-12)
[2025-04-02 03:02] LABS: Partial Thromboplastin Time 84.9 SECONDS (23.9-36.7); Troponin 5 6HR 324.9 ng/L (0-10)
--- NOTE | 2025-04-02 04:38 | USCV_ITS ---
Suzanne Ureña Age: 65 Gender: F : 1960 Exam Date: 04/02/2025 09:44 Ordering Phys: Fouzia Pearce MD Technologist: Exam [place] [facility] [place] Indication: ef BP: / HR: Rhythm: Sinus Technical Quality: MEASUREMENTS (Male / Female) Normal Values 2D ECHO LV Diastolic Diameter PLAX 4.5 cm 4.2 - 5.9 / 3.9 - 5.3 cm IVS Diastolic Thickness 1.0 cm 0.6 - 1.0 / 0.6 - 0.9 cm IVS Systolic Thickness 1.5 cm LVPW Diastolic Thickness 1.4 cm 0.6 - 1.0 / 0.6 - 0.9 cm LVPW Systolic Thickness 1.3 cm LVOT Diameter 2.1 cm LV Ejection Fraction 2D Teich 62.5 % LV Ejection Fraction MOD 4C 67.0 % LV Ejection Fraction MOD 2C 73.7 % LV Ejection Fraction 2C AL 72.5 % LA Diameter 3.1 cm M-MODE LA Ao Ratio MM 1.4 AV Cusp Separation MM 2.5 cm FINDINGS Left Ventricle Right Ventricle Right Atrium Left Atrium IA Septum Mitral Valve Aortic Valve Tricuspid Valve Pulmonic Valve Pericardium Aorta IVC CONCLUSIONS Limited echocardiogram performed to assess LV systolic function. LV systolic function is normal with EF of 60-65%. No regional wall motion abnormalities. Derik Meraz MD (Electronically Signed) Final Date: 02 April 2025 20:22 S
[2025-04-02] MEDS: metoprolol succinate ER (24 HR) 25 mg Tablet PO (05:17)
--- NOTE | 2025-04-02 08:27 | P.PN_ITS ---
Subjective 2 Subjective: Patient is a very pleasant 65-year-old female seen and examined at bedside on hospital rounds today. Patient sitting up in bedside chair stating that she wanted to go home, denies chest pain or shortness of breath. Patient does have confusion, this seems to be her new baseline. Reviewed with cardiology patient's elevated troponins, they stated that her heparin and her nitro drip could stop, with no EKG changes low suspicion for acute cardiac event. MRI reviewed with patient's son Roby Vitals/I&O/Wt Last Vital Signs Temp 97.9 F 04/02/25 07:54 Pulse 87 04/02/25 07:54 Resp 17 04/02/25 07:54 BP 119/78 04/02/25 07:54 Pulse Ox 96 04/02/25 07:54 O2 Del Method Nasal Cannula 04/02/25 04:21 O2 Flow Rate 2 04/02/25 04:21 FiO2 2 03/29/25 07:57 04/01/25 04/02/25 04/02/25 22:59 06:59 14:59 Intake Total 57.189 / 777.189 99.8 / 876.989 Balance 57.189 / 777.189 99.8 / 876.989 Weight last 48 hrs Weight 67.2 kg Weight 66.2 kg Physical Exam 2 Const: COMMON NORMALS: no acute distress and alert (Orientated to person only) GENERAL APPEARANCE: cooperative and comfortable ORIENTATION/CONSCIOUSNESS: Yes awake, Yes oriented to person, Yes oriented to place and Yes oriented to time Chest: COMMONS NORMALS: normal inspection of the chest and normal palpation of entire chest wall CHEST: Yes Symmetrical chest wall rise Resp: COMMON NORMALS: normal respiratory effort, No retractions, No use of accessory muscles and clear to auscultation bilaterally EFFORT & INSPECTION: Yes symmetric chest movement AUSCULTATION: clear to auscultation bilaterally Cardio: COMMON NORMALS: regular rate, regular rhythm, S1 normal heart sound present, S2 normal heart sound present, No gallops present (Cardio), No clicks present (Cardio), No murmurs present (Cardio) and No rub (Cardio) RATE: r egular rate RHYTHM: regular rhythm HEART SOUNDS: S1 normal heart sound present and S2 normal heart sound present PERIPHERAL PULSES: radial pulses present Extremity: COMMON NORMALS: no pedal edema Neuro: COMMON NORMALS: moves all extremities SENSORIUM/ORIENTATION: Yes alert (Orientated to person only), Yes oriented to person, Yes oriented to place and Yes oriented to time Urinary Catheter Management: Archer: Cath Placed During This Visit: yes Reason for Continuing Indwelling Catheter: Accurate Measurement of Urinary Output in Critically Ill Patients Urinary Catheter Date of Insertion: 03/19/25 Urinary Catheter Time of Insertion: 18:47 Data 04/02/25 10:31 04/02/25 10:31 A&P Assessment and plan 1. Cardiac arrest due to underlying cardiac condition: Patient s/p V-fib cardiac arrest, with severe acidemia requiring bicarb infusion and later held, improved S/p urgent PCI after STEMI alert, s/p Impella insertion and removal Holding MAP above 65.With low-dose of nor epi and being titrated off Cardiology on board and to follow the plan of care Continue Plavix and statins as per cardio plan Patient was on heparin however due to drop in hemoglobin and low platelets which are still low, the infusion was held, HIT studies sent, argatroban infusion started Of note: Patient was initially DNR as per the however since she was intubated on her way by the EMS patient was taken to the cath for PCI and later underwent Impella. Family appreciated the care and to continue further management as full code after further discussion with the family. 2. Sepsis: Patient s/p cardiac arrest likely underlying cardiogenic in nature severe acidosis s/p bicarb drip, currently off and corrected. ETT cultures grew staphy aureus and pseud aerug sensitive to zosyn, therefore to continue with it for total 14 days minimum with further guidance based on the clinical status of the patient. Initially was on vancomycin which was later on discontinued Monitor intake and output Monitor renal parameters, electrolytes and correction accordingly Maintain normoglycemia NGT feed to continue with increments as tolerated until goal rate ( dietitian consulted ) [employer] on board and to follow the recommendation 3. Stenosis of superficial femoral artery: patient having bilateral dusky feet and more on the right foot and improving with rewarming, with foot drop, high likely due to high dose of NE, since there are adequate pulses on clinical exam US venous/arterial done, showed superficial femoral artery stenosis post intervention, having good adequate femoral pulse on examination and adequate perfusion as well with palpable distal tibial artery. cards informed and to start the patient on argatroban HIT studies since platelets are low and to follow 4. Peripheral arterial occlusive disease: as mentioned above 5. Thrombocytopenia: HiT studies to follow hold heparin and related productes started on argatroban infusion and to follow Platelet infusion to keep the platelets above 50,000 or in case of any bleeding 6. Foot drop: likely critical care myopathy CT head negative follow OT/PT 7. Coronary artery disease: Patient was loaded with aspirin and clopidogrel during STEMI alert with 600 mg of clopidogrel once and 325 of aspirin once Continue high-dose statins and Plavix Status post blood transfusion and drop in platelets, held heparin infusion and aspirin at the moment. Continue to monitor Cardiology on board to follow-up 8. Aspiration pneumonia: patient required initially high FIO2 100% and currently on 30-40% improving recieved lasix as well to improve since CXR showed some infiltrates cont vent management fu with pulmonolgist 9. Hypoglycemia: multifactorial since earlier patient had cardiogenic shock and possible sepsis, underwent stress, cont NGT feeding and DW as needed to support the blood glucose levels Maintain normoglycemia 10. Transaminitis: possible induced secondary to hypotension and further low cardiac output currently improving and cont to monitor 11. SYBIL (acute kidney injury): likely pre renal vs intra renal ATN? hypotension vs later contrast induced, seems multifactorial producing good amount of urine monitor renal parameters and electrolytes with correction 12. Anemia: Patient s/p PCI found to have anemia and s/p PRBC, currently no active source of bleeding continue to monitor CBC and hb with PRBC as needed 13. Lumbar stenosis with neurogenic claudication: Continue supportive care 14. Nicotine dependence, cigarettes, with other nicotine-induced disorders: Patient recently quit on 06 March 2025, however still there is a risk of possible withdrawal effects Nicotine patch 15. Episode of recurrent major depressive disorder, unspecified depression episode severity: hold home anti dep medications 16. Hypothyroidism (acquired): Patient on levothyroxine 100 mcg and liothyronine and to continue through NGT 17. Hyperlipidemia, unspecified hyperlipidemia type: Continue statins 18. Degenerative joint disease (DJD) of lumbar spine: Patient on leflunomide 20 mg, tramadol as needed for pain and prednisone Continue to hold this medication at the moment considering cardiac arrest Plan: April 02, 2025 Mental status orientation x 1, this seems to be patient's new baseline. Discussed with patient's son, he is preparing to take the patient and her her spouse home with him once inpatient rehab treatment completed. Patient does continue to exhibit intermittent confusion and has tangential conversation, is sustaining conversation. Patient has not slept in 2 days even with the addition of Zyprexa, added. Temazepam with patient's tolerance of benzos. Patient son expressed that the patient has drank Vodka at home during the day and taken her Xanax, and has a high tolerance for medications. Will monitor for risk for respiratory depression while on temazepam while in the hospital. Reviewed yesterday's chest pain with cardiology, cardiology did discontinue heparin drip and nitro drip, no EKG changes noted. Reviewed PTT, high risk for bleeding. Low suspicion for acute cardiac issues. Cardiology states that is okay for patient to discharge to inpatient rehab. Pending approval for acute inpatient rehab. Greatly appreciate case management and discharge planning. March 26, 2025. Chart reviewed extensively. 65-year-old lady admitted with V-fib arrest, status post [employer] visit with placement of 2 stents, needing Impella support thereafter. Impella subsequently removed. Echocardiogram showing improving EF postprocedure. Hospital course currently complicated by persisting encephalopathy. CT of the head taken twice during this admission was negative for any acute intracranial events. Concern for potential HIT as received heparin products earlier during the course of admission. Platelet count fell by over 50% during hospital course. Currently on argatroban infusion for HIT. Off pressors today. Blood pressure ranging 97-1 20 systolic millimeter mercury. Bilateral lower extremity toes with discoloration. Lower extremity arterial duplex showing DEYA 0.7 in the right lower extremity. CTA on hold for now given SYBIL. Cardiology following, appreciate recommendations. May be related to high- dose vasopressor use. Currently has ileus for which tube feeding is on hold. Patient off sedation for a weaning trial. Febrile 99.6-100 Fahrenheit today. Has a central line in place from admission which we will remove. Check blood cultures. Chest x-ray showing consolidation bilaterally compatible with pneumonia. Sputum cultures previously have shown Pseudomonas and MSSA. She is currently on piperacillin/tazobactam. Prior history of Klebsiella UTI. Check UA and urine culture. Obtain respiratory viral panel. March 27, 2025 Last febrile 100 Fahrenheit at 4 PM. Since then Tmax of 99.2 Fahrenheit. \WBC count stable at 12.6. Platelet count dropped to 40,000. Continues to be on argatroban. HIT serology remains pending. Creatinine stable.Urine output 2100 cc. Repeat blood cultures from yesterday pending. UA from Archer catheter with more than 100 RBC, 6-10 WBC, urine yeast positive. Trace leukocyte esterase. Transaminitis improving, will obtain abdominal imaging specifically gallbladder ultrasound to rule out any acalculous cholecystitis as a reason for her current fever. She this morning with pH of 7.39, pO2 of 82, bicarb 23, CO2 38.7 on 30% FiO2, PEEP of 8. Spontaneous breathing trial today. Plan for bronchoscopy tomorrow with pulmonology. Patient is more awake compared to yesterday, moves bilateral lower extremities, able to flex at the hip and knees. Attempting to move both arms through restraints. Attempting to move upper body as of to set up. She is on Precedex due to above agitation. Still does not follow directed command. She makes eye contact on calling her name however does not follow any commands thereafter. Will likely have a better assessment of her neurological status once extubated. Potentially may have hypoxic encephalopathy related to cardiac arrest. Piperacillin/tazobactam day 8 today. Await culture data. Last sputum culture with Pseudomonas aeruginosa and MSSA. Repeat sputum culture today. Blood culture pending. US GB as above Central line removed. March 28, 2025 No longer febrile. Leukocytosis is stable. Doing well on pressure support this morning. ABG reviewed. Plan for bronchoscopy followed by extubation later today. Discussed goals of care extensively with family that his and son at bedside. Should patient have respiratory deterioration after extubation, they declined reintubation or tracheostomy in keeping with patient's last known wishes which were to allow natural . Continues to have low-dose Levophed requirement at 2 mics currently. Start midodrine 10 mg 3 times daily in an attempt to wean off Levophed drip. Continues to be on argatroban. Platelet count stabilized at 39,000 today. Continues to be persistently encephalopathic. While patient is able to move her lower extremities and trunk spontaneously, she does not follow directed commands. Once she is extubated, we will proceed to an MRI of the brain to evaluate for stroke. Alternate possibility is that of anoxic metabolic encephalopathy given cardiac arrest and postcode status. Once extubated will have further discussions with family with regards to enteral feeding, swallow assessments etc. Hypokalemia 2.5, repleted with IV and p.o. supplementation. Recheck CMP this evening. TSH 8.14, T4 0.36, T3 0.8 ; low free T3 and T4. Potentially hypothyroidism may be contributing to her mental status. Will check random cortisol first and then likely start levothyroxine. GB US with post cholecystectomy status, no acute findings. Check Ammonia level March 29, 2025 Mental status is much better today. She is alert awake attempting to have a conversation. States her correct name, date of , recognizes her son at bedside. She was able to get out of bed to use the bedside commode for a bowel movement with max assist. She is severely deconditioned though no focal deficits are appreciated. MRI of the brain has been canceled given no focal deficits, low suspicion of stroke at this point. Patient has generalized encephalopathy related to critical illness and recent events. Argatroban discontinued as HIT panel returned negative. Likely thrombocytopenia related to acute illness. Continue piperacillin/tazobactam day 11 today. Will aim for a total 2-week course. Swallow eval today and if able to tolerate to start a dysphagia diet. Given her improvement in mental status, less likely that myxedema coma is contributing. Patient has been on oral levothyroxine and liothyronine. Increase levothyroxine to 125 mcg daily. Hemoglobin dropped to 6.9 today. Obtain ultrasound of the abdomen limited to assess for any hemoperitoneum. Transfusing 1 units PRBC today. Slowly improving, severely deconditioned PT OT speech therapy evaluation Disposition planning ongoing. Patient will likely need several days to weeks of acute rehab. Likely transfer to LTAC. March 30, 2025 Mental status continues to improve. Less agitated today. Follows commands. Oriented x 2-3. Recognizes family members at bedside and attempts to have short conversations. Passed swallow eval today. Started dysphagia 4 diet. Discontinue dextrose infusion. Sputum culture from 03 27 updated to reflect Pseudomonas aeruginosa and Klebsiella oxytocin ESBL. Discontinue piperacillin/tazobactam and switch to meropenem. Antibiotic day 12 today. Aiming for 2-week course. Appreciate cardiology recommendations, optimizing GDMT today. Continue Plavix 75 mg. Beta-blockers added with metoprolol 25 mg p.o. daily now that blood pressure is better. Additionally adding Entresto 1 tablet p.o. twice daily. Hypokalemia 2.8 repleted IV. Will add p.o. supplementation now that able to tolerate. Continue to encourage participation with PT OT. Patient is significantly deconditioned from her acute critical illness and would likely benefit from ongoing rehab. Likely to transition to SNF at discharge. March 31, 2025 Mental status continues to improve. Patient is much more alert and conversant today. She does exhibit intermittent confusion and has tangential conversation however able to sustain a conversation for over 10 minutes today in the room. She expresses appropriate frustration with regards to prolonged hospitalization and her current mental confusion of which she is aware. She worries about her prognosis and return to previous level of functioning. Tolerated addition of Zyprexa 2.5 mg p.o. overnight. Family expresses concerns today with regard to her confused behavior. Extensively counseled that patient has several factors to explain her confusion at this time, including but not limited to critical illness/ICU delirium, possibly hypoxic encephalopathy related to having had cardiac arrest and CPR on admission. She has had 2 falls during this admission course however CT head negative for bleeding. Possibility of stroke not excluded, however patient is currently optimized with aspirin Plavix atorvastatin which would be appropriate for stroke. Family would like to proceed with an MRI of the brain to evaluate for possibility of stroke. Discussed with them that patient would likely require several days to weeks of acute rehab to enable her to return to previous level of functioning. With regards to mental status it is quite possible that patient may have a new baseline and may or may not be able to return to her previous level of cognitive functioning. Encourage frequent reorientation with family at bedside. Will discuss results of MRI with family when available. Will check ABG today as patient has a history of COPD, will evaluate for hypercapnia as possibly contributing to intermittent confusion. Otherwise clinically euvolemic. Improving from a pneumonia standpoint. IV antibiotic day 14 today. Discontinue after completing course today. Noted to have borderline blood pressure with systolic ranging between 92-1 02 today. Discontinue Imdur. Continue Entresto 1 tab p.o. twice daily. Continue metoprolol. Encourage participation with PT OT. Appropriate disposition planning is ongoing. PDMP PDMP Reviewed: Not Reviewed Attestations 2 Medical Necessity Statement*: Patient requires continued hospital stay for close monitoring and further management and High MDM includes amount and/or complexity of data reviewed/ordered [ previous or external records, resulted lab(s)/test(s), ordered lab(s)/test(s), independent historian and other healthcare professional discussion] and described risk of complication, morbidity or mortality of management as documented Diagnoses Cardiac arrest due to underlying cardiac condition I46.2 Sepsis A41.9 Stenosis of superficial femoral artery I70.209 Peripheral arterial occlusive disease I77.9 Thrombocytopenia D69.6 Foot drop M21.379 Coronary artery disease I25.10 Aspiration pneumonia J69.0 Hypoglycemia E16.2 Transaminitis R74.01 SYBIL (acute kidney injury) N17.9 Anemia D64.9 Lumbar stenosis with neurogenic claudication M48.062 Nicotine dependence, cigarettes, with other nicotine-induced disorders F17.218 Episode of recurrent major depressive disorder, unspecified depression episode severity F33.9 Active/Remission status: currently active Depression Type: major depressive disorder Major depression episode severity: unspecified Major depression recurrence: recurrent Hypothyroidism (acquired) E03.9 Hyperlipidemia, unspecified hyperlipidemia type E78.5 Hyperlipidemia type: unspecified Degenerative joint disease (DJD) of lumbar spine M47.816
[2025-04-02 08:39] LABS: Partial Thromboplastin Time > 250.0 SECONDS (23.9-36.7)
[2025-04-02] MEDS: meropenem 1,000 mg SDV 1000 MG IVP ×2 (08:47→16:13)
--- NOTE | 2025-04-02 09:04 | P.PN_ITS ---
<Statement entered by Derik Meraz M.D - 04/07/25 19:16> Patient was cared for in conjunction with an advanced practice practitioner. I reviewed the chart and all pertinent data including imaging, telemetry, and laboratory results. I discussed the patient in detail with the advanced practice practitioner. Please see their note for agreed upon plan of care and results for the patient. Subjective 2 Subjective: She had nonspecific chest pain last night, no chest pain or shortness of breath this morning. She seems confused, wants her son to take her home. Troponin series completed yesterday: 263->274->324. No EKG changes. Vitals/I&O/Wt Last Vital Signs Temp 97.9 F 04/02/25 07:54 Pulse 87 04/02/25 07:54 Resp 17 04/02/25 07:54 BP 119/78 04/02/25 07:54 Pulse Ox 96 04/02/25 07:54 O2 Del Method Nasal Cannula 04/02/25 04:21 O2 Flow Rate 2 04/02/25 04:21 FiO2 2 03/29/25 07:57 04/01/25 04/02/25 04/02/25 22:59 06:59 14:59 Intake Total 57.189 / 876.989 99.8 / 876.989 / Balance 57.189 / 876.989 99.8 / 876.989 Weight last 48 hrs Weight 148 lb 2.41 oz Weight 145 lb 15.136 oz Physical Exam 2 Const: COMMON NORMALS: no acute distress GENERAL APPEARANCE: cooperative and comfortable ORIENTATION/CONSCIOUSNESS: Yes awake, Yes oriented to person and Yes oriented to place Chest: COMMONS NORMALS: normal inspection of the chest and normal palpation of entire chest wall CHEST: Yes Symmetrical chest wall rise Resp: COMMON NORMALS: normal respiratory effort, No retractions, No use of accessory muscles and clear to auscultation bilaterally EFFORT & INSPECTION: Yes symmetric chest movement AUSCULTATION: clear to auscultation bilaterally Cardio: COMMON NORMALS: regular rate, regular rhythm, S1 normal heart sound present, S2 normal heart sound present, No gallops present (Cardio), No clicks present (Cardio), No murmurs present (Cardio) and No rub (Cardio) RATE: r egular rate RHYTHM: regular rhythm HEART SOUNDS: S1 normal heart sound present and S2 normal heart sound present PERIPHERAL PULSES: radial pulses present Extremity: COMMON NORMALS: no pedal edema Neuro: COMMON NORMALS: moves all extremities SENSORIUM/ORIENTATION: Yes oriented to person and Yes oriented to place Urinary Catheter Management: Archer: Cath Placed During This Visit: yes Reason for Continuing Indwelling Catheter: Accurate Measurement of Urinary Output in Critically Ill Patients Urinary Catheter Date of Insertion: 03/19/25 Urinary Catheter Time of Insertion: 18:47 Data 04/02/25 14:06 04/02/25 10:31 A&P Assessment and plan 1. Cardiac arrest due to underlying cardiac condition: 2. Acute coronary syndrome: 3. Stenosis of superficial femoral artery: 4. Recent non-ST elevation myocardial infarction: 5. Anemia: Plan: Her atypical chest pain appears to have resolved, will try to wean off nitroglycerin and uptitrate Imdur to 30mg BID if blood pressure tolerates, currently 114-141 systolic. Heparin has already been discontinued. Limited echocardiogram has been performed, awaiting read. She also has some worsening of the color of the toes bilaterally, but especially the right foot. She had high dose vasopressor and Impella was on that right side. Venous duplex was just read, revealing no stenosis or occlusion in the right common femoral, SFA, popliteal arteries. Occlusion of the right PT present. DP patent. Monophasic waveforms present. She does not report any pain. Continue Entresto, atorvastatin, aspirin, Plavix, metoprolol succinate. Blood pressure controlled without hypotension. Noted multiple acute lacunar infarcts on the brain MRI performed yesterday. Results have been reviewed with her family by hospitalist service. She will go to inpatient rehab due to prolonged hospital stay and deconditioning once approved. PDMP PDMP Reviewed: Not Reviewed Attestations 2 Medical Necessity Statement*: pending inpt rehab placement Coding Level of Care Code Acute Code for [facility] Fwd Diagnoses Cardiac arrest due to underlying cardiac condition I46.2 Acute coronary syndrome I24.9 Stenosis of superficial femoral artery I70.209 Recent non-ST elevation myocardial infarction Anemia D64.9
--- NOTE | 2025-04-02 09:25 | PC.SOCIAL ---
IMM Update pg 2 of IMM Updated and reviewed w/ family. Copy provided and copy dated, initialed and placed in chart.
[2025-04-02 10:41] LABS: Hematocrit 28.8 % (36-47); Hemoglobin 9.50 g/dL (11.27-16.99); Mean Corpuscular HGB Conc 33.0 g/dL (30-55); Mean Corpuscular Hemoglobin 29.4 pg (27-33); Mean Corpuscular Volume 89.2 fl (85-98); Nucleated Red Blood Cells % 0 %; Platelet Count 116 10^3/cmm (157-399); Red Blood Count 3.23 10^6/uL (3.85-5.65); White Blood Count 8.17 10^3/uL (3.29-11.43)
[2025-04-02 11:07] LABS: Alanine Aminotransferase 27 U/L (0-33); Albumin Level 2.6 g/dL (3.5-5.2); Alkaline Phosphatase 137 U/L (35-105); Aspartate Amino Transferase 37 U/L (0-32); Blood Urea Nitrogen 14 mg/dL (8-23); Calcium 7.5 mg/dL (8.5-10.5); Carbon Dioxide 19 mmol/L (22-29); Chloride 108 mmol/L (98-107); Creatinine Clr Calc Pharmacy 58.7326; Globulin 2.7 g/dL (1.3-4.6); Glucose 78 mg/dL (65-115); Osmolality Calculated 285 mOsm/kg (285-295); Sodium 138 mmol/L (136-145); Total Protein 5.3 g/dL (6.6-8.7)
[2025-04-02 11:09] LABS: Anion Gap 14.8 (5-19); Potassium 3.8 mmol/L (3.5-5.1)
[2025-04-02 14:24] LABS: Hematocrit 29.4 % (36-47); Hemoglobin 9.10 g/dL (11.27-16.99); Mean Corpuscular HGB Conc 31.0 g/dL (30-55); Mean Corpuscular Hemoglobin 28.1 pg (27-33); Mean Corpuscular Volume 90.7 fl (85-98); Nucleated Red Blood Cells % 0 %; Platelet Count 105 10^3/cmm (157-399); Red Blood Count 3.24 10^6/uL (3.85-5.65); White Blood Count 7.08 10^3/uL (3.29-11.43)
--- NOTE | 2025-04-02 17:37 | PC.NURSE ---
AGITATION Patient started to get out of bed and walking down hallways. Pt is very confusion and has cognitive deficit with lack of safety judgment. Nurse and sitter tried to redirect pt but she did not follow the command to let her sit in the wheelchair for now. Notified physician of pt's restlessness. Received order to give one time IVP Ativan 1 mg. BP checked-134/90, HR-106.
[2025-04-02] MEDS: LORazepam 2 mg/mL INJ 1 mL 1 MG IVP (17:42)
--- NOTE | 2025-04-02 19:25 | PC.NURSE ---
Shift report Initial rounding this morning, Pt is awake in chair,Alert to person only, cognition is impaired. Pt unable to sustain focus and attention span, unable to be aware of her own safety and situation issues,abstract thinking is impaired. Pt has not had any sleep all night. Pt is pleasant and unable to follow some commands, needs frequent redirection and keep attempting to get out of bed, very restless and anxious. PT worked with her this morning. Pt ambulated with short periods today with CHRISTIAN SCIENCE HEALER and sitter and neice with her. Notified attending DOT COMPLIANCE SPECIALIST that pt has not had any sleep for atleast 2 days though she is on PRN zyprexa and xanax as ordered. Prior to end of shift, pt started to get out of chair and walk down hallways, with brine tank tender and sitter as standby. Pt is starting to get agitated going to ice machine, ripped alcogol dispenser and not listening to staff. Notified physician and received telephone order read back to give IVP 1 mg Ativan one time. Pt ushered back to chair and bed. Pt relaxed after ativan push but still moving around in bed with eyes closed. continued 1:1 sitter.
--- NOTE | 2025-04-02 22:20 | USR_ITS ---
PROCEDURE INFORMATION: Exam: US Duplex Right Lower Extremity Arteries Or Arterial Bypass Grafts Exam date and time: 04/02/2025 9:53 AM Age: 65 years old Clinical indication: Other: Gangreen toe; Additional info: Toe gangrene TECHNIQUE: Imaging protocol: Right Real-time duplex scan of the arteries or arterial bypass grafts of the right lower extremity with 2-D mao scale, color Doppler flow and spectral waveform analysis. Images documented and saved. COMPARISON: [place] [id number] 03/24/2025 10:27 AM FINDINGS: Right common femoral artery: No occlusion or significant stenosis. Monophasic waveform. Right superficial femoral artery: No occlusion or significant stenosis. Monophasic waveform. Mild plaque. Right popliteal artery: No occlusion or significant stenosis. Monophasic waveform. Mild plaque . Right calf/foot arteries: Occlusion seen right posterior tibial artery on cine images. Dorsalis pedis artery patent. Soft tissues: No hematoma or [place]. US/[place] [id number] IMPRESSION: 1. Plaque with the occlusion seen right posterior tibial artery on cine images.
[2025-04-03] VITALS (11 sets, daily range): BP systolic 97–138; BP diastolic 59–77; PULSE 80–107; RESP 17–24; TEMP 36.6–37.8; O2SAT 92–97
[2025-04-03] MEDS: meropenem 1,000 mg SDV 1000 MG IVP ×3 (01:34→17:40)
[2025-04-03] MEDS: metoprolol succinate ER (24 HR) 25 mg Tablet PO (05:35)
[2025-04-03 05:56] LABS: Hematocrit 24.9 % (36-47); Hemoglobin 7.90 g/dL (11.27-16.99); Mean Corpuscular HGB Conc 31.7 g/dL (30-55); Mean Corpuscular Hemoglobin 28.5 pg (27-33); Mean Corpuscular Volume 89.9 fl (85-98); Nucleated Red Blood Cells % 0 %; Platelet Count 103 10^3/cmm (157-399); Red Blood Count 2.77 10^6/uL (3.85-5.65); White Blood Count 6.83 10^3/uL (3.29-11.43)
[2025-04-03 06:15] LABS: Alanine Aminotransferase 20 U/L (0-33); Albumin Level 2.4 g/dL (3.5-5.2); Alkaline Phosphatase 128 U/L (35-105); Anion Gap 12.2 (5-19); Aspartate Amino Transferase 23 U/L (0-32); Blood Urea Nitrogen 13 mg/dL (8-23); Calcium 7.4 mg/dL (8.5-10.5); Carbon Dioxide 20 mmol/L (22-29); Chloride 111 mmol/L (98-107); Creatinine Clr Calc Pharmacy 66.4284; Globulin 2.1 g/dL (1.3-4.6); Glucose 71 mg/dL (65-115); Osmolality Calculated 289 mOsm/kg (285-295); Potassium 3.2 mmol/L (3.5-5.1); Sodium 140 mmol/L (136-145); Total Protein 4.5 g/dL (6.6-8.7)
[2025-04-03 08:08] LABS: Magnesium 1.7 mg/dL (1.7-2.3)
--- NOTE | 2025-04-03 09:32 | PM.PN ---
Subjective Subjective: Patient is a very pleasant 65-year-old female seen and examined at bedside on hospital rounds this morning. Patient sitting up in bedside chair, continues to be very confused. Review of patient's labs, hemoglobin 7.90, pending iron studies. Given patient's history reached out to cardiology for potential clearance for scope, this may have to be completed outpatient. Will continue GI prophylaxis with Protonix. Potassium 3.2, will replenish orally. Doppler with posterior right tibial artery occlusion, reviewed with cardiology and no plans for surgical interventions. Currently awaiting inpatient rehab acceptance, will work with case management on discharge planning. Vitals/I&O/Wt Last Vital Signs Temp 98.0 F 04/03/25 07:51 Pulse 88 04/03/25 07:51 Resp 18 04/03/25 07:51 BP 133/77 04/03/25 07:51 Pulse Ox 97 04/03/25 07:51 O2 Del Method Room Air 04/03/25 06:52 O2 Flow Rate 2 04/02/25 15:46 FiO2 2 03/29/25 07:57 04/02/25 04/03/25 04/03/25 22:59 06:59 14:59 Intake Total 780 / 1457 50 / 1507 240 / 240 Output Total 800 / 800 Balance -20 / 657 50 / 707 240 / 240 Weight last 48 hrs Weight 68 kg Weight 67.2 kg Physical Exam Const: COMMON NORMALS: no acute distress and alert (Orientated to person only) GENERAL APPEARANCE: cooperative and comfortable ORIENTATION/CONSCIOUSNESS: Yes awake and Yes oriented to person Chest: COMMONS NORMALS: normal inspection of the chest and normal palpation of entire chest wall CHEST: Yes Symmetrical chest wall rise Resp: COMMON NORMALS: normal respiratory effort, No retractions, No use of accessory muscles and clear to auscultation bilaterally EFFORT & INSPECTION: Yes symmetric chest movement AUSCULTATION: clear to auscultation bilaterally Cardio: COMMON NORMALS: regular rate, regular rhythm, S1 normal heart sound present, S2 normal heart sound present, No gallops present (Cardio), No clicks present (Cardio), No murmurs present (Cardio) and No rub (Cardio) RATE: regular rate RHYTHM: regular rhythm HEART SOUNDS: S1 normal heart sound present and S2 normal heart sound present PERIPHERAL PULSES: radial pulses present Extremity: COMMON NORMALS: no pedal edema OTHER: Right foot blackened tips of toes Neuro: COMMON NORMALS: moves all extremities SENSORIUM/ORIENTATION: Yes alert (Orientated to person only) and Yes oriented to person Urinary Catheter Management: Archer: Cath Placed During This Visit: yes Reason for Continuing Indwelling Catheter: Accurate Measurement of Urinary Output in Critically Ill Patients Urinary Catheter Date of Insertion: 03/19/25 Urinary Catheter Time of Insertion: 18:47 Data 04/03/25 05:02 04/03/25 05:02 A&P Assessment and plan 1. Cardiac arrest due to underlying cardiac condition: Patient s/p V-fib cardiac arrest, with severe acidemia requiring bicarb infusion and later held, improved S/p urgent PCI after STEMI alert, s/p Impella insertion and removal Holding MAP above 65.With low-dose of nor epi and being titrated off Cardiology on board and to follow the plan of care Continue Plavix and statins as per cardio plan Patient was on heparin however due to drop in hemoglobin and low platelets which are still low, the infusion was held, HIT studies sent, argatroban infusion started Of note: Patient was initially DNR as per the however since she was intubated on her way by the EMS patient was taken to the cath for PCI and later underwent Impella. Family appreciated the care and to continue further management as full code after further discussion with the family. 2. Stenosis of superficial femoral artery: patient having bilateral dusky feet and more on the right foot and improving with rewarming, with foot drop, high likely due to high dose of NE, since there are adequate pulses on clinical exam US venous/arterial done, showed superficial femoral artery stenosis post intervention, having good adequate femoral pulse on examination and adequate perfusion as well with palpable distal tibial artery. cards informed - no plans for interventinos 3. Peripheral arterial occlusive disease: as mentioned above 4. Thrombocytopenia: HiT studies to follow hold heparin and related productes Given argatroban infusion and to follow Platelet count currently stable greater than 100 5. Foot drop: likely critical care myopathy CT head negative follow OT/PT 6. Coronary artery disease: Patient was loaded with aspirin and clopidogrel during STEMI alert with 600 mg of clopidogrel once and 325 of aspirin once Continue high-dose statins and Plavix Status post blood transfusion and drop in platelets, held heparin infusion and aspirin at the moment. Continue to monitor Cardiology on board to follow-up 7. Aspiration pneumonia: patient required initially high FIO2 100% and currently on 30-40% improving recieved lasix as well to improve since CXR showed some infiltrates stable on room air 8. Hypoglycemia: multifactorial since earlier patient had cardiogenic shock and possible sepsis, underwent stress, Maintain normoglycemia 9. Transaminitis: possible induced secondary to hypotension and further low cardiac output currently improving and cont to monitor 10. SYBIL (acute kidney injury): likely pre renal vs intra renal ATN? hypotension vs later contrast induced, seems multifactorial producing good amount of urine monitor renal parameters and electrolytes with correction 11. Anemia: Patient s/p PCI found to have anemia and s/p PRBC, currently no active source of bleeding continue to monitor CBC and hb with PRBC as needed 12. Lumbar stenosis with neurogenic claudication: Continue supportive care 13. Nicotine dependence, cigarettes, with other nicotine-induced disorders: Patient recently quit on 06 March 2025, however still there is a risk of possible withdrawal effects Nicotine patch 14. Episode of recurrent major depressive disorder, unspecified depression episode severity: hold home anti dep medications 15. Hypothyroidism (acquired): Patient on levothyroxine 100 mcg and liothyronine and to continue through NGT 16. Hyperlipidemia, unspecified hyperlipidemia type: Continue statins 17. Degenerative joint disease (DJD) of lumbar spine: Patient on leflunomide 20 mg, tramadol as needed for pain and prednisone Continue to hold this medication at the moment considering cardiac arrest Plan: 04/03/2025 Baseline orientation x 1. Reviewed Doppler results with cardiology, no plans for surgical intervention with the right posterior tibial artery occlusion. Pending iron studies, patient has chronic anemia. Will refer for outpatient to for repeat colonoscopy. Continue GI prophylaxis with PPI. Mildly low potassium, will replenish orally. Patient did sleep better last night with the temazepam. Discussed with cardiology about right foot blackened toes, ischemic gangrene, no plans for surgical intervention. Patient does have outpatient wound care referral for continued monitoring with Dr. Fonseca. There has been no progression on her right foot on evaluation. Patient denies new or worsening symptoms today. We will continue to work with case management and discharge planning, pending inpatient rehab approval. April 02, 2025 Mental status orientation x 1, this seems to be patient's new baseline. Discussed with patient's son, he is preparing to take the patient and her her spouse home with him once inpatient rehab treatment completed. Patient does continue to exhibit intermittent confusion and has tangential conversation, is sustaining conversation. Patient has not slept in 2 days even with the addition of Zyprexa, added. Temazepam with patient's tolerance of benzos. Patient son expressed that the patient has drank Vodka at home during the day and taken her Xanax, and has a high tolerance for medications. Will monitor for risk for respiratory depression while on temazepam while in the hospital. Reviewed yesterday's chest pain with cardiology, cardiology did discontinue heparin drip and nitro drip, no EKG changes noted. Reviewed PTT, high risk for bleeding. Low suspicion for acute cardiac issues. Cardiology states that is okay for patient to discharge to inpatient rehab. Pending approval for acute inpatient rehab. Greatly appreciate case management and discharge planning. March 26, 2025. Chart reviewed extensively. 65-year-old lady admitted with V-fib arrest, status post Front Loader Residential Driver visit with placement of 2 stents, needing Impella support thereafter. Impella subsequently removed. Echocardiogram showing improving EF postprocedure. Hospital course currently complicated by persisting encephalopathy. CT of the head taken twice during this admission was negative for any acute intracranial events. Concern for potential HIT as received heparin products earlier during the course of admission. Platelet count fell by over 50% during hospital course. Currently on argatroban infusion for HIT. Off pressors today. Blood pressure ranging 97-1 20 systolic millimeter mercury. Bilateral lower extremity toes with discoloration. Lower extremity arterial duplex showing DEYA 0.7 in the right lower extremity. CTA on hold for now given SYBIL. Cardiology following, appreciate recommendations. May be related to high-dose vasopressor use. Currently has ileus for which tube feeding is on hold. Patient off sedation for a weaning trial. Febrile 99.6-100 Fahrenheit today. Has a central line in place from admission which we will remove. Check blood cultures. Chest x-ray showing consolidation bilaterally compatible with pneumonia. Sputum cultures previously have shown Pseudomonas and MSSA. She is currently on piperacillin/tazobactam. Prior history of Klebsiella UTI. Check UA and urine culture. Obtain respiratory viral panel. March 27, 2025 Last febrile 100 Fahrenheit at 4 PM. Since then Tmax of 99.2 Fahrenheit. \WBC count stable at 12.6. Platelet count dropped to 40,000. Continues to be on argatroban. HIT serology remains pending. Creatinine stable.Urine output 2100 cc. Repeat blood cultures from yesterday pending. UA from Archer catheter with more than 100 RBC, 6-10 WBC, urine yeast positive. Trace leukocyte esterase. Transaminitis improving, will obtain abdominal imaging specifically gallbladder ultrasound to rule out any acalculous cholecystitis as a reason for her current fever. She this morning with pH of 7.39, pO2 of 82, bicarb 23, CO2 38.7 on 30% FiO2, PEEP of 8. Spontaneous breathing trial today. Plan for bronchoscopy tomorrow with pulmonology. Patient is more awake compared to yesterday, moves bilateral lower extremities, able to flex at the hip and knees. Attempting to move both arms through restraints. Attempting to move upper body as of to set up. She is on Precedex due to above agitation. Still does not follow directed command. She makes eye contact on calling her name however does not follow any commands thereafter. Will likely have a better assessment of her neurological status once extubated. Potentially may have hypoxic encephalopathy related to cardiac arrest. Piperacillin/tazobactam day 8 today. Await culture data. Last sputum culture with Pseudomonas aeruginosa and MSSA. Repeat sputum culture today. Blood culture pending. US GB as above Central line removed. March 28, 2025 No longer febrile. Leukocytosis is stable. Doing well on pressure support this morning. ABG reviewed. Plan for bronchoscopy followed by extubation later today. Discussed goals of care extensively with family that his and son at bedside. Should patient have respiratory deterioration after extubation, they declined reintubation or tracheostomy in keeping with patient's last known wishes which were to allow natural . Continues to have low-dose Levophed requirement at 2 mics currently. Start midodrine 10 mg 3 times daily in an attempt to wean off Levophed drip. Continues to be on argatroban. Platelet count stabilized at 39,000 today. Continues to be persistently encephalopathic. While patient is able to move her lower extremities and trunk spontaneously, she does not follow directed commands. Once she is extubated, we will proceed to an MRI of the brain to evaluate for stroke. Alternate possibility is that of anoxic metabolic encephalopathy given cardiac arrest and postcode status. Once extubated will have further discussions with family with regards to enteral feeding, swallow assessments etc. Hypokalemia 2.5, repleted with IV and p.o. supplementation. Recheck CMP this evening. TSH 8.14, T4 0.36, T3 0.8 ; low free T3 and T4. Potentially hypothyroidism may be contributing to her mental status. Will check random cortisol first and then likely start levothyroxine. GB US with post cholecystectomy status, no acute findings. Check Ammonia level March 29, 2025 Mental status is much better today. She is alert awake attempting to have a conversation. States her correct name, date of , recognizes her son at bedside. She was able to get out of bed to use the bedside commode for a bowel movement with max assist. She is severely deconditioned though no focal deficits are appreciated. MRI of the brain has been canceled given no focal deficits, low suspicion of stroke at this point. Patient has generalized encephalopathy related to critical illness and recent events. Argatroban discontinued as HIT panel returned negative. Likely thrombocytopenia related to acute illness. Continue piperacillin/tazobactam day 11 today. Will aim for a total 2-week course. Swallow eval today and if able to tolerate to start a dysphagia diet. Given her improvement in mental status, less likely that myxedema coma is contributing. Patient has been on oral levothyroxine and liothyronine. Increase levothyroxine to 125 mcg daily. Hemoglobin dropped to 6.9 today. Obtain ultrasound of the abdomen limited to assess for any hemoperitoneum. Transfusing 1 units PRBC today. Slowly improving, severely deconditioned PT OT speech therapy evaluation Disposition planning ongoing. Patient will likely need several days to weeks of acute rehab. Likely transfer to LTAC. March 30, 2025 Mental status continues to improve. Less agitated today. Follows commands. Oriented x 2-3. Recognizes family members at bedside and attempts to have short conversations. Passed swallow eval today. Started dysphagia 4 diet. Discontinue dextrose infusion. Sputum culture from 03 27 updated to reflect Pseudomonas aeruginosa and Klebsiella oxytocin ESBL. Discontinue piperacillin/tazobactam and switch to meropenem. Antibiotic day 12 today. Aiming for 2-week course. Appreciate cardiology recommendations, optimizing GDMT today. Continue Plavix 75 mg. Beta-blockers added with metoprolol 25 mg p.o. daily now that blood pressure is better. Additionally adding Entresto 1 tablet p.o. twice daily. Hypokalemia 2.8 repleted IV. Will add p.o. supplementation now that able to tolerate. Continue to encourage participation with PT OT. Patient is significantly deconditioned from her acute critical illness and would likely benefit from ongoing rehab. Likely to transition to SNF at discharge. March 31, 2025 Mental status continues to improve. Patient is much more alert and conversant today. She does exhibit intermittent confusion and has tangential conversation however able to sustain a conversation for over 10 minutes today in the room. She expresses appropriate frustration with regards to prolonged hospitalization and her current mental confusion of which she is aware. She worries about her prognosis and return to previous level of functioning. Tolerated addition of Zyprexa 2.5 mg p.o. overnight. Family expresses concerns today with regard to her confused behavior. Extensively counseled that patient has several factors to explain her confusion at this time, including but not limited to critical illness/ICU delirium, possibly hypoxic encephalopathy related to having had cardiac arrest and CPR on admission. She has had 2 falls during this admission course however CT head negative for bleeding. Possibility of stroke not excluded, however patient is currently optimized with aspirin Plavix atorvastatin which would be appropriate for stroke. Family would like to proceed with an MRI of the brain to evaluate for possibility of stroke. Discussed with them that patient would likely require several days to weeks of acute rehab to enable her to return to previous level of functioning. With regards to mental status it is quite possible that patient may have a new baseline and may or may not be able to return to her previous level of cognitive functioning. Encourage frequent reorientation with family at bedside. Will discuss results of MRI with family when available. Will check ABG today as patient has a history of COPD, will evaluate for hypercapnia as possibly contributing to intermittent confusion. Otherwise clinically euvolemic. Improving from a pneumonia standpoint. IV antibiotic day 14 today. Discontinue after completing course today. Noted to have borderline blood pressure with systolic ranging between 92-1 02 today. Discontinue Imdur. Continue Entresto 1 tab p.o. twice daily. Continue metoprolol. Encourage participation with PT OT. Appropriate disposition planning is ongoing. PDMP PDMP Reviewed: Not Reviewed Attestations Medical Necessity Statement*: pending inpt rehab placement Coding Level of Care Code Acute Code for Chg Fwd Diagnoses Cardiac arrest due to underlying cardiac condition I46.2 Stenosis of superficial femoral artery I70.209 Peripheral arterial occlusive disease I77.9 Thrombocytopenia D69.6 Foot drop M21.379 Coronary artery disease I25.10 Aspiration pneumonia J69.0 Hypoglycemia E16.2 Transaminitis R74.01 SYBIL (acute kidney injury) N17.9 Anemia D64.9 Lumbar stenosis with neurogenic claudication M48.062 Nicotine dependence, cigarettes, with other nicotine-induced disorders F17.218 Episode of recurrent major depressive disorder, unspecified depression episode severity F33.9 Active/Remission status: currently active Depression Type: major depressive disorder Major depression episode severity: unspecified Major depression recurrence: recurrent Hypothyroidism (acquired) E03.9 Hyperlipidemia, unspecified hyperlipidemia type E78.5 Hyperlipidemia type: unspecified Degenerative joint disease (DJD) of lumbar spine M47.816
--- NOTE | 2025-04-03 09:49 | P.PN_ITS ---
<Statement entered by Derik Meraz M.D - 04/07/25 19:25> Patient was cared for in conjunction with an advanced practice practitioner. I reviewed the chart and all pertinent data including imaging, telemetry, and laboratory results. I discussed the patient in detail with the advanced practice practitioner. Please see their note for agreed upon plan of care and results for the patient. Subjective 2 Subjective: She has not had any chest pain, LVEF normal on echocardiogram yesterday. She is able to discharge to rehab or halfway facility when accepted. Vitals/I&O/Wt Last Vital Signs Temp 98.0 F 04/03/25 07:51 Pulse 88 04/03/25 07:51 Resp 18 04/03/25 07:51 BP 133/77 04/03/25 07:51 Pulse Ox 97 04/03/25 07:51 O2 Del Method Room Air 04/03/25 06:52 O2 Flow Rate 2 04/02/25 15:46 FiO2 2 03/29/25 07:57 04/02/25 04/03/25 04/03/25 22:59 06:59 14:59 Intake Total 780 / 1507 50 / 1507 240 / 240 Output Total 800 / 800 Balance -20 / 707 50 / 707 240 / 240 Weight last 48 hrs Weight 149 lb 14.629 oz Weight 148 lb 2.41 oz Physical Exam 2 Const: COMMON NORMALS: no acute distress GENERAL APPEARANCE: cooperative and comfortable ORIENTATION/CONSCIOUSNESS: Yes awake, Yes oriented to person and Yes oriented to place Chest: COMMONS NORMALS: normal inspection of the chest and normal palpation of entire chest wall CHEST: Yes Symmetrical chest wall rise Resp: COMMON NORMALS: normal respiratory effort, No retractions, No use of accessory muscles and clear to auscultation bilaterally EFFORT & INSPECTION: Yes symmetric chest movement AUSCULTATION: clear to auscultation bilaterally Cardio: COMMON NORMALS: regular rate, regular rhythm, S1 normal heart sound present, S2 normal heart sound present, No gallops present (Cardio), No clicks present (Cardio), No murmurs present (Cardio) and No rub (Cardio) RATE: r egular rate RHYTHM: regular rhythm HEART SOUNDS: S1 normal heart sound present and S2 normal heart sound present PERIPHERAL PULSES: radial pulses present Extremity: COMMON NORMALS: no pedal edema Neuro: COMMON NORMALS: moves all extremities SENSORIUM/ORIENTATION: Yes oriented to person and Yes oriented to place Urinary Catheter Management: Archer: Cath Placed During This Visit: yes Reason for Continuing Indwelling Catheter: Accurate Measurement of Urinary Output in Critically Ill Patients Urinary Catheter Date of Insertion: 03/19/25 Urinary Catheter Time of Insertion: 18:47 Data 04/04/25 07:27 04/04/25 07:27 A&P Assessment and plan 1. Cardiac arrest due to underlying cardiac condition: 2. CAD (coronary artery disease): 3. Benign essential HTN: 4. Peripheral arterial occlusive disease: Plan: She is stable from a cardiovascular perspective. Will sign off. Please call with questions. PDMP PDMP Reviewed: Not Reviewed Attestations 2 Medical Necessity Statement*: dc pending Coding Level of Care Code Acute Code for Chg Fwd Diagnoses Cardiac arrest due to underlying cardiac condition I46.2 CAD (coronary artery disease) I25.10 Benign essential HTN I10 Peripheral arterial occlusive disease I77.9
[2025-04-03 12:07] LABS: Iron 18 ug/dL (37-145); Total Iron Binding Capacity 147 mcg/dl; Unsaturated Iron Binding 129 ug/dL (112-347)
[2025-04-03 12:33] LABS: Ferritin 2168 ng/mL (15-150)
[2025-04-03 19:24] LABS: Blastomyces Antigen Interpret NEGATIVE; Blastomyces Antigen Result None Detected; Histoplasma Antigen (Quant) None Detected; Histoplasma Antigen Interpreta NEGATIVE; Histoplasma Antigen Specimen LAVAGE,BRONCHIAL
[2025-04-03 21:04] LABS: UFH High Dose, 100 IU/ML 4 % release; UFH Low Dose, 0.1 IU/ML 1 % release; UFH Low Dose, 0.5 IU/ML 2 % release
[2025-04-04] VITALS (10 sets, daily range): BP systolic 92–138; BP diastolic 44–84; PULSE 79–90; RESP 14–24; TEMP 36.3–37.2; O2SAT 92–97
[2025-04-04] MEDS: meropenem 1,000 mg SDV 1000 MG IVP ×2 (01:18→09:27)
[2025-04-04] MEDS: metoprolol succinate ER (24 HR) 25 mg Tablet PO (04:48)
[2025-04-04 07:36] LABS: Hematocrit 25.3 % (36-47); Hemoglobin 8.00 g/dL (11.27-16.99); Mean Corpuscular HGB Conc 31.6 g/dL (30-55); Mean Corpuscular Hemoglobin 29.3 pg (27-33); Mean Corpuscular Volume 92.7 fl (85-98); Nucleated Red Blood Cells % 0 %; Platelet Count 114 10^3/cmm (157-399); Red Blood Count 2.73 10^6/uL (3.85-5.65); White Blood Count 6.64 10^3/uL (3.29-11.43)
[2025-04-04 07:57] LABS: Anion Gap 10.6 (5-19); Blood Urea Nitrogen 14 mg/dL (8-23); Calcium 7.5 mg/dL (8.5-10.5); Carbon Dioxide 21 mmol/L (22-29); Chloride 109 mmol/L (98-107); Creatinine Clr Calc Pharmacy 66.4284; Glucose 79 mg/dL (65-115); Osmolality Calculated 283 mOsm/kg (285-295); Potassium 3.6 mmol/L (3.5-5.1); Sodium 137 mmol/L (136-145)
--- NOTE | 2025-04-04 08:55 | PM.DCS ---
Discharge Providers Date of Admission: 03/19/25 18:15 Date of Discharge: April 04, 2025 Attending Provider at Admission: Fouzia Pearce MD Attending Provider at Discharge: Paige Thakur NP Primary Care Provider: Laurita Mary MD Diagnoses at Discharge Discharge Diagnosis 1. Cardiac arrest due to underlying cardiac condition: 2. Stenosis of superficial femoral artery: 3. Peripheral arterial occlusive disease: 4. Thrombocytopenia: 5. Foot drop: 6. Coronary artery disease: 7. Aspiration pneumonia: 8. Hypoglycemia: 9. Transaminitis: 10. SYBIL (acute kidney injury): 11. Anemia: 12. Lumbar stenosis with neurogenic claudication: 13. Nicotine dependence, cigarettes, with other nicotine-induced disorders: 14. Episode of recurrent major depressive disorder, unspecified depression episode severity: 15. Hypothyroidism (acquired): 16. Hyperlipidemia, unspecified hyperlipidemia type: 17. Degenerative joint disease (DJD) of lumbar spine: Reason for Visit Reason for Visit: post code Brief History: Admission: As per the previous notes and the however the was not in the EMS van/truck and patient got intubated while resuscitation by the EMS on her way. 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 Suzanne Ureña is a 65 year old female with past medical history of hypertension, hypertension, hypothyroidism, severe coronary artery disease and following with the cardiology was experiencing chest pain at home when she was in the bathroom as per the patient and ask for nitroglycerin. Her chest pain was becoming intense and her later on called EMS. On her way to EMS the patient had V-fibCardiac arrest with further resuscitation as per ACLS protocol and achieved ROSC, airway was placed after induction of intubation. Upon arrival the patient EKG was suggestive of sinus tachycardia with right bundle branch block. Given her history of severe coronary artery disease and V-fib arrest, it is highly likely to be an ischemic event which later on activated STEMI alert requiring urgent cath PCI with involving cardiology on board. Hospital Course Hospital Course Interventions: 1. Cardiac arrest due to underlying cardiac condition: Patient s/p V-fib cardiac arrest, with severe acidemia requiring bicarb infusion and later held, improved S/p urgent PCI after STEMI alert, s/p Impella insertion and removal Holding MAP above 65.With low-dose of nor epi and being titrated off Cardiology on board and to follow the plan of care Continue Plavix and statins as per cardio plan Patient was on heparin however due to drop in hemoglobin and low platelets which are still low, the infusion was held, HIT studies sent, argatroban infusion started Of note: Patient was initially DNR as per the however since she was intubated on her way by the EMS patient was taken to the cath for PCI and later underwent Impella. Family appreciated the care and to continue further management as full code after further discussion with the family. 2. Stenosis of superficial femoral artery: patient having bilateral dusky feet and more on the right foot and improving with rewarming, with foot drop, high likely due to high dose of NE, since there are adequate pulses on clinical exam US venous/arterial done, showed superficial femoral artery stenosis post intervention, having good adequate femoral pulse on examination and adequate perfusion as well with palpable distal tibial artery. cards informed - no plans for interventinos 3. Peripheral arterial occlusive disease: as mentioned above 4. Thrombocytopenia: HiT studies held heparin and related productes Given argatroban infusion and to follow Platelet count currently stable greater than 100 5. 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 Coronary artery disease: Patient was loaded with aspirin and clopidogrel during STEMI alert with 600 mg of clopidogrel once and 325 of aspirin once Continue high-dose statins and Plavix Status post blood transfusion and drop in platelets, held heparin infusion - may continue ASA 7. Aspiration pneumonia, stable on room air 8. Hypoglycemia: multifactorial since earlier patient had cardiogenic shock and possible sepsis, underwent stress, Maintain normoglycemia 9. Transaminitis: possible induced secondary to hypotension and further low cardiac output Improved 10. SYBIL (acute kidney injury), resolved likely pre renal vs intra renal ATN? hypotension vs later contrast induced, seems multifactorial producing good amount of urine Continue to monitor renal functions 11. Anemia, chronic: Patient s/p PCI found to have anemia and s/p PRBC, currently no active source of bleeding continue to monitor CBC and hb with PRBC as needed Follow up outpatient for colonoscopy, referral sent for general surgeon post discharge 12. Lumbar stenosis with neurogenic claudication: Continue supportive care 13. Nicotine dependence, cigarettes, with other nicotine-induced disorders: Patient recently quit on 06 March 2025 14. Episode of recurrent major depressive disorder, unspecified depression episode severity: Zyprexa at night 15. Hypothyroidism (acquired): Patient on levothyroxine 100 mcg and liothyronine 16. Hyperlipidemia, unspecified hyperlipidemia type: Continue statins 17. Degenerative joint disease (DJD) of lumbar spine: Patient on leflunomide 20 mg, tramadol as needed for pain and prednisone Continue to hold this medication at the moment considering cardiac arrest Patient discharges to inpatient rehab with continued debility, confusion. Patient will need continued monitoring of her hemoglobin. Patient will also need outpatient follow-up with general surgery for endoscopy/colonoscopy, referral has been made. Will continue GI prophylaxis with Protonix. Patient also had Doppler with posterior right tibial artery occlusion this was reviewed with cardiology and no plans for surgical interventions. Patient has ischemic gangrene, also reviewed with cardiology, no plans for interventions but patient is referred to outpatient wound care with Dr. Fonseca, advised to continue monitoring of her toes. Patient discharge is in stable condition to inpatient rehab. Patient's son has very good support, he plans to move this patient and her spouse and with him as both of them have had significant cognitive decline. All questions and concerns were addressed with the patient and her family prior to discharge. Physical Exam Const: COMMON NORMALS: no acute distress and alert (Orientated to person only) GENERAL APPEARANCE: cooperative and comfortable ORIENTATION/CONSCIOUSNESS: Yes awake and Yes oriented to person Chest: COMMONS NORMALS: normal inspection of the chest and normal palpation of entire chest wall CHEST: Yes Symmetrical chest wall rise Resp: COMMON NORMALS: normal respiratory effort, No retractions, No use of accessory muscles and clear to auscultation bilaterally EFFORT & INSPECTION: Yes symmetric chest movement AUSCULTATION: clear to auscultation bilaterally Cardio: COMMON NORMALS: regular rate, regular rhythm, S1 normal heart sound present, S2 normal heart sound present, No gallops present (Cardio), No clicks present (Cardio), No murmurs present (Cardio) and No rub (Cardio) RATE: regular rate RHYTHM: regular rhythm HEART SOUNDS: S1 normal heart sound present and S2 normal heart sound present PERIPHERAL PULSES: radial pulses present Extremity: COMMON NORMALS: no pedal edema OTHER: Right foot blackened tips of toes Neuro: COMMON NORMALS: moves all extremities SENSORIUM/ORIENTATION: Yes alert (Orientated to person only) and Yes oriented to person Urinary Catheter Management: Archer: Cath Placed During This Visit: yes Reason for Continuing Indwelling Catheter: Accurate Measurement of Urinary Output in Critically Ill Patients Urinary Catheter Date of Insertion: 03/19/25 Urinary Catheter Time of Insertion: 18:47 Discharge Data Studies Completed and Pending Completed Studies During Hospitalization Category Date Time Status CT head wo con* [id number] Routine Cat Scan 03/24/25 12:[address] head wo con* [id number] Routine Cat Scan 03/24/25 20:[address] head wo con* [id number] Stat Cat Scan 03/19/25 18:[address] head wo con* [id number] Stat Cat Scan 03/29/25 12:[address] head wo con* [id number] Stat Cat Scan 03/30/25 21:45 Completed COMMUNICATIONS SCIENTIST request for service Routine Exams 03/19/25 18:31 Completed COMMUNICATIONS SCIENTIST request for service Routine Exams 03/20/25 13:13 Completed COMMUNICATIONS SCIENTIST request for service Routine Exams 03/22/25 11:19 Completed CXRP [XR chest 1V portable [id number]] AM LABS Exams 03/27/25 04:00 Completed CXRP [XR chest 1V portable 41589] AM LABS Exams 03/28/25 04:00 Completed CXRP [XR chest 1V portable [id number]] Routine Exams 03/22/25 14:56 Completed CXRP [XR chest 1V portable 94603] Routine Exams 03/25/25 14:16 Completed CXRP [XR chest 1V portable [id number]] Routine Exams 03/27/25 06:36 Completed CXRP [XR chest 1V portable 53420] Stat Exams 03/20/25 09:05 Completed XR KUB portable 87855 Routine Exams 03/25/25 14:46 Completed XR cervical spine 1Vport 73769 Stat Exams 03/30/25 21:46 Completed XR chest 1V portable [id number] Stat Exams 03/19/25 18:01 Completed XR chest 1V portable [id number] Stat Exams 03/21/25 13:45 Completed XR chest 1V portable 56492 Stat Exams 03/30/25 21:46 Completed XR lumbar spine 1V port 68240 Stat Exams 03/30/25 21:46 Completed XR thoracic spine 1Vport 41614 Stat Exams 03/30/25 21:46 Completed MR head wo con* [id number] Routine MRI 04/01/25 14:04 [place] [id number] Stat Ultrasound 03/24/25 09:46 [place] [id number] Routine Ultrasound 04/02/25 22:20 Completed CV. echo complete* 28800 Stat Ultrasound 03/20/25 18:43 Completed CV. echo limited 66787 Routine Ultrasound 04/02/25 04:38 Completed CV. echo limited 68223 Stat Ultrasound 03/21/25 09:47 Completed US abdomen limited 32118 Routine Ultrasound 03/29/25 09:56 Completed US gall bladder 98172 Routine Ultrasound 03/27/25 16:15 Completed US unlisted vascular [CV unlisted vascular 33537] Stat Ultrasound 03/20/25 11:22 Completed US venous duplex lower extremity bilat [CV venous Ultrasound 03/24/25 09:46 [place] [id number]] Stat Pending at discharge Category Date Time Status EEG electroencephalogram Stat Exams 03/19/25 20:15 Ordered Blood Culture Stat Lab 03/26/25 17:49 Results Fungal Culture not HR/SK/BL Routine Lab 03/28/25 11:40 Results Mycobacteria, Culture w/Fluor Routine Lab 03/28/25 11:40 Results Occult Blood Stool [Immunochemical Fecal OCB] Routine Lab 04/03/25 11:20 Uncollected Viral Respiratory,Rapid Cultur Routine Lab 03/28/25 11:40 Stop Req Radiology Impressions Vascular Ultrasound 03/20/25 11:22 IMPRESSION: 1. Iliac measurements given above. Venous Duplex 03/24/25 09:46 IMPRESSION: No evidence of deep vein thrombosis. KUB X-Ray 03/25/25 14:46 IMPRESSION: 1. No evidence for bowel obstruction. 2. Gas fills the colon, which could reflect ileus. Gallbladder Ultrasound 03/27/25 16:15 IMPRESSION: 1. Surgically absent gallbladder. 2. Prominent common bile duct is stable and probably on the basis of the cholecystectomy. 3. Small RIGHT pleural effusion and small amount of ascites. Abdomen Ultrasound 03/29/25 09:56 IMPRESSION: No visualized fluid in the upper quadrant Head CT 03/30/25 21:45 IMPRESSION: No acute intracranial hemorrhage. No midline shift or mass effect. Cervical Spine X-Ray 03/30/25 21:46 IMPRESSION: 1. Single AP view of the cervical spine was submitted. Recommend additional views. Multilevel degenerative changes. 2. Mild airspace consolidations in the upper lung beauchamp, recommend CA sclerotic areas concern for pneumonia. Chest X-Ray 03/30/25 21:46 IMPRESSION: Mild pulmonary vascular congestion, correlate for CHF. Lumbar Spine X-Ray 03/30/25 21:46 IMPRESSION: Nonobstructed bowel-gas pattern. Thoracic Spine X-Ray 03/30/25 21:46 IMPRESSION: Left PICC line terminates in the SVC. Head MRI 04/01/25 14:04 IMPRESSION: 1. At least 3 acute lacunar infarcts in the right frontal lobe, left parietal lobe and left peritrigonal white matter. 2. No intracranial hemorrhage. ADDENDUM: 04/01/25 1651 THIS REPORT CONTAINS FINDINGS THAT MAY BE CRITICAL TO PATIENT CARE. The findings were verbally communicated via telephone conference with JC PALAFOX at 4:49 PM GAS COMBUSTION ENGINEER on 04/01/2025. The findings were acknowledged and understood. Duplex Scan Lower Extremity Artery 04/02/25 22:20 IMPRESSION: 1. Plaque with the occlusion seen right posterior tibial artery on cine images. Laboratory Results WBC 6.64 10^3/uL (3.29-11.43) 04/04/25 07:27 Corrected WBC Cancelled 04/02/25 10:31 RBC 2.73 10^6/uL (3.85-5.65) L 04/04/25 07:27 Hgb 8.00 g/dL (11.27-16.99) L 04/04/25 07:27 Hct 25.3 % (36-47) L 04/04/25 07:27 MCV 92.7 fl (85-98) 04/04/25 07:27 MCH 29.3 pg (27-33) 04/04/25 07:27 MCHC 31.6 g/dL (30-55) 04/04/25 07:27 RDW 18.0 % (12.1-15.1) H 04/04/25 07:27 Plt Count 114 10^3/cmm (157-399) L 04/04/25 07:27 MPV 12.3 fL (7.4-10.4) H 04/04/25 07:27 Gran % Cancelled 04/02/25 10:31 Neut % (Auto) 56.0 % 04/04/25 07:27 Lymph % (Auto) 16.1 % 04/04/25 07:27 Sanders % (Auto) 20.3 % 04/04/25 07:27 Eos % (Auto) 4.7 % 04/04/25 07:27 Baso % (Auto) 1.7 % 04/04/25 07: Neut # (Auto) 3.72 10^3/uL (1.8-7.7) 04/04/25 07: Lymph # (Auto) 1.1 10^3/uL (0.8-4.8) 04/04/25 07: Sanders # (Auto) 1.4 10^3/uL (0.2-0.9) H 04/04/25 07:27 Eos # (Auto) 0.3 10^3/uL (0.0-0.8) 04/04/25 07: Baso # (Auto) 0.1 10^3/uL (0.0-0.1) 04/04/25 07: Absolute Gran (auto) Cancelled 04/02/25 10:31 Nucleated RBC % (auto) 0 % 04/04/25 07: Total Counted 100 (0-100) 03/21/25 17: Atypical Lymphs % 4.0 % (0-5) 03/21/25 17:25 Absolute Neutrophils 4.9 10^3/cmm (1.4-6.5) 03/21/25 17:25 Segmented Neutrophils 66 % 03/21/25 17: Band Neutrophils 9.0 % 03/21/25 17: Absolute Lymphocytes 0.9 10^3/cmm (1.2-3.4) L 03/21/25 17:25 Lymphocytes (Manual) 10 % 03/21/25 17:25 Monocytes (Manual) 8.0 % 03/21/25 17:25 Absolute Monocytes 0.5 10^3/cmm (0.1-0.6) 03/21/25 17:25 Eosinophils (Manual) 1 % 03/21/25 17: Absolute Eosinophils 0.1 10^3/cmm (0.0-0.7) 03/21/25 17:25 Basophils (Manual) 2.0 % 03/21/25 17: Absolute Basophils 0.1 10^3/cmm (0.0-0.2) 03/21/25 17: Nucleated RBCs # 0.0 /100WBC 04/04/25 07:27 Platelet Estimate Decreased (Normal) L 03/21/25 17:25 Giant Platelets Trace 03/21/25 17:25 Anisocytosis Trace 03/21/25 17:25 Heparin Require Pat 0.035 OD UNITS 03/24/25 13:55 Heparin Require Pat 0.038 03/24/25 13:55 PT 18.00 SECONDS (12.1-14.9) H 03/22/25 11:17 INR 1.39 (0.8-1.2) H 03/22/25 11:17 APTT > 250.0 SECONDS (23.9-36.7) H* D 04/02/25 07:49 Specimen Type Arterial 04/01/25 17:35 Sample Site Brachial, right 04/01/25 17:35 ABG pH 7.54 (7.35-7.45) H 04/01/25 17:35 ABG pCO2 23.7 mmHg (35-45) L 04/01/25 17:35 ABG pO2 69.4 mmHg (80.0-100.0) L 04/01/25 17:35 ABG PO2/FiO2 Ratio 330 04/01/25 17:35 ABG HCO3 20.3 mmol/L (22-26) L 04/01/25 17:35 ABG O2 Saturation 91.6 03/24/25 04:40 ABG Base Excess -1.2 mmol/L (-2.0-2.0) 04/01/25 17:35 Sai Test Pos 04/01/25 17:35 A-a O2 Gradient 13.1 mmHg (5-10) H 03/24/25 04:40 Hematocrit 31.3 % (37-47) L 04/01/25 17:35 Hgb O2 Saturation 88.1 % (95-100) L 03/24/25 04:40 Carboxyhemoglobin 2.7 %THgb (0.4-20.1) 03/24/25 04:40 Methemoglobin 1.1 % (0.4-1.5) 03/24/25 04:40 Total Hemoglobin 10.1 g/dL (12-16) L 03/24/25 04:40 Sodium 138.0 mmol/L (131-143) 03/24/25 04:40 Potassium 3.8 mmol/L (3.5-5.0) 03/24/25 04:40 Glucose 145.0 mg/dL (70-115) H 03/24/25 04:40 Ionized Calcium 1.1 mmol/L (1.1-1.4) 03/24/25 04:40 O2 Delivery Device Room air 04/01/25 17:35 FiO2 21.0 % 04/01/25 17:35 Tidal Volume 0.45 03/28/25 03:32 PEEP 8.0 cmH20 03/28/25 03:32 Truck Cleaner ID Amh 04/01/25 17:35 Sodium 137 mmol/L (136-145) 04/04/25 07:27 Potassium 3.6 mmol/L (3.5-5.1) 04/04/25 07:27 Chloride 109 mmol/L (98-107) H 04/04/25 07:27 Carbon Dioxide 21 mmol/L (22-29) L 04/04/25 07:27 Anion Gap 10.6 (5-19) 04/04/25 07:27 BUN 14 mg/dL (8-23) 04/04/25 07:27 Creatinine 0.8 mg/dL (0.5-0.9) 04/04/25 07:27 GFR Calculation 72.0 mL/min (90-130) L 04/04/25 07:27 Glucose 79 mg/dL (65-115) 04/04/25 07:27 POC Glucose 87 mg/dL (70-110) 04/04/25 07:46 Calculated Osmolality 283 mOsm/kg (285-295) L 04/04/25 07:27 Lactic Acid 3.8 mmol/L (0.5-2.2) H 03/19/25 18:09 Lactic Acid (Sepsis) 2.0 mmol/L (0.5-2.2) 03/19/25 21:37 Lactate 1.8 mmol/L (0.5-2.2) 03/21/25 12:59 Calcium 7.5 mg/dL (8.5-10.5) L 04/04/25 07:27 Phosphorus 3.6 mg/dL (2.5-4.5) 03/25/25 04:10 Magnesium 1.7 mg/dL (1.7-2.3) 04/03/25 05:02 Iron 18 ug/dL (37-145) L 04/03/25 05:02 TIBC 147 mcg/dl 04/03/25 05:02 % Saturation 12.2 % (20-50) L 04/03/25 05:02 Unsat Iron Binding 129 ug/dL (112-347) 04/03/25 05:02 Ferritin 2168 ng/mL (15-150) H 04/03/25 05:02 Total Bilirubin 0.8 mg/dL (0.15-1.2) 04/03/25 05:02 AST 23 U/L (0-32) 04/03/25 05:02 ALT 20 U/L (0-33) 04/03/25 05:02 Alkaline Phosphatase 128 U/L (35-105) H 04/03/25 05:02 Ammonia 34 umol/L (11-51) 03/28/25 13:16 Troponin T Baseline 263 ng/L (0-10) H* 04/01/25 20:30 Troponin T 120 Minute 274.9 ng/L (0-10) H 04/01/25 22:27 Delta Troponin T 11.9 ABS# (0-10) H* 04/01/25 22:27 Troponin T Hi Sens 6Hr 324.9 ng/L (0-10) H 04/02/25 02:15 Troponin T Hi Sens 6Hr Delta 61.9 ng/L (0-12) H* 04/02/25 02:15 NT-Pro-B Natriuret Pep 8806 pg/mL (0-125) H 03/26/25 14:43 Total Protein 4.5 g/dL (6.6-8.7) L 04/03/25 05:02 Albumin 2.4 g/dL (3.5-5.2) L 04/03/25 05:02 Globulin 2.1 g/dL (1.3-4.6) 04/03/25 05:02 TSH 18.48 uIU/mL (0.27-4.20) H 04/01/25 01:25 Free T4 0.66 ng/dL (0.82-1.77) L 04/01/25 01:25 Free T3 1.5 PG/ML (2.0-4.4) L 04/01/25 01:25 Random Cortisol 13.05 ug/dL (2.47-19.5) 03/28/25 13:16 Urine Color Yellow (Yellow) 03/26/25 17:49 Urine Appearance Clear (CLEAR) 03/26/25 17:49 Urine pH 5.5 (5-7) 03/26/25 17:49 Ur Specific [place] 1.013 (1.005-1.030) 03/26/25 17:49 Urine Protein 1+ (Negative) A 03/26/25 17:49 Urine Glucose (UA) Negative (Normal) 03/26/25 17:49 Urine Ketones Negative (Negative) 03/26/25 17:49 Urine Blood 3+ (Negative) A 03/26/25 17:49 Urine Nitrate Negative (Negative) 03/26/25 17:49 Urine Bilirubin Negative (Negative) 03/26/25 17:49 Urine Urobilinogen 0.2 mg/dL (Negative) 03/26/25 17:49 Ur Leukocyte Esterase Trace (Negative) A 03/26/25 17:49 Urine RBC >100 /hpf (0-2) H 03/26/25 17:49 Urine WBC 6-10 /hpf (0-5) 03/26/25 17:49 Ur Squamous Epith Cells 0-5 /hpf (0-5) 03/26/25 17:49 Amorphous Sediment Not Reportable 03/26/25 17:49 Urine Bacteria None seen /hpf (NONE) 03/26/25 17:49 Hyaline Casts 1.21 /lpf 03/26/25 17:49 Urine Yeast 3+ /hpf H 03/26/25 17:49 Fl Cell Cnt/Diff Source 03/28/25 11:40 Fld Tot Nucleated Cell 1813 cells/uL 03/28/25 11:40 Fluid Neutrophils % 78 % 03/28/25 11:40 Fluid Lymphocytes % 16 % 03/28/25 11:40 Fluid Eosinophils % 0 % 03/28/25 11:40 Fluid Basophils % 0 % 03/28/25 11:40 Fl Monocyt/Macrophag % 6 % 03/28/25 11:40 Fld Mesothelial Cell % 0 % 03/28/25 11:40 Fluid Crystal Appear Hazy 03/28/25 11:40 Fluid Crystal Color Little white 03/28/25 11:40 Clinical Comments See note 03/28/25 11:40 Vancomycin Trough 16.9 ug/mL (10-15) H 03/23/25 19:03 Heparin-induced Ab Negative (NEGATIVE) 03/24/25 13:55 Heparin-induced Plt Ab Negative (Negative) 03/24/25 13:55 UF Heparin Low Dose 1 1 % release 03/24/25 13:55 UF Heparin Low Dose 2 2 % release 03/24/25 13:55 UF Heparin High Dose 4 % release 03/24/25 13:55 UF Heparin Result Negative (Negative) 03/24/25 13:55 SALMA UFH Low Dose 0.1 3 % Release 03/24/25 13:55 SALMA UFH Low Dose 0.5 3 % Release 03/24/25 13:55 SALMA UFH High Dose 100 2 % Release 03/24/25 13:55 SALMA Unfract Heparin Negative (NEGATIVE) 03/24/25 13:55 Adenovirus (PCR) Not detected (NOT DETECT) 03/26/25 17:49 Blastomyces Ag Result None detected ng/mL 03/28/25 11:40 Blastomyces Ag Interp Negative 03/28/25 11:40 C. pneumoniae DNA (PCR) Not detected (NOT DETECT) 03/26/25 17:49 Coronavirus 229E (PCR) Not detected (NOT DETECT) 03/26/25 17:49 Histoplasma Antigen Lavage,bronchial 03/28/25 11:40 Histoplasma Ag (Qnt) None detected ng/mL 03/28/25 11:40 Histoplasma Ag Interp Negative 03/28/25 11:40 Human Metapneumovir PCR Not detected (NOT DETECT) 03/26/25 17:49 Influenza A (H1) PCR Not detected (NOT DETECT) 03/26/25 17:49 Influ A (H1/09) PCR Not detected (NOT DETECT) 03/26/25 17:49 Influenza A (H3) PCR Not detected (NOT DETECT) 03/26/25 17:49 Influenza Type A (PCR) Not detected (NOT DETECT) 03/26/25 17:49 Influenza Type B (PCR) Not detected (NOT DETECT) 03/26/25 17:49 M. pneumoniae (PCR) Not detected (NOT DETECT) 03/26/25 17:49 Parainfluenza 1 (PCR) Not detected (NOT DETECT) 03/26/25 17:49 Parainfluenza 2 (PCR) Not detected (NOT DETECT) 03/26/25 17:49 Parainfluenza 3 (PCR) Not detected (NOT DETECT) 03/26/25 17:49 Parainfluenza 4 (PCR) Not detected (NOT DETECT) 03/26/25 17:49 RSV Type A (PCR) Not detected (NOT DETECT) 03/26/25 17:49 RSV Type B (PCR) Not detected (NOT DETECT) 03/26/25 17:49 Entero/Rhino (PCR) Not detected (NOT DETECT) 03/26/25 17:49 SARS-CoV-2 (PCR) Not detected (NOT DETECT) 03/26/25 17:49 Blood Type O Positive 03/29/25 05:35 Rho(D) Type Rh positive 03/29/25 05:35 Antibody Screen Negative 03/29/25 05:35 Crossmatch See Detail 03/29/25 05:35 Vitals Last Vital Signs Temp 98.3 F 04/04/25 06:58 Pulse 79 04/04/25 07:52 Resp 18 04/04/25 07:52 BP 134/84 04/04/25 06:58 Pulse Ox 96 04/04/25 07:52 O2 Del Method Room Air 04/04/25 07:52 O2 Flow Rate 2 04/02/25 15:46 FiO2 2 03/29/25 07:57 Discharge Plan Discharge Patient Disposition: Home Condition: Stable Prescriptions: New temazepam 15 mg Capsule 15 mg PO BEDTIME PRN (Reason: Insomnia) 14 Days Qty: 14 0RF metoprolol succinate 25 mg Tablet Extended Release 24 Hr 25 mg PO DAILY 30 Days Qty: 30 0RF sacubitril-valsartan [Entresto] 24-26 mg Tablet 1 tab PO BID 30 Days Qty: 60 0RF ipratropium-albuterol 0.5 mg-3 mg(2.5 mg base)/3 mL Solution For Nebulization 3 ml inhalation QID.RESPIRATORY 30 Days Qty: 30 0RF nicotine 21 mg/24 hr Patch 24 Hour 1 patch transdermal DAILY 30 Days Qty: 30 0RF Lanolin (HPA) 100 % Cream 1 applic topical PRN PRN (Reason: Dryness) Qty: 7 0RF levothyroxine 125 mcg Tablet 125 mcg PO DAILY 30 Days Qty: 30 0RF meropenem 1 gram Recon Soln 1,000 mg IVP Q8H 7 Days Qty: 21 0RF olanzapine 5 mg Tablet,Disintegrating 5 mg PO BEDTIME 30 Days Qty: 30 0RF Continued aspirin 81 mg tablet,delayed release (DR/EC) 81 mg PO DAILY nitroglycerin 0.4 mg tablet, sublingual 0.4 mg sublingual Q5M PRN (Reason: chest pain) Qty: 20 3RF Rx Instructions: do not exceed 3 doses per episode clopidogrel 75 mg tablet See Rx Instructions .ROUTE .COMPLEX Qty: 90 3RF Dose Instruction: TAKE 1 TABLET BY MOUTH DAILY Rx Instructions: TAKE 1 TABLET BY MOUTH DAILY potassium chloride [Klor-Con M20] 20 mEq tablet,ER particles/crystals 20 meq PO DAILY Qty: 90 1RF atorvastatin [Lipitor] 80 mg tablet 80 mg PO DAILY Qty: 90 3RF liothyronine 5 mcg tablet 10 mcg PO DAILY Qty: 180 1RF alprazolam 0.25 mg tablet 0.25 mg PO TID PRN (Reason: anxiety) Qty: 90 1RF pantoprazole 40 mg tablet,delayed release (DR/EC) 40 mg PO QAM isosorbide mononitrate 30 mg Tablet Extended Release 24 Hr 30 mg PO DAILY Held valacyclovir 1 gram tablet 1,000 mg PO TID Qty: 21 0RF Hold Instructions: Resume on 05/23/26. Reviewed with PCP before resuming Discontinued folic acid 1 mg tablet 1 mg PO DAILY Qty: 90 3RF levothyroxine [Synthroid] 100 mcg tablet 100 mcg PO DAILY Qty: 90 3RF Rx Instructions: replaces 112mcg dosage midodrine 10 mg tablet 10 mg PO TID Qty: 270 3RF Rx Instructions: do not give last dose of day after 6PM or within 4 hrs of bedtime cholecalciferol (vitamin D3) 50 mcg (2,000 unit) capsule 50 mcg PO DAILY sertraline 25 mg tablet 25 mg PO DAILY Qty: 90 0RF prednisone 20 mg tablet See Rx Instructions PO .COMPLEX PRN (Reason: joint pain flare) Qty: 30 1RF Rx Instructions: Take 2 tablets by mouth daily for up to 7 days as needed for arthritis flare. leflunomide 20 mg tablet 20 mg PO DAILY Qty: 30 5RF prednisone 10 mg tablet See Rx Instructions .Route .COMPLEX Qty: 60 1RF Rx Instructions: Take 4 tablets daily x3days, 3 tablets daily x3days, 2 tablets daily x3days, 1tablet daily x3days, then 0.5 tab daily x3days then stop. pregabalin [Lyrica] 75 mg capsule 75 mg PO BID Qty: 60 3RF methotrexate sodium 2.5 mg tablet See Rx Instructions .ROUTE .COMPLEX Rx Instructions: TAKE SIX TABLETS BY MOUTH ON THE same day ONCE a WEEK. buspirone 15 mg Tablet 15 mg PO BID duloxetine 60 mg Capsule,Delayed Release(Dr/Ec) 60 mg PO DAILY metoprolol succinate 25 mg Tablet Extended Release 24 Hr 12.5 mg PO DAILY Referrals: Gray Tucker MD [Physician, General Surgery] - 3 weeks Referral Note: Will need repeat scope - anemia Laurita Mary MD [Primary Care Provider, Family Practice] Daniel Fonseca MD [Physician, Wound Care] - 7-10 days Referral Note: Right chronic ischemic gangrene toes Patient Instructions: Coronary Angioplasty (DC), Opioid Safety, Post Angiogram Home Care Instructions, Patient Portal & Maria Isabel Instructions Discharge Attestations Time Spent in Discharge Care*: greater than 30 min Quality Metrics Clinical Quality Measures [ Acute Myocardial Infaction { Clinical Trial Participant: No; Contraindication to aspirin: None; Aspirin prescribed; Contraindication to statin: None; Statin prescribed;}. Cerebrovascular Accident { Contraindication to Antithrombotic: None; antithrombotic prescribed; Contraindication to Anticoagulation: Overlap treatment not indicated; Contraindication to Statin: None; Statin prescribed;}] Coding Level of Care Code 81458 Diagnoses Cardiac arrest due to underlying cardiac condition I46.2 Stenosis of superficial femoral artery I70.209 Peripheral arterial occlusive disease I77.9 Thrombocytopenia D69.6 Foot drop M21.379 Coronary artery disease I25.10 Aspiration pneumonia J69.0 Hypoglycemia E16.2 Transaminitis R74.01 SYBIL (acute kidney injury) N17.9 Anemia D64.9 Lumbar stenosis with neurogenic claudication M48.062 Nicotine dependence, cigarettes, with other nicotine-induced disorders F17.218 Episode of recurrent major depressive disorder, unspecified depression episode severity F33.9 Active/Remission status: currently active Depression Type: major depressive disorder Major depression episode severity: unspecified Major depression recurrence: recurrent Hypothyroidism (acquired) E03.9 Hyperlipidemia, unspecified hyperlipidemia type E78.5 Hyperlipidemia type: unspecified Degenerative joint disease (DJD) of lumbar spine M47.816
[2025-04-04] MEDS: magnesium sulfate premix 2 GM/50 ML PIGGYBACK IV (09:28)
--- NOTE | 2025-04-04 12:00 | PC.SOCIAL ---
IMM Update pg 2 of IMM Updated and reviewed w/ patient. Copy provided and copy dated, initialed and placed in chart.
--- NOTE | 2025-04-04 14:23 | PC.OT ---
OT TREATMENT HELD TODAY DUE TO SCHEDULED PATIENT D/C
--- NOTE | 2025-04-04 15:36 | PC.NURSE ---
pt has been accepted [facility] phoned to [facility]e [facility] to transport pt.report given.discharged at this time
== END 2025-04-04 15:53 | DRG 853 ==
LOC: ER 18:10 → ICU 18:19 → CSU 03-31 12:03
PROVIDERS: Family Medicine; Internal Medicine; Internal Medicine Cardiovascular Disease; Student in an Organized Health Care Education/Training Program; Admitting Provider Student in an Organized Health Care Education/Training Program; Emergency Provider Emergency Medicine; PCP Family Medicine; Visit Provider Registered Nurse
PROC: 027136Z Dilation of Coronary Artery, Two Arteries with Three Drug-eluting Intraluminal Devices, Percutaneous Approach (ICD-10-PCS; principal; 2025-03-19 19:00)
PROC: 027136Z Dilation of Coronary Artery, Two Arteries with Three Drug-eluting Intraluminal Devices, Percutaneous Approach (ICD-10-PCS; 2025-03-19 19:00)
PROC: 02HW3RZ Insertion of Short-term External Heart Assist System into Thoracic Aorta, Descending, Percutaneous Approach (ICD-10-PCS; principal; 2025-03-20 13:45)
PROC: 02PW3RZ Removal of Short-term External Heart Assist System from Thoracic Aorta, Descending, Percutaneous Approach (ICD-10-PCS; principal; 2025-03-22 12:00)
DX: A41.9 Sepsis, unspecified organism (principal); I21.3 ST elevation (STEMI) myocardial infarction of unspecified site; I49.01 Ventricular fibrillation; I46.2 Cardiac arrest due to underlying cardiac condition; R57.0 Cardiogenic shock; J69.0 Pneumonitis due to inhalation of food and vomit; N17.0 Acute kidney failure with tubular necrosis; I63.81 Other cerebral infarction due to occlusion or stenosis of small artery; K72.00 Acute and subacute hepatic failure without coma; J96.01 Acute respiratory failure with hypoxia; F33.9 Major depressive disorder, recurrent, unspecified; I50.20 Unspecified systolic (congestive) heart failure; G93.49 Other encephalopathy; E87.1 Hypo-osmolality and hyponatremia; E87.20 Acidosis, unspecified; I24.9 Acute ischemic heart disease, unspecified; I25.10 Atherosclerotic heart disease of native coronary artery without angina pectoris; I70.209 Unspecified atherosclerosis of native arteries of extremities, unspecified extremity; D69.6 Thrombocytopenia, unspecified; M21.379 Foot drop, unspecified foot; E16.2 Hypoglycemia, unspecified; R74.01 Elevation of levels of liver transaminase levels; D64.9 Anemia, unspecified; M48.062 Spinal stenosis, lumbar region with neurogenic claudication; Z66 Do not resuscitate; Z87.891 Personal history of nicotine dependence; E03.9 Hypothyroidism, unspecified; E78.5 Hyperlipidemia, unspecified; M51.369 Other intervertebral disc degeneration, lumbar region without mention of lumbar back pain or lower extremity pain; I11.0 Hypertensive heart disease with heart failure; R00.0 Tachycardia, unspecified; I45.10 Unspecified right bundle-branch block; Z86.73 Personal history of transient ischemic attack (TIA), and cerebral infarction without residual deficits; Z79.82 Long term (current) use of aspirin; Z79.02 Long term (current) use of antithrombotics/antiplatelets; I25.2 Old myocardial infarction; I48.91 Unspecified atrial fibrillation; W06.XXXA Fall from bed, initial encounter; Y92.230 Patient room in hospital as the place of occurrence of the external cause; R33.9 Retention of urine, unspecified; B95.61 Methicillin susceptible Staphylococcus aureus infection as the cause of diseases classified elsewhere; B96.5 Pseudomonas (aeruginosa) (mallei) (pseudomallei) as the cause of diseases classified elsewhere; E88.09 Other disorders of plasma-protein metabolism, not elsewhere classified; I25.5 Ischemic cardiomyopathy; R73.9 Hyperglycemia, unspecified; I95.9 Hypotension, unspecified; G62.9 Polyneuropathy, unspecified; F10.10 Alcohol abuse, uncomplicated; M06.042 Rheumatoid arthritis without rheumatoid factor, left hand; M06.041 Rheumatoid arthritis without rheumatoid factor, right hand; E55.9 Vitamin D deficiency, unspecified; F41.9 Anxiety disorder, unspecified
CPT/HCPCS: 31622; 33990; 33992; 36415; 36416; 36430; 36573; 36592; 36600; 51702; 70450; 70551; 71045; 72020; 74018; 76705; 80048; 80051; 80053; 80202; 81001; 82140; 82330; 82533; 82728; 82803; 82805; 82962; 83540; 83550; 83605; 83735; 83880; 84100; 84439; 84443; 84481; 84484; 85007; 85014; 85018; 85025; 85347; 85610; 85730; 86022; 86850; 86900; 86920; 87015; 87040; 87070; 87077; 87086; 87102; 87116; 87186; 87205; 87206; 87385; 87449; 87486; 87581; 87633; 87801; 89051; 92507; 92523; 92526; 92610; 92920; 93005; 93306; 93308; 93458; 93925; 93926; 93970; 93998; 94002; 94003; 94640; 94799; 96365; 96367; 96372; 96375; 97110; 97116; 97163; 97166; 97530; 97535; 99291; A4222; C1725; C1751; C1760; C1769; C1874; C1887; C1894; C9600; C9606; G0269; J0282; J0283; J0330; J0612; J0883; J1171; J1250; J1610; J1644; J1938; J2060; J2185; J2250; J2470; J2543; J2598; J2765; J3010; J3373; J3475; J3480; J3490; J7030; J7050; J7060; J7070; J7120; J7799; J9999; P9016; P9035; P9046; Q3014; Q9967